=== PATIENT | female | born 1935 | race Caucasian/White ===

== ENCOUNTER 2016-07-16 15:57 | Inpatient (IN) | payer OTHER, MEDICARE ==
--- NOTE | 2016-07-16 17:01 | PDOC ---
History of Present Illness - General History Source: Patient Exam Limitations: No Limitations - History of Present Illness Initial Comments: 07/16/16 17:50 Patient is an 81 year old female with a past medical history of DM, hemorrhoids , peripheral neuropathy, Hep C, HTN, HLD, minor stroke (04/2016) and hypothyroidism who presents to the emergency department with vaginal irritation. Patient denies any vaginal discharge or bleeding. Patient also reports rectal discomfort but denies any pain during bowel movements or bleeding. She denies dysuria, frequency, urgency, hesitancy or hematuria. She denies nausea, vomiting, diarrhea, constipation, abdominal pain, hematochezia or melena. <Juhi Haynes - Last Filed: 07/16/16 18:27> <Fransisco Perez - Last Filed: 08/14/16 10:10> - General Chief Complaint: Pain Stated Complaint: HEMORRHOIDS, LOWER PELVIC PAIN Time Seen by Provider: 07/16/16 16:06 Past History <Juhi Haynes - Last Filed: 07/16/16 18:27> - Past Medical History Anemia: No Asthma: No Cancer: No Cardiac Disorders: No CVA: Yes (TIA) COPD: No CHF: No Dementia: No Diabetes: Yes (IDDM) GI Disorders: No Disorders: No HTN: Yes Hypercholesterolemia: No Liver Disease: No Seizures: No Thyroid Disease: Yes - Surgical History Abdominal Surgery: No Appendectomy: No Cardiac Surgery: No Cholecystectomy: Yes Lung Surgery: No Neurologic Surgery: No Orthopedic Surgery: No - Psycho/Social/Smoking Cessation Hx Anxiety: No Suicidal Ideation: No Smoking Status: Yes Smoking History: Current every day smoker Have you smoked in the past 12 months: Yes Number of Cigarettes Smoked Daily: 20 Information on smoking cessation initiated: No 'Breaking Loose' booklet given: 05/04/16 Hx Alcohol Use: Yes (OCCASIONALLY) Drug/Substance Use Hx: No Substance Use Type: None Hx Substance Use Treatment: No <Fransisco Perez - Last Filed: 08/14/16 10:10> - Past Medical History Allergies/Adverse Reactions: Allergies Allergy/AdvReac Type Severity Reaction Status Date / Time No Known Allergies Allergy Verified 07/16/16 16:05 Home Medications: Ambulatory Orders Nifedipine [Nifedical Xl] 60 mg PO DAILY 05/04/16 Insulin (Levemir) [Levemir Vial] 20 units SQ AM #1 vial 05/08/16 Aspirin [Aspirin EC] 325 mg PO DAILY #30 tablet. 05/10/16 Atorvastatin Ca [Lipitor] 40 mg PO HS #30 tablet 05/10/16 Carvedilol [Coreg -] 12.5 mg PO BID #30 tablet 05/10/16 Meclizine HCl [Antivert -] 12.5 mg PO BID PRN #10 tablet 05/10/16 Lisinopril 10 mg PO DAILY 07/17/16 Levothyroxine [Synthroid -] 50 mcg PO DAILY@0700 #30 tablet 07/21/16 Review of Systems - Review of Systems Able to Perform ROS?: Yes Comments:: 07/16/16 17:51 GENERAL/CONSTITUTIONAL: No fever or chills. No weakness. HEAD, EYES, EARS, NOSE AND THROAT: No change in vision. No ear pain or discharge. No sore throat. CARDIOVASCULAR: No chest pain or shortness of breath. RESPIRATORY: No cough, wheezing, or hemoptysis. GASTROINTESTINAL: No nausea, vomiting, diarrhea or constipation. GENITOURINARY: +vaginal irritation. No dysuria, frequency, or change in urination. MUSCULOSKELETAL: No joint or muscle swelling or pain. No neck or back pain. SKIN: No rash NEUROLOGIC: No headache, vertigo, loss of consciousness, or change in strength/ sensation. ENDOCRINE: No increased thirst. No abnormal weight change. HEMATOLOGIC/LYMPHATIC: No anemia, easy bleeding, or history of blood clots. ALLERGIC/IMMUNOLOGIC: No hives or skin allergy. <Juhi Haynes - Last Filed: 07/16/16 18:27> *Physical Exam - Vital Signs Last Vital Signs Temp Pulse Resp BP Pulse Ox 97.5 F L 85 16 128/71 98 07/16/16 16:00 07/16/16 16:00 07/16/16 16:00 07/16/16 16:00 07/16/16 16:00 - Physical Exam Comments: 07/16/16 17:51 GENERAL: Awake, alert, and fully oriented, in no acute distress HEAD: No signs of trauma EYES: PERRLA, EOMI, sclera anicteric, conjunctiva clear ENT: Auricles normal inspection, hearing grossly normal, nares patent, oropharynx clear without exudates. Moist mucosa NECK: Normal ROM, supple, no lymphadenopathy, JVD, or masses LUNGS: Breath sounds equal, clear to auscultation bilaterally. No wheezes, and no crackles HEART: Regular rate and rhythm, normal S1 and S2, no murmurs, rubs or gallops ABDOMEN: Soft, nontender, normoactive bowel sounds. No guarding, no rebound. No masses EXTREMITIES: Normal range of motion, no edema. No clubbing or cyanosis. No cords, erythema, or tenderness NEUROLOGICAL: Cranial nerves II through XII grossly intact. Normal speech, normal gait SKIN: Warm, Dry, normal turgor, no rashes or lesions noted. <Juhi Haynes - Last Filed: 07/16/16 18:27> - Vital Signs Last Vital Signs Temp Pulse Resp BP Pulse Ox 97.5 F L 85 16 128/71 98 07/16/16 16:00 07/16/16 16:00 07/16/16 16:00 07/16/16 16:00 07/16/16 16:00 <Fransisco Perez - Last Filed: 08/14/16 10:10> ED Treatment Course - LABORATORY CBC & Chemistry Diagram: 07/20/16 06:50 07/20/16 06:50 <Fransisco Perez - Last Filed: 08/14/16 10:10> Medical Decision Making - Medical Decision Making 07/16/16 17:50 81 year old female with a past medical history of DM, hemorrhoids, peripheral neuropathy, Hep C, HTN, HLD, minor stroke (04/2016) and hypothyroidism who presents to the emergency department with vaginal irritation and rectal discomfort. Patient was examined in [facility] by a PA and upon pelvic/rectal exam was found to have a mass duration in perineal area and hemorrhoid. Patient denies any vaginal bleeding, vaginal discharge, rectal bleeding or rectal pain. Will order a CT for further evaluation of the mass. 07/16/16 18:28 As per patient and records from Dr. Mancia, of nephrology, patient cannot have contrast exposure. <Juhi Haynes - Last Filed: 07/16/16 18:27> *DC/Admit/Observation/Transfer - Attestations Scribe Attestion: 07/16/16 17:51 Documentation prepared by TREMAINE Wagoner, acting as medical collections specialist for Fransisco Perez MD/DO. <Juhi Haynes - Last Filed: 07/16/16 18:27> - Attestations Physician Attestion: 07/16/16 17:01 I, Dr. Fransisco Perez, attest that this document has been prepared under my direction and personally reviewed by me in its entirety. I further attest, that it accurately reflects all work, treatment, procedures and medical decision -making performed by me. <Fransisco Perez - Last Filed: 08/14/16 10:10> Diagnosis at time of Disposition: Perianal abscess - Discharge Dispostion Disposition: VNS/HOME HEALTH CARE Condition at time of disposition: Stable - Prescriptions - Referrals
[2016-07-16 19:35] LABS: BASOPHIL 0.5 % (0-2.0); EOSINOPHIL 1.2 % (0-4.5); MCH 29.3 pg (25.7-33.7); MCHC 33.6 g/dl (32.0-36.0); NEUTROPHILS 71.7 % (42.8-82.8); PLATELET COUNT 270 K/MM3 (134-434); RDW 16.5 % (11.6-15.6); WHITE BLOOD COUNT 16.3 K/mm3 (4.0-10.0)
[2016-07-16 19:56] LABS: BILIRUBIN,TOTAL 0.3 mg/dL (0.2-1.0); CALCIUM 8.4 mg/dL (8.5-10.1); CREATININE 1.9 mg/dL (0.55-1.02); TOT PROT 7.1 g/dl (6.4-8.2)
[2016-07-16 23:25] LABS: URINE APPEARANCE SLCLOUDY; URINE BILIRUBIN NEGATIVE (NEGATIVE); URINE BLOOD NEGATIVE (NEGATIVE); URINE COLOR LTYELLOW; URINE GLUCOSE (UA) 1+ (NEGATIVE); URINE KETONE NEGATIVE (NEGATIVE); URINE LEUK ESTERASE NEGATIVE (NEGATIVE); URINE NITRITE NEGATIVE (NEGATIVE); URINE UROBILINOGEN NEGATIVE E.U./dl (0.2-1.0)
[2016-07-16 23:28] LABS: URINE PROTEIN 3+ (NEGATIVE)
[2016-07-16 23:47] LABS: URINE BACTERIA RARE /hpf (NONE SEEN); URINE MUCUS RARE; URINE RBC 1 /hpf (0-3); URINE WBC 4 /hpf (3-5); YEAST RARE
[2016-07-16] MEDS ORDERED: METRONIDAZOLE 500 MG PREMIXED 100 ML IVPB ONE (23:47)
[2016-07-16] MEDS ORDERED: PIPERACILLIN/TAZOB 4.5 GM 4.5 GM in DEXTROSE 5%-WATER - 100 ML IVPB ONE (23:47)
[2016-07-17] MEDS ORDERED: PIPERACILLIN/TAZOB 4.5 GM 100 ML IVPB ONE (00:12)
--- NOTE | 2016-07-17 00:15 | PDOC ---
*Physical Exam - Vital Signs Last Vital Signs Temp Pulse Resp BP Pulse Ox 97.9 F 75 20 150/60 99 07/16/16 23:30 07/16/16 23:30 07/16/16 23:30 07/16/16 23:30 07/16/16 23:30 ED Treatment Course - LABORATORY CBC & Chemistry Diagram: 07/16/16 19:15 07/16/16 19:15 - ADDITIONAL ORDERS Additional order review: Laboratory Results 07/16/16 07/16/16 19:15 18:57 Sodium 144 Potassium 3.7 Chloride 111 H Carbon Dioxide 24 Anion Gap 9 BUN 25 H D Creatinine 1.9 H Creat Clearance w eGFR 25.44 Random Glucose 82 D Calcium 8.4 L Total Bilirubin 0.3 D AST 16 ALT 24 Alkaline Phosphatase 70 D Total Protein 7.1 Albumin 3.0 L Urine Color Ltyellow Urine Appearance Slcloudy Urine pH 5.0 Ur Specific [place] 1.013 Urine Protein 3+ H Urine Glucose (UA) 1+ H Urine Ketones Negative Urine Blood Negative Urine Nitrite Negative Urine Bilirubin Negative Urine Urobilinogen Negative Ur Leukocyte Esterase Negative Urine RBC 1 Urine WBC 4 Ur Epithelial Cells Rare Urine Bacteria Rare Urine Mucus Rare Urine Yeast Rare 07/16/16 19:15 RBC 4.07 MCV 87.0 MCHC 33.6 RDW 16.5 H MPV 8.0 Neutrophils % 71.7 Lymphocytes % 20.0 D Monocytes % 6.6 Eosinophils % 1.2 Basophils % 0.5 *DC/Admit/Observation/Transfer Diagnosis at time of Disposition: Perianal abscess - Discharge Dispostion Condition at time of disposition: Stable Admit: Yes - Referrals Referrals: Home Morin MD [Primary Care Provider] - - Patient Instructions - Post Discharge Activity
[2016-07-17] MEDS ORDERED: METRONIDAZOLE 500 MG PREMIXED 100 ML IVPB ONE (00:44)
[2016-07-17] MEDS ORDERED: MECLIZINE HCL 12.5 MG TABLET PO PRN ×2 (06:37→21:15)
[2016-07-17] MEDS ORDERED: ACETAMINOPHEN 325 MG TABLET (FP) PO PRN ×3 (06:38→21:15)
[2016-07-17] MEDS ORDERED: DEXTROSE 5%-NORMAL SALINE 1,000 ML IV SCH (06:45)
[2016-07-17] MEDS ORDERED: LEVOTHYROXINE NA 25 MCG TABLET (FP) PO SCH (07:00)
[2016-07-17] MEDS ORDERED: NIFEdipine E.R 60 MG TABLET (UD) PO SCH (10:00)
[2016-07-17] MEDS ORDERED: CARVEDILOL 12.5 MG TABLET (FP) PO SCH (10:00)
--- NOTE | 2016-07-17 12:42 | HP ---
Admitting History and Physical - Primary Care Physician PCP: Home Morin - Admission Chief Complaint: perianal discomfort History of Present Illness: Patient is an 81 year old female with a past medical history of DM, hemorrhoids , peripheral neuropathy, Hep C, HTN, HLD, h/o cerebellar infarct on asa 325mg and hypothyroidism who presents to the emergency department with vaginal irritation. Patient denies any vaginal discharge or bleeding. Patient also reports rectal discomfort but denies any pain during bowel movements or bleeding. She denies dysuria, frequency, urgency, hesitancy or hematuria. She denies nausea, vomiting, diarrhea, constipation, abdominal pain, hematochezia or melena. ct scan done in ER shows 1.8mm perianal abscess labs show leukocytosis 16.5 got zosyn and flagyl in ER is NPO going to ER today History Source: Patient, Medical Record - Past Medical History CAN CLEANER: Yes: Peripheral Neuropathy Cardiovascular: Yes: HTN, Hyperlipdemia Gastrointestinal: Yes: Constipation Hepatobiliary: Yes: Hepatitis C Endocrine: Yes: Diabetes Mellitus, Hypothyroidism - Smoking History Smoking history: Current every day smoker Have you smoked in the past 12 months: Yes Aproximately how many cigarettes per day: 20 - Alcohol/Substance Use Hx Alcohol Use: Yes (OCCASIONALLY) Home Medications - Allergies Allergies/Adverse Reactions: Allergies Allergy/AdvReac Type Severity Reaction Status Date / Time No Known Allergies Allergy Verified 07/16/16 16:05 - Home Medications Home Medications: Ambulatory Orders Nifedipine [Nifedical Xl] 60 mg PO DAILY 05/04/16 Insulin (Levemir) [Levemir Vial] 20 units SQ AM #1 vial 05/08/16 Levothyroxine [Synthroid -] 37.5 mcg PO ACBK #30 tablet 05/08/16 Aspirin [Aspirin EC] 325 mg PO DAILY #30 tablet. 05/10/16 Atorvastatin Ca [Lipitor] 40 mg PO HS #30 tablet 05/10/16 Carvedilol [Coreg -] 12.5 mg PO BID #30 tablet 05/10/16 Meclizine HCl [Antivert -] 12.5 mg PO BID PRN #10 tablet 05/10/16 Review of Systems - Review of Systems Genitourinary: reports: Lesions (complaining of perianal discomfort) Physical Examination Vital Signs: Vital Signs Temperature 98.4 F 07/17/16 03:45 Pulse Rate 78 07/17/16 03:45 Respiratory Rate 20 07/17/16 09:00 Blood Pressure 142/64 07/17/16 03:45 O2 Sat by Pulse Oximetry (%) 99 07/17/16 09:00 Constitutional: Yes: Calm Neck: Yes: Trachea Midline Cardiovascular: Yes: Regular Rate and Rhythm, S1, S2 Respiratory: Yes: CTA Bilaterally Gastrointestinal: Yes: Normal Bowel Sounds, Soft Edema: No Neurological: Yes: Alert, Oriented Imaging - Results Cat Scan: Report Reviewed (perianal soft tissue swelling perianal abscess) Problem List - Problems (1) Perianal abscess Assessment/Plan: NPO iv fluids going to OR today surgery on board iv abx scd Code(s): K61.0 - ANAL ABSCESS (2) HTN (hypertension) Assessment/Plan: coreg procardia Code(s): I10 - ESSENTIAL (PRIMARY) HYPERTENSION (3) Hypothyroid Assessment/Plan: synthroid check tsh Code(s): E03.9 - HYPOTHYROIDISM, UNSPECIFIED (4) CVA (cerebral vascular accident) Assessment/Plan: h/o cerebellar infarct on asa 325mg on hold for OR today meclizine PRN cotniue statin Code(s): I63.9 - CEREBRAL INFARCTION, UNSPECIFIED (5) Renal insufficiency Assessment/Plan: renal consult fluids Code(s): N28.9 - DISORDER OF KIDNEY AND URETER, UNSPECIFIED (6) Type 2 diabetes mellitus with other diabetic kidney complication Assessment/Plan: bgm ac/hs sliding scale levemir once she resumes diet hga1c Code(s): E11.29 - TYPE 2 DIABETES MELLITUS W OTH DIABETIC KIDNEY COMPLICATION
[2016-07-17] MEDS ORDERED: PIPERACILLIN/TAZOB 3.375 GM 50 ML IVPB ONE (13:30)
[2016-07-17] MEDS ORDERED: cefTRIAXone 2 GM/100 ML BAG (PRE-DOCKED) IVPB SCH (14:00)
[2016-07-17] MEDS ORDERED: cefTRIAXone 1 GM/50 ML BAG (PRE-DOCKED) IVPB SCH (14:00)
--- NOTE | 2016-07-17 14:01 | PN ---
Progress Note (short form) - Note Progress Note: ID consult dictated imp/reccd 81 year old female admitted with perianal discomfort- no fevers she c/o of hermorrhoidal discomfort +BM ct scan with perianal abscess elevated WBC perianal abscess- rocephin/flagyl for OR drainage today Problem List - Problems (1) Perianal abscess Code(s): K61.0 - ANAL ABSCESS
[2016-07-17 14:20] VITALS: BMI 21.8
--- NOTE | 2016-07-17 15:05 | CONS ---
INFECTIOUS DISEASE DATE OF CONSULTATION: 07/17/2016 REQUESTING PHYSICIAN: This 81-year-old female presents with some rectal discomfort which she attributes to her hemorrhoids. She denies constipation. She is able to have a bowel movement. She has no fevers or chills. She was noted to have some fluctuance on perineal exam. She had a CAT scan done in the ER that shows a 1.8-cm perianal abscess. She is scheduled for operative drainage later today. I am asked to see her for antibiotic recommendation. She had a dose of Zosyn in the emergency room. She is otherwise awake and alert, and she is resting comfortably. Her white count in the emergency room was 16.5. PAST MEDICAL HISTORY: Notable for peripheral neuropathy, hypertension, hyperlipidemia, constipation, hepatitis C, diabetes, hypothyroidism. She was recently hospitalized in April of this year for ataxia. ALLERGIES: She has no known drug allergies. MEDICATIONS: As an outpatient include nifedipine, meclizine, Synthroid, insulin , Coreg, atorvastatin, and aspirin. FAMILY HISTORY: Noncontributory. SOCIAL HISTORY: She is an active smoker and drinks alcohol occasionally. REVIEW OF SYSTEMS: She denies any nausea, vomiting, diarrhea. She is able to have bowel movements. She has no fevers or chills. She has no cough or respiratory distress. She has no shortness of breath. There is no chest pain or abdominal pain. PHYSICAL EXAMINATION: Vital Signs: Temperature is 98.4, pulse is 78, blood pressure 142/64, respiratory rate is 20. She is saturating 99%. HEENT: She is normocephalic. Her eyes are anicteric. Neck: Supple. Lungs: Clear to auscultation. Heart: Regular rate and rhythm. Abdomen: Soft, nontender. Perirectal Area: She has some hemorrhoids which are soft. She has a fluctuant, about a 1.5-cm area with some drainage. Extremities: Without edema. LABORATORY DATA: White count is 16.3, hemoglobin 11.9, platelets are 270. BUN is 25 and creatinine 1.9. Urinalysis has 4 white cells. SUMMARY: This is an 81-year-old woman admitted with perineal discomfort, found to have perianal abscess and treated with Rocephin and Flagyl. She is scheduled for operative drainage later today. Further recommendations to follow based on her clinical course. LAURA LAM M.D. [id number] MTDD
[2016-07-17] MEDS: METRONIDAZOLE 500 MG PREMIXED 100 ML IVPB SCH ×2 (15:52→17:43)
[2016-07-17] MEDS ORDERED: INSULIN SLIDING SCALE (NOVOLOG) 1 VIAL SQ SCH (16:30)
[2016-07-17] MEDS ORDERED: CARVEDILOL 12.5 MG TABLET (FP) PO STA (17:27)
[2016-07-17] MEDS ORDERED: NIFEdipine E.R 60 MG TABLET (UD) PO STA (17:27)
--- NOTE | 2016-07-17 18:54 | CONSULT ---
Consult Consult Specialty:: Surgery Referred by:: Danna Reason for Consultation:: Rectal pain and discomfort - History of Present Illness Chief Complaint: Rectal pain and discomfort x 3 days. 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: Peripheral Neuropathy Cardio/Vascular: Yes: HTN, Hyperlipdemia Gastrointestinal: Yes: Constipation Hepatobiliary: Yes: Hepatitis C Endocrine: Yes: Diabetes Mellitus, Hypothyroidism - Past Surgical History Past Surgical History: Yes: Tonsillectomy, Upper Endoscopy, Vein Stripping/ Ligation (Thyroidectomy,) - Alcohol/Substance Use Hx Alcohol Use: Yes (OCCASIONALLY) - Smoking History Smoking history: Current every day smoker Have you smoked in the past 12 months: Yes Aproximately how many cigarettes per day: 20 Home Medications - Allergies Allergies/Adverse Reactions: Allergies Allergy/AdvReac Type Severity Reaction Status Date / Time No Known Allergies Allergy Verified 07/16/16 16:05 - Home Medications Home Medications: Ambulatory Orders Nifedipine [Nifedical Xl] 60 mg PO DAILY 05/04/16 Insulin (Levemir) [Levemir Vial] 20 units SQ AM #1 vial 05/08/16 Levothyroxine [Synthroid -] 37.5 mcg PO ACBK #30 tablet 05/08/16 Aspirin [Aspirin EC] 325 mg PO DAILY #30 tablet.dr 05/10/16 Atorvastatin Ca [Lipitor] 40 mg PO HS #30 tablet 05/10/16 Carvedilol [Coreg -] 12.5 mg PO BID #30 tablet 05/10/16 Meclizine HCl [Antivert -] 12.5 mg PO BID PRN #10 tablet 05/10/16 Lisinopril 10 mg PO DAILY 07/17/16 Physical Exam Vital Signs: Vital Signs Temperature 98.4 F 07/17/16 17:15 Pulse Rate 81 07/17/16 17:15 Respiratory Rate 18 07/17/16 17:15 Blood Pressure 183/80 07/17/16 17:15 O2 Sat by Pulse Oximetry (%) 97 07/17/16 11:00 Gastrointestinal: Yes: Other (Pin on rectal examination with induration.) Imaging - Results Cat Scan: Report Reviewed, Image Reviewed Problem List - Problems (1) Digna-rectal abscess Code(s): K61.1 - RECTAL ABSCESS (2) HTN (hypertension) Code(s): I10 - ESSENTIAL (PRIMARY) HYPERTENSION Qualifiers: Hypertension type: essential hypertension Qualified Code(s): I10 - Essential (primary) hypertension (3) Hepatitis C Code(s): B19.20 - UNSPECIFIED VIRAL HEPATITIS C WITHOUT HEPATIC COMA Qualifiers: Viral hepatitis chronicity: chronic (4) Hypothyroid Code(s): E03.9 - HYPOTHYROIDISM, UNSPECIFIED Qualifiers: Hypothyroidism type: acquired Qualified Code(s): E03.9 - Hypothyroidism, unspecified Assessment/Plan Perirectal abscess. Plan Examination under anesthesia, incision and drainage of perirectal abscess.
[2016-07-17] MEDS ORDERED: MIDAZOLAM HCL 2 MG/2 ML SINGLE DOSE VIAL ONE (19:28)
[2016-07-17] MEDS ORDERED: PROPOFOL 20 ML ONE (19:33)
--- NOTE | 2016-07-17 20:01 | OP ---
Operative Note - Note: Operative Date: 07/17/16 Pre-Operative Diagnosis: Perirectal and perianal abscess. Operation: Examination under anesthesia,. Incision and drainage of perianal and perirectal abscess. Findings: Induration , and purulent draining sinus, at 11 O'clock position anterior to the anus, between the vagina and the rectum. Abscess, ? anal fistula. Post-Operative Diagnosis: Same as Pre-op Surgeon: Jignesh Hawthorne Anesthesia: General Specimens Removed: Pus for culture Estimated Blood Loss (mls): 10 Operative Report Dictated: Yes
[2016-07-17] MEDS ORDERED: ONDANSETRON 4 MG/2 ML VIAL IVPUSH PRN (20:09)
[2016-07-17] MEDS ORDERED: OXYCODONE/APAP 5/325MG COMBO TABLET PO PRN (20:11)
[2016-07-17] MEDS ORDERED: INSULIN DETEMIR 100 UNITS/ML MDV SQ SCH (22:00)
[2016-07-17] MEDS ORDERED: ATORVASTATIN CA 40 MG TABLET (FP) PO SCH (22:00)
[2016-07-17] MEDS: oxyCODONE HCL 5 MG TABLET PO PRN (22:05)
[2016-07-17] MEDS: INSULIN SLIDING SCALE (NOVOLOG) 1 VIAL SQ SCH (22:10)
[2016-07-17] MEDS: LACTATED RINGERS SOLUTION 1,000 ML IV SCH (22:10)
--- NOTE | 2016-07-17 23:23 | OP ---
DATE OF OPERATION: 07/17/2016 TIME OF OPERATION: 8:05 p.m. PREOPERATIVE DIAGNOSIS: Perirectal and perianal abscess, and perineal and perianal pain. POSTOPERATIVE DIAGNOSIS: Perirectal and perianal abscess/fistula and perineal and perianal pain. OPERATIVE PROCEDURE: Examination under general anesthesia including pelvic examination, incision and drainage of perianal and perirectal abscess, with irrigation. SURGEON: Mike Smith M.D. ANESTHESIA: General anesthesia. ANESTHESIOLOGIST: Stephen Tariq M.D. OPERATIVE DESCRIPTION: This 81-year-old woman was admitted with pain in her perirectal and perineal area. Had white count of 16,300. She has history of hepatitis C, diabetes mellitus, hypertension. CAT scan suggested a perianal and perirectal abscess. Patient was brought in for examination under anesthesia and drainage of the abscess. Consent is obtained. Risks, benefits, and alternatives were discussed with the patient. Patient was brought to the operative room. General anesthesia was administered. She was placed in lithotomy position. A pelvic examination was done under anesthesia. There was induration of the skin between the vagina and the anal canal at 11 o'clock position with purulent drainage from the skin. Swab was sent for culture and antibiotic sensitivity examination. The rest of the pelvic organs including perineum and rectum, was soft without any induration or bogginess. The skin was incised with a number 15 blade, overlying the sinus and pus was evacuated and drained, it was also sent for culture. There was a brown cheesy material that was also excised and sent for culture. The area was then irrigated with saline and packed with iodoform gauze. The rest of the examination is normal. Patient had been on antibiotics, which will be continued postoperatively. MIKE SMITH M.D. [id number] cc: Eros Clay M.D. cc: Amol Kimball
[2016-07-18] MEDS: METRONIDAZOLE 500 MG PREMIXED 100 ML IVPB SCH ×3 (01:33→17:18)
[2016-07-18] MEDS: INSULIN SLIDING SCALE (NOVOLOG) 1 VIAL SQ SCH ×4 (06:03→21:22)
[2016-07-18] MEDS: LEVOTHYROXINE NA 25 MCG TABLET (FP) PO SCH (06:06)
[2016-07-18] MEDS: INSULIN DETEMIR 100 UNITS/ML MDV SQ SCH (06:07)
[2016-07-18] MEDS ORDERED: INSULIN DETEMIR 100 UNITS/ML MDV SQ SCH (07:00)
--- NOTE | 2016-07-18 07:33 | PN ---
Progress Note, Physician History of Present Illness: s/p i&d of abscess - Current Medication List Current Medications: Active Medications Acetaminophen (Tylenol -) 325 mg PO Q6H PRN PRN Reason: PAIN Acetaminophen (Tylenol -) 650 mg PO Q6H PRN PRN Reason: FEVER OR PAIN Last Admin: 07/17/16 22:05 Dose: 650 mg Ceftriaxone Sodium (Rocephin 1gm Ivpb (Pre-Docked)) 1 gm IVPB DAILY [facility] PRN Reason: Protocol Lactated Ringer's (Lactated Ringers Solution) 1,000 mls @ 75 mls/hr IV ASDIR [facility] Last Admin: 07/17/16 22:10 Dose: Not Given Metronidazole (Flagyl 500mg Premixed Ivpb -) 100 mls @ 100 mls/hr IVPB Q8H-IV [facility] Last Admin: 07/18/16 01:33 Dose: 100 mls/hr Insulin Aspart (Novolog Vial Sliding Scale -) 1 vial SQ ACHS [facility] PRN Reason: Protocol Last Admin: 07/18/16 06:03 Dose: Not Given Insulin Detemir (Levemir Vial) 20 units SQ AM [facility] Last Admin: 07/18/16 06:07 Dose: 20 unit Levothyroxine Sodium (Synthroid -) 37.5 mcg PO DAILY@0700 [facility] Last Admin: 07/18/16 06:06 Dose: 37.5 mcg Meclizine HCl (Antivert -) 12.5 mg PO BID PRN PRN Reason: VERTIGO Nifedipine (Procardia Xl -) 60 mg PO DAILY [facility] Oxycodone HCl (Roxicodone -) 5 mg PO Q6H PRN PRN Reason: PAIN SCALE 1-5 Last Admin: 07/17/16 22:05 Dose: 5 mg - Objective Vital Signs: Vital Signs Temperature 98.3 F 07/18/16 06:28 Pulse Rate 79 07/18/16 06:28 Respiratory Rate 18 07/18/16 06:28 Blood Pressure 155/71 07/18/16 06:28 O2 Sat by Pulse Oximetry (%) 98 07/17/16 21:15 Cardiovascular: Yes: Regular Rate and Rhythm Respiratory: Yes: Regular, CTA Bilaterally Gastrointestinal: Yes: Normal Bowel Sounds, Soft. No: Tenderness Assessment/Plan Problems (1) Perianal abscess Assessment/Plan: s/p I&D surgery on board iv abx scd Code(s): K61.0 - ANAL ABSCESS (2) HTN (hypertension) Assessment/Plan: coreg procardia Code(s): I10 - ESSENTIAL (PRIMARY) HYPERTENSION (3) Hypothyroid Assessment/Plan: synthroid check tsh Code(s): E03.9 - HYPOTHYROIDISM, UNSPECIFIED (4) CVA (cerebral vascular accident) Assessment/Plan: h/o cerebellar infarct on asa 325mg on hold for OR today meclizine PRN continue statin Code(s): I63.9 - CEREBRAL INFARCTION, UNSPECIFIED (5) Renal insufficiency Assessment/Plan: renal consult fluids Code(s): N28.9 - DISORDER OF KIDNEY AND URETER, UNSPECIFIED (6) Type 2 diabetes mellitus with other diabetic kidney complication Assessment/Plan: bgm ac/hs sliding scale levemir once she resumes diet hga1c Code(s): E11.29 - TYPE 2 DIABETES MELLITUS W OTH DIABETIC KIDNEY COMPLICATION
[2016-07-18 07:54] LABS: BASOPHIL 0.5 % (0-2.0); EOSINOPHIL 1.9 % (0-4.5); MCH 28.9 pg (25.7-33.7); MCHC 32.7 g/dl (32.0-36.0); MEAN CELL VOLUME 88.5 fl (80-96); MEAN PLT VOLUME 8.6 fl (7.5-11.1); NEUTROPHILS 63.9 % (42.8-82.8); PLATELET COUNT 269 K/MM3 (134-434); RDW 16.5 % (11.6-15.6); WHITE BLOOD COUNT 13.7 K/mm3 (4.0-10.0)
[2016-07-18 08:09] LABS: CHOLESTEROL 199 mg/dL (50-200); LDL CHOLESTEROL (ONLY SJRH) 121 mg/dL (5-100)
[2016-07-18 08:10] LABS: ALBUMIN 2.7 g/dl (3.4-5.0); CALCIUM 8.2 mg/dL (8.5-10.1); MAGNESIUM 2.2 mg/dL (1.8-2.4)
[2016-07-18 08:22] LABS: BILIRUBIN,TOTAL 0.2 mg/dL (0.2-1.0); CREATININE 1.9 mg/dL (0.55-1.02); PHOSPHOROUS 3.9 mg/dL (2.5-4.9); THYROID STIMULATING HORMONE 4.09 uIU/ml (0.358-3.74); TOT PROT 6.3 g/dl (6.4-8.2)
--- NOTE | 2016-07-18 08:27 | PN ---
Progress Note, Physician Chief Complaint: Pt. pain controlled, no anesthesia complaints. - Current Medication List Current Medications: Active Medications Acetaminophen (Tylenol -) 325 mg PO Q6H PRN PRN Reason: PAIN Acetaminophen (Tylenol -) 650 mg PO Q6H PRN PRN Reason: FEVER OR PAIN Last Admin: 07/17/16 22:05 Dose: 650 mg Ceftriaxone Sodium (Rocephin 1gm Ivpb (Pre-Docked)) 1 gm IVPB DAILY [facility] PRN Reason: Protocol Lactated Ringer's (Lactated Ringers Solution) 1,000 mls @ 75 mls/hr IV ASDIR [facility] Last Admin: 07/17/16 22:10 Dose: Not Given Metronidazole (Flagyl 500mg Premixed Ivpb -) 100 mls @ 100 mls/hr IVPB Q8H-IV [facility] Last Admin: 07/18/16 01:33 Dose: 100 mls/hr Insulin Aspart (Novolog Vial Sliding Scale -) 1 vial SQ ACHS [facility] PRN Reason: Protocol Last Admin: 07/18/16 06:03 Dose: Not Given Insulin Detemir (Levemir Vial) 20 units SQ AM [facility] Last Admin: 07/18/16 06:07 Dose: 20 unit Levothyroxine Sodium (Synthroid -) 37.5 mcg PO DAILY@0700 [facility] Last Admin: 07/18/16 06:06 Dose: 37.5 mcg Meclizine HCl (Antivert -) 12.5 mg PO BID PRN PRN Reason: VERTIGO Nifedipine (Procardia Xl -) 60 mg PO DAILY [facility] Oxycodone HCl (Roxicodone -) 5 mg PO Q6H PRN PRN Reason: PAIN SCALE 1-5 Last Admin: 07/17/16 22:05 Dose: 5 mg - Objective Vital Signs: Vital Signs Temperature 98.3 F 07/18/16 06:28 Pulse Rate 79 07/18/16 06:28 Respiratory Rate 18 07/18/16 06:28 Blood Pressure 155/71 07/18/16 06:28 O2 Sat by Pulse Oximetry (%) 98 07/17/16 21:15 Constitutional: Yes: Well Nourished, No Distress, Calm Musculoskeletal: Yes: WNL Neurological: Yes: WNL, Alert, Oriented Labs: CBC, BMP 07/18/16 06:00 Assessment/Plan POD#1 s/p I&D perirectal abscess under [place]. Christie escobedo. D/C from anesthesia care.
[2016-07-18] MEDS: cefTRIAXone 1 GM/50 ML BAG (PRE-DOCKED) IVPB SCH (10:00)
[2016-07-18] MEDS: NIFEdipine E.R 60 MG TABLET (UD) PO SCH (10:00)
[2016-07-18] MEDS ORDERED: LOPERAMIDE HCL 2 MG CAPSULE PO PRN (12:00)
--- NOTE | 2016-07-18 12:40 | CONSULT ---
Consult - text type - Consultation Consultation Note: Renal Consult for CKD Stage 4 This is a 81 year old woman with PMhx of CKD Stage 4 (baseline Cr 1.8, eGFR ~25) , IDDM (x 60 years), Hypertension, Arthritis, Hypothyrodism, Hep C s/p treatment who presented with discomfort in the vaginal and found to have perirectal abcess with Cr of 1.9. Pt s/p Incision and drainage of perianal and perirectal abscess. Pt continues to have mild discomfort in the groin. No sob, chest pain, fever, chills, N/V/D. Tolerating oral diet well. Good urine output. PMhx: as above Allergies: NDKA Family hx: NC Social hx: No T/A/D ROS: as per HPI, all other pertinent ros negative Home Meds: Home Medications Medication Instructions Recorded Nifedipine [Nifedical Xl] 60 mg PO DAILY 05/04/16 Insulin (Levemir) [Levemir Vial] 20 units SQ AM #1 vial 05/08/16 Levothyroxine [Synthroid -] 37.5 mcg PO ACBK #30 tablet 05/08/16 Aspirin [Aspirin EC] 325 mg PO DAILY #30 tablet. 05/10/16 Atorvastatin Ca [Lipitor] 40 mg PO HS #30 tablet 05/10/16 Carvedilol [Coreg -] 12.5 mg PO BID #30 tablet 05/10/16 Meclizine HCl [Antivert -] 12.5 mg PO BID PRN #10 tablet 05/10/16 Lisinopril 10 mg PO DAILY 07/17/16 Vital Signs Temperature 98.1 F 07/18/16 09:59 Pulse Rate 82 07/18/16 09:59 Respiratory Rate 18 07/18/16 09:59 Blood Pressure 162/74 07/18/16 09:59 O2 Sat by Pulse Oximetry (%) 98 07/17/16 21:15 Intake & Output 07/15/16 07/16/16 07/17/16 07/18/16 23:59 23:59 23:59 23:59 Intake Total 825 50 Output Total 0 Balance 825 50 Weight 127 lb 122 lb 8 oz Gen: NAD, awake and alert HEENT: NC/AT, MMM, No JVD CVS: RRR, No M/R Lungs: CTA, no rales or wheeze Abd: soft NT/ND Ext: No edema, clubbing or cyanosis : No bladder distension CBC, BMP 07/18/16 06:00 07/18/16 06:00 Current Medications Acetaminophen (Tylenol -) 325 mg PO Q6H PRN PRN Reason: PAIN Acetaminophen (Tylenol -) 650 mg PO Q6H PRN PRN Reason: FEVER OR PAIN Last Admin: 07/17/16 22:05 Dose: 650 mg Carvedilol (Coreg -) 12.5 mg PO BID [facility] Ceftriaxone Sodium (Rocephin 1gm Ivpb (Pre-Docked)) 1 gm IVPB DAILY [facility] PRN Reason: Protocol Last Admin: 07/18/16 10:00 Dose: 1 gm Lactated Ringer's (Lactated Ringers Solution) 1,000 mls @ 75 mls/hr IV ASDIR [facility] Last Admin: 07/17/16 22:10 Dose: Not Given Metronidazole (Flagyl 500mg Premixed Ivpb -) 100 mls @ 100 mls/hr IVPB Q8H-IV [facility] Last Admin: 07/18/16 10:00 Dose: 100 mls/hr Insulin Aspart (Novolog Vial Sliding Scale -) 1 vial SQ ACHS [facility] PRN Reason: Protocol Last Admin: 07/18/16 11:44 Dose: 2 unit Insulin Detemir (Levemir Vial) 20 units SQ AM [facility] Last Admin: 07/18/16 06:07 Dose: 20 unit Levothyroxine Sodium (Synthroid -) 37.5 mcg PO DAILY@0700 [facility] Last Admin: 07/18/16 06:06 Dose: 37.5 mcg Loperamide HCl (Imodium -) 2 mg PO TID PRN PRN Reason: DIARRHEA Meclizine HCl (Antivert -) 12.5 mg PO BID PRN PRN Reason: VERTIGO Nifedipine (Procardia Xl -) 60 mg PO DAILY [facility] Last Admin: 07/18/16 10:00 Dose: 60 mg Oxycodone HCl (Roxicodone -) 5 mg PO Q6H PRN PRN Reason: PAIN SCALE 1-5 Last Admin: 07/17/16 22:05 Dose: 5 mg A/P 81 year old woman with PMhx of CKD Stage 4 (baseline Cr 1.8, eGFR ~25), IDDM (x 60 years), Hypertension, Arthritis, Hypothyrodism, Hep C s/p treatment who presented with discomfort in the vaginal and found to have perirectal abcess with Cr of 1.9 #CKD Stage 4 with nephrotic range proteinuria Renal function stable Serologic work up for proteinuria in the past showed negative BILLY, HIV, Hepatitis B, RPR Check SPEP Continue Lisinopril Check UPCR #Perrectal Abcess s/p I&D Surgical follow up pain control Abx as per primary #Hypertension Continue Coreg, Nifedpine and Lisopril Titrate as needed Goal BP ~130/80 because of CKD with proteinuria #Hypernatremia encourged oral water intake not on diuretics Thank you Will follow Levy Mancia DO
--- NOTE | 2016-07-18 13:15 | PN ---
Progress Note, Physician - Current Medication List Current Medications: Active Medications Acetaminophen (Tylenol -) 325 mg PO Q6H PRN PRN Reason: PAIN Acetaminophen (Tylenol -) 650 mg PO Q6H PRN PRN Reason: FEVER OR PAIN Last Admin: 07/17/16 22:05 Dose: 650 mg Carvedilol (Coreg -) 12.5 mg PO BID [facility] Ceftriaxone Sodium (Rocephin 1gm Ivpb (Pre-Docked)) 1 gm IVPB DAILY [facility] PRN Reason: Protocol Last Admin: 07/18/16 10:00 Dose: 1 gm Lactated Ringer's (Lactated Ringers Solution) 1,000 mls @ 75 mls/hr IV ASDIR [facility] Last Admin: 07/17/16 22:10 Dose: Not Given Metronidazole (Flagyl 500mg Premixed Ivpb -) 100 mls @ 100 mls/hr IVPB Q8H-IV [facility] Last Admin: 07/18/16 10:00 Dose: 100 mls/hr Insulin Aspart (Novolog Vial Sliding Scale -) 1 vial SQ ACHS [facility] PRN Reason: Protocol Last Admin: 07/18/16 11:44 Dose: 2 unit Insulin Detemir (Levemir Vial) 20 units SQ AM [facility] Last Admin: 07/18/16 06:07 Dose: 20 unit Levothyroxine Sodium (Synthroid -) 37.5 mcg PO DAILY@0700 [facility] Last Admin: 07/18/16 06:06 Dose: 37.5 mcg Loperamide HCl (Imodium -) 2 mg PO TID PRN PRN Reason: DIARRHEA Meclizine HCl (Antivert -) 12.5 mg PO BID PRN PRN Reason: VERTIGO Nifedipine (Procardia Xl -) 60 mg PO DAILY [facility] Last Admin: 07/18/16 10:00 Dose: 60 mg Oxycodone HCl (Roxicodone -) 5 mg PO Q6H PRN PRN Reason: PAIN SCALE 1-5 Last Admin: 07/17/16 22:05 Dose: 5 mg - Objective Vital Signs: Vital Signs Temperature 98.1 F 07/18/16 09:59 Pulse Rate 82 07/18/16 09:59 Respiratory Rate 18 07/18/16 09:59 Blood Pressure 162/74 07/18/16 09:59 O2 Sat by Pulse Oximetry (%) 98 07/17/16 21:15 Labs: CBC, BMP 07/18/16 06:00 07/18/16 06:00 Problem List - Problems (1) Digna-rectal abscess Code(s): K61.1 - RECTAL ABSCESS (2) HTN (hypertension) Code(s): I10 - ESSENTIAL (PRIMARY) HYPERTENSION Qualifiers: Qualified Code(s): I10 - Essential (primary) hypertension (3) Hepatitis C Code(s): B19.20 - UNSPECIFIED VIRAL HEPATITIS C WITHOUT HEPATIC COMA (4) Hypothyroid Code(s): E03.9 - HYPOTHYROIDISM, UNSPECIFIED Qualifiers: Qualified Code(s): E03.9 - Hypothyroidism, unspecified Assessment/Plan Gram stain of the pus, shows gram positice cocci in pairs and chains, and gram positice bacilli. Continue antibiotics, wound care. WBC [id number].
--- NOTE | 2016-07-18 16:42 | PN ---
Progress Note (short form) - Note Progress Note: doing well some discomfort still s/p incision and drainage of perianal abscess Vital Signs Period Temp Pulse Resp BP Sys/Monsivais Pulse Ox Last 24 Hr 97.6 F-98.7 F 72-82 11-18 102-183/50-86 95-98 cor-rrr lungs clear abd soft,nt ext no edema CBC, BMP 07/18/16 06:00 07/18/16 06:00 Microbiology 07/17/16 22:00 Tissue-Other Gram Stain - Final 07/16/16 20:54 Urine - Urine Clean Catch Urine Culture - Final a/p doing well postop suspect can switch to po antiibotics in am- ?augmentin f/u cultures Problem List - Problems (1) Perianal abscess Code(s): K61.0 - ANAL ABSCESS
[2016-07-18] MEDS: LACTATED RINGERS SOLUTION 1,000 ML IV SCH (20:31)
[2016-07-18] MEDS: CARVEDILOL 12.5 MG TABLET (FP) PO SCH (21:21)
[2016-07-18] MEDS: oxyCODONE HCL 5 MG TABLET PO PRN (21:23)
--- NOTE | 2016-07-18 23:27 | CONSULT ---
Consult Consult Specialty:: endocrine Referred by:: dr.[email or web address] [email or web address] Reason for Consultation:: iddm - History of Present Illness Chief Complaint: high sugar History of Present Illness: 81 year old female with a past medical history of DM, hemorrhoids, peripheral neuropathy, Hep C, HTN, HLD, h/o cerebellar infarct on asa 325mg and hypothyroidism who presents to the emergency department with vaginal irritation. has noted elevated bs over past several days,difficulty sitting and walking from the pelvic cyst,denies hypoglycemia,nausea or vomiting - History Source History Provided By: Patient - Past Medical History [employer]: Yes: Peripheral Neuropathy Cardio/Vascular: Yes: HTN, Hyperlipdemia Gastrointestinal: Yes: Constipation Hepatobiliary: Yes: Hepatitis C Endocrine: Yes: Diabetes Mellitus, Hypothyroidism - Past Surgical History Past Surgical History: Yes: Tonsillectomy, Upper Endoscopy, Vein Stripping/ Ligation (Thyroidectomy,) - Alcohol/Substance Use Hx Alcohol Use: Yes (OCCASIONALLY) - Smoking History Smoking history: Current every day smoker Have you smoked in the past 12 months: Yes Aproximately how many cigarettes per day: 20 Home Medications - Allergies Allergies/Adverse Reactions: Allergies Allergy/AdvReac Type Severity Reaction Status Date / Time No Known Allergies Allergy Verified 07/16/16 16:05 - Home Medications Home Medications: Ambulatory Orders Nifedipine [Nifedical Xl] 60 mg PO DAILY 05/04/16 Insulin (Levemir) [Levemir Vial] 20 units SQ AM #1 vial 05/08/16 Levothyroxine [Synthroid -] 37.5 mcg PO ACBK #30 tablet 05/08/16 Aspirin [Aspirin EC] 325 mg PO DAILY #30 tablet. 05/10/16 Atorvastatin Ca [Lipitor] 40 mg PO HS #30 tablet 05/10/16 Carvedilol [Coreg -] 12.5 mg PO BID #30 tablet 05/10/16 Meclizine HCl [Antivert -] 12.5 mg PO BID PRN #10 tablet 05/10/16 Lisinopril 10 mg PO DAILY 07/17/16 Review of Systems - Review of Systems Constitutional: reports: Loss of Appetite, Weakness Eyes: reports: No Symptoms HENT: reports: No Symptoms Neck: reports: No Symptoms Cardiovascular: reports: No Symptoms Respiratory: reports: SOB on Exertion Gastrointestinal: reports: No Symptoms Genitourinary: reports: Urgency Breasts: reports: No Symptoms Reported Musculoskeletal: reports: Muscle Pain, Muscle Cramps, Muscle Weakness Integumentary: reports: No Symptoms Neurological: reports: Dizziness, Weakness Endocrine: reports: No Symptoms Hematology/Lymphatic: reports: No Symptoms Psychiatric: reports: No Symptoms Physical Exam Vital Signs: Vital Signs Temperature 98.6 F 07/18/16 20:58 Pulse Rate 89 07/18/16 20:58 Respiratory Rate 18 07/18/16 21:00 Blood Pressure 147/87 07/18/16 20:58 O2 Sat by Pulse Oximetry (%) 97 07/18/16 21:00 Constitutional: Yes: Anxious Eyes: Yes: EOM Intact HENT: Yes: Normocephalic Neck: Yes: Trachea Midline, Thyromegaly Cardiovascular: Yes: Regular Rate and Rhythm Respiratory: Yes: CTA Bilaterally Gastrointestinal: Yes: Normal Bowel Sounds ...Rectal Exam: Yes: Deferred Renal/: Yes: WNL Breast(s): Yes: WNL Musculoskeletal: Yes: WNL Extremities: Yes: WNL Edema: No Peripheral Pulses WNL: Yes Wound/Incision: Yes: Dressing Dry and Intact Neurological: Yes: WNL ...Motor Strength: WNL Labs: CBC, BMP 07/18/16 06:00 07/18/16 06:00 Assessment/Plan Current Active Problems TRAVIS (acute kidney injury) (Acute) Accelerated essential hypertension (Acute) 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) CVA (cerebral vascular accident) (Acute) Dizziness (Acute) HTN (hypertension) (Acute) Hepatitis C (Acute) Hypothyroid (Acute) Leukocytosis (Acute) Digna-rectal abscess (Acute) Perianal abscess (Acute) Renal insufficiency (Acute) Type 2 diabetes mellitus with other diabetic kidney complication (Acute) Vertiginous syndrome and labyrinthine disorder (Acute) Abnormal Lab Results 07/18/16 07/18/16 07/18/16 06:00 06:00 06:00 WBC 13.7 H RDW 16.5 H Sodium 146 H Chloride 113 H BUN 20 H Creatinine 1.9 H Random Glucose 116 H D Hemoglobin A1c % Calcium 8.2 L AST 12 L D Total Protein 6.3 L Albumin 2.7 L Triglycerides 203 H D Total LDL Cholesterol 121 H TSH 4.09 H D U Random Total Protein 07/18/16 07/18/16 06:00 18:45 WBC RDW Sodium Chloride BUN Creatinine Random Glucose Hemoglobin A1c % 6.8 H D Calcium AST Total Protein Albumin Triglycerides Total LDL Cholesterol TSH U Random Total Protein 963 H Current Medications Generic Name Dose Route Start Last Admin Trade Name Freq PRN Reason Stop Dose Admin Acetaminophen 325 mg 07/17/16 20:19 07/18/16 21:24 Tylenol - PO 325 mg Q6H PRN Administration PAIN Acetaminophen 650 mg 07/17/16 21:15 07/17/16 22:05 Tylenol - PO 650 mg Q6H PRN Administration FEVER OR PAIN Carvedilol 12.5 mg 07/18/16 22:00 07/18/16 21:21 Coreg - PO 12.5 mg BID CARL Administration Ceftriaxone Sodium 1 gm 07/18/16 10:00 07/18/16 10:00 Rocephin 1gm Ivpb (Pre-Docked) IVPB 1 gm DAILY [facility] Administration Protocol Lactated Ringer's 1,000 mls @ 75 mls/hr 07/17/16 20:15 07/18/16 20:31 Lactated Ringers Solution IV Not Given ASDIR [facility] Metronidazole 100 mls @ 100 mls/hr 07/18/16 02:00 07/18/16 17:18 Flagyl 500mg Premixed Ivpb - IVPB 100 mls/hr Q8H-IV [facility] Administration Insulin Aspart 1 vial 07/17/16 22:00 07/18/16 21:22 Novolog Vial Sliding Scale - SQ Not Given ACHS [facility] Protocol Insulin Detemir 20 units 07/18/16 07:00 07/18/16 06:07 Levemir Vial SQ 20 unit AM [facility] Administration Levothyroxine Sodium 37.5 mcg 07/18/16 07:00 07/18/16 06:06 Synthroid - PO 37.5 mcg DAILY@0700 [facility] Administration Loperamide HCl 2 mg 07/18/16 12:00 Imodium - PO TID PRN DIARRHEA Meclizine HCl 12.5 mg 07/17/16 21:15 Antivert - PO BID PRN VERTIGO Nifedipine 60 mg 07/18/16 10:00 07/18/16 10:00 Procardia Xl - PO 60 mg DAILY [facility] Administration Oxycodone HCl 5 mg 07/17/16 20:19 07/18/16 21:23 Roxicodone - PO 5 mg Q6H PRN Administration PAIN SCALE 1-5 plan bgm qid novolog scale coverage continue with levemir 20 unit am daily continue synthroid 37.5mcg daily
[2016-07-19] MEDS: METRONIDAZOLE 500 MG PREMIXED 100 ML IVPB SCH ×3 (01:26→17:12)
[2016-07-19] MEDS: INSULIN SLIDING SCALE (NOVOLOG) 1 VIAL SQ SCH ×4 (06:09→22:10)
[2016-07-19] MEDS: LEVOTHYROXINE NA 25 MCG TABLET (FP) PO SCH (06:10)
--- NOTE | 2016-07-19 07:33 | PN ---
Progress Note, Physician History of Present Illness: s/p i&d of abscess some pressure - Current Medication List Current Medications: Active Medications Acetaminophen (Tylenol -) 325 mg PO Q6H PRN PRN Reason: PAIN Last Admin: 07/18/16 21:24 Dose: 325 mg Acetaminophen (Tylenol -) 650 mg PO Q6H PRN PRN Reason: FEVER OR PAIN Last Admin: 07/17/16 22:05 Dose: 650 mg Carvedilol (Coreg -) 12.5 mg PO BID [facility] Last Admin: 07/18/16 21:21 Dose: 12.5 mg Ceftriaxone Sodium (Rocephin 1gm Ivpb (Pre-Docked)) 1 gm IVPB DAILY [facility] PRN Reason: Protocol Last Admin: 07/18/16 10:00 Dose: 1 gm Metronidazole (Flagyl 500mg Premixed Ivpb -) 100 mls @ 100 mls/hr IVPB Q8H-IV [facility] Last Admin: 07/19/16 01:26 Dose: 100 mls/hr Insulin Aspart (Novolog Vial Sliding Scale -) 1 vial SQ ACHS [facility] PRN Reason: Protocol Last Admin: 07/19/16 06:09 Dose: Not Given Insulin Detemir (Levemir Vial) 20 units SQ AM [facility] Last Admin: 07/18/16 06:07 Dose: 20 unit Levothyroxine Sodium (Synthroid -) 37.5 mcg PO DAILY@0700 [facility] Last Admin: 07/19/16 06:10 Dose: 37.5 mcg Loperamide HCl (Imodium -) 2 mg PO TID PRN PRN Reason: DIARRHEA Meclizine HCl (Antivert -) 12.5 mg PO BID PRN PRN Reason: VERTIGO Nifedipine (Procardia Xl -) 60 mg PO DAILY [facility] Last Admin: 07/18/16 10:00 Dose: 60 mg Oxycodone HCl (Roxicodone -) 5 mg PO Q6H PRN PRN Reason: PAIN SCALE 1-5 Last Admin: 07/18/16 21:23 Dose: 5 mg - Objective Vital Signs: Vital Signs Temperature 98.9 F 07/19/16 05:57 Pulse Rate 70 07/19/16 05:57 Respiratory Rate 18 07/19/16 05:57 Blood Pressure 167/71 07/19/16 05:57 O2 Sat by Pulse Oximetry (%) 97 07/18/16 21:00 Cardiovascular: Yes: Regular Rate and Rhythm Respiratory: Yes: Regular, CTA Bilaterally Gastrointestinal: Yes: Normal Bowel Sounds, Soft. No: Tenderness Assessment/Plan Problems (1) Perianal abscess Assessment/Plan: s/p I&D surgery on board iv abx scd Code(s): K61.0 - ANAL ABSCESS (2) HTN (hypertension) Assessment/Plan: coreg procardia Code(s): I10 - ESSENTIAL (PRIMARY) HYPERTENSION (3) Hypothyroid Assessment/Plan: synthroid check tsh Code(s): E03.9 - HYPOTHYROIDISM, UNSPECIFIED (4) CVA (cerebral vascular accident) Assessment/Plan: h/o cerebellar infarct on asa 325mg on hold for OR today meclizine PRN continue statin Code(s): I63.9 - CEREBRAL INFARCTION, UNSPECIFIED (5) Renal insufficiency Assessment/Plan: renal consult fluids Code(s): N28.9 - DISORDER OF KIDNEY AND URETER, UNSPECIFIED (6) Type 2 diabetes mellitus with other diabetic kidney complication Assessment/Plan: bgm ac/hs sliding scale levemir once she resumes diet hga1c Code(s): E11.29 - TYPE 2 DIABETES MELLITUS W OTH DIABETIC KIDNEY COMPLICATION
[2016-07-19 07:34] LABS: BASOPHIL 0.8 % (0-2.0); EOSINOPHIL 1.9 % (0-4.5); MCH 28.9 pg (25.7-33.7); MEAN CELL VOLUME 87.6 fl (80-96); PLATELET COUNT 260 K/MM3 (134-434); RDW 16.5 % (11.6-15.6); WHITE BLOOD COUNT 13.6 K/mm3 (4.0-10.0)
[2016-07-19 07:50] LABS: ALBUMIN 2.8 g/dl (3.4-5.0); BILIRUBIN,TOTAL 0.3 mg/dL (0.2-1.0); PHOSPHOROUS 3.4 mg/dL (2.5-4.9)
[2016-07-19 07:52] LABS: CALCIUM 8.4 mg/dL (8.5-10.1); MAGNESIUM 2.1 mg/dL (1.8-2.4); TOT PROT 6.5 g/dl (6.4-8.2)
[2016-07-19] MEDS: INSULIN DETEMIR 100 UNITS/ML MDV SQ SCH (08:05)
[2016-07-19] MEDS ORDERED: LEVOTHYROXINE NA 25 MCG TABLET (FP) PO SCH (08:30)
--- NOTE | 2016-07-19 08:37 | PN ---
Progress Note, Physician - Current Medication List Current Medications: Active Medications Acetaminophen (Tylenol -) 325 mg PO Q6H PRN PRN Reason: PAIN Last Admin: 07/18/16 21:24 Dose: 325 mg Acetaminophen (Tylenol -) 650 mg PO Q6H PRN PRN Reason: FEVER OR PAIN Last Admin: 07/17/16 22:05 Dose: 650 mg Carvedilol (Coreg -) 12.5 mg PO BID [facility] Last Admin: 07/18/16 21:21 Dose: 12.5 mg Ceftriaxone Sodium (Rocephin 1gm Ivpb (Pre-Docked)) 1 gm IVPB DAILY [facility] PRN Reason: Protocol Last Admin: 07/18/16 10:00 Dose: 1 gm Metronidazole (Flagyl 500mg Premixed Ivpb -) 100 mls @ 100 mls/hr IVPB Q8H-IV [facility] Last Admin: 07/19/16 01:26 Dose: 100 mls/hr Insulin Aspart (Novolog Vial Sliding Scale -) 1 vial SQ ACHS [facility] PRN Reason: Protocol Last Admin: 07/19/16 06:09 Dose: Not Given Insulin Detemir (Levemir Vial) 20 units SQ AM [facility] Last Admin: 07/19/16 08:05 Dose: 20 unit Levothyroxine Sodium (Synthroid -) 50 mcg PO DAILY@0700 [facility] Loperamide HCl (Imodium -) 2 mg PO TID PRN PRN Reason: DIARRHEA Meclizine HCl (Antivert -) 12.5 mg PO BID PRN PRN Reason: VERTIGO Nifedipine (Procardia Xl -) 60 mg PO DAILY [facility] Last Admin: 07/18/16 10:00 Dose: 60 mg Oxycodone HCl (Roxicodone -) 5 mg PO Q6H PRN PRN Reason: PAIN SCALE 1-5 Last Admin: 07/18/16 21:23 Dose: 5 mg - Objective Vital Signs: Vital Signs Temperature 98.9 F 07/19/16 05:57 Pulse Rate 70 07/19/16 05:57 Respiratory Rate 18 07/19/16 05:57 Blood Pressure 167/71 07/19/16 05:57 O2 Sat by Pulse Oximetry (%) 97 07/18/16 21:00 Labs: CBC, BMP 07/19/16 06:00 07/19/16 06:00 Problem List - Problems (1) Digna-rectal abscess Code(s): K61.1 - RECTAL ABSCESS (2) HTN (hypertension) Code(s): I10 - ESSENTIAL (PRIMARY) HYPERTENSION Qualifiers: Qualified Code(s): I10 - Essential (primary) hypertension (3) Hepatitis C Code(s): B19.20 - UNSPECIFIED VIRAL HEPATITIS C WITHOUT HEPATIC COMA (4) Hypothyroid Code(s): E03.9 - HYPOTHYROIDISM, UNSPECIFIED Qualifiers: Qualified Code(s): E03.9 - Hypothyroidism, unspecified Assessment/Plan Patient has some discomfort , but no pain. Afebrile. Cultures are pending. WBC 32936. Continue antibiotics. Daily wash and dry dressing , locally. If antibiotics are appropriate can be discharged , an can be followed in my office.
[2016-07-19] MEDS: CARVEDILOL 12.5 MG TABLET (FP) PO SCH ×2 (09:13→22:10)
[2016-07-19] MEDS: cefTRIAXone 1 GM/50 ML BAG (PRE-DOCKED) IVPB SCH (09:13)
[2016-07-19] MEDS: NIFEdipine E.R 60 MG TABLET (UD) PO SCH (09:13)
[2016-07-19] MEDS ORDERED: INSULIN (NOVOLOG) ASPART 100 UNITS/ML 10ML VIAL ONE (11:37)
--- NOTE | 2016-07-19 14:05 | PN ---
Progress Note (short form) - Note Progress Note: Renal Follow up for CKD Pt seen and examined at the bedside reports feeling weak denies any pain has a small amount of blood in her stool today no cp or sob Vital Signs Temperature 97.3 F L 07/19/16 09:54 Pulse Rate 78 07/19/16 09:54 Respiratory Rate 20 07/19/16 09:54 Blood Pressure 171/87 07/19/16 09:54 O2 Sat by Pulse Oximetry (%) 96 07/19/16 09:00 Intake & Output 07/16/16 07/17/16 07/18/16 07/19/16 23:59 23:59 23:59 23:59 Intake Total 825 400 100 Output Total 0 Balance 825 400 100 Weight 127 lb 122 lb 8 oz Gen: NAD, awake and alert CVS: RRR, No M/R Lungs: CTA, no rales or wheeze Abd: soft NT/ND Ext: No edema, clubbing or cyanosis CBC, BMP 07/19/16 06:00 07/19/16 06:00 Current Medications Acetaminophen (Tylenol -) 325 mg PO Q6H PRN PRN Reason: PAIN Last Admin: 07/18/16 21:24 Dose: 325 mg Acetaminophen (Tylenol -) 650 mg PO Q6H PRN PRN Reason: FEVER OR PAIN Last Admin: 07/17/16 22:05 Dose: 650 mg Carvedilol (Coreg -) 12.5 mg PO BID [facility] Last Admin: 07/19/16 09:13 Dose: 12.5 mg Ceftriaxone Sodium (Rocephin 1gm Ivpb (Pre-Docked)) 1 gm IVPB DAILY [facility] PRN Reason: Protocol Last Admin: 07/19/16 09:13 Dose: 1 gm Metronidazole (Flagyl 500mg Premixed Ivpb -) 100 mls @ 100 mls/hr IVPB Q8H-IV [facility] Last Admin: 07/19/16 09:13 Dose: 100 mls/hr Insulin Aspart (Novolog Vial Sliding Scale -) 1 vial SQ ACHS [facility] PRN Reason: Protocol Last Admin: 07/19/16 11:40 Dose: Not Given Insulin Detemir (Levemir Vial) 20 units SQ AM [facility] Last Admin: 07/19/16 08:05 Dose: 20 unit Levothyroxine Sodium (Synthroid -) 50 mcg PO DAILY@0700 [facility] Loperamide HCl (Imodium -) 2 mg PO TID PRN PRN Reason: DIARRHEA Meclizine HCl (Antivert -) 12.5 mg PO BID PRN PRN Reason: VERTIGO Nifedipine (Procardia Xl -) 60 mg PO DAILY [facility] Last Admin: 07/19/16 09:13 Dose: 60 mg Oxycodone HCl (Roxicodone -) 5 mg PO Q6H PRN PRN Reason: PAIN SCALE 1-5 Last Admin: 07/18/16 21:23 Dose: 5 mg A/P 81 year old woman with PMhx of CKD Stage 4 (baseline Cr 1.8, eGFR ~25), IDDM (x 60 years), Hypertension, Arthritis, Hypothyrodism, Hep C s/p treatment who presented with discomfort in the vaginal and found to have perirectal abcess with Cr of 1.9 #CKD Stage 4 with nephrotic range proteinuria Renal function remains stable Urine Protein to Cr ratio is 9 SPEP pending start Lisopril 10mg Daily today Trend BUN/Cr and K #Perrectal Abcess s/p I&D Surgical follow up pain control Abx as per primary #Hypertension Continue Coreg, Nifedpine and Lisopril Titrate as needed Goal BP ~130/80 because of CKD with proteinuria Levy Mancia DO
[2016-07-19] MEDS: LISINOPRIL 10 MG TABLET (FP) PO SCH (15:56)
--- NOTE | 2016-07-19 23:00 | PN ---
Progress Note (short form) - Note Progress Note: 81 y/o F noted to be smoking in hallway. Patient has history of smoking 8 cigarettes daily at home. Patient counselled on smoking cessation and offered nicotine patch 7mg. Visit type - Emergency Visit Emergency Visit: Yes ED Registration Date: 07/17/16 Care time: The patient presented to the Emergency Department on the above date and was hospitalized for further evaluation of their emergent condition. - New Patient This patient is new to me today: Yes Date on this admission: 07/22/16 - Critical Care Critical Care patient: No - Discharge Referral Referred to [facility] No
[2016-07-19] MEDS: NICOTINE 7 MG/24 HOURS TOPICAL PATCH TD SCH (23:04)
[2016-07-20] MEDS: METRONIDAZOLE 500 MG PREMIXED 100 ML IVPB SCH ×3 (01:16→17:20)
[2016-07-20] MEDS: INSULIN SLIDING SCALE (NOVOLOG) 1 VIAL SQ SCH ×4 (06:17→21:48)
[2016-07-20] MEDS: LEVOTHYROXINE NA 50 MCG TABLET (FP) PO SCH (06:18)
[2016-07-20 07:21] LABS: BASOPHIL 0.7 % (0-2.0); MCH 28.3 pg (25.7-33.7); MCHC 32.4 g/dl (32.0-36.0); MEAN CELL VOLUME 87.4 fl (80-96); NEUTROPHILS 66.2 % (42.8-82.8); PLATELET COUNT 257 K/MM3 (134-434); RDW 16.4 % (11.6-15.6); WHITE BLOOD COUNT 11.9 K/mm3 (4.0-10.0)
[2016-07-20] MEDS ORDERED: INSULIN (NOVOLOG) ASPART 100 UNITS/ML 10ML VIAL ONE (07:46)
[2016-07-20] MEDS: INSULIN DETEMIR 100 UNITS/ML MDV SQ SCH (07:57)
[2016-07-20 07:59] LABS: ALBUMIN 2.8 g/dl (3.4-5.0); BILIRUBIN,TOTAL 0.2 mg/dL (0.2-1.0); CALCIUM 8.3 mg/dL (8.5-10.1); CREATININE 2.2 mg/dL (0.55-1.02); MAGNESIUM 2.3 mg/dL (1.8-2.4); PHOSPHOROUS 4.3 mg/dL (2.5-4.9); TOT PROT 6.4 g/dl (6.4-8.2)
--- NOTE | 2016-07-20 08:44 | PN ---
Progress Note, Physician History of Present Illness: s/p i&d of abscess some pressure - Current Medication List Current Medications: Active Medications Acetaminophen (Tylenol -) 325 mg PO Q6H PRN PRN Reason: PAIN Last Admin: 07/18/16 21:24 Dose: 325 mg Acetaminophen (Tylenol -) 650 mg PO Q6H PRN PRN Reason: FEVER OR PAIN Last Admin: 07/17/16 22:05 Dose: 650 mg Carvedilol (Coreg -) 12.5 mg PO BID [facility] Last Admin: 07/19/16 22:10 Dose: 12.5 mg Ceftriaxone Sodium (Rocephin 1gm Ivpb (Pre-Docked)) 1 gm IVPB DAILY [facility] PRN Reason: Protocol Last Admin: 07/19/16 09:13 Dose: 1 gm Metronidazole (Flagyl 500mg Premixed Ivpb -) 100 mls @ 100 mls/hr IVPB Q8H-IV [facility] Last Admin: 07/20/16 01:16 Dose: 100 mls/hr Insulin Aspart (Novolog Vial Sliding Scale -) 1 vial SQ ACHS [facility] PRN Reason: Protocol Last Admin: 07/20/16 06:17 Dose: Not Given Insulin Detemir (Levemir Vial) 20 units SQ AM [facility] Last Admin: 07/20/16 07:57 Dose: 20 unit Levothyroxine Sodium (Synthroid -) 50 mcg PO DAILY@0700 [facility] Last Admin: 07/20/16 06:18 Dose: 50 mcg Lisinopril (Prinivil) 10 mg PO DAILY [facility] Last Admin: 07/19/16 15:56 Dose: 10 mg Loperamide HCl (Imodium -) 2 mg PO TID PRN PRN Reason: DIARRHEA Meclizine HCl (Antivert -) 12.5 mg PO BID PRN PRN Reason: VERTIGO Nicotine (Nicoderm Patch -) 7 mg TD DAILY [facility] Last Admin: 07/19/16 23:04 Dose: 7 mg Nifedipine (Procardia Xl -) 60 mg PO DAILY [facility] Last Admin: 07/19/16 09:13 Dose: 60 mg Oxycodone HCl (Roxicodone -) 5 mg PO Q6H PRN PRN Reason: PAIN SCALE 1-5 Last Admin: 07/18/16 21:23 Dose: 5 mg - Objective Vital Signs: Vital Signs Temperature 98.0 F 07/20/16 06:04 Pulse Rate 78 07/20/16 06:04 Respiratory Rate 18 07/20/16 06:04 Blood Pressure 161/80 07/20/16 06:04 O2 Sat by Pulse Oximetry (%) 97 07/19/16 21:00 Cardiovascular: Yes: Regular Rate and Rhythm Respiratory: Yes: Regular, CTA Bilaterally Gastrointestinal: Yes: Normal Bowel Sounds, Soft Labs: CBC, BMP 07/20/16 06:50 07/20/16 06:50 Assessment/Plan Problems (1) Perianal abscess Assessment/Plan: s/p I&D surgery on board iv abx per id scd Code(s): K61.0 - ANAL ABSCESS (2) HTN (hypertension) Assessment/Plan: coreg procardia Code(s): I10 - ESSENTIAL (PRIMARY) HYPERTENSION (3) Hypothyroid Assessment/Plan: synthroid check tsh Code(s): E03.9 - HYPOTHYROIDISM, UNSPECIFIED (4) CVA (cerebral vascular accident) Assessment/Plan: h/o cerebellar infarct on asa 325mg on hold for OR today meclizine PRN continue statin Code(s): I63.9 - CEREBRAL INFARCTION, UNSPECIFIED (5) Renal insufficiency Assessment/Plan: renal consult fluids Code(s): N28.9 - DISORDER OF KIDNEY AND URETER, UNSPECIFIED (6) Type 2 diabetes mellitus with other diabetic kidney complication Assessment/Plan: bgm ac/hs sliding scale levemir once she resumes diet hga1c Code(s): E11.29 - TYPE 2 DIABETES MELLITUS W OTH DIABETIC KIDNEY COMPLICATION
[2016-07-20] MEDS ORDERED: DOCUSATE SODIUM 100 MG CAPSULE (FP) PO PRN (08:47)
[2016-07-20] MEDS ORDERED: BISACODYL 5 MG TABLET.DR (FP) PO ONE (09:00)
--- NOTE | 2016-07-20 09:21 | PN ---
Progress Note, Physician - Current Medication List Current Medications: Active Medications Acetaminophen (Tylenol -) 325 mg PO Q6H PRN PRN Reason: PAIN Last Admin: 07/18/16 21:24 Dose: 325 mg Acetaminophen (Tylenol -) 650 mg PO Q6H PRN PRN Reason: FEVER OR PAIN Last Admin: 07/17/16 22:05 Dose: 650 mg Carvedilol (Coreg -) 12.5 mg PO BID [facility] Last Admin: 07/19/16 22:10 Dose: 12.5 mg Ceftriaxone Sodium (Rocephin 1gm Ivpb (Pre-Docked)) 1 gm IVPB DAILY [facility] PRN Reason: Protocol Last Admin: 07/19/16 09:13 Dose: 1 gm Docusate Sodium (Colace -) 100 mg PO BID PRN PRN Reason: CONSTIPATION Metronidazole (Flagyl 500mg Premixed Ivpb -) 100 mls @ 100 mls/hr IVPB Q8H-IV [facility] Last Admin: 07/20/16 01:16 Dose: 100 mls/hr Insulin Aspart (Novolog Vial Sliding Scale -) 1 vial SQ ACHS [facility] PRN Reason: Protocol Last Admin: 07/20/16 06:17 Dose: Not Given Insulin Detemir (Levemir Vial) 20 units SQ AM [facility] Last Admin: 07/20/16 07:57 Dose: 20 unit Levothyroxine Sodium (Synthroid -) 50 mcg PO DAILY@0700 [facility] Last Admin: 07/20/16 06:18 Dose: 50 mcg Lisinopril (Prinivil) 10 mg PO DAILY [facility] Last Admin: 07/19/16 15:56 Dose: 10 mg Meclizine HCl (Antivert -) 12.5 mg PO BID PRN PRN Reason: VERTIGO Nicotine (Nicoderm Patch -) 7 mg TD DAILY [facility] Last Admin: 07/19/16 23:04 Dose: 7 mg Nifedipine (Procardia Xl -) 60 mg PO DAILY [facility] Last Admin: 07/19/16 09:13 Dose: 60 mg Oxycodone HCl (Roxicodone -) 5 mg PO Q6H PRN PRN Reason: PAIN SCALE 1-5 Last Admin: 07/18/16 21:23 Dose: 5 mg - Objective Vital Signs: Vital Signs Temperature 98.0 F 07/20/16 06:04 Pulse Rate 78 07/20/16 06:04 Respiratory Rate 18 07/20/16 06:04 Blood Pressure 161/80 07/20/16 06:04 O2 Sat by Pulse Oximetry (%) 97 07/19/16 21:00 Labs: CBC, BMP 07/20/16 06:50 07/20/16 06:50 Problem List - Problems (1) Digna-rectal abscess Code(s): K61.1 - RECTAL ABSCESS (2) HTN (hypertension) Code(s): I10 - ESSENTIAL (PRIMARY) HYPERTENSION Qualifiers: Qualified Code(s): I10 - Essential (primary) hypertension (3) Hepatitis C Code(s): B19.20 - UNSPECIFIED VIRAL HEPATITIS C WITHOUT HEPATIC COMA (4) Hypothyroid Code(s): E03.9 - HYPOTHYROIDISM, UNSPECIFIED Qualifiers: Qualified Code(s): E03.9 - Hypothyroidism, unspecified Assessment/Plan Surgery: Patient is confortable, wound is clean. Cultures : positive for garm positive cocci in pairs and chains , and gram positive bacilli. Probable skin infection of the perineum , not rectal/ anal origin[place] [address]. Continue cleaning the wound , daily showers, antibiotics. Will sign off.
[2016-07-20] MEDS: NICOTINE 7 MG/24 HOURS TOPICAL PATCH TD SCH (09:30)
[2016-07-20] MEDS: LISINOPRIL 10 MG TABLET (FP) PO SCH (09:31)
[2016-07-20] MEDS: cefTRIAXone 1 GM/50 ML BAG (PRE-DOCKED) IVPB SCH (09:31)
[2016-07-20] MEDS: NIFEdipine E.R 60 MG TABLET (UD) PO SCH (09:31)
[2016-07-20] MEDS: CARVEDILOL 12.5 MG TABLET (FP) PO SCH ×2 (09:31→21:40)
--- NOTE | 2016-07-20 13:08 | PN ---
Progress Note (short form) - Note Progress Note: Renal Follow up for CKD Pt seen and examined at the bedside feels much better today no sob, chest pain tolerating diet Vital Signs Temperature 98.3 F 07/20/16 09:00 Pulse Rate 69 07/20/16 09:00 Respiratory Rate 18 07/20/16 09:00 Blood Pressure 169/81 07/20/16 09:00 O2 Sat by Pulse Oximetry (%) 97 07/19/16 21:00 Intake & Output 07/17/16 07/18/16 07/19/16 07/20/16 23:59 23:59 23:59 23:59 Intake Total 825 400 350 200 Output Total 0 Balance 825 400 350 200 Weight 122 lb 8 oz Gen: NAD, awake and alert CVS: RRR, No M/R Lungs: CTA, no rales or wheeze Abd: soft NT/ND Ext: No edema, clubbing or cyanosis CBC, BMP 07/20/16 06:50 07/20/16 06:50 Current Medications Acetaminophen (Tylenol -) 325 mg PO Q6H PRN PRN Reason: PAIN Last Admin: 07/18/16 21:24 Dose: 325 mg Acetaminophen (Tylenol -) 650 mg PO Q6H PRN PRN Reason: FEVER OR PAIN Last Admin: 07/17/16 22:05 Dose: 650 mg Carbamide Perox/Anhydrous Glycerin (Debrox -) 10 drop AD BID [facility] Carvedilol (Coreg -) 12.5 mg PO BID [facility] Last Admin: 07/20/16 09:31 Dose: 12.5 mg Ceftriaxone Sodium (Rocephin 1gm Ivpb (Pre-Docked)) 1 gm IVPB DAILY [facility] PRN Reason: Protocol Last Admin: 07/20/16 09:31 Dose: 1 gm Docusate Sodium (Colace -) 100 mg PO BID PRN PRN Reason: CONSTIPATION Metronidazole (Flagyl 500mg Premixed Ivpb -) 100 mls @ 100 mls/hr IVPB Q8H-IV [facility] Last Admin: 07/20/16 09:31 Dose: 100 mls/hr Insulin Aspart (Novolog Vial Sliding Scale -) 1 vial SQ ACHS [facility] PRN Reason: Protocol Last Admin: 07/20/16 11:18 Dose: Not Given Insulin Detemir (Levemir Vial) 20 units SQ AM [facility] Last Admin: 07/20/16 07:57 Dose: 20 unit Levothyroxine Sodium (Synthroid -) 50 mcg PO DAILY@0700 [facility] Last Admin: 07/20/16 06:18 Dose: 50 mcg Lisinopril (Prinivil) 10 mg PO DAILY [facility] Last Admin: 07/20/16 09:31 Dose: 10 mg Meclizine HCl (Antivert -) 12.5 mg PO BID PRN PRN Reason: VERTIGO Nicotine (Nicoderm Patch -) 7 mg TD DAILY [facility] Last Admin: 07/20/16 09:30 Dose: 7 mg Nifedipine (Procardia Xl -) 60 mg PO DAILY [facility] Last Admin: 07/20/16 09:31 Dose: 60 mg Oxycodone HCl (Roxicodone -) 5 mg PO Q6H PRN PRN Reason: PAIN SCALE 1-5 Last Admin: 07/18/16 21:23 Dose: 5 mg A/P 81 year old woman with PMhx of CKD Stage 4 (baseline Cr 1.8, eGFR ~25), IDDM (x 60 years), Hypertension, Arthritis, Hypothyrodism, Hep C s/p treatment who presented with discomfort in the vaginal and found to have perirectal abcess with Cr of 1.9 #CKD Stage 4 with nephrotic range proteinuria Renal function remains stable Urine Protein to Cr ratio is 9 SPEP pending Continue Lisinopril K is stable, BUN/Cr stable #Perrectal Abcess s/p I&D Surgical follow up pain control Abx as per primary #Hypertension Continue Coreg, Nifedpine and Lisopril Titrate as needed Goal BP ~130/80 because of CKD with proteinuria To follow up as outpatient Levy Mancia DO
[2016-07-20] MEDS: CARBAMIDE PEROXIDE 6.5% OTIC 15 ML BOTTLE AD SCH ×2 (17:23→21:40)
[2016-07-20] MEDS ORDERED: PT OWN MED DRAWER 7, Y5N ONE (18:48)
[2016-07-21 00:11] LABS: A/G RATIO 0.9 (0.7-1.7); GLOBULIN, TOTAL 3.5 g/dL (2.2-3.9); M-SPIKE Not Observed g/dL (Not Observed); TOTAL PROTEIN 6.5 g/dL (6.0-8.5)
[2016-07-21] MEDS: METRONIDAZOLE 500 MG PREMIXED 100 ML IVPB SCH ×2 (01:42→09:41)
[2016-07-21] MEDS: LEVOTHYROXINE NA 50 MCG TABLET (FP) PO SCH (06:22)
[2016-07-21] MEDS: INSULIN SLIDING SCALE (NOVOLOG) 1 VIAL SQ SCH ×2 (06:52→12:07)
[2016-07-21] MEDS: INSULIN DETEMIR 100 UNITS/ML MDV SQ SCH (06:52)
[2016-07-21 09:02] VITALS: PULSE 66
[2016-07-21] MEDS: CARVEDILOL 12.5 MG TABLET (FP) PO SCH (09:40)
[2016-07-21] MEDS: LISINOPRIL 10 MG TABLET (FP) PO SCH (09:40)
[2016-07-21] MEDS: NIFEdipine E.R 60 MG TABLET (UD) PO SCH (09:40)
[2016-07-21] MEDS: NICOTINE 7 MG/24 HOURS TOPICAL PATCH TD SCH (09:40)
[2016-07-21] MEDS: cefTRIAXone 1 GM/50 ML BAG (PRE-DOCKED) IVPB SCH (09:41)
[2016-07-21] MEDS: CARBAMIDE PEROXIDE 6.5% OTIC 15 ML BOTTLE AD SCH (10:31)
--- NOTE | 2016-07-21 11:02 | PN ---
Progress Note (short form) - Note Progress Note: ID In good spirits no complaints No fever Selected Entries 07/21/16 09:01 Temperature 98.2 F Pulse Rate 66 Respiratory 18 Rate Blood Pressure 185/75 Abd Soft nontender Rectal exam external hermmoroids no abscess drainage or celllulitis Microbiology 07/16/16 20:54 Urine - Urine Clean Catch Urine Culture - Final Laboratory Tests 07/20/16 07/20/16 06:50 06:50 WBC 11.9 H Hgb 11.1 RDW 16.4 H BUN 23 H Creatinine 2.2 H Assessment Perirectal abscess drained better Plan Discussed wtih Dr Clay No antibiotics Juliana Prabhakar MD
--- NOTE | 2016-07-21 11:14 | PN ---
Progress Note (short form) - Note Progress Note: Renal Follow up for CKD Pt seen and examined at the bedside no acute complaints no sob, chest pain eating well Vital Signs Temperature 98.2 F 07/21/16 09:01 Pulse Rate 66 07/21/16 09:01 Respiratory Rate 18 07/21/16 09:01 Blood Pressure 185/75 07/21/16 09:01 O2 Sat by Pulse Oximetry (%) 99 07/20/16 21:30 Intake & Output 07/18/16 07/19/16 07/20/16 07/21/16 23:59 23:59 23:59 23:59 Intake Total 400 350 900 100 Balance 400 350 900 100 Gen: NAD, awake and alert CVS: RRR, No M/R Lungs: CTA, no rales or wheeze Abd: soft NT/ND Ext: No edema, clubbing or cyanosis CBC, BMP 07/20/16 06:50 07/20/16 06:50 Current Medications Acetaminophen (Tylenol -) 325 mg PO Q6H PRN PRN Reason: PAIN Last Admin: 07/18/16 21:24 Dose: 325 mg Acetaminophen (Tylenol -) 650 mg PO Q6H PRN PRN Reason: FEVER OR PAIN Last Admin: 07/17/16 22:05 Dose: 650 mg Carbamide Perox/Anhydrous Glycerin (Debrox -) 10 drop AD BID [facility] Last Admin: 07/21/16 10:31 Dose: Not Given Carvedilol (Coreg -) 12.5 mg PO BID [facility] Last Admin: 07/21/16 09:40 Dose: 12.5 mg Docusate Sodium (Colace -) 100 mg PO BID PRN PRN Reason: CONSTIPATION Metronidazole (Flagyl 500mg Premixed Ivpb -) 100 mls @ 100 mls/hr IVPB Q8H-IV [facility] Last Admin: 07/21/16 09:41 Dose: 100 mls/hr Insulin Aspart (Novolog Vial Sliding Scale -) 1 vial SQ ACHS [facility] PRN Reason: Protocol Last Admin: 07/21/16 06:52 Dose: Not Given Insulin Detemir (Levemir Vial) 20 units SQ AM [facility] Last Admin: 07/21/16 06:52 Dose: 20 unit Levothyroxine Sodium (Synthroid -) 50 mcg PO DAILY@0700 [facility] Last Admin: 07/21/16 06:22 Dose: 50 mcg Lisinopril (Prinivil) 10 mg PO DAILY [facility] Last Admin: 07/21/16 09:40 Dose: 10 mg Meclizine HCl (Antivert -) 12.5 mg PO BID PRN PRN Reason: VERTIGO Nicotine (Nicoderm Patch -) 7 mg TD DAILY [facility] Last Admin: 07/21/16 09:40 Dose: 7 mg Nifedipine (Procardia Xl -) 60 mg PO DAILY [facility] Last Admin: 07/21/16 09:40 Dose: 60 mg Oxycodone HCl (Roxicodone -) 5 mg PO Q6H PRN PRN Reason: PAIN SCALE 1-5 Last Admin: 07/18/16 21:23 Dose: 5 mg A/P 81 year old woman with PMhx of CKD Stage 4 (baseline Cr 1.8, eGFR ~25), IDDM (x 60 years), Hypertension, Arthritis, Hypothyrodism, Hep C s/p treatment who presented with discomfort in the vaginal and found to have perirectal abcess with Cr of 1.9 #CKD Stage 4 with nephrotic range proteinuria Renal function remains stable outpatient follow up on discharge #Perrectal Abcess s/p I&D Surgical follow up pain control off Abx #Hypertension Continue Coreg, Nifedpine and Lisopril Titrate as needed Goal BP ~130/80 because of CKD with proteinuria To follow up as outpatient Levy Mancia DO
[2016-07-21] MEDS ORDERED: INSULIN (NOVOLOG) ASPART 100 UNITS/ML 10ML VIAL ONE (11:25)
--- NOTE | 2016-07-21 11:29 | DS ---
Physical Examination Vital Signs: Vital Signs Temperature 98.2 F 07/21/16 09:01 Pulse Rate 66 07/21/16 09:01 Respiratory Rate 18 07/21/16 09:01 Blood Pressure 185/75 07/21/16 09:01 O2 Sat by Pulse Oximetry (%) 99 07/20/16 21:30 Cardiovascular: Yes: Regular Rate and Rhythm Respiratory: Yes: Regular, CTA Bilaterally Gastrointestinal: Yes: Normal Bowel Sounds, Soft, Hemorrhoids Wound/Incision: No: Draining, Reddened Labs: CBC, BMP 07/20/16 06:50 07/20/16 06:50 Discharge Summary Reason For Visit: PERIANAL ABSCESS Current Active Problems TRAVIS (acute kidney injury) (Acute) Accelerated essential hypertension (Acute) 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) CVA (cerebral vascular accident) (Acute) Dizziness (Acute) HTN (hypertension) (Acute) Hepatitis C (Acute) Hypothyroid (Acute) Leukocytosis (Acute) Digna-rectal abscess (Acute) Perianal abscess (Acute) Renal insufficiency (Acute) Type 2 diabetes mellitus with other diabetic kidney complication (Acute) Vertiginous syndrome and labyrinthine disorder (Acute) Hospital Course: Patient is an 81 year old female with a past medical history of DM, hemorrhoids , peripheral neuropathy, Hep C, HTN, HLD, h/o cerebellar infarct on asa 325mg and hypothyroidism who presents to the emergency department with vaginal irritation. Patient denies any vaginal discharge or bleeding. Patient also reports rectal discomfort but denies any pain during bowel movements or bleeding. She denies dysuria, frequency, urgency, hesitancy or hematuria. She denies nausea, vomiting, diarrhea, constipation, abdominal pain, hematochezia or melena. ct scan done in ER shows 1.8mm perianal abscess labs show leukocytosis 16.5 got zosyn and flagyl in ER is NPO going to ER today History Source: Patient, Medical Record - Past Medical History [employer]: Yes: Peripheral Neuropathy Cardiovascular: Yes: HTN, Hyperlipdemia Gastrointestinal: Yes: Constipation Hepatobiliary: Yes: Hepatitis C Endocrine: Yes: Diabetes Mellitus, Hypothyroidism Assessment/Plan Problems (1) Perianal abscess Assessment/Plan: s/p I&D surgery on board DC abx per id scd Code(s): K61.0 - ANAL ABSCESS (2) HTN (hypertension) Assessment/Plan: coreg procardia Code(s): I10 - ESSENTIAL (PRIMARY) HYPERTENSION (3) Hypothyroid Assessment/Plan: synthroid check tsh Code(s): E03.9 - HYPOTHYROIDISM, UNSPECIFIED (4) CVA (cerebral vascular accident) Assessment/Plan: h/o cerebellar infarct on asa 325mg on hold for OR today meclizine PRN continue statin Code(s): I63.9 - CEREBRAL INFARCTION, UNSPECIFIED (5) Renal insufficiency Assessment/Plan: renal consult fluids Code(s): N28.9 - DISORDER OF KIDNEY AND URETER, UNSPECIFIED (6) Type 2 diabetes mellitus with other diabetic kidney complication Assessment/Plan: bgm ac/hs sliding scale levemir once she resumes diet hga1c Code(s): E11.29 - TYPE 2 DIABETES MELLITUS W OTH DIABETIC KIDNEY COMPLICATION Condition: Stable - Instructions Diet, Activity, Other Instructions: Follow up with Dr. Hawthorne. Call [phone]. for appointment. Location : [address] [place] [address]. Referrals: Home Morin MD [Primary Care Provider] - 1 Week Disposition: VNS/HOME HEALTH CARE - Home Medications Comprehensive Discharge Medication List: Ambulatory Orders Nifedipine [Nifedical Xl] 60 mg PO DAILY 05/04/16 Insulin (Levemir) [Levemir Vial] 20 units SQ AM #1 vial 05/08/16 Aspirin [Aspirin EC] 325 mg PO DAILY #30 tablet. 05/10/16 Atorvastatin Ca [Lipitor] 40 mg PO HS #30 tablet 05/10/16 Carvedilol [Coreg -] 12.5 mg PO BID #30 tablet 05/10/16 Meclizine HCl [Antivert -] 12.5 mg PO BID PRN #10 tablet 05/10/16 Lisinopril 10 mg PO DAILY 07/17/16 Levothyroxine [Synthroid -] 50 mcg PO DAILY@0700 #30 tablet 07/21/16
[2016-07-21 14:35] VITALS: BP 126/59; TEMP 97.9
== END 2016-07-21 15:39 | disposition home health service (06) | DRG 345 ==
LOC: JERFT 15:57 → JERBED 07-17 00:14 → UNDOADMIN 07-17 01:25 → J7W 07-17 11:47
PROVIDERS: ADMIT Family Medicine; ATTEND Family Medicine
PROC: 0D9P0ZZ Drainage of Rectum, Open Approach (ICD-10-PCS; 2016-07-17)
PROC: 0D9Q0ZZ Drainage of Anus, Open Approach (ICD-10-PCS; principal; 2016-07-17 18:00)
DX: K61.0 Anal abscess (principal); N18.4 Chronic kidney disease, stage 4 (severe); E87.0 Hyperosmolality and hypernatremia; K61.1 Rectal abscess; G62.89 Other specified polyneuropathies; E78.5 Hyperlipidemia, unspecified; E03.9 Hypothyroidism, unspecified; K64.8 Other hemorrhoids; K73.8 Other chronic hepatitis, not elsewhere classified; F17.210 Nicotine dependence, cigarettes, uncomplicated; E11.29 Type 2 diabetes mellitus with other diabetic kidney complication; E11.22 Type 2 diabetes mellitus with diabetic chronic kidney disease; I12.9 Hypertensive chronic kidney disease with stage 1 through stage 4 chronic kidney disease, or unspecified chronic kidney disease; Z86.73 Personal history of transient ischemic attack (TIA), and cerebral infarction without residual deficits
CPT/HCPCS: 36415; 74176-TC; 80048; 80053; 80061; 81003; 81015; 82570; 83036; 83721; 83735; 84100; 84155; 84156; 84165; 84443; 85025; 87070; 87075; 87086; 87186; 87205; 94760; 99284-25

== ENCOUNTER 2017-07-05 17:22 | Inpatient (IN) | payer OTHER, MEDICARE ==
--- NOTE | 2017-07-05 17:31 | PDOC ---
Rapid Medical Evaluation Time Seen by Provider: 07/05/17 17:24 Medical Evaluation: Allergies Allergy/AdvReac Type Severity Reaction Status Date / Time No Known Allergies Allergy Verified 07/05/17 17:24 I have performed a brief in-person evaluation of this patient. The patient presents with a chief complaint of: doctor sent in for abnormal lab regarding kidney function; BP low today. The patient passed out at home and vomited today. Pertinent physical exam findings: shivering, lethargic I have ordered the following: ekg, labs, UA/culture The patient will proceed to the ED for further evaluation.
--- NOTE | 2017-07-05 17:48 | PDOC ---
Attending Attestation - Resident Resident Name: Amy Hough - HPI HPI: 07/05/17 19:29 Pt presents to the ED after "sinking to the floor" in the bathroom today because she "didn't feel well". Denies LOC. Patient is unable to characterize why she doesn't feel well---deines nausea and vomiting, fever or pain. States that she was recently called by her PMD and told that she needs to come in to the hospital because her renal function is worsening. - Physicial Exam PE: 07/05/17 19:34 Agree with resident exam. PAtient is no acute distress and is oriented x 3. Lungs are clear on my exam. - Medical Decision Making 07/05/17 19:35 pt presents to the ED complaining of generalized malaise. Labs show acute on chronic renal failure with elevated BUN. Will give IV hydration and admit to medicine for acute on chronic renal failure. EKG shows no signs of acute ischemia. Will also check serial cardiac enzymes.
[2017-07-05 18:09] LABS: BASO % 0.5 % (0-2.0); EOS % 0.8 % (0-4.5); HEMATOCRIT 34.7 % (32.4-45.2); HEMOGLOBIN 11.2 GM/dL (10.7-15.3); LYMPH % 13.1 % (8-40); MCH 28.9 pg (25.7-33.7); MCHC 32.4 g/dl (32.0-36.0); MEAN CELL VOLUME 89.2 fl (80-96); MEAN PLT VOLUME 8.9 fl (7.5-11.1); MONO % 3.5 % (3.8-10.2); NEUT % 82.1 % (42.8-82.8); PLATELET COUNT 228 K/MM3 (134-434); RBC 3.89 M/mm3 (3.60-5.2); RDW 17.7 % (11.6-15.6); WHITE BLOOD COUNT 11.3 K/mm3 (4.0-10.0)
--- NOTE | 2017-07-05 18:19 | PDOC ---
History of Present Illness - General Chief Complaint: Syncope/Near Syncope Stated Complaint: PCP SENT Time Seen by Provider: 07/05/17 17:24 - History of Present Illness Initial Comments: Mr Pinto is a 82yo F with a PMHx of cerebellar CVA, Diabetic nephropathy who presents after a possible syncopal episode. Daughter (at bedside) heard a thud from the bathroom, saw patient on the floor. Patient states she was sweeping, felt unwell, and brought herself to the floor. Daughter brought patient to sitting position and patient subsequently had chills and vomited. BP taken at the time was 116s/80s which is low for the patient. She was able to maintain her posture and walk but felt weak and continued to look "out of it" as per daughters. Patient denies hitting head or other body parts. Denies headache or focal pain. Denies hx of seizures. Of note, daughter got a phone call from [employer] soon after informing her that her latest bloodwork shows her kidney function worsened and she is possibly dehydrated. PMHx - CVA, DM2, CKD, Peripheral Neuropathy, HTN, HLD, Hypothyroidism, Hep C, Hemorrhoids, PMD - Has seen Dr Clay in the hospital Neuro - Dr Morrison Stamps [employer] Salesperson - Dr Pola Grigsby - Dr Morin Renal - Dr Mancia NIH Stroke Scale - Initial Evaluation Level of consciousness: Alert Ask patient the month and their age: Answers both correctly Ask patient to open & close eyes; make fist and let go: Obeys both correctly Best gaze (horizontal eye movement): Normal Visual field testing: No visual field loss Facial paresis (Show teeth/raise eyebrows/close eyes tight): Normal symmetrical movement Motor Function: Left Arm: Normal Motor Function: Right Arm: Normal (extends arm 90 (or 45) degrees for 10 seconds without drift Motor Function: Left Leg: Normal (extends leg 30 degrees for 5 seconds without drift) Motor Function: Right Leg: Normal (extends leg 30 degrees for 5 seconds without drift) Limb Ataxia: No ataxia Sensory(Use pinprick test arms,legs,trunk,face/side to side): Normal Best language (Describe picture, name items, read sentences): No Aphasia Dysarthria (read several words): Normal articulation Extinction and Inattention: No abnormality - Total Score NIH Stroke Scale Score: 0 Past History - Past Medical History Allergies/Adverse Reactions: Allergies Allergy/AdvReac Type Severity Reaction Status Date / Time No Known Allergies Allergy Verified 07/05/17 17:24 Home Medications: Ambulatory Orders Nifedipine [Nifedical Xl] 60 mg PO DAILY 05/04/16 Atorvastatin Ca [Lipitor] 40 mg PO HS #30 tablet 05/10/16 Carvedilol [Coreg -] 12.5 mg PO BID #30 tablet 05/10/16 Insulin Glargine,Hum.rec.anlog [Lantus] 20 unit SQ DAILY 07/05/17 Levothyroxine [Synthroid -] 20 mcg PO DAILY@0700 07/05/17 Aspirin [Aspirin EC] 162 mg PO DAILY 07/06/17 Rosuvastatin [Crestor -] 5 mg PO HS 07/06/17 Anemia: No Asthma: No Cancer: No Cardiac Disorders: No CVA: Yes (TIA) COPD: No CHF: No DVT: No Dementia: No Diabetes: Yes (IDDM) GI Disorders: No Disorders: No HTN: Yes Hypercholesterolemia: No Liver Disease: No Seizures: No Thyroid Disease: Yes Other medical history: ARITHRITS - Surgical History Abdominal Surgery: No Appendectomy: No Cardiac Surgery: No Cholecystectomy: Yes Lung Surgery: No Neurologic Surgery: No Orthopedic Surgery: No - Suicide/Smoking/Psychosocial Hx Smoking Status: Yes Smoking History: Current every day smoker Have you smoked in the past 12 months: Yes Number of Cigarettes Smoked Daily: 20 Information on smoking cessation initiated: Yes 'Breaking Loose' booklet given: 07/05/17 Hx Alcohol Use: Yes (OCCASIONALLY) Drug/Substance Use Hx: No Substance Use Type: None Hx Substance Use Treatment: No Review of Systems - Review of Systems Able to Perform ROS?: Yes Constitutional: No: Chills, Diaphoresis, Fever HEENTM: No: Eye Pain, Blurred Vision, Tearing Respiratory: No: Cough, Orthopnea, Shortness of Breath Cardiac (ROS): No: Chest Pain, Edema, Irregular Heart Rate ABD/GI: No: Abdominal Distended, Constipated, Diarrhea : No: Burning, Dysuria, Discharge Musculoskeletal: No: Back Pain, Gout, Joint Pain Integumentary: No: Bruising, Change in Color Neurological: No: Headache, Numbness, Paresthesia Psychiatric: No: Anxiety, Depression, Frequent Crying Endocrine: No: Excessive Sweating, Flushing Hematologic/Lymphatic: No: Anemia, Blood Clots, Easy Bleeding *Physical Exam - Vital Signs Last Vital Signs Temp Pulse Resp BP Pulse Ox 97.3 F L 56 L 18 146/64 99 07/05/17 17:25 07/05/17 17:25 07/05/17 17:25 07/05/17 17:25 07/05/17 17:25 - Physical Exam Comments: GEN: AAOx3, NAD, Lying comfortably in no pain HEENT: PERRLA, EOMi CV: S1, S2, RRR LUNG: CTABL ABD: Soft, NT, ND, normoactive BS MSK: No edema, no erythema NEURO: CN 2-12 intact MSK 5/5 in all extremities, no sensatin deficits +Dysmetria (prior cerebellar infarct) ED Treatment Course - LABORATORY CBC & Chemistry Diagram: 07/06/17 06:30 07/06/17 06:30 - ADDITIONAL ORDERS Additional order review: 07/05/17 17:55 RBC 3.89 MCV 89.2 MCHC 32.4 RDW 17.7 H MPV 8.9 D Neutrophils % 82.1 D Lymphocytes % 13.1 D Monocytes % 3.5 L Eosinophils % 0.8 Basophils % 0.5 - RADIOLOGY Radiology Studies Ordered: Category Date Time Status HEAD CT WITHOUT CONTRAST [CT] Stat CT Scan 07/05/17 18:11 Ordered Medical Decision Making - Medical Decision Making 82yo F with PMHx of Cerebellar CVA, Diabetic nephropathy who presented with a possible syncopal episode a couple of hours ago. From the history, this appears like a vasovagal syncopal episode. However, ddx includes: MEtabolic derrangements, arrhythmia, seizure. Will tele obs *DC/Admit/Observation/Transfer Diagnosis at time of Disposition: Syncope Qualifiers: Syncope type: unspecified Qualified Code(s): R55 - Syncope and collapse - Discharge Dispostion Admit: Yes - Referrals - Patient Instructions - Post Discharge Activity
[2017-07-05 18:37] LABS: INR 1.05 (0.82-1.09); PROTHROMBIN TIME (PATIENT) 11.9 SEC (9.98-11.88)
[2017-07-05 18:42] LABS: ALBUMIN 3.7 g/dl (3.4-5.0); ANION GAP 7 (8-16); BLOOD UREA NITROGEN 62 mg/dL (7-18); CALCIUM 7.6 mg/dL (8.5-10.1); CHLORIDE 115 mmol/L (98-107); CO2 21 mmol/L (21-32); CREATININE 3.9 mg/dL (0.55-1.02); GLUCOSE,RANDOM 134 mg/dL (74-106); POTASSIUM 5.3 mmol/L (3.5-5.1); SGPT/ALT 29 U/L (12-78); SODIUM 143 mmol/L (136-145)
[2017-07-05 18:46] LABS: ALK PHOS 65 U/L (45-117); BILIRUBIN,TOTAL 0.3 mg/dL (0.2-1.0); SGOT/AST 16 U/L (15-37); TOT PROT 7.4 g/dl (6.4-8.2)
[2017-07-05 23:21] LABS: URINE APPEARANCE CLEAR; URINE BILIRUBIN NEGATIVE (NEGATIVE); URINE BLOOD NEGATIVE (NEGATIVE); URINE COLOR STRAW; URINE GLUCOSE (UA) 1+ (NEGATIVE); URINE KETONE NEGATIVE (NEGATIVE); URINE LEUK ESTERASE NEGATIVE (NEGATIVE); URINE NITRITE NEGATIVE (NEGATIVE); URINE UROBILINOGEN NEGATIVE mg/dL (0.2-1.0)
[2017-07-05 23:27] LABS: URINE PROTEIN 2+ (NEGATIVE)
[2017-07-05 23:28] LABS: EPI CELLS RARE /HPF (FEW); URINE HYALINE CAST 1 /lpf; URINE MUCUS RARE
[2017-07-06] MEDS ORDERED: SODIUM CHLORIDE 250 ML IV STA (01:28)
[2017-07-06] MEDS: SODIUM CHLORIDE 1,000 ML IV SCH (02:32)
--- NOTE | 2017-07-06 03:30 | HP ---
CHIEF COMPLAINT: fall/TRAVIS PCP: Patience HISTORY OF PRESENT ILLNESS: This is an 82 year old female with a significant past medical history of DM with nephropathy and HTN who is s/p fall this afternoon. Pt denies LOC but daughter reports she heard a thud. Pt reports she became weak and lowered herself to the floor. Her daughter helped her to a sitting position and she subsequently had chills and vomited. BP taken at the time was 116s/80s which is low for the patient. She was able to maintain her posture and walk but felt weak and continued to look "out of it" as per daughter. She denies any injury or pain. Of note, her PCP also called today to report worsening kidney function and recommended she go to the ED. ER course was notable for: (1) BUN 62/Cr 3.9 (2) CT head without acute infarct Recent Travel: pt denies PAST MEDICAL HISTORY: CVA-cerebellar, DM with nephropathy and neuropathy, HTN, HLD, Hypothyroid, Hep C -treated 2y ago, hemorrhoids PAST SURGICAL HISTORY: "throat" surgery as a child cholecystectomy hysterectomy Social History: Smokin ppd Alcohol: pt denies Drugs: pt denies Family History: mother age 85, old age, had DM father age 89 1 sister with DM Allergies No Known Allergies Allergy (Verified 07/05/17 17:24) HOME MEDICATIONS: 3 Medication Instructions Recorded Nifedipine [Nifedical Xl] 60 mg PO DAILY 05/04/16 Carvedilol [Coreg -] 12.5 mg PO BID #30 tablet 05/10/16 Insulin Glargine,Hum.rec.anlog 20 unit SQ DAILY 07/05/17 [Lantus] Levothyroxine [Synthroid -] 20 mcg PO DAILY@0700 07/05/17 Aspirin [Aspirin EC] 162 mg PO DAILY 07/06/17 Rosuvastatin [Crestor -] 5 mg PO HS 07/06/17 REVIEW OF SYSTEMS CONSTITUTIONAL: generalized weakness, malaise, diaphoresis Absent: fever, chills, loss of appetite, weight change HEENT: Absent: rhinorrhea, nasal congestion, throat pain, throat swelling, difficulty swallowing, mouth swelling, ear pain, eye pain, visual changes CARDIOVASCULAR: Absent: chest pain, syncope, palpitations, irregular heart rate, lightheadedness , peripheral edema RESPIRATORY: Absent: cough, shortness of breath, dyspnea with exertion, orthopnea, wheezing, stridor, hemoptysis GASTROINTESTINAL: Absent: abdominal pain, abdominal distension, nausea, vomiting, diarrhea, constipation, melena, hematochezia GENITOURINARY: Absent: dysuria, frequency, urgency, hesitancy, hematuria, flank pain, genital pain MUSCULOSKELETAL: Absent: myalgia, arthralgia, joint swelling, back pain, neck pain SKIN: Absent: rash, itching, pallor HEMATOLOGIC/IMMUNOLOGIC: Absent: easy bleeding, easy bruising, lymphadenopathy, frequent infections ENDOCRINE: Absent: unexplained weight gain, unexplained weight loss, heat intolerance, cold intolerance NEUROLOGIC: Absent: headache, focal weakness or paresthesias, dizziness, unsteady gait, seizure, mental status changes, bladder or bowel incontinence PSYCHIATRIC: Absent: anxiety, depression, suicidal or homicidal ideation, hallucinations. PHYSICAL EXAMINATION Vital Signs - 24 hr 3 07/05/17 07/05/17 07/06/17 17:25 23:19 00:32 01:19 Temperature 97.3 F L 98.9 F 99.5 F Pulse Rate 56 L 78 76 Pulse Rate [ 82 Apical] Respiratory 18 18 20 20 Rate Blood Pressure 146/64 180/77 166/69 Blood Pressure 162/74 [Left Arm] O2 Sat by Pulse 99 96 Oximetry (%) GENERAL: Awake, alert, and fully oriented, in no acute distress. HEAD: Normal with no signs of trauma. EYES: Pupils equal, round and reactive to light, extraocular movements intact, sclera anicteric, conjunctiva clear. No lid lag. EARS, NOSE, THROAT: Ears normal, nares patent, oropharynx clear without exudates. Moist mucous membranes. NECK: Normal range of motion, supple without lymphadenopathy, JVD, or masses. LUNGS: Breath sounds equal, clear to auscultation bilaterally. No wheezes, and no crackles. No accessory muscle use. HEART: Regular rate and rhythm, normal S1 and S2 without murmur, rub or gallop. ABDOMEN: Soft, nontender, not distended, normoactive bowel sounds, no guarding, no rebound, no masses. No hepatomegaly or splenomegaly. MUSCULOSKELETAL: Normal range of motion at all joints. No bony deformities or tenderness. No CVA tenderness. UPPER EXTREMITIES: 2+ pulses, warm, well-perfused. No cyanosis. No clubbing. No peripheral edema. LOWER EXTREMITIES: 2+ pulses, warm, well-perfused. No calf tenderness. No peripheral edema. NEUROLOGICAL: Cranial nerves II-XII intact. Normal speech. Normal gait. PSYCHIATRIC: Cooperative. Good eye contact. Appropriate mood and affect. SKIN: Warm, dry, normal turgor, no rashes or lesions noted, normal capillary refill. Laboratory Results - last 24 hr 3 07/05/17 07/05/17 07/05/17 17:55 17:55 17:55 WBC 11.3 H RBC 3.89 Hgb 11.2 Hct 34.7 MCV 89.2 MCH 28.9 MCHC 32.4 RDW 17.7 H Plt Count 228 MPV 8.9 D Neutrophils % 82.1 D Lymphocytes % 13.1 D Monocytes % 3.5 L Eosinophils % 0.8 Basophils % 0.5 PT with INR 11.90 H INR 1.05 Sodium 143 Potassium 5.3 H Chloride 115 H Carbon Dioxide 21 Anion Gap 7 L BUN 62 H Creatinine 3.9 H Creat Clearance w eGFR 11.06 Random Glucose 134 H Calcium 7.6 L Total Bilirubin 0.3 D AST 16 ALT 29 Alkaline Phosphatase 65 Creatine Kinase 52 Troponin I 0.02 Total Protein 7.4 Albumin 3.7 Urine Color Urine Appearance Urine pH Ur Specific Noble Urine Protein Urine Glucose (UA) Urine Ketones Urine Blood Urine Nitrite Urine Bilirubin Urine Urobilinogen Ur Leukocyte Esterase Urine WBC (Auto) Urine RBC (Auto) Ur Epithelial Cells Hyaline Casts Urine Mucus 3 Urine Color Straw 07/05/17 23:00 Urine Appearance Clear 07/05/17 23:00 Urine pH 5.0 (5.0-8.0) 07/05/17 23:00 Ur Specific Noble 1.009 (1.001-1.035) 07/05/17 23:00 Urine Protein 2+ (NEGATIVE) H 07/05/17 23:00 Urine Glucose (UA) 1+ (NEGATIVE) H 07/05/17 23:00 Urine Ketones Negative (NEGATIVE) 07/05/17 23:00 Urine Blood Negative (NEGATIVE) 07/05/17 23:00 Urine Nitrite Negative (NEGATIVE) 07/05/17 23:00 Urine Bilirubin Negative (NEGATIVE) 07/05/17 23:00 Ur Leukocyte Esterase Negative (NEGATIVE) 07/05/17 23:00 Urine WBC (Auto) 1 Urine RBC (Auto) <1 Ur Epithelial Cells Rare /HPF (FEW) 07/05/17 23:00 Hyaline Casts 1 Urine Mucus Rare 07/05/17 23:00 ECG Normal sinus rhythm vent rate 61, QTC [address]/T wave changes Radiology Results CT head, noncontrast Impression: 1. No acute intracranial hemorrhage, mass effects or hydrocephalus. No compelling evidence of acute transcortical infarction at this time. 2. Subcentimeter hypodensities within the right frontal lobe and right brachium pontis are new since 05/04/[address], but otherwise of indeterminant chronicity. Please correlate clinically. If warranted, MRI may be obtained for further characterization. 3. Moderately severe microvascular ischemic changes with chronic lacunar infarcts as described above, similar to 05/04/[address] Reported By: Rachana Ortez DO 07/05/171951 ASSESSMENT/PLAN: 82yF with PMH CVA-cerebellar, DM with nephropathy and neuropathy, HTN, HLD, Hypothyroid, Hep C-treated 2y ago, hemorrhoids who presented to the ED s/p fall with TRAVIS. TRAVIS on CKD - trial of IV hydration, 250NS bolus given x 1, cont at 100cc/hr - renal consult - renal sono - avoid nephrotoxic agents DM - home lantus changed to formulary levemir - BGM AC/HS with novolog ss HTN - cont home coreg and nifedipine HLD - cont home crestor hypothyroid - cont home synthroid, pt thinks she takes 20mg, will start 25mg, verify with PCP or Rx in am DVT PPX - heparin 5000u q12h FEn - NS @ 100cc/hr - bmp in am, monitor k - diabetic diet Dispo: pt currently requires inpatient monitoring of her emergent condition. Visit type - Emergency Visit Emergency Visit: Yes ED Registration Date: 07/05/17 Care time: The patient presented to the Emergency Department on the above date and was hospitalized for further evaluation of their emergent condition. - New Patient This patient is new to me today: Yes Date on this admission: 07/06/17 - Critical Care Critical Care patient: No
[2017-07-06] MEDS: INSULIN DETEMIR 100 UNITS/ML MDV SQ SCH (06:51)
[2017-07-06] MEDS: INSULIN SLIDING SCALE (NOVOLOG) 1 VIAL SQ SCH ×3 (06:51→16:58)
--- NOTE | 2017-07-06 08:50 | EKG ---
Test Reason : Blood Pressure : / mmHG Vent. Rate : 061 BPM Atrial Rate : 061 BPM P-R Int : 178 ms QRS Dur : 082 ms QT Int : 428 ms P-R-T Axes : 065 023 077 degrees QTc Int : 430 ms POOR DATA QUALITY, INTERPRETATION MAY BE ADVERSELY AFFECTED NORMAL SINUS RHYTHM SEPTAL INFARCT (CITED ON OR BEFORE 10-JUL-2012) ABNORMAL ECG WHEN COMPARED WITH ECG OF 04-MAY-2016 15:06, NO SIGNIFICANT CHANGE WAS FOUND Confirmed by VLADIMIR JC, KARRIE ([id number]) on 07/06/2017 8:50:03 AM Referred By: Confirmed By:KARRIE GILBERT MD
[2017-07-06] MEDS ORDERED: PT OWN MED DRAWER 7, Y5N ONE (09:25)
[2017-07-06] MEDS: NIFEdipine E.R 60 MG TABLET (UD) PO SCH (09:28)
[2017-07-06] MEDS: CARVEDILOL 12.5 MG TABLET (FP) PO SCH ×2 (09:29→21:19)
[2017-07-06] MEDS: ASPIRIN COATED 81 MG TABLET.EC PO SCH (09:31)
[2017-07-06] MEDS: HEPARIN NA (PORCINE) 5,000 UNITS/ML 1ML VIAL SQ SCH ×2 (09:32→21:19)
[2017-07-06 11:05] LABS: BASO % 0.4 % (0-2.0); EOS % 1.1 % (0-4.5); HEMATOCRIT 32.9 % (32.4-45.2); HEMOGLOBIN 10.4 GM/dL (10.7-15.3); LYMPH % 21.7 % (8-40); MCH 28.3 pg (25.7-33.7); MCHC 31.7 g/dl (32.0-36.0); MEAN CELL VOLUME 89.4 fl (80-96); MEAN PLT VOLUME 9.1 fl (7.5-11.1); MONO % 5.2 % (3.8-10.2); NEUT % 71.6 % (42.8-82.8); PLATELET COUNT 214 K/MM3 (134-434); RBC 3.68 M/mm3 (3.60-5.2); RDW 17.6 % (11.6-15.6); WHITE BLOOD COUNT 15.2 K/mm3 (4.0-10.0)
--- NOTE | 2017-07-06 12:48 | PN ---
Progress Note, Physician History of Present Illness: in bed offers no complaints - Current Medication List Current Medications: Active Medications Aspirin (Ecotrin -) 162 mg PO DAILY [facility] Last Admin: 07/06/17 09:31 Dose: 162 mg Carvedilol (Coreg -) 12.5 mg PO BID [facility] Last Admin: 07/06/17 09:29 Dose: 12.5 mg Heparin Sodium (Porcine) (Heparin -) 5,000 unit SQ BID [facility] Last Admin: 07/06/17 09:32 Dose: 5,000 unit Sodium Chloride (Normal Saline -) 1,000 mls @ 100 mls/hr IV ASDIR [facility] Last Admin: 07/06/17 02:32 Dose: 100 mls/hr Insulin Aspart (Novolog Vial Sliding Scale -) 1 vial SQ HS [facility] PRN Reason: Protocol Insulin Aspart (Novolog Vial Sliding Scale -) 1 vial SQ TIDAC [facility] PRN Reason: Protocol Last Admin: 07/06/17 12:29 Dose: 2 unit Insulin Detemir (Levemir Vial) 20 units SQ DAILY@0700 [facility] Last Admin: 07/06/17 06:51 Dose: Not Given Nifedipine (Procardia Xl -) 60 mg PO DAILY [facility] Last Admin: 07/06/17 09:28 Dose: 60 mg Rosuvastatin Calcium (Crestor -) 5 mg PO [facility] - Objective Vital Signs: Vital Signs Temperature 98.6 F 07/06/17 10:00 Pulse Rate 74 07/06/17 10:00 Respiratory Rate 19 07/06/17 10:00 Blood Pressure 169/75 07/06/17 10:00 O2 Sat by Pulse Oximetry (%) 96 07/06/17 01:23 Cardiovascular: Yes: S1, S2 Respiratory: Yes: Regular, CTA Bilaterally Gastrointestinal: Yes: Normal Bowel Sounds, Soft Labs: CBC, BMP 07/06/17 06:30 INR, PTT INR 1.05 (0.82-1.09) 07/05/17 17:55 Problem List - Problems (1) Fall Assessment/Plan: physical therapy Code(s): W19.XXXA - UNSPECIFIED FALL, INITIAL ENCOUNTER (2) TRAVIS (acute kidney injury) Assessment/Plan: follow labs renal consult Code(s): N17.9 - ACUTE KIDNEY FAILURE, UNSPECIFIED (3) Dizziness Assessment/Plan: ivf monitor oob cardio ce x 2 negative Code(s): R42 - DIZZINESS AND GIDDINESS (4) HTN (hypertension) Code(s): I10 - ESSENTIAL (PRIMARY) HYPERTENSION Qualifiers: Hypertension type: essential hypertension Qualified Code(s): I10 - Essential (primary) hypertension (5) Type 2 diabetes mellitus with other diabetic kidney complication Assessment/Plan: bgm monitor check a1c Code(s): E11.29 - TYPE 2 DIABETES MELLITUS W OTH DIABETIC KIDNEY COMPLICATION
[2017-07-06 13:38] LABS: ALBUMIN 3.7 g/dl (3.4-5.0); ANION GAP 9 (8-16); BILIRUBIN,TOTAL 0.3 mg/dL (0.2-1.0); BLOOD UREA NITROGEN 58 mg/dL (7-18); CALCIUM 7.9 mg/dL (8.5-10.1); CHLORIDE 116 mmol/L (98-107); CO2 18 mmol/L (21-32); CREATININE 3.5 mg/dL (0.55-1.02); GLUCOSE,RANDOM 88 mg/dL (74-106); POTASSIUM 4.5 mmol/L (3.5-5.1); SGOT/AST 19 U/L (15-37); SGPT/ALT 28 U/L (12-78); SODIUM 143 mmol/L (136-145); TOT PROT 7.4 g/dl (6.4-8.2)
[2017-07-06 13:39] LABS: ALK PHOS 68 U/L (45-117)
[2017-07-06 15:11] VITALS: BMI 20.9
--- NOTE | 2017-07-06 15:11 | CON.NEP ---
Consult Consult Specialty:: nephrology Reason for Consultation:: increased azotemia - History of Present Illness Chief Complaint: weakness History of Present Illness: She was found on the floor by her daughter who heard a noise. LOC. per medical record she became weak and lowered herself to the floor. Then she had chills and vomited. Head CT negative. unclear if she is a good historian to me she suspiciously denies falls or malaise or any acute symptoms. she says she had a fall months ago no diarrhea or vomiting or fever PMH of DM, HTN, HLD, past cerebellar CVA, hypothyroidism, smoking, and Hep C. EKG NSR t 61 BPM with no acute changes. 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 Cardio/Vascular: Yes: HTN, Hyperlipdemia Gastrointestinal: Yes: Constipation Hepatobiliary: Yes: Hepatitis C ...: No Endocrine: Yes: Diabetes Mellitus, Hypothyroidism - Past Surgical History Past Surgical History: Yes: Tonsillectomy, Upper Endoscopy, Vein Stripping/ Ligation (Thyroidectomy,) - Alcohol/Substance Use Hx Alcohol Use: Yes (OCCASIONALLY) - Smoking History Smoking history: Current every day smoker Have you smoked in the past 12 months: Yes Aproximately how many cigarettes per day: 20 Home Medications - Allergies Allergies/Adverse Reactions: Allergies Allergy/AdvReac Type Severity Reaction Status Date / Time No Known Allergies Allergy Verified 07/05/17 17:24 - Home Medications Home Medications: Ambulatory Orders Nifedipine [Nifedical Xl] 60 mg PO DAILY 05/04/16 Atorvastatin Ca [Lipitor] 40 mg PO HS #30 tablet 05/10/16 Carvedilol [Coreg -] 12.5 mg PO BID #30 tablet 05/10/16 Insulin Glargine,Hum.rec.anlog [Lantus] 20 unit SQ DAILY 07/05/17 Levothyroxine [Synthroid -] 20 mcg PO DAILY@0700 07/05/17 Aspirin [Aspirin EC] 162 mg PO DAILY 07/06/17 Rosuvastatin [Crestor -] 5 mg PO HS 07/06/17 Nephrology Consult - Height Height: 5 ft 4 in - Weight Weight: 122 lb - BMI Body Mass Index (BMI): 20.9 - Lab Results CBC,BMP: CBC, BMP 07/06/17 06:30 07/06/17 06:30 Anion Gap: Anion Gap Anion Gap 9 (8-16) 07/06/17 06:30 - Physical Examination Vital Signs: Vital Signs Temperature 98.6 F 07/06/17 14:00 Pulse Rate 64 07/06/17 14:00 Respiratory Rate 20 07/06/17 14:00 Blood Pressure 129/51 07/06/17 14:00 O2 Sat by Pulse Oximetry (%) 96 07/06/17 09:29 Constitutional: Yes: Well Nourished Eyes: Yes: WNL HENT: Yes: WNL Neck: Yes: WNL Cardiovascular: Yes: WNL Respiratory: Yes: WNL Gastrointestinal: Yes: WNL Musculoskeletal: Yes: WNL Extremities: Yes: WNL Edema: No Integumentary: Yes: WNL Neurological: Yes: WNL Psychiatric: Yes: WNL Problem List - Problems (1) TRAVIS (acute kidney injury) Code(s): N17.9 - ACUTE KIDNEY FAILURE, UNSPECIFIED (2) Renal insufficiency Code(s): N28.9 - DISORDER OF KIDNEY AND URETER, UNSPECIFIED (3) HTN (hypertension) Code(s): I10 - ESSENTIAL (PRIMARY) HYPERTENSION Qualifiers: Hypertension type: essential hypertension Qualified Code(s): I10 - Essential (primary) hypertension (4) Type 2 diabetes mellitus with other diabetic kidney complication Code(s): E11.29 - TYPE 2 DIABETES MELLITUS W [facility] DIABETIC KIDNEY COMPLICATION Assessment/Plan travis ckd very likely prerenal continue IVF as tolerated for now verify history with family r/o memory disorder
--- NOTE | 2017-07-06 15:57 | CON.CARD ---
Consult Consult Specialty:: Cardiology Reason for Consultation:: Syncope Vs Near Syncope - History of Present Illness Chief Complaint: I went down to the floor History of Present Illness: This is an 82 year old female with a PMH of DM,l HTN, HLD, past cerebellar CVA, hypothyroidism, smoking, and Hep C. She was found on the floor by her daughter who heard a "Thud." The patient denies LOC. She states that reports she became weak and lowered herself to the floor. She subsequently had chills and vomited. Labs notable for BUN 62/Cr 3.9. Head CT negative. EKG NSR t 61 BPM with no acute changes. 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 Cardio/Vascular: Yes: HTN, Hyperlipdemia Gastrointestinal: Yes: Constipation Hepatobiliary: Yes: Hepatitis C ...: No Endocrine: Yes: Diabetes Mellitus, Hypothyroidism - Past Surgical History Past Surgical History: Yes: Tonsillectomy, Upper Endoscopy, Vein Stripping/ Ligation (Thyroidectomy,) - Alcohol/Substance Use Hx Alcohol Use: Yes (OCCASIONALLY) - Smoking History Smoking history: Current every day smoker Have you smoked in the past 12 months: Yes Aproximately how many cigarettes per day: 20 Home Medications - Allergies Allergies/Adverse Reactions: Allergies Allergy/AdvReac Type Severity Reaction Status Date / Time No Known Allergies Allergy Verified 07/05/17 17:24 - Home Medications Home Medications: Ambulatory Orders Nifedipine [Nifedical Xl] 60 mg PO DAILY 05/04/16 Atorvastatin Ca [Lipitor] 40 mg PO HS #30 tablet 05/10/16 Carvedilol [Coreg -] 12.5 mg PO BID #30 tablet 05/10/16 Insulin Glargine,Hum.rec.anlog [Lantus] 20 unit SQ DAILY 07/05/17 Levothyroxine [Synthroid -] 20 mcg PO DAILY@0700 07/05/17 Aspirin [Aspirin EC] 162 mg PO DAILY 07/06/17 Rosuvastatin [Crestor -] 5 mg PO HS 07/06/17 Review of Systems Findings/Remarks: As per HPI Vital Signs: Vital Signs Temperature 98.6 F 07/06/17 14:00 Pulse Rate 64 07/06/17 14:00 Respiratory Rate 20 07/06/17 14:00 Blood Pressure 129/51 07/06/17 14:00 O2 Sat by Pulse Oximetry (%) 96 02/10/18 09:29 Constitutional: Yes: No Distress HENT: Yes: WNL Neck: Yes: WNL Respiratory: Yes: CTA Bilaterally Gastrointestinal: Yes: Soft Cardiovascular: Yes: Regular Rate and Rhythm (NL S1S2 No MRHG) Extremities: Yes: WNL Edema: No Neurological: Yes: WNL - Other Data Labs, Other Data: CBC, BMP 07/06/17 06:30 07/06/17 06:30 INR, PTT INR 1.05 (0.82-1.09) 07/05/17 17:55 Troponin, BNP 07/05/17 07/06/17 17:55 06:30 Troponin I 0.02 0.02 Troponin, BNP 07/05/17 07/06/17 17:55 06:30 Troponin I 0.02 0.02 Assessment/Plan Near syncope Most likely secondary to dehydration Agree with gentle hydration Obtain an echocardiogram Follow Lytes HTN Continue Coreg 12.5 mg po bid Continue Nifedipine XL 60 mg daily HLD Continue Crestor 5 mg PO qhs
[2017-07-06] MEDS ORDERED: INSULIN (NOVOLOG) ASPART 100 UNITS/ML 10ML VIAL ONE (21:12)
[2017-07-06] MEDS: ROSUVASTATIN CA 5 MG TABLET (FP) PO SCH (21:19)
[2017-07-06] MEDS ORDERED: INSULIN SLIDING SCALE (NOVOLOG) 1 VIAL SQ SCH (22:00)
[2017-07-07] MEDS: INSULIN DETEMIR 100 UNITS/ML MDV SQ SCH (06:07)
[2017-07-07] MEDS: INSULIN SLIDING SCALE (NOVOLOG) 1 VIAL SQ SCH (06:07)
[2017-07-07] MEDS: SODIUM CHLORIDE 1,000 ML IV SCH (06:55)
[2017-07-07] MEDS ORDERED: LEVOTHYROXINE NA 50 MCG TABLET (FP) PO SCH (07:00)
[2017-07-07 08:23] LABS: CHOLESTEROL 129 mg/dL (50-200); HDL CHOLESTEROL 47 mg/dL (40-60); LDL CHOLESTEROL (ONLY SJRH) 62 mg/dL (5-100); TRIGLYCERIDES 158 mg/dL (35-160)
[2017-07-07] MEDS ORDERED: INSULIN DETEMIR 100 UNITS/ML MDV SQ SCH (08:23)
--- NOTE | 2017-07-07 08:31 | PN ---
Progress Note, Physician Chief Complaint: weakness, Pre-Syncope History of Present Illness: NAD Her A1c is at 4.9, she takes 20 units of lantus at home. Highly suspicious of hypoglycemic event. complains of weakness at this time poor historian - Current Medication List Current Medications: Active Medications Aspirin (Ecotrin -) 162 mg PO DAILY [facility] Last Admin: 07/06/17 09:31 Dose: 162 mg Carvedilol (Coreg -) 12.5 mg PO BID [facility] Last Admin: 07/06/17 21:19 Dose: 12.5 mg Heparin Sodium (Porcine) (Heparin -) 5,000 unit SQ BID [facility] Last Admin: 07/06/17 21:19 Dose: 5,000 unit Sodium Chloride (Normal Saline -) 1,000 mls @ 100 mls/hr IV ASDIR [facility] Last Admin: 07/07/17 06:55 Dose: 100 mls/hr Insulin Aspart (Novolog Vial Sliding Scale -) 1 vial SQ HS [facility] PRN Reason: Protocol Last Admin: 07/06/17 21:19 Dose: Not Given Insulin Aspart (Novolog Vial Sliding Scale -) 1 vial SQ TIDAC [facility] PRN Reason: Protocol Last Admin: 07/07/17 06:07 Dose: Not Given Insulin Detemir (Levemir Vial) 14 units SQ DAILY@0700 [facility] Levothyroxine Sodium (Synthroid -) 20 mcg PO DAILY@0700 [facility] Nifedipine (Procardia Xl -) 60 mg PO DAILY [facility] Last Admin: 07/06/17 09:28 Dose: 60 mg Rosuvastatin Calcium (Crestor -) 5 mg PO HS [facility] Last Admin: 07/06/17 21:19 Dose: 5 mg - Objective Vital Signs: Vital Signs Temperature 97.9 F 07/07/17 05:32 Pulse Rate 65 07/07/17 05:32 Respiratory Rate 20 07/07/17 05:32 Blood Pressure 146/57 07/07/17 05:32 O2 Sat by Pulse Oximetry (%) 93 L 07/06/17 20:40 Constitutional: Yes: Well Nourished, No Distress, Calm Cardiovascular: Yes: Regular Rate and Rhythm Respiratory: Yes: Regular Gastrointestinal: Yes: Normal Bowel Sounds Musculoskeletal: Yes: WNL Extremities: Yes: WNL Edema: No Peripheral Pulses WNL: Yes Neurological: Yes: Alert, Oriented Psychiatric: Yes: Alert, Oriented Labs: CBC, BMP 07/06/17 06:30 INR, PTT INR 1.05 (0.82-1.09) 07/05/17 17:55 Problem List - Problems (1) Diabetes Assessment/Plan: -d/c levemir for now -Endocrinology consult, she may not even need insulin coverage with her being at higher risk of hypoglycemic event due to her advanced age and A1c of 4.9, could be controlled with lifestyle modification, if it is a concern Code(s): E11.9 - TYPE 2 DIABETES MELLITUS WITHOUT COMPLICATIONS Qualifiers: Diabetes mellitus type: type 2 (2) Syncope Assessment/Plan: -cardiac vs neuro vs hypoglycemia -cardiology consult appreciated -Neurology and endocrinology consult placed -echo Code(s): R55 - SYNCOPE AND COLLAPSE Qualifiers: Syncope type: unspecified Qualified Code(s): R55 - Syncope and collapse (3) TRAVIS (acute kidney injury) Assessment/Plan: 06/28 to dehydration -seen by nephrology -IVF -encourage PO fluids Code(s): N17.9 - ACUTE KIDNEY FAILURE, UNSPECIFIED (4) Dehydration Assessment/Plan: -IVF -Encourage PO hydration Code(s): E86.0 - DEHYDRATION (5) Weakness Assessment/Plan: -UA/UC -Echo -neurology consult Code(s): R53.1 - WEAKNESS Assessment/Plan -see problem list
[2017-07-07 09:20] LABS: ANION GAP 8 (8-16); BLOOD UREA NITROGEN 48 mg/dL (7-18); CALCIUM 7.2 mg/dL (8.5-10.1); CHLORIDE 117 mmol/L (98-107); CO2 19 mmol/L (21-32); CREATININE 3.1 mg/dL (0.55-1.02); GLUCOSE,RANDOM 89 mg/dL (74-106); PHOSPHOROUS 3.9 mg/dL (2.5-4.9); POTASSIUM 4.4 mmol/L (3.5-5.1); SODIUM 144 mmol/L (136-145)
[2017-07-07] MEDS: CARVEDILOL 12.5 MG TABLET (FP) PO SCH ×2 (09:51→21:24)
[2017-07-07] MEDS: HEPARIN NA (PORCINE) 5,000 UNITS/ML 1ML VIAL SQ SCH ×2 (09:52→21:25)
[2017-07-07] MEDS: ASPIRIN COATED 81 MG TABLET.EC PO SCH (09:52)
[2017-07-07] MEDS: NIFEdipine E.R 60 MG TABLET (UD) PO SCH (09:52)
[2017-07-07] MEDS ORDERED: PT OWN MED DRAWER 7, Y5N ONE (12:10)
[2017-07-07] MEDS: HYDROCORTISONE 2.5% TOPICAL CREAM 30 GM TUBE TP SCH ×2 (12:12→21:24)
--- NOTE | 2017-07-07 14:50 | PN ---
Progress Note, Physician History of Present Illness: This is an 82 year old female with a PMH of DM,l HTN, HLD, past cerebellar CVA, hypothyroidism, smoking, and Hep C. She was found on the floor by her daughter who heard a "Thud." The patient denies LOC. She states that reports she became weak and lowered herself to the floor. She subsequently had chills and vomited. Labs notable for BUN 62/Cr 3.9. Head CT negative. EKG NSR t 61 BPM with no acute changes. - Current Medication List Current Medications: Active Medications Aspirin (Ecotrin -) 162 mg PO DAILY [facility] Last Admin: 07/07/17 09:52 Dose: 162 mg Carvedilol (Coreg -) 12.5 mg PO BID [facility] Last Admin: 07/07/17 09:51 Dose: 12.5 mg Heparin Sodium (Porcine) (Heparin -) 5,000 unit SQ BID [facility] Last Admin: 07/07/17 09:52 Dose: 5,000 unit Hydrocortisone (Anusol 2.5% Hc Cream -) 1 applic TP BID [facility] Last Admin: 07/07/17 12:12 Dose: 1 applic Sodium Chloride (Normal Saline -) 1,000 mls @ 100 mls/hr IV ASDIR [facility] Last Admin: 07/07/17 06:55 Dose: 100 mls/hr Levothyroxine Sodium (Synthroid -) 20 mcg PO DAILY@0700 [facility] Nifedipine (Procardia Xl -) 60 mg PO DAILY [facility] Last Admin: 07/07/17 09:52 Dose: 60 mg Rosuvastatin Calcium (Crestor -) 5 mg PO HS [facility] Last Admin: 07/06/17 21:19 Dose: 5 mg - Objective Vital Signs: Vital Signs Temperature 98.4 F 07/07/17 13:00 Pulse Rate 64 07/07/17 13:00 Respiratory Rate 19 07/07/17 13:00 Blood Pressure 121/54 07/07/17 13:00 O2 Sat by Pulse Oximetry (%) 97 07/07/17 09:00 Constitutional: Yes: No Distress HENT: Yes: WNL Neck: Yes: WNL Cardiovascular: Yes: Regular Rate and Rhythm (NL S1S2 No MRHG) Respiratory: Yes: CTA Bilaterally Gastrointestinal: Yes: Soft Extremities: Yes: WNL Edema: No Neurological: Yes: Oriented (Non focal) Labs: CBC, BMP 07/06/17 06:30 07/07/17 06:30 INR, PTT INR 1.05 (0.82-1.09) 07/05/17 17:55 Assessment/Plan Near syncope Most likely secondary to dehydration Agree with gentle hydration Obtain an echocardiogram Follow Lytes Check orthostatic BP's (States she feels dizzy when she stands) HTN Continue Coreg 12.5 mg po bid Continue Nifedipine XL 60 mg daily HLD Continue Crestor 5 mg PO qhs
--- NOTE | 2017-07-07 16:40 | PN ---
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 dizzy unreliable toxin Current Medications Aspirin (Ecotrin -) 162 mg PO DAILY [facility] Last Admin: 07/07/17 09:52 Dose: 162 mg Carvedilol (Coreg -) 12.5 mg PO BID [facility] Last Admin: 07/07/17 09:51 Dose: 12.5 mg Heparin Sodium (Porcine) (Heparin -) 5,000 unit SQ BID [facility] Last Admin: 07/07/17 09:52 Dose: 5,000 unit Hydrocortisone (Anusol 2.5% Hc Cream -) 1 applic TP BID [facility] Last Admin: 07/07/17 12:12 Dose: 1 applic Sodium Chloride (Normal Saline -) 1,000 mls @ 100 mls/hr IV ASDIR [facility] Last Admin: 07/07/17 06:55 Dose: 100 mls/hr Levothyroxine Sodium (Synthroid -) 20 mcg PO DAILY@0700 [facility] Nifedipine (Procardia Xl -) 60 mg PO DAILY [facility] Last Admin: 07/07/17 09:52 Dose: 60 mg Rosuvastatin Calcium (Crestor -) 5 mg PO HS [facility] Last Admin: 07/06/17 21:19 Dose: 5 mg Last Vital Signs Temp Pulse Resp BP Pulse Ox 98.4 F 64 19 121/54 97 07/07/17 13:00 07/07/17 13:00 07/07/17 13:00 07/07/17 13:00 07/07/17 09:00 lungs clear heart reg Abd soft nontender Ext no edema CBC, BMP 07/06/17 06:30 07/07/17 06:30 07/05/17 07/06/17 07/07/17 17:55 06:30 06:30 Creatinine 3.9 H 3.5 H 3.1 H IMP- Prerenal azotemia r/o inadequate intake- unreliable historian renal function is improving steadily Plan- continue IVF for now follow labs tomorrow Problem List - Problems (1) TRAVIS (acute kidney injury) Code(s): N17.9 - ACUTE KIDNEY FAILURE, UNSPECIFIED (2) Renal insufficiency Code(s): N28.9 - DISORDER OF KIDNEY AND URETER, UNSPECIFIED (3) HTN (hypertension) Code(s): I10 - ESSENTIAL (PRIMARY) HYPERTENSION Qualifiers: Hypertension type: essential hypertension Qualified Code(s): I10 - Essential (primary) hypertension (4) Type 2 diabetes mellitus with other diabetic kidney complication Code(s): E11.29 - TYPE 2 DIABETES MELLITUS W OTH DIABETIC KIDNEY COMPLICATION
--- NOTE | 2017-07-07 17:20 | CON.NEURO ---
Consult - Past Medical History DELIVERY ARCHITECT: Yes: Peripheral Neuropathy Cardio/Vascular: Yes: HTN, Hyperlipdemia Gastrointestinal: Yes: Constipation Hepatobiliary: Yes: Hepatitis C ...: No Endocrine: Yes: Diabetes Mellitus, Hypothyroidism - Past Surgical History Past Surgical History: Yes: Tonsillectomy, Upper Endoscopy, Vein Stripping/ Ligation (Thyroidectomy,) - Alcohol/Substance Use Hx Alcohol Use: Yes (OCCASIONALLY) - Smoking History Smoking history: Current every day smoker Have you smoked in the past 12 months: Yes Aproximately how many cigarettes per day: 20 Home Medications - Allergies Allergies/Adverse Reactions: Allergies Allergy/AdvReac Type Severity Reaction Status Date / Time No Known Allergies Allergy Verified 07/05/17 17:24 - Home Medications Home Medications: Ambulatory Orders Nifedipine [Nifedical Xl] 60 mg PO DAILY 05/04/16 Atorvastatin Ca [Lipitor] 40 mg PO HS #30 tablet 05/10/16 Carvedilol [Coreg -] 12.5 mg PO BID #30 tablet 05/10/16 Insulin Glargine,Hum.rec.anlog [Lantus] 20 unit SQ DAILY 07/05/17 Levothyroxine [Synthroid -] 20 mcg PO DAILY@0700 07/05/17 Aspirin [Aspirin EC] 162 mg PO DAILY 07/06/17 Rosuvastatin [Crestor -] 5 mg PO HS 07/06/17 Physical Exam-Neuro Vital Signs: Vital Signs Temperature 98.4 F 07/07/17 13:00 Pulse Rate 64 07/07/17 13:00 Respiratory Rate 19 07/07/17 13:00 Blood Pressure 121/54 07/07/17 13:00 O2 Sat by Pulse Oximetry (%) 97 07/07/17 09:00 Labs: CBC, BMP 07/06/17 06:30 07/07/17 06:30 INR, PTT INR 1.05 (0.82-1.09) 07/05/17 17:55 Assessment/Plan cc feeling of dizzy and almost pass out HPI 82 year old female history of DM, Dm nephropahty , htn and neuropathy. She had stroke in 2016 and is on aspirin . She has felt dizziness and almost pass out. Her daughter heard some sound and she rushed to see her and she was on floor but awake and consiouness and she was feeling very week. She is still feeling very weak. At home her bp was low. She has ct scan was unremarkable. NO new focal neurological symptoms. Her kidney function were worse as well. Smoker and smokes 1PPD, NKDA PAST MEDICAL HISTORY: CVA-cerebellar, DM with nephropathy and neuropathy, HTN, HLD, Hypothyroid, Hep C -treated 2y ago, hemorrhoids PAST SURGICAL HISTORY: "throat" surgery as a child cholecystectomy Family History: mother age 85, old age, had DM father age 89 1 sister with DM HOME MEDICATIONS: 3 Medication Instructions Recorded Nifedipine [Nifedical Xl] 60 mg PO DAILY 05/04/16 Carvedilol [Coreg -] 12.5 mg PO BID #30 tablet 05/10/16 Insulin Glargine,Hum.rec.anlog 20 unit SQ DAILY 07/05/17 [Lantus] Levothyroxine [Synthroid -] 20 mcg PO DAILY@0700 07/05/17 Aspirin [Aspirin EC] 162 mg PO DAILY 07/06/17 Rosuvastatin [Crestor -] 5 mg PO HS 07/06/17 Neurological Examination temp 98.4, pulse 64, bp 121/54 and RR 16 Alert follow command, speech is normal and oriented x 3 cn all intact, eomi, pupils is reactive face no asymmetry moving all extremity sensation is normal reflex are generalized diminished no nystagmus was seen and ftn was normal ct no acute findings prevous carotid ultrasound showed moderate stenosis right more than left in may 11 Assessment- Presyncope leading to fall, no focal neurological symptoms and ct head is normal. She was found to have dehydration. Unlikley to be stroke or seizure Plan- no further testing necessary from neurological point of view. continue to rehydrate Pt can see her tomorrow to mobilize her Patient can follow with [facility] as outpatient THanking you so much Samy Schmidt MD
--- NOTE | 2017-07-07 19:20 | CONSULT ---
Consult Consult Specialty:: endocrine Referred by:: hermelinda green np Reason for Consultation:: diabetes mellitus /travis - History of Present Illness Chief Complaint: weak and nearly collapsed at home History of Present Illness: 82yo F with a PMHx of cerebellar CVA, Diabetic nephropathy who presents after a possible syncopal episode. Daughter (at bedside) heard a thud from the bathroom , saw patient on the floor. Patient states she was sweeping, felt unwell, and brought herself to the floor. 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 Cardio/Vascular: Yes: HTN, Hyperlipdemia Gastrointestinal: Yes: Constipation Hepatobiliary: Yes: Hepatitis C ...: No Endocrine: Yes: Diabetes Mellitus, Hypothyroidism - Past Surgical History Past Surgical History: Yes: Tonsillectomy, Upper Endoscopy, Vein Stripping/ Ligation (Thyroidectomy,) - Alcohol/Substance Use Hx Alcohol Use: Yes (OCCASIONALLY) - Smoking History Smoking history: Current every day smoker Have you smoked in the past 12 months: Yes Aproximately how many cigarettes per day: 20 Home Medications - Allergies Allergies/Adverse Reactions: Allergies Allergy/AdvReac Type Severity Reaction Status Date / Time No Known Allergies Allergy Verified 07/05/17 17:24 - Home Medications Home Medications: Ambulatory Orders Nifedipine [Nifedical Xl] 60 mg PO DAILY 05/04/16 Atorvastatin Ca [Lipitor] 40 mg PO HS #30 tablet 05/10/16 Carvedilol [Coreg -] 12.5 mg PO BID #30 tablet 05/10/16 Insulin Glargine,Hum.rec.anlog [Lantus] 20 unit SQ DAILY 07/05/17 Levothyroxine [Synthroid -] 20 mcg PO DAILY@0700 07/05/17 Aspirin [Aspirin EC] 162 mg PO DAILY 07/06/17 Rosuvastatin [Crestor -] 5 mg PO HS 07/06/17 Review of Systems - Review of Systems Constitutional: reports: Lethargy, Weakness Eyes: reports: Blurred Vision HENT: reports: No Symptoms Neck: reports: Decreased ROM Cardiovascular: reports: Shortness of Breath Respiratory: reports: Exercise Intolerance, SOB on Exertion Gastrointestinal: reports: Constipation Genitourinary: reports: No Symptoms Breasts: reports: No Symptoms Reported Musculoskeletal: reports: Muscle Cramps, Muscle Weakness Integumentary: reports: No Symptoms Neurological: reports: Unsteady Gait, Weakness Endocrine: reports: Unexplained Weight Loss Hematology/Lymphatic: reports: No Symptoms Physical Exam Vital Signs: Vital Signs Temperature 98.9 F 07/07/17 17:00 Pulse Rate 68 07/07/17 17:00 Respiratory Rate 19 07/07/17 17:00 Blood Pressure 126/61 07/07/17 17:00 O2 Sat by Pulse Oximetry (%) 97 07/07/17 17:00 Constitutional: Yes: Anxious Eyes: Yes: EOM Intact HENT: Yes: Normocephalic Neck: Yes: Trachea Midline Cardiovascular: Yes: Regular Rate and Rhythm Respiratory: Yes: WNL Gastrointestinal: Yes: Hypoactive Bowel Sounds ...Rectal Exam: Yes: Deferred Renal/: Yes: WNL Breast(s): Yes: WNL Musculoskeletal: Yes: WNL Extremities: Yes: WNL Integumentary: Yes: WNL Neurological: Yes: Alert, Oriented Labs: CBC, BMP 07/06/17 06:30 07/07/17 06:30 Problem List - Problems (1) Dehydration Code(s): E86.0 - DEHYDRATION (2) Diabetes Code(s): E11.9 - TYPE 2 DIABETES MELLITUS WITHOUT COMPLICATIONS Qualifiers: Diabetes mellitus type: type 2 (3) Syncope Code(s): R55 - SYNCOPE AND COLLAPSE Qualifiers: Syncope type: unspecified Qualified Code(s): R55 - Syncope and collapse (4) Weakness Code(s): R53.1 - WEAKNESS (5) TRAVIS (acute kidney injury) Code(s): N17.9 - ACUTE KIDNEY FAILURE, UNSPECIFIED (6) Accelerated essential hypertension Code(s): I10 - ESSENTIAL (PRIMARY) HYPERTENSION (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(s): G11.9 - HEREDITARY ATAXIA, UNSPECIFIED Assessment/Plan Current Active Problems Dehydration (Acute) Diabetes (Acute) Fall (Acute) Syncope (Acute) Weakness (Acute) diabetes mellitus ckd htn ashd hypothyroidism Abnormal Lab Results 07/07/17 06:30 Chloride 117 H Carbon Dioxide 19 L BUN 48 H Creatinine 3.1 H Calcium 7.2 L Laboratory Results - last 24 hr 07/06/17 07/07/17 07/07/17 21:16 05:50 06:30 Sodium 144 Potassium 4.4 Chloride 117 H Carbon Dioxide 19 L Anion Gap 8 BUN 48 H Creatinine 3.1 H POC Glucometer 150 99 Random Glucose 89 Hemoglobin A1c % Calcium 7.2 L Phosphorus 3.9 Magnesium 2.0 Triglycerides Cholesterol Total LDL Cholesterol HDL Cholesterol TSH 1.83 07/07/17 07/07/17 07/07/17 06:30 06:30 09:45 Sodium Potassium Chloride Carbon Dioxide Anion Gap BUN Creatinine POC Glucometer 128 Random Glucose Hemoglobin A1c % 4.9 Calcium Phosphorus Magnesium Triglycerides 158 Cholesterol 129 Total LDL Cholesterol 62 HDL Cholesterol 47 TSH plan: continue bgm achs as diet and appetite improves her sugars may rise likely lack of appetite are cause low hba1c dc novolog 70/30 may only need low dose levemir
[2017-07-07] MEDS: ROSUVASTATIN CA 5 MG TABLET (FP) PO SCH (21:25)
[2017-07-08] MEDS: SODIUM CHLORIDE 1,000 ML IV SCH (05:10)
[2017-07-08 06:49] LABS: BASO % 0.7 % (0-2.0); EOS % 1.9 % (0-4.5); HEMATOCRIT 29.8 % (32.4-45.2); HEMOGLOBIN 9.5 GM/dL (10.7-15.3); LYMPH % 29.5 % (8-40); MCH 28.7 pg (25.7-33.7); MEAN CELL VOLUME 89.9 fl (80-96); MONO % 6.5 % (3.8-10.2); NEUT % 61.4 % (42.8-82.8); PLATELET COUNT 179 K/MM3 (134-434); RBC 3.31 M/mm3 (3.60-5.2); WHITE BLOOD COUNT 10.5 K/mm3 (4.0-10.0)
[2017-07-08] MEDS ORDERED: LEVOTHYROXINE NA 25 MCG TABLET (FP) PO SCH (07:00)
[2017-07-08 07:14] LABS: ANION GAP 8 (8-16); BLOOD UREA NITROGEN 43 mg/dL (7-18); CALCIUM 7.1 mg/dL (8.5-10.1); CHLORIDE 118 mmol/L (98-107); CO2 19 mmol/L (21-32); CREATININE 2.8 mg/dL (0.55-1.02); GLUCOSE,RANDOM 85 mg/dL (74-106); POTASSIUM 4.3 mmol/L (3.5-5.1); SODIUM 145 mmol/L (136-145)
[2017-07-08] MEDS: HYDROCORTISONE 2.5% TOPICAL CREAM 30 GM TUBE TP SCH (09:12)
[2017-07-08] MEDS: ASPIRIN COATED 81 MG TABLET.EC PO SCH (09:13)
[2017-07-08] MEDS: HEPARIN NA (PORCINE) 5,000 UNITS/ML 1ML VIAL SQ SCH (09:13)
[2017-07-08] MEDS: CARVEDILOL 12.5 MG TABLET (FP) PO SCH (09:13)
[2017-07-08] MEDS: NIFEdipine E.R 60 MG TABLET (UD) PO SCH (09:13)
--- NOTE | 2017-07-08 11:28 | PN ---
Physical Exam: SUBJECTIVE: Patient seen and examined by me at bedside. No overnight events OBJECTIVE: Vital Signs Period Temp Pulse Resp BP Sys/Monsivais Pulse Ox Last 24 Hr 98.2 F-98.9 F 61-68 16-19 121-151/54-68 92-97 GENERAL: The patient is awake, alert, and fully oriented, in no acute distress. LUNGS: Breath sounds equal, clear to auscultation bilaterally, no wheezes, no crackles, no accessory muscle use. HEART: Regular rate and rhythm, S1, S2 without murmur, rub or gallop. ABDOMEN: Soft, nontender, nondistended, normoactive bowel sounds, no guarding, no rebound EXTREMITIES: 2+ pulses, warm, well-perfused, no edema. Laboratory Results - last 24 hr 07/08/17 07/08/17 07/08/17 06:37 06:37 06:37 WBC 10.5 H D RBC 3.31 L Hgb 9.5 L Hct 29.8 L MCV 89.9 MCH 28.7 MCHC 32.0 RDW 17.0 H Plt Count 179 MPV 9.0 Neutrophils % 61.4 Lymphocytes % 29.5 D Monocytes % 6.5 Eosinophils % 1.9 Basophils % 0.7 Sodium 145 Potassium 4.3 Chloride 118 H Carbon Dioxide 19 L Anion Gap 8 BUN 43 H Creatinine 2.8 H Random Glucose 85 Hemoglobin A1c % 5.1 Calcium 7.1 L Active Medications Generic Name Dose Route Start Last Admin Trade Name Freq PRN Reason Stop Dose Admin Aspirin 162 mg 07/06/17 10:00 07/08/17 09:13 Ecotrin - PO 162 mg DAILY [facility] Administration Carvedilol 12.5 mg 07/06/17 10:00 07/08/17 09:13 Coreg - PO 12.5 mg BID [facility] Administration Heparin Sodium (Porcine) 5,000 unit 07/06/17 10:00 07/08/17 09:13 Heparin - SQ 5,000 unit BID [facility] Administration Hydrocortisone 1 applic 07/07/17 10:00 07/08/17 09:12 Anusol 2.5% Hc Cream - TP 1 applic BID [facility] Administration Sodium Chloride 1,000 mls @ 100 mls/hr 07/06/17 02:30 07/08/17 05:10 Normal Saline - IV 100 mls/hr ASDIR [facility] Administration Levothyroxine Sodium 25 mcg 07/08/17 07:00 07/08/17 06:00 Synthroid - PO 25 mcg DAILY@0700 [facility] Administration Nifedipine 60 mg 07/06/17 10:00 07/08/17 09:13 Procardia Xl - PO 60 mg DAILY [facility] Administration Rosuvastatin Calcium 5 mg 07/06/17 22:00 07/07/17 21:25 Crestor - PO 5 mg HS [facility] Administration IMPRESSION 1. TRAVIS on CKD 2. HTN 3. HLD 4. Hypothyroidism 5. IDDMII PLAN -Likely Pre-renal and will continue with IV NS @100mls/hr as patient's kidney function is improving -Continue home medications Procardia and Coreg -Patient likely discharged today and will need outpatient follow. Visit type - Emergency Visit Emergency Visit: Yes ED Registration Date: 07/07/17 Care time: The patient presented to the Emergency Department on the above date and was hospitalized for further evaluation of their emergent condition. - New Patient This patient is new to me today: Yes Date on this admission: 07/08/17 - Critical Care Critical Care patient: No
[2017-07-08 13:33] VITALS: BP 113/50; PULSE 47; TEMP 98.3
--- NOTE | 2017-07-08 14:29 | DS ---
Physical Examination Vital Signs: Vital Signs Temperature 98.3 F 07/08/17 13:32 Pulse Rate 47 L 07/08/17 13:32 Respiratory Rate 14 07/08/17 13:32 Blood Pressure 113/50 07/08/17 13:32 O2 Sat by Pulse Oximetry (%) 94 L 07/08/17 09:40 Findings/Remarks: AWAKE ALERT NO APPARENT DISTRESS Constitutional: Yes: No Distress Eyes: Yes: WNL HENT: Yes: WNL Neck: Yes: WNL Cardiovascular: Yes: WNL Respiratory: Yes: WNL Gastrointestinal: Yes: WNL Renal/: Yes: WNL Musculoskeletal: Yes: Muscle Weakness Extremities: Yes: WNL Edema: No Peripheral Pulses WNL: Yes Integumentary: Yes: WNL Wound/Incision: Yes: Clean/Dry Neurological: Yes: Unsteady Gait ...Motor Strength: LLE, RLE Psychiatric: Yes: Other Labs: CBC, BMP 07/08/17 06:37 07/08/17 06:37 Discharge Summary Reason For Visit: SYNCOPE Current Active Problems Dehydration (Acute) Diabetes (Acute) Fall (Acute) Syncope (Acute) Weakness (Acute) Procedures: Principal: CT HEAD Hospital Course: ADMITTED AND WORKED UP, STARTED ON INSULIN BUT A1C% IS 5.1, STOP INSULIN, MONITOR BGM AND DC HOME WITH [facility] - Instructions Diet, Activity, Other Instructions: ADA LOW SALT CHECK BLOOD SUGAR AND MONITOR HOLD INSULIN FOR NOW SEE DR RICH IN 3-4 DAYS Disposition: VNS/HOME HEALTH CARE - Home Medications Comprehensive Discharge Medication List: Ambulatory Orders Atorvastatin Ca [Lipitor] 40 mg PO HS #30 tablet 05/10/16 Insulin Glargine,Hum.rec.anlog [Lantus] 20 unit SQ DAILY 07/05/17 Aspirin [Aspirin EC] 162 mg PO DAILY #30 tablet. 07/08/17 Carvedilol [Coreg -] 12.5 mg PO BID #60 tablet 07/08/17 Hydrocortisone 2.5% Topical Cr [Anusol-Hc -] 1 applic TP BID #60 tube 07/08/17 Levothyroxine [Synthroid -] 25 mcg PO DAILY@0700 #30 tablet 07/08/17 Nifedipine ER [Procardia XL -] 60 mg PO DAILY #30 tab.er.24 07/08/17
--- NOTE | 2017-07-08 15:26 | PN ---
Progress Note, Physician Chief Complaint: Weak Tele: sinus with no events History of Present Illness: This is an 82 year old female with a PMH of DM,l HTN, HLD, past cerebellar CVA, hypothyroidism, smoking, and Hep C. She was found on the floor by her daughter who heard a "Thud." The patient denies LOC. She states that reports she became weak and lowered herself to the floor. She subsequently had chills and vomited. Labs notable for BUN 62/Cr 3.9. Head CT negative. EKG NSR t 61 BPM with no acute changes. - Current Medication List Current Medications: Active Medications Aspirin (Ecotrin -) 162 mg PO DAILY [facility] Last Admin: 07/08/17 09:13 Dose: 162 mg Carvedilol (Coreg -) 12.5 mg PO BID [facility] Last Admin: 07/08/17 09:13 Dose: 12.5 mg Heparin Sodium (Porcine) (Heparin -) 5,000 unit SQ BID [facility] Last Admin: 07/08/17 09:13 Dose: 5,000 unit Hydrocortisone (Anusol 2.5% Hc Cream -) 1 applic TP BID [facility] Last Admin: 07/08/17 09:12 Dose: 1 applic Sodium Chloride (Normal Saline -) 1,000 mls @ 100 mls/hr IV ASDIR [facility] Last Admin: 07/08/17 05:10 Dose: 100 mls/hr Levothyroxine Sodium (Synthroid -) 25 mcg PO DAILY@0700 [facility] Last Admin: 07/08/17 06:00 Dose: 25 mcg Nifedipine (Procardia Xl -) 60 mg PO DAILY [facility] Last Admin: 07/08/17 09:13 Dose: 60 mg Rosuvastatin Calcium (Crestor -) 5 mg PO HS [facility] Last Admin: 07/07/17 21:25 Dose: 5 mg - Objective Vital Signs: Vital Signs Temperature 98.3 F 07/08/17 13:32 Pulse Rate 47 L 07/08/17 13:32 Respiratory Rate 14 07/08/17 13:32 Blood Pressure 113/50 07/08/17 13:32 O2 Sat by Pulse Oximetry (%) 94 L 07/08/17 09:40 Constitutional: Yes: No Distress Cardiovascular: Yes: Regular Rate and Rhythm Respiratory: Yes: CTA Bilaterally Edema: No Labs: CBC, BMP 07/08/17 06:37 07/08/17 06:37 INR, PTT INR 1.05 (0.82-1.09) 07/05/17 17:55 Problem List - Problems (1) Syncope Code(s): R55 - SYNCOPE AND COLLAPSE Qualifiers: Syncope type: unspecified Qualified Code(s): R55 - Syncope and collapse Assessment/Plan This is an 82 year old female with a PMH of DM,l HTN, HLD, past cerebellar CVA, hypothyroidism, smoking, and Hep C. She was found on the floor by her daughter who heard a "Thud." The patient denies LOC. She states that reports she became weak and lowered herself to the floor. She subsequently had chills and vomited. Labs notable for BUN 62/Cr 3.9. Head CT negative. EKG NSR t 61 BPM with no acute changes. 1) Fall/possible syncope Tele: with no events or significant pauses -On bblocker and ccb for htn and would adjust based on standing bp. Echocardiogram with normal LVEF and no significant valve disease Getting IVF's for TRAVIS. No further cardiac work up at this time. Please call back if needed
--- NOTE | 2017-07-08 17:16 | PN ---
Teaching Attending Note Name of Resident: Carolina Platt (Nephrology) ATTENDING PHYSICIAN STATEMENT I saw and evaluated the patient. I reviewed the resident's note and discussed the case with the resident. I agree with the resident's findings and plan as documented. Renal Follow up Pt seen and examined at bedside. She is awake and alert. She denies shortness of breath. Current Medications Generic Name Dose Route Start Last Admin Trade Name Ty PRN Reason Stop Dose Admin Aspirin 162 mg 07/06/17 10:00 07/08/17 09:13 Ecotrin - PO 162 mg DAILY [facility] Administration Carvedilol 12.5 mg 07/06/17 10:00 07/08/17 09:13 Coreg - PO 12.5 mg BID [facility] Administration Heparin Sodium (Porcine) 5,000 unit 07/06/17 10:00 07/08/17 09:13 Heparin - SQ 5,000 unit BID [facility] Administration Hydrocortisone 1 applic 07/07/17 10:00 07/08/17 09:12 Anusol 2.5% Hc Cream - TP 1 applic BID [facility] Administration Sodium Chloride 1,000 mls @ 100 mls/hr 07/06/17 02:30 07/08/17 05:10 Normal Saline - IV 100 mls/hr ASDIR [facility] Administration Levothyroxine Sodium 25 mcg 07/08/17 07:00 07/08/17 06:00 Synthroid - PO 25 mcg DAILY@0700 [facility] Administration Nifedipine 60 mg 07/06/17 10:00 07/08/17 09:13 Procardia Xl - PO 60 mg DAILY [facility] Administration Rosuvastatin Calcium 5 mg 07/06/17 22:00 07/07/17 21:25 Crestor - PO 5 mg HS [facility] Administration Laboratory Tests 07/19/16 07/20/16 07/05/17 06:00 06:50 17:55 WBC Creatinine 2.0 H 2.2 H 3.9 H Urine Protein Urine Glucose (UA) 07/05/17 07/07/17 07/08/17 23:00 06:30 06:37 WBC 10.5 H D Creatinine 3.1 H Urine Protein 2+ H Urine Glucose (UA) 1+ H 07/08/17 06:37 WBC Creatinine 2.8 H Urine Protein Urine Glucose (UA) Last Vital Signs Temp Pulse Resp BP Pulse Ox 98.3 F 47 L 14 113/50 94 L 07/08/17 13:32 07/08/17 13:32 07/08/17 13:32 07/08/17 13:32 07/08/17 09:40 cardio s1s2 pulm clear GI soft ext neg edema neuro awake Impression 1. TRAVIS 2. CKD 3. HTN 4. hypothyroidism 5. DM 6. HLD Plan - cont with fluids - renal function is improving - repeat labs in am - will follow pt - renal ultrasound reviewed
== END 2017-07-08 18:20 | disposition home health service (06) | DRG 700 ==
LOC: JER 17:22 → JERBED 20:18 → J4S 07-06 00:18 → OBSVTOIN 07-07 14:03
PROVIDERS: ADMIT Family Medicine; ATTEND Family Medicine
DX: E11.22 Type 2 diabetes mellitus with diabetic chronic kidney disease (principal); E11.21 Type 2 diabetes mellitus with diabetic nephropathy; N17.9 Acute kidney failure, unspecified; E86.0 Dehydration; R42 Dizziness and giddiness; I12.9 Hypertensive chronic kidney disease with stage 1 through stage 4 chronic kidney disease, or unspecified chronic kidney disease; N18.9 Chronic kidney disease, unspecified; E07.9 Disorder of thyroid, unspecified; E11.40 Type 2 diabetes mellitus with diabetic neuropathy, unspecified; Z79.4 Long term (current) use of insulin; Z86.73 Personal history of transient ischemic attack (TIA), and cerebral infarction without residual deficits; E78.5 Hyperlipidemia, unspecified; B19.20 Unspecified viral hepatitis C without hepatic coma; F17.210 Nicotine dependence, cigarettes, uncomplicated; I25.10 Atherosclerotic heart disease of native coronary artery without angina pectoris
CPT/HCPCS: 36415; 70450-TC; 76775-TC; 80048; 80053; 80061; 81003; 81015; 82550; 82962; 83036; 83721; 83735; 84100; 84443; 84484; 85025; 85610; 87086; 93005; 93010; 93306-TC; 97116-GP; 97161-GP; 99283-25; G0378; J1644

== ENCOUNTER 2018-01-01 17:03 | Observation (INO) | payer OTHER, MEDICARE ==
[2018-01-01 17:11] VITALS: BMI 18.1
--- NOTE | 2018-01-01 17:20 | PDOC ---
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
[2018-01-01] MEDS: SODIUM CHLORIDE 1,000 ML IV STA ×2 (18:53→20:51)
--- NOTE | 2018-01-01 19:51 | PDOC ---
History of Present Illness - General Chief Complaint: Weakness Stated Complaint: WEAKNESS Time Seen by Provider: 01/01/18 17:18 - History of Present Illness Initial Comments: Antonietta Pinto is an 82yo woman with a PMH ofDM2, ESRD not yet on HD, chronic anemia, hypothyroidism, HTN, hepC, previous CVA with residual ataxia who presents with her daughter complaining of worsening generalized weakness and fatigue. Ms Pinto denies any symptoms currently other than the fatigue. Per her daughter, she first started feeing very tired on Saturday. Her daughter reports that the fatigue and weakness have worsened to the point that she falls asleep sitting up; she has been easy to waken. Additionally, she was alone at home on Saturday and apparently fell in the bathroom. It is unclear how long she was on the ground. She was found in a sitting position and denies any head trauma or LOC. Her daughter states that she has been having a few episodes of watery stool, some of which was on the floor, and they believe that she slipped. Her daughter also states that Ms Pinto has been complaining of feeling unusually cold but that her skin feels warm to touch. However, her daughter has been turning up the air conditioning for the warm skin; Ms Pinto has then been requesting multiple blankets. Ms Pinto and her daughter deny any recent complaint of headache, objective fever , chest pain, SOB or cough, nausea/vomiting, dysuria or frequency, or recent change in bowel movements. They report occasional watery stool is her baseline. She has been compliant with her medications. Past History - Past Medical History Allergies/Adverse Reactions: Allergies Allergy/AdvReac Type Severity Reaction Status Date / Time No Known Allergies Allergy Verified 01/01/18 17:07 Home Medications: Ambulatory Orders Atorvastatin Ca [Lipitor] 40 mg PO HS #30 tablet 05/10/16 Insulin Glargine,Hum.rec.anlog [Lantus] 20 unit SQ DAILY 07/05/17 Aspirin [Aspirin EC] 162 mg PO DAILY #30 tablet. 07/08/17 Carvedilol [Coreg -] 12.5 mg PO BID #60 tablet 07/08/17 Hydrocortisone 2.5% Topical Cr [Anusol-Hc -] 1 applic TP BID #60 tube 07/08/17 Levothyroxine [Synthroid -] 25 mcg PO DAILY@0700 #30 tablet 07/08/17 Nifedipine ER [Procardia XL -] 60 mg PO DAILY #30 tab.er.24 07/08/17 Anemia: No Asthma: No Cancer: No Cardiac Disorders: No CVA: Yes (TIA) COPD: No CHF: No DVT: No Dementia: No Diabetes: Yes (IDDM) GI Disorders: No Disorders: Yes (ESRD) HTN: Yes Hypercholesterolemia: No Liver Disease: No Seizures: No Thyroid Disease: Yes - Surgical History Abdominal Surgery: No Appendectomy: No Cardiac Surgery: No Cholecystectomy: Yes Lung Surgery: No Neurologic Surgery: No Orthopedic Surgery: No - Immunization History Immunization Up to Date: Yes - Suicide/Smoking/Psychosocial Hx Smoking Status: Yes Smoking History: Former smoker Have you smoked in the past 12 months: Yes Number of Cigarettes Smoked Daily: 20 If you are a former smoker, when did you quit?: 2018 Information on smoking cessation initiated: No 'Breaking Loose' booklet given: 07/05/17 Hx Alcohol Use: No Drug/Substance Use Hx: No Substance Use Type: None Hx Substance Use Treatment: No Review of Systems - Review of Systems Comments:: General: No fevers, no chills, no weight or appetite change, no malaise. + fatigue HEENT: No changes in vision, no changes in hearing, no congestion, no sore throat CV: No chest pain, no palpitations, no LE edema Pulm: No SOB, no cough, no wheezing GI: No nausea or vomiting, no change in bowel habits, no melena. +baseline watery stool : No frequency, no urgency, no dysuria. +ESRD, still makes urine Musc: No back pain, no joint swelling, no recent injury Skin: No rash, no lesions, no erythema Endo: No excessive thirst. +feels cold Heme: No unusual bruising or bleeding, no swollen glands Neuro: No syncope, no numbness/tingling, no focal weakness. h/o CVA w/ ataxia Vasc: No claudication Psych: No recent change in mood, no SI or HI *Physical Exam - Vital Signs Last Vital Signs Temp Pulse Resp BP Pulse Ox 98.0 F 71 18 148/64 97 01/01/18 17:07 01/01/18 17:07 01/01/18 17:07 01/01/18 17:07 01/01/18 17:07 - Physical Exam Comments: General: Comfortable, no acute distress, wrapped in blanket HEENT: PERRL, EOMI, MMM, voice normal, normal neck ROM, no LAD noted Cards: RRR, no murmur appreciated Pulm: Comfortable on room air, clear to auscultation bilaterally Abd: Soft, nontender, nondistended : No CVA tenderness Ext: Atraumatic. No LE edema. ROM intact. Strength 5/5 and equal bilaterally Vasc: Extremities WWP. Palpable radial pulse bilaterally Neuro: A&Ox3, CN grossly intact, normal speech, motor/sensory grossly intact and symmetric Psych: Mood appropriate to situation. Pleasant and cooperative ED Treatment Course - LABORATORY CBC & Chemistry Diagram: 01/01/18 20:32 01/01/18 20:32 - RADIOLOGY Radiology Studies Ordered: Category Date Time Status HEAD CT WITHOUT CONTRAST [CT] Stat CT Scan 01/01/18 19:44 Ordered Medical Decision Making - Medical Decision Making 01/01/18 19:55 Antonietta Pinto is an 82yo woman with DM2, ESRD, chronic anemia, HTN, hypothyroidism, HepC, s/p CVA with ataxia who was brought to the ED by her daughter due to worsening generalized weakness and fatigue. - Weakness could be due to infection, recent fall, hypothyroidism, ACS - No focal neurological symptoms suggesting CVA - No pulmonary or URI complaints, pneumonia is unlikely to be source of infection. More likely UTI - CBC, CMP, coags, lactate, cultures, trop, CXR, EKG pending - non-contrast head CT ordered due to recent fall 01/01/18 23:40 - Labs unremarkable. No sign of infection, UA negative, CXR w/o acute pathology. - CT and EKG still to be completed - Discussed with patient and daughter; likely to discharge home if CT and EKG negative for acute changes. They agree with this plan. 01/02/18 01:13 - CT head indicates right frontal lobe petichial bleed. No fracture, no mass effect. - Will need admission for f/u CT. If neurology or neurosurgery cannot be reached at [facility], will need transfer to a facility with neuro available tonight. - Page to Dr Morrison - Can admit to obs, and he will see Ms Pinto tomorrow for evaluation and CT - Ms Pinto and her daughter agree to this plan. - Page out to hospitalist team for admission. Seen and discussed with Dr Briceno. *DC/Admit/Observation/Transfer Diagnosis at time of Disposition: Weakness, Right frontal lobe punctate hemorrhage - Discharge Dispostion Condition at time of disposition: Fair Decision to Admit order: Yes - Referrals Referrals: Home Morin MD [Primary Care Provider] - - Patient Instructions Additional Instructions: Discharge Instructions: - You were seen in the ED for weakness - You had blood tests, urine tests, a chest xray, an EKG to check your heart, and a head CT scan to check for bleeding. All of these tests were normal. There is no sign of infection or any new disease. - You will need to make an appointment with your primary doctor within the next 1-2 weeks for follow up - Seek medical care if you have fevers to 101F or higher, have shivering/ shaking chills, or have a fall with injury to your head. - Post Discharge Activity
[2018-01-01 20:44] LABS: BASO % 0.7 % (0-2.0); EOS % 1.5 % (0-4.5); HEMATOCRIT 32.6 % (32.4-45.2); HEMOGLOBIN 10.8 GM/dL (10.7-15.3); LYMPH % 23.2 % (8-40); MCH 28.5 pg (25.7-33.7); MCHC 33.2 g/dl (32.0-36.0); MEAN CELL VOLUME 85.9 fl (80-96); MEAN PLT VOLUME 8.2 fl (7.5-11.1); MONO % 4.3 % (3.8-10.2); NEUT % 70.3 % (42.8-82.8); PLATELET COUNT 235 K/MM3 (134-434); RDW 18.5 % (11.6-15.6); WHITE BLOOD COUNT 9.6 K/mm3 (4.0-10.0)
[2018-01-01 20:58] LABS: INR 1.03 (0.83-1.09); PROTHROMBIN TIME (PATIENT) 11.6 SEC (9.7-13.0)
[2018-01-01 21:01] LABS: ACTIVATED PTT 25.9 SECONDS (25.2-36.5)
[2018-01-01 21:05] LABS: VENOUS PC02 45.3 mmHg (38-52); VENOUS PH 7.3 (7.32-7.42)
[2018-01-01 21:06] LABS: ALK PHOS 49 U/L (45-117); ANION GAP 12 (8-16); BILIRUBIN,TOTAL 0.3 mg/dL (0.2-1.0); BLOOD UREA NITROGEN 69 mg/dL (7-18); CALCIUM 8.9 mg/dL (8.5-10.1); CHLORIDE 111 mmol/L (98-107); CO2 22 mmol/L (21-32); CREATININE 4.9 mg/dL (0.55-1.02); GLUCOSE,RANDOM 95 mg/dL (74-106); POTASSIUM 5.3 mmol/L (3.5-5.1); SGOT/AST 21 U/L (15-37); SGPT/ALT 33 U/L (12-78); SODIUM 145 mmol/L (136-145); TOT PROT 8.2 g/dl (6.4-8.2); VENOUS PO2 28.4 mmHg (28-48)
--- NOTE | 2018-01-01 21:27 | PDOC ---
Attending Attestation - HPI HPI: 01/01/18 21:56 82-year-old female, with a past medical history of anemia, HTN, IDDM, ESRD (not on dialysis), kidney disease, hypothyroidism, CVA, who presents to the ED with altered mental status, fatigue, and diarrhea since last Saturday12/27/17. - Physicial Exam PE: 01/01/18 22:40 GENERAL: Awake, alert, and fully oriented, in no acute distress HEAD: No signs of trauma EYES: PERRLA, EOMI, sclera anicteric, conjunctiva clear ENT: Auricles normal inspection, hearing grossly normal, nares patent, oropharynx clear without exudates. Moist mucosa NECK: Normal ROM, supple, no lymphadenopathy, JVD, or masses LUNGS: Breath sounds equal, clear to auscultation bilaterally. No wheezes, and no crackles HEART: Regular rate and rhythm, normal S1 and S2, no murmurs, rubs or gallops ABDOMEN: Soft, nontender, normoactive bowel sounds. No guarding, no rebound. No masses EXTREMITIES: Normal range of motion, no edema. No clubbing or cyanosis. No cords, erythema, or tenderness NEUROLOGICAL: Cranial nerves II through XII grossly intact. SKIN: Warm, Dry, normal turgor, no rashes or lesions noted. - Medical Decision Making 01/02/18 01:15 Dr. Woodward was paged and notified via phone service. <Julia Penaloza - Last Filed: 01/02/18 01:14> - Resident Resident Name: Divine Ledesma - ED Attending Attestation I have performed the following: I have examined & evaluated the patient, The case was reviewed & discussed with the resident, I agree w/resident's findings & plan, Exceptions are as noted - Critical Care Time Total Critical Care Time: 35 Critical Care Statement: The care of this patient involved high complexity decision making to prevent further life threatening deterioration of the patient 's condition and/or to evaluate & treat vital organ system(s) failure or risk of failure. - Medical Decision Making 01/01/18 21:27 a/p: 82yo female with increasing lethargy and weakness -c/o feeling cold at home - no fevers at home, no chills/rigors -has had freq diarrhea -pt was found on the floor of the bathroom - sitting on her bottom - no head injury - no external signs of trauma -pt recently started in plavix in addition to asa secondary to hx of cva by dr. woodward -pt with recent worsening renal function on labs at the end of November -concern for infection vs worsening uremia vs closed head injury -will send labs, ekg, cxr, head ct, ua, cultures -pt with vss 01/01/18 21:28 I, Dr. Belle Briceno DO, attest that this document has been prepared under my direction and personally reviewed by me in its entirety. I further attest, that it accurately reflects all work, treatment, procedures and medical decision -making performed by me. 01/02/18 01:21 pt with small petechial bleed on head ct case discussed with dr. woodward who recommends obs overnight, will see patient in consult no need for neurosx eval at this time pts pmd is dr. garduno - microblog sent to [email or web address] <Belle Briceno - Last Filed: 01/02/18 02:06> Heart Score/ECG Review - ECG Intrepretation Comment:: 01/02/18 02:06 sinus at 77, nl axis, nl interval, q waves septally that are age indeterminate, no acute st/t wave findings <Belle Briceno - Last Filed: 01/02/18 02:06> Admission ROS [facility] <Julia Penaloza - Last Filed: 01/02/18 01:14> <Belle Briceno - Last Filed: 01/02/18 02:06> - HPI Allergies/Adverse Reactions: Allergies Allergy/AdvReac Type Severity Reaction Status Date / Time No Known Allergies Allergy Verified 01/01/18 17:07 Attestations - Attestations 01/01/18 22:41 Documentation prepared by Julia Penaloza, acting as medical administrative technician for Belle Briceno DO. <Julia Penaloza - Last Filed: 01/02/18 01:14>
[2018-01-01 23:35] LABS: URINE APPEARANCE CLEAR; URINE BILIRUBIN NEGATIVE (<2.0 mg/dL); URINE COLOR STRAW; URINE GLUCOSE (UA) NEGATIVE (NEGATIVE); URINE KETONE NEGATIVE (NEGATIVE); URINE LEUK ESTERASE NEGATIVE (NEGATIVE); URINE NITRITE NEGATIVE (NEGATIVE); URINE UROBILINOGEN NEGATIVE mg/dL (0.2-1.0)
[2018-01-01 23:37] LABS: URINE PROTEIN 2+ (NEGATIVE)
[2018-01-01 23:42] LABS: EPI CELLS RARE /HPF (FEW); URINE MUCUS RARE
--- NOTE | 2018-01-02 03:44 | HP ---
Admitting History and Physical - Admission Chief Complaint: AMS, Fatigue, s/p fall at home History of Present Illness: This is a 82 y/o woman with a past medical history of Anemia, HTN, IDDM, ESRD ( not on dialysis), Kidney Disease, Hypothyroidism, CVA. Who presents to the ED with altered mental status, fatigue, and diarrhea since last Saturday12/27/17. Per ED record: Per her daughter, she first started feeing very tired on Saturday. Her daughter reports that the fatigue and weakness have worsened to the point that she falls asleep sitting up; she has been easy to waken. Additionally , she was alone at home on Saturday and apparently fell in the bathroom. It is unclear how long she was on the ground. She was found in a sitting position and denies any head trauma or LOC. Her daughter states that she has been having a few episodes of watery stool, some of which was on the floor, and they believe that she slipped. Her daughter also states that Ms Pinto has been complaining of feeling unusually cold but that her skin feels warm to touch. However, her daughter has been turning up the air conditioning for the warm skin; Ms Pinto has then been requesting multiple blankets. Ms Pinto and her daughter deny any recent complaint of headache, objective fever , chest pain, SOB or cough, nausea/vomiting, dysuria or frequency, or recent change in bowel movements. They report occasional watery stool is her baseline. She has been compliant with her medications. 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, Peripheral Neuropathy Cardiovascular: Yes: HTN, Hyperlipdemia Gastrointestinal: Yes: Constipation Hepatobiliary: Yes: Hepatitis C Endocrine: Yes: Diabetes Mellitus, Hypothyroidism - Past Surgical History Past Surgical History: Yes: Tonsillectomy, Upper Endoscopy, Vein Stripping/ Ligation (Thyroidectomy,) - Smoking History Smoking history: Former smoker Have you smoked in the past 12 months: Yes Aproximately how many cigarettes per day: 20 If you are a former smoker, when did you quit?: 2018 - Alcohol/Substance Use Hx Alcohol Use: No History of Substance Use: reports: None - Social History History of Recent Travel: No Home Medications - Allergies Allergies/Adverse Reactions: Allergies Allergy/AdvReac Type Severity Reaction Status Date / Time No Known Allergies Allergy Verified 01/01/18 17:07 - Home Medications Home Medications: Ambulatory Orders Atorvastatin Ca [Lipitor] 40 mg PO HS #30 tablet 05/10/16 Insulin Glargine,Hum.rec.anlog [Lantus] 20 unit SQ DAILY 07/05/17 Aspirin [Aspirin EC] 162 mg PO DAILY #30 tablet. 07/08/17 Carvedilol [Coreg -] 12.5 mg PO BID #60 tablet 07/08/17 Hydrocortisone 2.5% Topical Cr [Anusol-Hc -] 1 applic TP BID #60 tube 07/08/17 Levothyroxine [Synthroid -] 25 mcg PO DAILY@0700 #30 tablet 07/08/17 Nifedipine ER [Procardia XL -] 60 mg PO DAILY #30 tab.er.24 07/08/17 Family Disease History - Family Disease History Family History: Unable to Obtain Review of Systems - Review of Systems Constitutional: reports: Weakness Eyes: reports: No Symptoms HENT: reports: No Symptoms Neck: reports: No Symptoms Cardiovascular: reports: No Symptoms Respiratory: reports: No Symptoms Gastrointestinal: reports: No Symptoms Genitourinary: reports: No Symptoms Breasts: reports: No Symptoms Reported Musculoskeletal: reports: No Symptoms Integumentary: reports: No Symptoms Neurological: reports: Confusion, Weakness Endocrine: reports: No Symptoms Hematology/Lymphatic: reports: No Symptoms Psychiatric: reports: No Symptoms Physical Examination Vital Signs: Vital Signs Temperature 98.0 F 01/01/18 17:07 Pulse Rate 71 01/01/18 17:07 Respiratory Rate 18 01/01/18 17:07 Blood Pressure 148/64 01/01/18 17:07 O2 Sat by Pulse Oximetry (%) 97 01/01/18 17:07 Constitutional: Yes: Well Nourished, No Distress, Calm Eyes: Yes: WNL, Conjunctiva Clear, EOM Intact, PERRL HENT: Yes: WNL, Atraumatic, Normocephalic Neck: Yes: WNL, Supple, Trachea Midline Cardiovascular: Yes: WNL, Regular Rate and Rhythm, Murmur, S1, S2 Respiratory: Yes: WNL, Regular, CTA Bilaterally Gastrointestinal: Yes: WNL, Normal Bowel Sounds, Soft Renal/: Yes: WNL Breast(s): Yes: WNL Musculoskeletal: Yes: WNL Extremities: Yes: WNL Edema: No Peripheral Pulses WNL: Yes Neurological: Yes: WNL, Alert, Confusion, Cran Nerves II-XII Intact ...Motor Strength: WNL Psychiatric: Yes: WNL, Alert, Oriented Labs: CBC, BMP 01/01/18 20:32 01/01/18 20:32 Intake & Output 12/30/17 12/31/17 01/01/18 01/02/18 23:59 23:59 23:59 23:59 Weight 52.617 kg Laboratory Results - last 24 hr 01/01/18 01/01/18 01/01/18 20:32 20:32 20:32 WBC 9.6 RBC 3.80 Hgb 10.8 Hct 32.6 MCV 85.9 MCH 28.5 MCHC 33.2 RDW 18.5 H Plt Count 235 D MPV 8.2 Absolute Neuts (auto) 6.8 Neutrophils % 70.3 Lymphocytes % 23.2 D Monocytes % 4.3 Eosinophils % 1.5 Basophils % 0.7 Nucleated RBC % 0 PT with INR 11.60 INR 1.03 PTT (Actin FS) 25.9 VBG pH 7.30 L POC VBG pCO2 45.3 POC VBG pO2 28.4 Mixed VBG HCO3 21.5 Sodium Potassium Chloride Carbon Dioxide Anion Gap BUN Creatinine Creat Clearance w eGFR Random Glucose Lactic Acid Calcium Total Bilirubin AST ALT Alkaline Phosphatase Troponin I Total Protein Albumin TSH Free T4 Urine Color Urine Appearance Urine pH Ur Specific [place] Urine Protein Urine Glucose (UA) Urine Ketones Urine Blood Urine Nitrite Urine Bilirubin Urine Urobilinogen Ur Leukocyte Esterase Urine WBC (Auto) Urine RBC (Auto) Ur Epithelial Cells Urine Mucus Acetone, Qual 01/01/18 01/01/18 01/01/18 20:32 20:32 20:32 WBC RBC Hgb Hct MCV MCH MCHC RDW Plt Count MPV Absolute Neuts (auto) Neutrophils % Lymphocytes % Monocytes % Eosinophils % Basophils % Nucleated RBC % PT with INR INR PTT (Actin FS) VBG pH POC VBG pCO2 POC VBG pO2 Mixed VBG HCO3 Sodium 145 Potassium 5.3 H Chloride 111 H Carbon Dioxide 22 Anion Gap 12 BUN 69 H Creatinine 4.9 H Creat Clearance w eGFR 8.50 Random Glucose 95 Lactic Acid 1.1 Calcium 8.9 Total Bilirubin 0.3 AST 21 ALT 33 Alkaline Phosphatase 49 Troponin I < 0.02 Total Protein 8.2 Albumin 4.0 TSH Free T4 Urine Color Urine Appearance Urine pH Ur Specific [place] Urine Protein Urine Glucose (UA) Urine Ketones Urine Blood Urine Nitrite Urine Bilirubin Urine Urobilinogen Ur Leukocyte Esterase Urine WBC (Auto) Urine RBC (Auto) Ur Epithelial Cells Urine Mucus Acetone, Qual 01/01/18 01/01/18 01/01/18 20:32 20:32 23:30 WBC RBC Hgb Hct MCV MCH MCHC RDW Plt Count MPV Absolute Neuts (auto) Neutrophils % Lymphocytes % Monocytes % Eosinophils % Basophils % Nucleated RBC % PT with INR INR PTT (Actin FS) VBG pH POC VBG pCO2 POC VBG pO2 Mixed VBG HCO3 Sodium Potassium Chloride Carbon Dioxide Anion Gap BUN Creatinine Creat Clearance w eGFR Random Glucose Lactic Acid Calcium Total Bilirubin AST ALT Alkaline Phosphatase Troponin I Total Protein Albumin TSH 1.73 Free T4 1.15 Urine Color Straw Urine Appearance Clear Urine pH 5.0 Ur Specific [place] 1.011 Urine Protein 2+ H Urine Glucose (UA) Negative Urine Ketones Negative Urine Blood Negative Urine Nitrite Negative Urine Bilirubin Negative Urine Urobilinogen Negative Ur Leukocyte Esterase Negative Urine WBC (Auto) 2 Urine RBC (Auto) 1 Ur Epithelial Cells Rare Urine Mucus Rare Acetone, Qual Negative L Current Medications Generic Name Dose Route Start Last Admin Trade Name Freq PRN Reason Stop Dose Admin Sodium Chloride 1,000 mls @ 75 mls/hr 01/02/18 03:30 01/02/18 04:00 Normal Saline - IV 75 mls/hr ASDIR [facility] Administration Insulin Aspart 1 vial 01/02/18 07:00 Novolog Vial Sliding Scale - SQ ACHS [facility] Protocol Levothyroxine Sodium 25 mcg 01/02/18 07:00 Synthroid - PO DAILY@0700 [facility] Imaging - Results Cat Scan: Report Reviewed (THIS IS A PRELIMINARY REPORT FROM [employer] DATE OF SERVICE: 2018-01-01 23:44:07 IMAGES: 148 EXAM: HEAD CT WITHOUT CONTRAST HISTORY: Recent fall COMPARISON: None. FINDINGS: The ventricular system is midline and nondilated. There is mild cortical atrophy and moderate chronic small vessel ischemic changes. There is a small petechial bleed in the right frontal lobe. There are no additional foci of clusive hemorrhage identified. There is no mass, extra-axial fluid collection or mass effect. No skull fracture or skull lesion is identified. The visualized paranasal sinuses and mastoid air cells are clear. 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 Code(s): G11.9 - HEREDITARY ATAXIA, UNSPECIFIED (5) CVA (cerebral vascular accident) Code(s): I63.9 - CEREBRAL INFARCTION, UNSPECIFIED (6) Diabetes Code(s): E11.9 - TYPE 2 DIABETES MELLITUS WITHOUT COMPLICATIONS (7) HTN (hypertension) Code(s): I10 - ESSENTIAL (PRIMARY) HYPERTENSION Qualifiers: (8) Hepatitis C Code(s): B19.20 - UNSPECIFIED VIRAL HEPATITIS C WITHOUT HEPATIC COMA (9) Hypothyroid Code(s): E03.9 - HYPOTHYROIDISM, UNSPECIFIED Qualifiers: (10) Renal insufficiency Code(s): N28.9 - DISORDER OF KIDNEY AND URETER, UNSPECIFIED Assessment/Plan 82 y/o woman from home PMH of DM2, ESRD not yet on HD, chronic anemia, hypothyroidism, HTN, hepC, previous CVA with residual ataxia. Placed on Tele Observation for Right Frontal Lobe Hemorrhage s/p fall at home, Fatigue and Generalized Weakness for further evaluation of their emergent condition. Plan: 1. 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 Card: HTN - stable - Monitor BP - Continue home meds - Monitor renal function 3. Nephro: ESRD - Cr 4.9, above baseline - Appreciate Nephrology Consult - Will continue to monitor and treat with interventions accordingly - Avoid Nephrotoxic agents 4. Endo: DM Hypothyroidism - BGMs - ISS - continue home med 5. Heme: Anemia - Likely secondary to ESRD - at baseline - will transfuse if Hgb < 7 6. Hep C - treated 2 yrs ago, per records 7. FEN - PO tolerates fluid - Replete lytes prn - NPO until cleared by neuro 8. DVT ppx - SCDs - Hold AC secondary to Brain Hemorrhage Code Status: Full Code Dispo: Tele Observation Visit type - Emergency Visit Emergency Visit: Yes ED Registration Date: 01/02/18 Care time: The patient presented to the Emergency Department on the above date and was hospitalized for further evaluation of their emergent condition. - New Patient This patient is new to me today: Yes Date on this admission: 01/02/18 - Critical Care Critical Care patient: No Hospitalist Screening - Colonoscopy Questionnaire Colonoscopy Questionnaire: Colonoscopy Questionnaire - Patient: 50 - 75 years old and never had a screening colonoscopy: Unknown History of colon or rectal polyps, or CA: Unknown History of IBD, Crohn's disease or UC: Unknown History of abdominal radiation therapy as a child: Unknown - Relative: 1 with colon or rectal CA, or polyps at age 60 or younger: Unknown Colon or rectal CA diagnosed at age 45 or younger: Unknown Multiple relatives with colon or rectal CA: Unknown - Outcome: Screening Result: Negative Screen
[2018-01-02] MEDS: SODIUM CHLORIDE 1,000 ML IV SCH (04:00)
[2018-01-02 08:11] LABS: BASO % 0.4 % (0-2.0); EOS % 1.9 % (0-4.5); HEMATOCRIT 28.3 % (32.4-45.2); HEMOGLOBIN 9.5 GM/dL (10.7-15.3); LYMPH % 26.6 % (8-40); MCH 28.7 pg (25.7-33.7); MCHC 33.5 g/dl (32.0-36.0); MEAN CELL VOLUME 85.9 fl (80-96); MEAN PLT VOLUME 8.1 fl (7.5-11.1); MONO % 7.2 % (3.8-10.2); NEUT % 63.9 % (42.8-82.8); PLATELET COUNT 206 K/MM3 (134-434); RBC 3.29 M/mm3 (3.60-5.2); RDW 18.4 % (11.6-15.6)
[2018-01-02] MEDS: LEVOTHYROXINE NA 25 MCG TABLET (FP) PO SCH (09:00)
--- NOTE | 2018-01-02 09:05 | PN ---
Progress Note, Physician History of Present Illness: 82 y/o woman with a past medical history of Anemia, HTN, IDDM, ESRD (not on dialysis), Kidney Disease, Hypothyroidism, CVA. Who presents to the ED with altered mental status, fatigue, and diarrhea since last Saturday12/27/17. Per ED record: Per her daughter, she first started feeing very tired on Saturday. Her daughter reports that the fatigue and weakness have worsened to the point that she falls asleep sitting up; she has been easy to waken. Additionally , she was alone at home on Saturday and apparently fell in the bathroom. It is unclear how long she was on the ground. She was found in a sitting position and denies any head trauma or LOC. Her daughter states that she has been having a few episodes of watery stool, some of which was on the floor, and they believe that she slipped. Her daughter also states that Ms Pinto has been complaining of feeling unusually cold but that her skin feels warm to touch. However, her daughter has been turning up the air conditioning for the warm skin; Ms Pinto has then been requesting multiple blankets. Ms Pinto and her daughter deny any recent complaint of headache, objective fever , chest pain, SOB or cough, nausea/vomiting, dysuria or frequency, or recent change in bowel movements. They report occasional watery stool is her baseline. She has been compliant with her medications. - Current Medication List Current Medications: Active Medications Atorvastatin Calcium (Lipitor -) 40 mg PO HS [facility] Carvedilol (Coreg -) 12.5 mg PO BID [facility] Sodium Chloride (Normal Saline -) 1,000 mls @ 75 mls/hr IV ASDIR [facility] Last Admin: 01/02/18 04:00 Dose: 75 mls/hr Insulin Aspart (Novolog Vial Sliding Scale -) 1 vial SQ ACHS [facility]; Protocol Levothyroxine Sodium (Synthroid -) 25 mcg PO DAILY@0700 [facility] Nifedipine (Procardia Xl -) 60 mg PO DAILY [facility] - Objective Vital Signs: Vital Signs Temperature 98.7 F 01/02/18 07:10 Pulse Rate 80 01/02/18 07:10 Respiratory Rate 18 01/02/18 07:10 Blood Pressure 204/85 01/02/18 07:10 O2 Sat by Pulse Oximetry (%) 97 01/02/18 07:10 Labs: CBC, BMP 01/02/18 07:31 INR, PTT INR 1.03 (0.83-1.09) 01/01/18 20:32 Problem List - Problems (1) Right frontal lobe punctate hemorrhage Assessment/Plan: - CT Brain showed small petechial bleed right frontal lobe without skull fx or mass effect - Repeat CT @ 8am per Neuro recommendations - Beef Boner - Neurology consult - Seizure Precautions - Fall Precautions - Neuro checks - Continue BP meds - Monitor CBC, BMP - Keep NPO until eval by Neuro - NPO until cleared by neuro - SCDs - Hold AC secondary to Brain Hemorrhage Code(s): I61.1 - NONTRAUMATIC INTCRBL HEMORRHAGE IN HEMISPHERE, CORTICAL (2) TRAVIS (acute kidney injury) Assessment/Plan: - Cr 4.9, above baseline - Nephrology Consult - Will continue to monitor and treat with interventions accordingly - Avoid Nephrotoxic agents Code(s): N17.9 - ACUTE KIDNEY FAILURE, UNSPECIFIED (3) Diabetes Assessment/Plan: - BGMs - ISS - continue home med Code(s): E11.9 - TYPE 2 DIABETES MELLITUS WITHOUT COMPLICATIONS (4) HTN (hypertension) Assessment/Plan: - stable - Monitor BP - Continue home meds - Monitor renal function Code(s): I10 - ESSENTIAL (PRIMARY) HYPERTENSION Qualifiers: (5) Anemia Assessment/Plan: - Likely secondary to ESRD - at baseline - will transfuse if Hgb < 7 Code(s): D64.9 - ANEMIA, UNSPECIFIED (6) Hepatitis C Assessment/Plan: - treated 2 yrs ago, per records Code(s): B19.20 - UNSPECIFIED VIRAL HEPATITIS C WITHOUT HEPATIC COMA
[2018-01-02 09:07] LABS: ANION GAP 13 (8-16); BLOOD UREA NITROGEN 66 mg/dL (7-18); CALCIUM 8.6 mg/dL (8.5-10.1); CHLORIDE 114 mmol/L (98-107); CO2 21 mmol/L (21-32); CREATININE 4.6 mg/dL (0.55-1.02); GLUCOSE,RANDOM 95 mg/dL (74-106); POTASSIUM 4.2 mmol/L (3.5-5.1); SODIUM 148 mmol/L (136-145)
[2018-01-02] MEDS: CARVEDILOL 12.5 MG TABLET (FP) PO SCH ×2 (10:08→23:55)
[2018-01-02] MEDS: NIFEdipine E.R 60 MG TABLET (UD) PO SCH (10:08)
[2018-01-02] MEDS: INSULIN SLIDING SCALE (NOVOLOG) 1 VIAL SQ SCH ×4 (10:16→23:55)
--- NOTE | 2018-01-02 12:29 | CONSULT ---
Consult - text type - Consultation Consultation Note: NEUROLOGY CONSULTATION is greatly appreciated: Events reviewed and discussed with ED MD last night. This 82 yo RH woman lives with her daughter, Nga. PMH sig for HTN, DM, Chol, Renal failure, anemia, Hepatitis. 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 Also followed by me over the last 2 years for Progressive OMS, syncopal episode , diabetic neuropathy and recent progression of cognitive decline and fatigue. Last seen in the ofice12/19/17. Daughter called my office a few days ago to discuss her mother's competency and power of workers compensation attorney. Maintained on: Atorvastatin; Insulin; Aspirin 162; Carvedilol; Levothyroxine; and Nifedipine. Now admitted for confusion and fatigue. CT of head (reviewed): Moderate, diffuse atrophy. Scattered microvascular changes. Old, deep, right cerebellar CVA. Na+=148 mg%; Cl--=114 mg%; Cr=4.6 mg%; BUN=66 mg%, TSH=1.73 PHILIPPE: No head trauma. Nech supple. Kernig's neg. No bruits. Cor Reg. Afebrile. NEURO: Awake, alert. Remembers I am "brain Doctor." Cooperative. Fluent in Yoruba. Ox [facility]. Summer. No month. No president. 2017. + Glabella, snout, Symmetrical grasps. Recalls 0 of 3 @ 3 mis. CN II-XII: normal. Gag fine. Motor: No drift or tremor. Normal strength. Absent AJ's. Downgoing toes. Coord: NO FTN dystaxia Sensory: Decreased vib in feet. Gait: Deferred. IMP: Moderate, B/L cerebral dysfunction (OMS, Chronic features) No focality to suggest new CVA. Exam is essentially unchanged from my office visit of 12/19/17. R/O Toxic metabolic encephalopathy especially Dehydration, Uremia and/or infection. SUGGEST: Discuss with daughter what, if any, changes precipitated this ED visit. Hydrate and follow Cr/BUN. Check B12, CK Mobilize OO bed to chair and ambulate with assistance. Thank you very much, Lucio Bergeron MD
[2018-01-02 15:03] LABS: ANION GAP 15 (8-16); BLOOD UREA NITROGEN 65 mg/dL (7-18); CALCIUM 8.5 mg/dL (8.5-10.1); CHLORIDE 116 mmol/L (98-107); CO2 19 mmol/L (21-32); CREATININE 4.6 mg/dL (0.55-1.02); GLUCOSE,RANDOM 97 mg/dL (74-106); POTASSIUM 4.2 mmol/L (3.5-5.1); SODIUM 150 mmol/L (136-145)
--- NOTE | 2018-01-02 15:29 | CONSULT ---
Consult - text type - Consultation Consultation Note: Renal consult for CKD Stage 5 This is a 82 year woman with PMhx of CKD stage 5, DM Type 2, Hypertension, Hypothyrodism, CVA, ESRD, IDDM who presented with weakness and fatigues. PMhx: as above Allergies: NKDA Family hx: NC Social Hx: NO T/A/D ROS: as per HPI Vital Signs Temperature 98.7 F 01/02/18 07:10 Pulse Rate 59 L 01/02/18 12:05 Respiratory Rate 14 01/02/18 12:05 Blood Pressure 124/50 01/02/18 12:05 O2 Sat by Pulse Oximetry (%) 100 01/02/18 12:05 Intake & Output 12/30/17 12/31/17 01/01/18 01/02/18 23:59 23:59 23:59 23:59 Weight 52.617 kg CBC, BMP 01/02/18 07:31 01/02/18 07:31 Current Medications Atorvastatin Calcium (Lipitor -) 40 mg PO [facility] Carvedilol (Coreg -) 12.5 mg PO BID [facility] Last Admin: 01/02/18 10:08 Dose: 12.5 mg Sodium Chloride (Normal Saline -) 1,000 mls @ 75 mls/hr IV ASDIR [facility] Last Admin: 01/02/18 04:00 Dose: 75 mls/hr Insulin Aspart (Novolog Vial Sliding Scale -) 1 vial SQ ACHS [facility]; Protocol Last Admin: 01/02/18 13:24 Dose: Not Given Levothyroxine Sodium (Synthroid -) 25 mcg PO DAILY@0700 [facility] Last Admin: 01/02/18 09:00 Dose: 25 mcg Nifedipine (Procardia Xl -) 60 mg PO DAILY [facility] Last Admin: 01/02/18 10:08 Dose: 60 mg 82 year woman with PMhx of CKD stage 5, DM Type 2, Hypertension, Hypothyrodism, CVA, ESRD, IDDM who presented with weakness and fatigues. #Fatigue/weakenss #CKd Stage 5 #Chronic Anemia #Metabolic acidosis #IDDM #Hypertension Renal function at baseline pt had refused dialysis and dialysis planning as an outpatient no acute indication for ONCOLOGY RN at this time but may consider it if clinical status does not improve trail of IVF f/u cultures neurology follow up Thank you Will follow Levy Mancia DO
--- NOTE | 2018-01-02 16:48 | EKG ---
Test Reason : Blood Pressure : / mmHG Vent. Rate : 077 BPM Atrial Rate : 077 BPM P-R Int : 194 ms QRS Dur : 080 ms QT Int : 392 ms P-R-T Axes : 055 010 072 degrees QTc Int : 443 ms NORMAL SINUS RHYTHM SEPTAL INFARCT (CITED ON OR BEFORE 10-JUL-2012) ABNORMAL ECG WHEN COMPARED WITH ECG OF 05-JUL-2017 18:20, NO SIGNIFICANT CHANGE WAS FOUND Confirmed by GARFIELD LANGFORD MD ([id number]) on 01/02/2018 3:46:50 PM Referred By: Confirmed By:GARFIELD LANGFORD MD
[2018-01-02] MEDS ORDERED: CARVEDILOL 12.5 MG TABLET (FP) ONE (23:44)
[2018-01-02] MEDS ORDERED: ATORVASTATIN CA 40 MG TABLET (FP) ONE (23:45)
[2018-01-02] MEDS: ATORVASTATIN CA 40 MG TABLET (FP) PO SCH (23:55)
[2018-01-03] MEDS: LEVOTHYROXINE NA 25 MCG TABLET (FP) PO SCH (06:18)
[2018-01-03] MEDS: INSULIN SLIDING SCALE (NOVOLOG) 1 VIAL SQ SCH ×4 (06:19→21:28)
[2018-01-03] MEDS: SODIUM CHLORIDE 1,000 ML IV SCH (06:28)
[2018-01-03 06:33] LABS: BASO % 0.5 % (0-2.0); EOS % 1.7 % (0-4.5); HEMATOCRIT 27.5 % (32.4-45.2); HEMOGLOBIN 9.2 GM/dL (10.7-15.3); LYMPH % 26.5 % (8-40); MCH 29.1 pg (25.7-33.7); MCHC 33.6 g/dl (32.0-36.0); MEAN CELL VOLUME 86.6 fl (80-96); MEAN PLT VOLUME 7.8 fl (7.5-11.1); MONO % 5.1 % (3.8-10.2); NEUT % 66.2 % (42.8-82.8); PLATELET COUNT 183 K/MM3 (134-434); RBC 3.18 M/mm3 (3.60-5.2); RDW 18.6 % (11.6-15.6)
[2018-01-03 06:50] LABS: CHLORIDE 115 mmol/L (98-107); POTASSIUM 4.8 mmol/L (3.5-5.1); SODIUM 148 mmol/L (136-145)
[2018-01-03 07:07] LABS: ALBUMIN 3.4 g/dl (3.4-5.0); ALK PHOS 42 U/L (45-117); ANION GAP 12 (8-16); BILIRUBIN,TOTAL 0.3 mg/dL (0.2-1.0); BLOOD UREA NITROGEN 65 mg/dL (7-18); CALCIUM 8.1 mg/dL (8.5-10.1); CO2 21 mmol/L (21-32); CREATININE 4.5 mg/dL (0.55-1.02); GLUCOSE,RANDOM 95 mg/dL (74-106); MAGNESIUM 2.4 mg/dL (1.8-2.4); SGOT/AST 12 U/L (15-37); SGPT/ALT 26 U/L (12-78); TOT PROT 6.9 g/dl (6.4-8.2)
--- NOTE | 2018-01-03 08:58 | PN ---
Progress Note, Physician Chief Complaint: AMS CKD5 Hypernatremia Fatigue/weakness History of Present Illness: nad in bed - Current Medication List Current Medications: Active Medications Atorvastatin Calcium (Lipitor -) 40 mg PO HS [facility] Last Admin: 01/02/18 23:55 Dose: 40 mg Carvedilol (Coreg -) 12.5 mg PO BID [facility] Last Admin: 01/02/18 23:55 Dose: 12.5 mg Cyanocobalamin (Vitamin B12 Injection -) 1,000 mcg IM DAILY [facility] Sodium Chloride (Normal Saline -) 1,000 mls @ 75 mls/hr IV ASDIR [facility] Last Admin: 01/03/18 06:28 Dose: 75 mls/hr Insulin Aspart (Novolog Vial Sliding Scale -) 1 vial SQ ACHS [facility]; Protocol Last Admin: 01/03/18 06:19 Dose: Not Given Levothyroxine Sodium (Synthroid -) 25 mcg PO DAILY@0700 [facility] Last Admin: 01/03/18 06:18 Dose: 25 mcg Nifedipine (Procardia Xl -) 60 mg PO DAILY [facility] Last Admin: 01/02/18 10:08 Dose: 60 mg - Objective Vital Signs: Vital Signs Temperature 97.8 F 01/03/18 01:16 Pulse Rate 68 01/03/18 05:00 Respiratory Rate 20 01/03/18 05:00 Blood Pressure 143/60 01/03/18 05:00 O2 Sat by Pulse Oximetry (%) 98 01/03/18 01:16 Constitutional: Yes: No Distress, Calm, Cachectic Cardiovascular: Yes: Regular Rate and Rhythm Respiratory: Yes: Regular Gastrointestinal: Yes: Normal Bowel Sounds, Soft Musculoskeletal: Yes: Muscle Weakness Edema: No Peripheral Pulses WNL: Yes Neurological: Yes: Alert, Pre-Existing Deficit Psychiatric: Yes: Alert Labs: CBC, BMP 01/03/18 05:30 01/03/18 05:30 INR, PTT INR 1.03 (0.83-1.09) 01/01/18 20:32 Problem List - Problems (1) Weakness Assessment/Plan: likely dehydration -IVF -Seen by Nephrology and Neurology Code(s): R53.1 - WEAKNESS (2) TRAVIS (acute kidney injury) Assessment/Plan: -Cr progressively improved -IVF -Nephrology -No emergent need for dialysis at this time Code(s): N17.9 - ACUTE KIDNEY FAILURE, UNSPECIFIED (3) Anemia Assessment/Plan: -CKD -Def in B12, would replenish -Thyroid and iron profile normal -Stool OB -Continue to monitor trend Code(s): D64.9 - ANEMIA, UNSPECIFIED Assessment/Plan see problem list possible d/c in AM
[2018-01-03] MEDS: NIFEdipine E.R 60 MG TABLET (UD) PO SCH (10:54)
[2018-01-03] MEDS: CARVEDILOL 12.5 MG TABLET (FP) PO SCH ×2 (10:54→21:26)
[2018-01-03] MEDS: CYANOCOBALAMIN (VITAMIN B-12) 1000 MCG/1 ML VIAL IM SCH (10:54)
[2018-01-03] MEDS: ASPIRIN 81 MG CHEWABLE TABLETS PO SCH (10:54)
--- NOTE | 2018-01-03 13:08 | PN ---
Progress Note, Physician Chief Complaint: This is a 82 year woman with PMhx of CKD stage 5, DM Type 2, Hypertension, Hypothyrodism, CVA, ESRD, IDDM who presented with weakness and fatigues. The renal functions were slightly worse than her baseline on admission. History of Present Illness: This is a 82 year woman with PMhx of CKD stage 5, DM Type 2, Hypertension, Hypothyrodism, CVA, ESRD, IDDM who presented with weakness and fatigues. - Current Medication List Current Medications: Active Medications Aspirin (Asa -) 162 mg PO DAILY [facility] Last Admin: 01/03/18 10:54 Dose: 162 mg Atorvastatin Calcium (Lipitor -) 40 mg PO HS [facility] Last Admin: 01/02/18 23:55 Dose: 40 mg Carvedilol (Coreg -) 12.5 mg PO BID [facility] Last Admin: 01/03/18 10:54 Dose: 12.5 mg Cyanocobalamin (Vitamin B12 Injection -) 1,000 mcg IM DAILY [facility] Last Admin: 01/03/18 10:54 Dose: 1,000 mcg Sodium Chloride (Normal Saline -) 1,000 mls @ 75 mls/hr IV ASDIR [facility] Last Admin: 01/03/18 06:28 Dose: 75 mls/hr Insulin Aspart (Novolog Vial Sliding Scale -) 1 vial SQ ACHS [facility]; Protocol Last Admin: 01/03/18 06:19 Dose: Not Given Levothyroxine Sodium (Synthroid -) 25 mcg PO DAILY@0700 [facility] Last Admin: 01/03/18 06:18 Dose: 25 mcg Nifedipine (Procardia Xl -) 60 mg PO DAILY [facility] Last Admin: 01/03/18 10:54 Dose: 60 mg - Objective Vital Signs: Vital Signs Temperature 97.8 F 01/03/18 01:16 Pulse Rate 68 01/03/18 09:00 Respiratory Rate 18 01/03/18 09:00 Blood Pressure 166/69 01/03/18 09:00 O2 Sat by Pulse Oximetry (%) 98 01/03/18 01:16 Constitutional: Yes: No Distress, Anxious, Other (confused) HENT: Yes: Atraumatic Cardiovascular: Yes: Regular Rate and Rhythm, S1, S2 Respiratory: Yes: CTA Bilaterally, Diminished Gastrointestinal: Yes: Normal Bowel Sounds, Soft Genitourinary: No: Bladder Distention, CVA Tenderness - Left, CVA Tenderness - Right Extremities: No: Calf Tenderness Edema: No Labs: CBC, BMP 01/03/18 05:30 01/03/18 05:30 INR, PTT INR 1.03 (0.83-1.09) 01/01/18 20:32 Problem List - Problems (1) Anemia Code(s): D64.9 - ANEMIA, UNSPECIFIED (2) Weakness Code(s): R53.1 - WEAKNESS (3) TRAVIS (acute kidney injury) Code(s): N17.9 - ACUTE KIDNEY FAILURE, UNSPECIFIED (4) Diabetes Code(s): E11.9 - TYPE 2 DIABETES MELLITUS WITHOUT COMPLICATIONS (5) Type 2 diabetes mellitus with other diabetic kidney complication Code(s): E11.29 - TYPE 2 DIABETES MELLITUS [facility] DIABETIC KIDNEY COMPLICATION Assessment/Plan This is a 82 year woman with PMhx of CKD stage 5, DM Type 2, Hypertension, Hypothyrodism, CVA, ESRD, IDDM who presented with weakness and fatigues. The Acute Kidney injury related to Hemodynamic changes, and seems to be responding to IV hydration. No signs of overt fluid overload. Plan: Will maintain IV fluids for another 24 hours. Renal functions improving towards her baseline. If the renal functions continue to improve, can discharge home for outpatient f/ u. No emergent indication for dialysis at this time. Thank you. Sharon Stahl MD
[2018-01-03] MEDS: ATORVASTATIN CA 40 MG TABLET (FP) PO SCH (21:26)
[2018-01-04] MEDS: SODIUM CHLORIDE 1,000 ML IV SCH (03:20)
[2018-01-04 06:06] LABS: SERUM IRON SATURATION 21 % (15-55); TOTAL IRON BINDING CAPACITY 200 ug/dL (250-450); UIBC 159 ug/dL (118-369)
[2018-01-04] MEDS: LEVOTHYROXINE NA 25 MCG TABLET (FP) PO SCH (06:21)
[2018-01-04] MEDS: INSULIN SLIDING SCALE (NOVOLOG) 1 VIAL SQ SCH (06:21)
--- NOTE | 2018-01-04 07:06 | PN ---
Progress Note, Physician Chief Complaint: AMS CKD5 Hypernatremia Fatigue/weakness History of Present Illness: nad in bed - Current Medication List Current Medications: Active Medications Aspirin (Asa -) 162 mg PO DAILY [facility] Last Admin: 01/03/18 10:54 Dose: 162 mg Atorvastatin Calcium (Lipitor -) 40 mg PO HS [facility] Last Admin: 01/03/18 21:26 Dose: 40 mg Carvedilol (Coreg -) 12.5 mg PO BID [facility] Last Admin: 01/03/18 21:26 Dose: 12.5 mg Cyanocobalamin (Vitamin B12 Injection -) 1,000 mcg IM DAILY [facility] Last Admin: 01/03/18 10:54 Dose: 1,000 mcg Sodium Chloride (Normal Saline -) 1,000 mls @ 75 mls/hr IV ASDIR [facility] Last Admin: 01/04/18 03:20 Dose: 75 mls/hr Levothyroxine Sodium (Synthroid -) 25 mcg PO DAILY@0700 [facility] Last Admin: 01/04/18 06:21 Dose: 25 mcg Nifedipine (Procardia Xl -) 60 mg PO DAILY [facility] Last Admin: 01/03/18 10:54 Dose: 60 mg - Objective Vital Signs: Vital Signs Temperature 98.6 F 01/04/18 02:00 Pulse Rate 69 01/04/18 02:00 Respiratory Rate 18 01/04/18 02:00 Blood Pressure 137/60 01/04/18 02:00 O2 Sat by Pulse Oximetry (%) 96 01/03/18 21:00 Constitutional: Yes: No Distress, Calm, Cachectic Cardiovascular: Yes: Regular Rate and Rhythm Respiratory: Yes: Regular Musculoskeletal: Yes: Muscle Weakness Neurological: Yes: Alert, Pre-Existing Deficit Psychiatric: Yes: Alert Labs: CBC, BMP 01/03/18 05:30 01/03/18 05:30 INR, PTT INR 1.03 (0.83-1.09) 01/01/18 20:32 Problem List - Problems (1) Weakness Assessment/Plan: likely dehydration -IVF -Seen by Nephrology and Neurology Code(s): R53.1 - WEAKNESS (2) TRAVIS (acute kidney injury) Assessment/Plan: -Cr progressively improved -IVF -Nephrology -No emergent need for dialysis at this time Code(s): N17.9 - ACUTE KIDNEY FAILURE, UNSPECIFIED (3) Anemia Assessment/Plan: -CKD -Def in B12, would replenish -Thyroid and iron profile normal -Stool OB -Continue to monitor trend Code(s): D64.9 - ANEMIA, UNSPECIFIED (4) Malnourished Assessment/Plan: Nepro BID Code(s): E46 - UNSPECIFIED PROTEIN-CALORIE MALNUTRITION Assessment/Plan see problem list
[2018-01-04 07:24] LABS: BASO % 0.5 % (0-2.0); EOS % 1.8 % (0-4.5); HEMATOCRIT 26.3 % (32.4-45.2); HEMOGLOBIN 8.8 GM/dL (10.7-15.3); LYMPH % 25.3 % (8-40); MCHC 33.6 g/dl (32.0-36.0); MEAN CELL VOLUME 86.3 fl (80-96); MEAN PLT VOLUME 8.4 fl (7.5-11.1); MONO % 5.4 % (3.8-10.2); PLATELET COUNT 169 K/MM3 (134-434); RBC 3.04 M/mm3 (3.60-5.2); RDW 18.1 % (11.6-15.6); WHITE BLOOD COUNT 10.8 K/mm3 (4.0-10.0)
[2018-01-04 07:45] LABS: ANION GAP 8 (8-16); BLOOD UREA NITROGEN 60 mg/dL (7-18); CALCIUM 7.1 mg/dL (8.5-10.1); CHLORIDE 117 mmol/L (98-107); CO2 20 mmol/L (21-32); CREATININE 4.2 mg/dL (0.55-1.02); GLUCOSE,RANDOM 82 mg/dL (74-106); POTASSIUM 4.9 mmol/L (3.5-5.1); SODIUM 145 mmol/L (136-145)
[2018-01-04] MEDS: ASPIRIN 81 MG CHEWABLE TABLETS PO SCH (09:04)
[2018-01-04] MEDS: CARVEDILOL 12.5 MG TABLET (FP) PO SCH (09:05)
[2018-01-04] MEDS: NIFEdipine E.R 60 MG TABLET (UD) PO SCH (09:05)
[2018-01-04] MEDS: CYANOCOBALAMIN (VITAMIN B-12) 1000 MCG/1 ML VIAL IM SCH (09:05)
[2018-01-04] MEDS ORDERED: SODIUM BICARBONATE 650 MG TABLET PO SCH (12:45)
--- NOTE | 2018-01-04 12:59 | DS ---
Physical Examination Vital Signs: Vital Signs Temperature 98.6 F 01/04/18 07:25 Pulse Rate 68 01/04/18 07:25 Respiratory Rate 18 01/04/18 07:32 Blood Pressure 134/59 01/04/18 07:25 O2 Sat by Pulse Oximetry (%) 96 01/04/18 07:32 Findings/Remarks: This is a 82 y/o woman with a past medical history of Anemia, HTN, IDDM, ESRD ( not on dialysis), Kidney Disease, Hypothyroidism, CVA. Who presents to the ED with altered mental status, fatigue, and diarrhea since last Saturday12/27/17. Per ED record: Per her daughter, she first started feeing very tired on Saturday. Her daughter reports that the fatigue and weakness have worsened to the point that she falls asleep sitting up; she has been easy to waken. Additionally , she was alone at home on Saturday and apparently fell in the bathroom. It is unclear how long she was on the ground. She was found in a sitting position and denies any head trauma or LOC. Her daughter states that she has been having a few episodes of watery stool, some of which was on the floor, and they believe that she slipped. Her daughter also states that Ms Pinto has been complaining of feeling unusually cold but that her skin feels warm to touch. However, her daughter has been turning up the air conditioning for the warm skin; Ms Pinto has then been requesting multiple blankets. Ms Pinto and her daughter deny any recent complaint of headache, objective fever , chest pain, SOB or cough, nausea/vomiting, dysuria or frequency, or recent change in bowel movements. They report occasional watery stool is her baseline. She has been compliant with her medications. Constitutional: Yes: No Distress, Calm, Cachectic Cardiovascular: Yes: Regular Rate and Rhythm Respiratory: Yes: Regular Gastrointestinal: Yes: Normal Bowel Sounds, Soft Musculoskeletal: Yes: Muscle Weakness Edema: No Peripheral Pulses WNL: Yes Neurological: Yes: Alert, Pre-Existing Deficit Psychiatric: Yes: Alert Labs: CBC, BMP 01/04/18 05:48 01/04/18 05:48 Discharge Summary Reason For Visit: PUNCTATE HEMORRHAGE OF RT FRONTAL LOBE Current Active Problems Anemia (Acute) Malnourished (Acute) Right frontal lobe punctate hemorrhage (Acute) Weakness (Acute) Hospital Course: Laboratory Results - last 24 hr 01/03/18 01/03/18 01/03/18 05:30 16:47 21:27 WBC RBC Hgb Hct MCV MCH MCHC RDW Plt Count MPV Absolute Neuts (auto) Neutrophils % Lymphocytes % Monocytes % Eosinophils % Basophils % Nucleated RBC % Sodium Potassium Chloride Carbon Dioxide Anion Gap BUN Creatinine Creat Clearance w eGFR POC Glucometer 146 231 Random Glucose Calcium Iron 41 TIBC 200 L Iron Saturation 21 01/04/18 01/04/18 01/04/18 05:27 05:48 05:48 WBC 10.8 H RBC 3.04 L Hgb 8.8 L Hct 26.3 L MCV 86.3 MCH 29.0 MCHC 33.6 RDW 18.1 H Plt Count 169 MPV 8.4 Absolute Neuts (auto) 7.2 Neutrophils % 67.0 Lymphocytes % 25.3 Monocytes % 5.4 Eosinophils % 1.8 Basophils % 0.5 Nucleated RBC % 0 Sodium 145 Potassium 4.9 Chloride 117 H Carbon Dioxide 20 L Anion Gap 8 BUN 60 H Creatinine 4.2 H Creat Clearance w eGFR 10.16 POC Glucometer 129 Random Glucose 82 Calcium 7.1 L Iron TIBC Iron Saturation Condition: Stable - Instructions Diet, Activity, Other Instructions: d/c creon, sodium bicarbonate, calcium acetate Follow up with Dr Mancia within 2 weeks Increase hydration start b12 sublingual 2500 mcg daily Referrals: Home Morin MD [Primary Care Provider] - Levy Mancia MD [Staff Physician] - Disposition: VNS/HOME HEALTH CARE - Home Medications Comprehensive Discharge Medication List: Ambulatory Orders Aspirin [Aspirin EC] 162 mg PO DAILY #30 tablet. 07/08/17 Carvedilol [Coreg -] 12.5 mg PO BID #60 tablet 07/08/17 Hydrocortisone 2.5% Topical Cr [Anusol-Hc -] 1 applic TP BID #60 tube 07/08/17 Nifedipine ER [Procardia XL -] 60 mg PO DAILY #30 tab.er.24 07/08/17 Aspirin [ASA -] 162 mg PO DAILY #30 tab.chew 01/03/18 Cyanocobalamin (Vitamin B-12) [B-12] 2,500 mcg SL DAILY #30 tab.subl 01/03/18 Levothyroxine [Synthroid -] 25 mcg PO DAILY@0700 #30 tablet 01/03/18 Calcium Acetate [Phoslo -] 2,001 mg PO TIDCM capsule 01/04/18 Ferrous Sulfate [Feosol] 325 mg PO BID #60 tablet 01/04/18 Levothyroxine [Synthroid -] 50 mcg PO DAILY@0700 #30 tablet 01/04/18 Rosuvastatin [Crestor -] 5 mg PO HS #30 tablet 01/04/18
--- NOTE | 2018-01-04 13:29 | PN ---
Progress Note, Physician Chief Complaint: This is a 82 year woman with PMhx of CKD stage 5, DM Type 2, Hypertension, Hypothyrodism, CVA, ESRD, IDDM who presented with weakness and fatigues. The renal functions were slightly worse than her baseline on admission. The renal functions are slowly improving. Maintains good urine output. History of Present Illness: This is a 82 year woman with PMhx of CKD stage 5, DM Type 2, Hypertension, Hypothyrodism, CVA, ESRD, IDDM who presented with weakness and fatigues, and worsening of her renal functions. - Current Medication List Current Medications: Active Medications Aspirin (Asa -) 162 mg PO DAILY [facility] Last Admin: 01/04/18 09:04 Dose: 162 mg Atorvastatin Calcium (Lipitor -) 40 mg PO HS [facility] Last Admin: 01/03/18 21:26 Dose: 40 mg Calcium Acetate (Phoslo -) 667 mg PO TIDCM [facility] Carvedilol (Coreg -) 12.5 mg PO BID [facility] Last Admin: 01/04/18 09:05 Dose: 12.5 mg Cyanocobalamin (Vitamin B12 Injection -) 1,000 mcg IM DAILY [facility] Last Admin: 01/04/18 09:05 Dose: 1,000 mcg Ferrous Sulfate (Feosol) 300 mg PO BID [facility] Sodium Chloride (Normal Saline -) 1,000 mls @ 75 mls/hr IV ASDIR [facility] Last Admin: 01/04/18 03:20 Dose: 75 mls/hr Levothyroxine Sodium (Synthroid -) 25 mcg PO DAILY@0700 [facility] Last Admin: 01/04/18 06:21 Dose: 25 mcg Nifedipine (Procardia Xl -) 60 mg PO DAILY [facility] Last Admin: 01/04/18 09:05 Dose: 60 mg Pancrelipase (Creon Dr 36,000 Units Capsule) 1 cap PO TIDCM [facility] Sodium Bicarbonate (Sodium Bicarbonate -) 650 mg PO BID [facility] - Objective Vital Signs: Vital Signs Temperature 98.6 F 01/04/18 07:25 Pulse Rate 68 01/04/18 07:25 Respiratory Rate 18 01/04/18 07:32 Blood Pressure 134/59 01/04/18 07:25 O2 Sat by Pulse Oximetry (%) 96 01/04/18 07:32 Constitutional: Yes: No Distress, Anxious Eyes: Yes: Conjunctiva Clear HENT: Yes: Normocephalic Neck: Yes: Trachea Midline Respiratory: Yes: Diminished Gastrointestinal: Yes: Normal Bowel Sounds, Soft Genitourinary: No: Bladder Distention, CVA Tenderness - Left, CVA Tenderness - Right Edema: No Neurological: Yes: Alert Labs: CBC, BMP 01/04/18 05:48 01/04/18 05:48 INR, PTT INR 1.03 (0.83-1.09) 01/01/18 20:32 Problem List - Problems (1) Anemia Code(s): D64.9 - ANEMIA, UNSPECIFIED (2) Weakness Code(s): R53.1 - WEAKNESS (3) TRAVIS (acute kidney injury) Code(s): N17.9 - ACUTE KIDNEY FAILURE, UNSPECIFIED (4) Diabetes Code(s): E11.9 - TYPE 2 DIABETES MELLITUS WITHOUT COMPLICATIONS (5) Type 2 diabetes mellitus with other diabetic kidney complication Code(s): E11.29 - TYPE 2 DIABETES MELLITUS W OTH DIABETIC KIDNEY COMPLICATION Assessment/Plan This is a 82 year woman with PMhx of CKD stage 5, DM Type 2, Hypertension, Hypothyrodism, CVA, ESRD, IDDM who presented with weakness and fatigue. The Acute Kidney injury related to Hemodynamic changes, and seems to be responding to IV hydration. No signs of overt fluid overload. IMP/ Plan: The patient's renal functions are slowly improving. If the lab data could be carefully monitored at home, she could be sent home. We shall be delighted to f/u her at the office as outpatient. Thank you. Sharon Stahl MD
[2018-01-04 14:53] VITALS: BP 111/45; PULSE 51; TEMP 98
[2018-01-04] MEDS ORDERED: LIPASE/PROTEASE/AMYLASE 36,000 UNIT CAPSULE PO SCH (17:30)
[2018-01-04] MEDS ORDERED: CALCIUM ACETATE 667 MG CAPSULE (FP) PO SCH (17:30)
[2018-01-04] MEDS ORDERED: FERROUS SO4 300 MG/5 ML ORAL SOLN UNIT DOSE CUPS PO SCH (22:00)
== END 2018-01-04 18:43 | disposition home health service (06) ==
LOC: JER 17:03 → JERBED 01-02 01:45 → UNDOADMOB 01-02 07:08 → JERBED 01-02 07:08 → J4W 01-03 02:02
PROVIDERS: ADMIT Family Medicine; ATTEND Family Medicine
PROC: 3E0337Z Introduction of Electrolytic and Water Balance Substance into Peripheral Vein, Percutaneous Approach (ICD-10-PCS; principal; 2018-01-02)
PROC: 3E023NZ Introduction of Analgesics, Hypnotics, Sedatives into Muscle, Percutaneous Approach (ICD-10-PCS; 2018-01-02)
DX: I61.1 Nontraumatic intracerebral hemorrhage in hemisphere, cortical (principal); E11.22 Type 2 diabetes mellitus with diabetic chronic kidney disease; I12.0 Hypertensive chronic kidney disease with stage 5 chronic kidney disease or end stage renal disease; N18.6 End stage renal disease; N17.9 Acute kidney failure, unspecified; Z79.4 Long term (current) use of insulin; D50.9 Iron deficiency anemia, unspecified; E03.9 Hypothyroidism, unspecified; B18.2 Chronic viral hepatitis C; I69.349 Monoplegia of lower limb following cerebral infarction affecting unspecified side; R53.1 Weakness; G93.89 Other specified disorders of brain; E87.2 Acidosis; E87.0 Hyperosmolality and hypernatremia; E46 Unspecified protein-calorie malnutrition; Z68.1 Body mass index [BMI] 19.9 or less, adult; W18.30XA Fall on same level, unspecified, initial encounter; Z91.81 History of falling; Y93.9 Activity, unspecified; Y92.002 Bathroom of unspecified non-institutional (private) residence as the place of occurrence of the external cause
CPT/HCPCS: 36415; 70450-TC; 71046-TC-FY; 80048; 80053; 81003; 81015; 82009; 82550; 82607; 82728; 82803; 82962; 83036; 83540; 83550; 83605; 83735; 84100; 84439; 84443; 84484; 85025; 85610; 85730; 87040; 87086; 93005; 93010; 96360; 96372; 99285-25; G0378; J7030

== ENCOUNTER 2018-03-20 12:38 | Inpatient (IN) | payer OTHER, MEDICARE ==
[2018-03-20] MEDS ORDERED: ACETAMINOPHEN 1000 MG/100 ML VIAL (NON FORMULARY) IVPB ONE (13:39)
[2018-03-20] MEDS ORDERED: ACETAMINOPHEN INJECTION 100 ML IVPB ONE (13:46)
--- NOTE | 2018-03-20 13:52 | PDOC ---
History of Present Illness - General Chief Complaint: Pain Stated Complaint: PAIN Time Seen by Provider: 03/20/18 12:58 - History of Present Illness Initial Comments: 82yo F with PMH of ESRD (not yet on HD), DM, HTN, CVA, Anemia presenting with multiple unwitnessed falls and weakness. Her daughter was at the bedside providing collateral history. Daughter reports that patient suffered a fall yesterday and overnight. Patient is supposed to walk with the help of a walker and has been instructed to ask for assistance when leaving the bed but often does not do so. The fall was unwitnessed, but the patient reports that she recalls the entirety of both fall episodes. No history of arrhythmia or seizure. She endorses lower back pain which corresponds with the area where she fell. She does have a prior history of falls, most recently seen in this ED on and found to have R. frontal petechial bleed. Denies loss of consciousness , nausea, or vomiting. Denies dental injury, headache, neck pain, chest pain, palpitations, or shortness of breath. On ASA 81, but no blood thinner. Patient has had bright red blood per rectum which she attributes to hemorrhoids. Her physician ordered a repeat hemoglobin for tomorrow as her previous level was 7.7. Last bowel movement was this morning and was a loose, brown stool. No fevers, chills, chest pain, or shortness of breath. Past History - Past Medical History Allergies/Adverse Reactions: Allergies Allergy/AdvReac Type Severity Reaction Status Date / Time No Known Allergies Allergy Verified 03/20/18 12:49 Home Medications: Ambulatory Orders Carvedilol [Coreg -] 12.5 mg PO BID #60 tablet 07/08/17 Nifedipine ER [Procardia XL -] 60 mg PO DAILY #30 tab.er.24 07/08/17 Aspirin [ASA -] 162 mg PO DAILY #30 tab.chew 01/03/18 Cyanocobalamin (Vitamin B-12) [B-12] 2,500 mcg SL DAILY #30 tab.subl 01/03/18 Calcium Acetate [Phoslo -] 2,001 mg PO TIDCM capsule 01/04/18 Ferrous Sulfate [Feosol] 325 mg PO BID #60 tablet 01/04/18 Levothyroxine [Synthroid -] 50 mcg PO DAILY@0700 #30 tablet 01/04/18 Rosuvastatin [Crestor -] 5 mg PO HS #30 tablet 01/04/18 Calcitriol [Rocaltrol -] 0.25 mcg PO DAILY 03/20/18 Sodium Bicarbonate - 650 mg PO ASDIR 03/20/18 Anemia: No Asthma: No Cancer: No Cardiac Disorders: No CVA: Yes (TIA) COPD: No CHF: No DVT: No Dementia: No Diabetes: Yes (IDDM) GI Disorders: No Disorders: Yes (ESRD) HTN: Yes Hypercholesterolemia: No Liver Disease: No Seizures: No Thyroid Disease: Yes - Surgical History Abdominal Surgery: No Appendectomy: No Cardiac Surgery: No Cholecystectomy: Yes Lung Surgery: No Neurologic Surgery: No Orthopedic Surgery: No - Immunization History Immunization Up to Date: Yes - Suicide/Smoking/Psychosocial Hx Smoking Status: Yes Smoking History: Former smoker Have you smoked in the past 12 months: No Number of Cigarettes Smoked Daily: 20 If you are a former smoker, when did you quit?: 2018 Information on smoking cessation initiated: No 'Breaking Loose' booklet given: 07/05/17 Hx Alcohol Use: No Drug/Substance Use Hx: No Substance Use Type: None Hx Substance Use Treatment: No Review of Systems - Review of Systems Comments:: Constitutional: no fever, no chills HEENT: no throat pain, no dysphagia Cardiovascular: no chest pain, no palpitations Respiratory: no cough, no shortness of breath Gastrointestinal: +rectal bleed, no abdominal pain, no nausea, no vomiting Genitourinary: no dysuria, no frequency Musculoskeletal: no myalgia, no arthralgia Skin: no rash, no itching Neurologic: no headache, no dizziness *Physical Exam - Vital Signs Last Vital Signs Temp Pulse Resp BP Pulse Ox 97.8 F 69 16 161/57 L 100 03/20/18 12:46 03/20/18 12:46 03/20/18 12:46 03/20/18 12:46 03/20/18 12:46 - Physical Exam Comments: General: Awake, alert, and fully oriented, in no acute distress Head: no signs of trauma Eyes: EOMI, sclera anicteric ENT: Moist mucus membranes Neck: Normal ROM, supple Lungs: Lungs clear, Normal breath sounds Cardio: Regular rhythm, S1 and S2 present Abdomen: Soft, nontender. No guarding, no rebound, no masses Extremities: Normal range of motion, Distal pulses present SKIN: Warm, Dry, normal turgor Neurologic: Cranial nerves II through XII grossly intact. Normal speech, sensation, strength, and coordination. Rectal: The skin is without erythema or induration. External hemorrhoids present. No fissures, skin tags, warts, or discharge. Sphincter tone normal. ED Treatment Course - LABORATORY CBC & Chemistry Diagram: 03/20/18 13:48 03/20/18 13:48 - RADIOLOGY Radiology Studies Ordered: Category Date Time Status HEAD CT WITHOUT CONTRAST [CT] Stat CT Scan 03/20/18 13:37 Ordered CHEST X-RAY PORTABLE* [RAD] Stat Radiology 03/20/18 13:38 Ordered PELVIS [RAD] Stat Radiology 03/20/18 13:40 Ordered SPINE-LUMBAR SACRAL [RAD] Stat Radiology 03/20/18 13:40 Ordered Medical Decision Making - Medical Decision Making 82yo F with PMH of ESRD (not yet on HD), DM, HTN, CVA, Anemia presenting with multiple unwitnessed falls and weakness. -DDX includes but not limited mechanical fall, anemia of chronic disease, syncope, GI bleed -Hemoglobin low at 7.5. PRBC ordered. Patient consented for blood transfusion -FOBT positive -EKG: rate 70, QTc 442, sinus -Cr=5.6, BUN=70, both elevated from patients baseline indicative of acute on chronic kidney disease -Discussed case with Dr. Stahl who is covering for Dr. Mancia. Recomended CPK, urine myoglobin, and 1/2 NS 50cc/hr. Ordered. -Discussed case with Dr. Clay who accepted patient for admission. 03/20/18 20:35 *DC/Admit/Observation/Transfer Diagnosis at time of Disposition: Acute on chronic kidney failure - Discharge Dispostion Condition at time of disposition: Guarded Decision to Admit order: Yes - Referrals - Patient Instructions - Post Discharge Activity
[2018-03-20 14:14] LABS: BASO % 0.4 % (0-2.0); EOS % 1.6 % (0-4.5); HEMATOCRIT 22.9 % (32.4-45.2); HEMOGLOBIN 7.5 GM/dL (10.7-15.3); LYMPH % 16.1 % (8-40); MCH 28.4 pg (25.7-33.7); MCHC 32.9 g/dl (32.0-36.0); MEAN CELL VOLUME 86.5 fl (80-96); MEAN PLT VOLUME 7.9 fl (7.5-11.1); NEUT % 74.9 % (42.8-82.8); PLATELET COUNT 205 K/MM3 (134-434); RBC 2.64 M/mm3 (3.60-5.2); RDW 17.2 % (11.6-15.6); WHITE BLOOD COUNT 10.7 K/mm3 (4.0-10.0)
[2018-03-20 14:32] LABS: INR 1.05 (0.83-1.09); PROTHROMBIN TIME (PATIENT) 12.4 SEC (9.7-13.0)
[2018-03-20 14:48] LABS: ALBUMIN 3.5 g/dl (3.4-5.0); ALK PHOS 49 U/L (45-117); ANION GAP 12 MMOL/L (8-16); BILIRUBIN,TOTAL 0.2 mg/dL (0.2-1); BLOOD UREA NITROGEN 70 mg/dL (7-18); CALCIUM 8.4 mg/dL (8.5-10.1); CHLORIDE 104 mmol/L (98-107); CO2 24 mmol/L (21-32); CREATININE 5.6 mg/dL (0.55-1.3); GLUCOSE,RANDOM 134 mg/dL (74-106); POTASSIUM 4.7 mmol/L (3.5-5.1); SGOT/AST 12 U/L (15-37); SGPT/ALT 18 U/L (13-61); SODIUM 141 mmol/L (136-145); TOT PROT 7.5 g/dl (6.4-8.2)
--- NOTE | 2018-03-20 15:41 | PDOC ---
Attending Attestation - Resident Resident Name: Valarie Velarde - ED Attending Attestation I have performed the following: I have examined & evaluated the patient, The case was reviewed & discussed with the resident, I agree w/resident's findings & plan, Exceptions are as noted - HPI HPI: 03/20/18 15:40 82-year-old female history of diabetes, end-stage renal disease not on dialysis , chronic anemia, hypothyroidism, hypertension, hepatitis C, previous stroke presents with fall and weakness. Yesterday, the patient felt generally weak and had a mechanical fall. Landing on her back. She denies head trauma. This morning , the patient another mechanical fall unwitnessed but the patient again reports no head trauma. However, the patient, the lumbar sacral pain in addition left hip pain. No numbness or tingling. Patient states that she feels generally weak. Denies fevers or chills. Denies chest pain or short of breath. - Physicial Exam PE: 03/20/18 15:41 GENERAL: Awake, alert, and fully oriented, in no acute distress. Tired appearing. HEAD: No signs of trauma EYES: EOMI, sclera anicteric, conjunctiva clear ENT: Auricles normal inspection, hearing grossly normal, nares patent NECK: Normal ROM, supple, LUNGS: Breath sounds equal, clear to auscultation bilaterally. No wheezes, and no crackles HEART: Regular rate and rhythm, normal S1 and S2, no murmurs, rubs or gallops ABDOMEN: Soft, nontender, No guarding, no rebound. No masses PELVIS: mild TTP Left hip. FROM bilateral hips. BACK: TTP lumbosacral. NO step offs appreciated EXTREMITIES: Normal range of motion, no edema. No clubbing or cyanosis. No cords, erythema, or tenderness NEUROLOGICAL: Cranial nerves II through XII grossly intact. Normal speech SKIN: Warm, Dry, normal turgor, no rashes or lesions noted. - Medical Decision Making 03/20/18 15:42 Vital Signs Temp Pulse Resp BP Pulse Ox 97.8 F 69 16 161/57 L 100 03/20/18 12:46 03/20/18 12:46 03/20/18 12:46 03/20/18 12:46 03/20/18 14:14 We'll need to investigate the patient's generalized weakness. Given patient's history of chronic kidney disease, we'll need to value for worsening kidney disease or metabolic disarrary. We'll need to rule out infectious or cardiac or neurologic etiology. We'll obtain head CT given the fall. Obtain imaging of the left hip and lumbosacral imaging. Labs, UA. 03/20/18 16:37 CBC, BMP 03/20/18 13:48 03/20/18 13:48 CMP Sodium 141 mmol/L (136-145) 03/20/18 13:48 Potassium 4.7 mmol/L (3.5-5.1) 03/20/18 13:48 Chloride 104 mmol/L (98-107) 03/20/18 13:48 Carbon Dioxide 24 mmol/L (21-32) 03/20/18 13:48 Anion Gap 12 MMOL/L (8-16) 03/20/18 13:48 BUN 70 mg/dL (7-18) H 03/20/18 13:48 Creatinine 5.6 mg/dL (0.55-1.3) H 03/20/18 13:48 Creat Clearance w eGFR 7.29 (>60) 03/20/18 13:48 Random Glucose 134 mg/dL (74-106) H 03/20/18 13:48 Calcium 8.4 mg/dL (8.5-10.1) L 03/20/18 13:48 Total Bilirubin 0.2 mg/dL (0.2-1) 03/20/18 13:48 AST 12 U/L (15-37) L 03/20/18 13:48 ALT 18 U/L (13-61) 03/20/18 13:48 Alkaline Phosphatase 49 U/L (45-117) 03/20/18 13:48 Troponin I < 0.02 ng/ml (0.00-0.05) 03/20/18 13:48 Total Protein 7.5 g/dl (6.4-8.2) 03/20/18 13:48 Albumin 3.5 g/dl (3.4-5.0) 03/20/18 13:[address] and pelvis/lumbar spine CT unremarkable. However, pt noted with TRAVIS on CKD. Pt more uremic. Also with anemia of 7.5, getting worse. I suspect from anemia of chronic disease. Should consider transfusing patient. Will need UA to r/o UTI. Admit. Heart Score/ECG Review #1 ECG reviewed & interpreted by me at: 14:10 03/20/18 16:36 NSR 70, no std/naheed, normal axis, normal intervals, T wave flat aVL, QTC 442 msec
[2018-03-20 16:24] LABS: URINE APPEARANCE CLEAR; URINE BILIRUBIN NEGATIVE (<2.0 mg/dL); URINE COLOR STRAW; URINE GLUCOSE (UA) NEGATIVE (NEGATIVE); URINE KETONE NEGATIVE (NEGATIVE); URINE LEUK ESTERASE NEGATIVE (NEGATIVE); URINE NITRITE NEGATIVE (NEGATIVE); URINE PROTEIN 2+ (NEGATIVE); URINE UROBILINOGEN NEGATIVE mg/dL (0.2-1.0)
[2018-03-20 16:35] LABS: EPI CELLS FEW /HPF (FEW)
--- NOTE | 2018-03-20 16:58 | EKG ---
Test Reason : Blood Pressure : / mmHG Vent. Rate : 070 BPM Atrial Rate : 070 BPM P-R Int : 184 ms QRS Dur : 088 ms QT Int : 410 ms P-R-T Axes : 061 006 064 degrees QTc Int : 442 ms SINUS RHYTHM WITH PREMATURE SUPRAVENTRICULAR COMPLEXES SEPTAL INFARCT (CITED ON OR BEFORE 10-JUL-2012) ABNORMAL ECG WHEN COMPARED WITH ECG OF 02-JAN-2018 01:59, PREMATURE SUPRAVENTRICULAR COMPLEXES ARE NOW PRESENT Confirmed by GARFIELD LANGFORD MD ([id number]) on 03/20/2018 4:58:14 PM Referred By: Confirmed By:GARFIELD LANGFORD MD
[2018-03-20] MEDS ORDERED: SODIUM CHLORIDE 0.45% 1,000 ML IV SCH (17:15)
[2018-03-20] MEDS: CALCIUM ACETATE 667 MG CAPSULE (FP) PO SCH (20:14)
[2018-03-20 21:08] LABS: INR 1.03 (0.83-1.09); PROTHROMBIN TIME (PATIENT) 12.1 SEC (9.7-13.0)
[2018-03-20 22:18] LABS: N-TERMINAL BNP 2068.9 pg/ml (5-450)
[2018-03-20] MEDS: CARVEDILOL 12.5 MG TABLET (FP) PO SCH (22:19)
[2018-03-20] MEDS: ROSUVASTATIN CA 5 MG TABLET (FP) PO SCH (22:19)
[2018-03-20 23:50] VITALS: BMI 20.2
[2018-03-21] MEDS ORDERED: FUROSEMIDE 40 MG/4 ML INJECTABLE VIAL IVPUSH ONE (03:50)
[2018-03-21] MEDS ORDERED: traMADol HCL 50 MG TABLET PO ONE (03:50)
--- NOTE | 2018-03-21 03:54 | HOSP ---
Subjective - Review of Symptoms Events since last encounter: RN concerned pt with cardiac history, elevated BNP and to receive 3uPRBC. Would like to know if pt needs lasix between units. Subjective: pt initially with no complaints. Feeling well. Reported low back pain after sitting up and then laying back down. Reports she has longstanding h/o same. Denies chest pain, respiratory distress, fever or chills. Physical Examination Vital Signs: Vital Signs Temperature 98.4 F 03/21/18 01:00 Pulse Rate 72 03/21/18 01:00 Respiratory Rate 18 03/21/18 01:00 Blood Pressure 190/77 H 03/21/18 01:00 O2 Sat by Pulse Oximetry (%) 98 03/20/18 23:33 Constitutional: Yes: No Distress, Calm Cardiovascular: Yes: S1, S2. No: Murmur, Rub Respiratory: Yes: Other (crackles bilt bases) Gastrointestinal: Yes: Normal Bowel Sounds, Soft. No: Tenderness Labs: CBC, BMP 03/20/18 13:48 03/20/18 13:48 Hospitalist Encounter Assessment: CHF - will give lasix 40mg x 1 now before 2nd unit PRBC HTN - BP elevated, did not take procardia in am on 03/20. will give lasix and pain med, repeat bp in one hour and if still elevated, give home procardia. Low back pain - tramadol 25mg x 1
[2018-03-21] MEDS ORDERED: NIFEdipine E.R 60 MG TABLET (UD) PO ONE (05:57)
[2018-03-21] MEDS: LEVOTHYROXINE NA 50 MCG TABLET (FP) PO SCH (06:13)
--- NOTE | 2018-03-21 09:34 | PN ---
Progress Note (short form) - Note Progress Note: Please calll Dr Li who has seen the patient in the past. The patient and family would like to continue to see Dr Li
[2018-03-21] MEDS: CALCITRIOL 0.25 MCG CAPSULE (FP) PO SCH (09:59)
[2018-03-21] MEDS: CARVEDILOL 12.5 MG TABLET (FP) PO SCH ×2 (09:59→21:16)
[2018-03-21] MEDS: CALCIUM ACETATE 667 MG CAPSULE (FP) PO SCH ×3 (09:59→17:39)
[2018-03-21 10:51] LABS: BASO % 0.3 % (0-2.0); EOS % 1.9 % (0-4.5); HEMATOCRIT 33.3 % (32.4-45.2); HEMOGLOBIN 11.4 GM/dL (10.7-15.3); LYMPH % 11.3 % (8-40); MCH 29.9 pg (25.7-33.7); MCHC 34.1 g/dl (32.0-36.0); MEAN CELL VOLUME 87.6 fl (80-96); MEAN PLT VOLUME 7.8 fl (7.5-11.1); MONO % 5.7 % (3.8-10.2); NEUT % 80.8 % (42.8-82.8); PLATELET COUNT 186 K/MM3 (134-434); RBC 3.81 M/mm3 (3.60-5.2); RDW 16.1 % (11.6-15.6); WHITE BLOOD COUNT 11.2 K/mm3 (4.0-10.0)
[2018-03-21 11:16] LABS: ALBUMIN 3.3 g/dl (3.4-5.0); ALK PHOS 51 U/L (45-117); ANION GAP 8 MMOL/L (8-16); BILIRUBIN,TOTAL 0.6 mg/dL (0.2-1); BLOOD UREA NITROGEN 67 mg/dL (7-18); CALCIUM 8.4 mg/dL (8.5-10.1); CHLORIDE 102 mmol/L (98-107); CO2 26 mmol/L (21-32); CREATININE 5.4 mg/dL (0.55-1.3); GLUCOSE,RANDOM 213 mg/dL (74-106); MAGNESIUM 2.6 mg/dL (1.8-2.4); PHOSPHOROUS 6.6 mg/dL (2.5-4.9); SGOT/AST 15 U/L (15-37); SGPT/ALT 18 U/L (13-61); SODIUM 137 mmol/L (136-145); TOT PROT 7.2 g/dl (6.4-8.2)
--- NOTE | 2018-03-21 11:28 | CONSULT ---
Consult Consult Specialty:: Nephrology ( Favio / Gavino) Reason for Consultation:: 82yo F with PMH of ESRD , DM, HTN, CVA, Anemia presenting with multiple unwitnessed falls and weakness. No history of arrhythmia or seizure. She has low back pain which corresponds with the area where she fell. She had a recent post trumatic R. frontal petechial bleed. Denies loss of consciousness, nausea, or vomiting. Denies dental injury, headache, neck pain, chest pain, palpitations, or shortness of breath. On ASA 81. Patient has had bright red blood per rectum which she attributes to hemorrhoids. The patient had discussion of Renal replacement therapy in the past with our service, and had desired that no such treatments be given to her. - History of Present Illness Chief Complaint: Anemia. GI bleeding. 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, Peripheral Neuropathy Cardio/Vascular: Yes: HTN, Hyperlipdemia Gastrointestinal: Yes: Constipation, GI Bleed Hepatobiliary: Yes: Hepatitis C Renal/: Yes: Renal Failure Heme/Onc: Yes: Anemia Endocrine: Yes: Diabetes Mellitus, Hypothyroidism - Past Surgical History Past Surgical History: Yes: Tonsillectomy, Upper Endoscopy, Vein Stripping/ Ligation (Thyroidectomy,) - Alcohol/Substance Use Hx Alcohol Use: No History of Substance Use: reports: None - Smoking History Smoking history: Former smoker Have you smoked in the past 12 months: No Aproximately how many cigarettes per day: 20 If you are a former smoker, when did you quit?: 2018 - Social History History of Recent Travel: No Home Medications - Allergies Allergies/Adverse Reactions: Allergies Allergy/AdvReac Type Severity Reaction Status Date / Time No Known Allergies Allergy Verified 03/20/18 12:49 - Home Medications Home Medications: Ambulatory Orders Carvedilol [Coreg -] 12.5 mg PO BID #60 tablet 07/08/17 Nifedipine ER [Procardia XL -] 60 mg PO DAILY #30 tab.er.24 07/08/17 Aspirin [ASA -] 162 mg PO DAILY #30 tab.chew 01/03/18 Cyanocobalamin (Vitamin B-12) [B-12] 2,500 mcg SL DAILY #30 tab.subl 01/03/18 Calcium Acetate [Phoslo -] 2,001 mg PO TIDCM capsule 01/04/18 Ferrous Sulfate [Feosol] 325 mg PO BID #60 tablet 01/04/18 Levothyroxine [Synthroid -] 50 mcg PO DAILY@0700 #30 tablet 01/04/18 Rosuvastatin [Crestor -] 5 mg PO HS #30 tablet 01/04/18 Calcitriol [Rocaltrol -] 0.25 mcg PO DAILY 03/20/18 Sodium Bicarbonate - 650 mg PO ASDIR 03/20/18 Review of Systems - Review of Systems Constitutional: reports: Lethargy, Loss of Appetite Neck: reports: Pain on Movement, Stiffness Cardiovascular: denies: Chest Pain Gastrointestinal: reports: Bloating, Melena, Rectal Bleeding Musculoskeletal: reports: Back Pain, Joint Pain Neurological: reports: Unsteady Gait, Other (repeated falls) Physical Exam Vital Signs: Vital Signs Temperature 97.9 F 03/21/18 08:06 Pulse Rate 69 03/21/18 08:06 Respiratory Rate 20 03/21/18 08:06 Blood Pressure 150/65 03/21/18 08:06 O2 Sat by Pulse Oximetry (%) 98 03/21/18 06:00 Constitutional: Yes: No Distress, Anxious, Pallor Eyes: Yes: Conjunctiva Clear HENT: Yes: Normocephalic Neck: Yes: Trachea Midline Cardiovascular: Yes: S1, S2 Respiratory: Yes: CTA Bilaterally, Diminished Gastrointestinal: Yes: Soft, Rectal Bleeding Renal/: No: CVA Tenderness - Left, CVA Tenderness - Right Musculoskeletal: Yes: Back Pain, Joint Stiffness, Muscle Pain Integumentary: Yes: WNL Neurological: Yes: Confusion, Lethargy, Unsteady Gait Labs: CBC, BMP 03/21/18 10:35 03/21/18 10:35 Problem List - Problems (1) Anemia Code(s): D64.9 - ANEMIA, UNSPECIFIED (2) CVA (cerebral vascular accident) Code(s): I63.9 - CEREBRAL INFARCTION, UNSPECIFIED (3) Diabetes Code(s): E11.9 - TYPE 2 DIABETES MELLITUS WITHOUT COMPLICATIONS (4) HTN (hypertension) Code(s): I10 - ESSENTIAL (PRIMARY) HYPERTENSION Qualifiers: (5) Hepatitis C Code(s): B19.20 - UNSPECIFIED VIRAL HEPATITIS C WITHOUT HEPATIC COMA (6) Type 2 diabetes mellitus with other diabetic kidney complication Code(s): E11.29 - TYPE 2 DIABETES MELLITUS W OTH DIABETIC KIDNEY COMPLICATION (7) Weakness Code(s): R53.1 - WEAKNESS Assessment/Plan 82yo F with PMH of ESRD , DM, HTN, CVA, Anemia presenting with multiple unwitnessed falls and weakness. The patient has GI bleeding, and worsening of her Chronic anemia from CKD. The family and the patient had discussions in the past about dialysis, and the decision was in favor of not pursuing it. But today, I had discussion with her daughter Emeli, and the family is going to talk to the patient about considering dialysis. They will let us know. Severe anemia...Acute blood loss, superimposed on Chronic CKD related anemia. PLAN: PRBC Transfusion. Decision on dialysis to be announced by the family. Will monitor the renal functions closely with you. Will hold off on IV fluids for now. Thank you. Will follow with you. Sharon Stahl MD
--- NOTE | 2018-03-21 12:08 | PN ---
Progress Note, Physician Chief Complaint: GI bleed ESRD History of Present Illness: NAD fatigued and confused - Current Medication List Current Medications: Active Medications Acetaminophen (Tylenol -) 650 mg PO Q4H PRN PRN Reason: PAIN LEVEL 1-5 Calcitriol (Rocaltrol -) 0.25 mcg PO DAILY [facility] Last Admin: 03/21/18 09:59 Dose: 0.25 mcg Calcium Acetate (Phoslo -) 2,001 mg PO TIDCM [facility] Last Admin: 03/21/18 09:59 Dose: 2,001 mg Carvedilol (Coreg -) 12.5 mg PO BID [facility] Last Admin: 03/21/18 09:59 Dose: 12.5 mg Sodium Chloride (1/2 Normal Saline) 1,000 mls @ 50 mls/hr IV ASDIR [facility] Stop: 03/21/18 17:06 Last Admin: 03/20/18 19:36 Dose: 50 mls/hr Levothyroxine Sodium (Synthroid -) 50 mcg PO DAILY@0700 [facility] Last Admin: 03/21/18 06:13 Dose: 50 mcg Nifedipine (Procardia Xl -) 60 mg PO DAILY [facility] Rosuvastatin Calcium (Crestor -) 5 mg PO HS [facility] Last Admin: 03/20/18 22:19 Dose: 5 mg - Objective Vital Signs: Vital Signs Temperature 97.9 F 03/21/18 08:06 Pulse Rate 69 03/21/18 08:06 Respiratory Rate 20 03/21/18 08:06 Blood Pressure 150/65 03/21/18 08:06 O2 Sat by Pulse Oximetry (%) 98 03/21/18 06:00 Constitutional: Yes: Well Nourished, No Distress, Calm Cardiovascular: Yes: Regular Rate and Rhythm Respiratory: Yes: Regular Gastrointestinal: Yes: Normal Bowel Sounds, Soft Genitourinary: Yes: Incontinence Musculoskeletal: Yes: Muscle Weakness Edema: No Peripheral Pulses WNL: Yes Neurological: Yes: Alert, Confusion Psychiatric: Yes: Alert Labs: CBC, BMP 03/21/18 10:35 03/21/18 10:35 INR, PTT INR 1.03 (0.83-1.09) 03/20/18 20:32 Problem List - Problems (1) Acute on chronic kidney failure Assessment/Plan: -Nephrology on board -Family to decide whether to proceed with dialysis or not -daily labs Code(s): N17.9 - ACUTE KIDNEY FAILURE, UNSPECIFIED; N18.9 - CHRONIC KIDNEY DISEASE, UNSPECIFIED (2) Gastrointestinal bleeding Assessment/Plan: -Guaiac positive -H/H stable -Iron profile okay -B12 low in the past-recheck -Seen by GI Code(s): K92.2 - GASTROINTESTINAL HEMORRHAGE, UNSPECIFIED (3) Anemia Assessment/Plan: -likely 2/2 to CKD -Guaiac positive -H/H stable -Iron profile okay -B12 low in the past-recheck -Seen by GI -monitor H/H Code(s): D64.9 - ANEMIA, UNSPECIFIED (4) Weakness Assessment/Plan: Physical therapy Code(s): R53.1 - WEAKNESS Assessment/Plan see problem list Physical therapy
--- NOTE | 2018-03-21 15:32 | CON.CARD ---
Consult Consult Specialty:: Cardiology Reason for Consultation:: HTN - History of Present Illness Chief Complaint: Falls and weakness History of Present Illness: This is an 82 year old female with a PMH of CRI (not on dialysis), DM, HTN, CVA , and anemia. She presents now with multiple unwitnessed falls and has weakness as per the patient's daughter. No cardiac complaints. BP's noted to be elevated to 150/65 mmHg and then 128/61 mmHg. Presently resting comfortably. 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 Cardio/Vascular: Yes: HTN, Hyperlipdemia Gastrointestinal: Yes: Constipation, GI Bleed Hepatobiliary: Yes: Hepatitis C Renal/: Yes: Renal Failure Endocrine: Yes: Diabetes Mellitus, Hypothyroidism - Past Surgical History Past Surgical History: Yes: Tonsillectomy, Upper Endoscopy, Vein Stripping/ Ligation (Thyroidectomy,) - Alcohol/Substance Use Hx Alcohol Use: No History of Substance Use: reports: None - Smoking History Smoking history: Former smoker Have you smoked in the past 12 months: No Aproximately how many cigarettes per day: 20 If you are a former smoker, when did you quit?: 2018 - Social History History of Recent Travel: No Home Medications - Allergies Allergies/Adverse Reactions: Allergies Allergy/AdvReac Type Severity Reaction Status Date / Time No Known Allergies Allergy Verified 03/20/18 12:49 - Home Medications Home Medications: Ambulatory Orders Carvedilol [Coreg -] 12.5 mg PO BID #60 tablet 07/08/17 Nifedipine ER [Procardia XL -] 60 mg PO DAILY #30 tab.er.24 07/08/17 Aspirin [ASA -] 162 mg PO DAILY #30 tab.chew 01/03/18 Cyanocobalamin (Vitamin B-12) [B-12] 2,500 mcg SL DAILY #30 tab.subl 01/03/18 Calcium Acetate [Phoslo -] 2,001 mg PO TIDCM capsule 01/04/18 Ferrous Sulfate [Feosol] 325 mg PO BID #60 tablet 01/04/18 Levothyroxine [Synthroid -] 50 mcg PO DAILY@0700 #30 tablet 01/04/18 Rosuvastatin [Crestor -] 5 mg PO HS #30 tablet 01/04/18 Calcitriol [Rocaltrol -] 0.25 mcg PO DAILY 03/20/18 Sodium Bicarbonate - 650 mg PO ASDIR 03/20/18 Review of Systems Findings/Remarks: As per HPI Vital Signs: Vital Signs Temperature 98.2 F 03/21/18 13:33 Pulse Rate 60 03/21/18 13:33 Respiratory Rate 18 03/21/18 13:33 Blood Pressure 147/59 L 03/21/18 13:33 O2 Sat by Pulse Oximetry (%) 98 03/21/18 10:00 Constitutional: Yes: Well Nourished, No Distress Eyes: Yes: WNL HENT: Yes: WNL Neck: Yes: Supple Respiratory: Yes: CTA Bilaterally Gastrointestinal: Yes: Normal Bowel Sounds Cardiovascular: Yes: Regular Rate and Rhythm Heart Sounds: Yes: S1, S2 Extremities: Yes: WNL Edema: No Neurological: Yes: Alert, Oriented - Other Data Labs, Other Data: CBC, BMP 03/21/18 10:35 03/21/18 10:35 INR, PTT INR 1.03 (0.83-1.09) 03/20/18 20:32 Troponin, BNP 03/20/18 20:32 Troponin I < 0.02 B-Natriuretic Peptide 2068.9 H Troponin, BNP 03/20/18 20:32 Troponin I < 0.02 B-Natriuretic Peptide 2068.9 H Assessment/Plan 82 year old female with a PMH of CRI (not on dialysis), DM, HTN, CVA, and anemia. She presents now with multiple unwitnessed falls and has weakness as per the patient's daughter. No cardiac complaints. BP's noted to be elevated to 150/65 mmHg and then 128/61 mmHg. Presently resting comfortably. EKG NSR at 70 BPM with APC's, normal intervals, normal axis, and NSSTTW changes. HTN Continue Nifedipine XL 60 mg PO daily and Coreg 12.5 mg PO BID HLD Continue Crestor 5 mg Falls and weakness Likely secondary to anemia secondary to GI bleeding Reassess vitals and orthostatics after PRBC Tx.
--- NOTE | 2018-03-21 16:11 | CON.GI ---
Consult Consult Specialty:: Gastroenterology Referred by:: Sang Meade NP Reason for Consultation:: Anemia - History of Present Illness Chief Complaint: Repeated falls History of Present Illness: 82F is admitted after falling repeated at home and is found to be anemic. He stools are chronically dark as she takes iron and she has constipation. She did note some red tinges in her stool about a week ago which she attributed to hemorrhoids. She takes aspirin daily. She has progressive renal failure due to diabetic nephropathy. She denies abdominal pain, early satiety, acid reflux and dysphagia but has weight loss that led to removal of insulin and other diabetic medications. She had a colonoscopy with Dr Li on 11/26/05 when a cecal polyp was removed. Large hemorrhoids were found. She had her HCV eradicated with a course of Harvoni. He HCV was transfusion acquired from having required multiple transfusions following a complicated cholecystectomy. She does not recall ever having had an EGD. 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 left axillary sebaceous cystectomy. 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 Place of : Other ([facility]) History of Recent Travel: No Home Medications - Allergies Allergies/Adverse Reactions: Allergies Allergy/AdvReac Type Severity Reaction Status Date / Time No Known Allergies Allergy Verified 03/20/18 12:49 - Home Medications Home Medications: Ambulatory Orders Carvedilol [Coreg -] 12.5 mg PO BID #60 tablet 07/08/17 Nifedipine ER [Procardia XL -] 60 mg PO DAILY #30 tab.er.24 07/08/17 Aspirin [ASA -] 162 mg PO DAILY #30 tab.chew 01/03/18 Cyanocobalamin (Vitamin B-12) [B-12] 2,500 mcg SL DAILY #30 tab.subl 01/03/18 Calcium Acetate [Phoslo -] 2,001 mg PO TIDCM capsule 01/04/18 Ferrous Sulfate [Feosol] 325 mg PO BID #60 tablet 01/04/18 Levothyroxine [Synthroid -] 50 mcg PO DAILY@0700 #30 tablet 01/04/18 Rosuvastatin [Crestor -] 5 mg PO HS #30 tablet 01/04/18 Calcitriol [Rocaltrol -] 0.25 mcg PO DAILY 03/20/18 Sodium Bicarbonate - 650 mg PO ASDIR 03/20/18 Family Disease History - Family Disease History Family Disease History: Other: Father (lived to 90), Mother (lived to 96 ) Review of Systems - Review of Systems Constitutional: reports: Weakness Eyes: reports: No Symptoms HENT: reports: No Symptoms Neck: reports: No Symptoms Cardiovascular: reports: No Symptoms Respiratory: reports: Exercise Intolerance Gastrointestinal: reports: Constipation, Rectal Bleeding Neurological: reports: Unsteady Gait (repeated falls, fell onto coccyx) Physical Exam-GI Vital Signs: Vital Signs Temperature 98.2 F 03/21/18 13:33 Pulse Rate 60 03/21/18 13:33 Respiratory Rate 18 03/21/18 13:33 Blood Pressure 147/59 L 03/21/18 13:33 O2 Sat by Pulse Oximetry (%) 98 03/21/18 10:00 CBC,CMP WBC 11.2 K/mm3 (4.0-10.0) H 03/21/18 10:35 RBC 3.81 M/mm3 (3.60-5.2) 03/21/18 10:35 Hgb 11.4 GM/dL (10.7-15.3) 03/21/18 10:35 Hct 33.3 % (32.4-45.2) D 03/21/18 10:35 MCV 87.6 fl (80-96) 03/21/18 10:35 MCH 29.9 pg (25.7-33.7) 03/21/18 10:35 MCHC 34.1 g/dl (32.0-36.0) 03/21/18 10:35 RDW 16.1 % (11.6-15.6) H 03/21/18 10:35 Plt Count 186 K/MM3 (134-434) 03/21/18 10:35 MPV 7.8 fl (7.5-11.1) 03/21/18 10:35 Absolute Neuts (auto) 9.0 K/mm3 (1.5-8.0) H 03/21/18 10:35 Neutrophils % 80.8 % (42.8-82.8) 03/21/18 10:35 Lymphocytes % 11.3 % (8-40) D 03/21/18 10:35 Monocytes % 5.7 % (3.8-10.2) 03/21/18 10:35 Eosinophils % 1.9 % (0-4.5) 03/21/18 10:35 Basophils % 0.3 % (0-2.0) 03/21/18 10:35 Nucleated RBC % 0 % (0-0) 03/21/18 10:35 Sodium 137 mmol/L (136-145) 03/21/18 10:35 Potassium 5.0 mmol/L (3.5-5.1) 03/21/18 10:35 Chloride 102 mmol/L (98-107) 03/21/18 10:35 Carbon Dioxide 26 mmol/L (21-32) 03/21/18 10:35 Anion Gap 8 MMOL/L (8-16) 03/21/18 10:35 BUN 67 mg/dL (7-18) H 03/21/18 10:35 Creatinine 5.4 mg/dL (0.55-1.3) H 03/21/18 10:35 Creat Clearance w eGFR 7.60 (>60) 03/21/18 10:35 Random Glucose 213 mg/dL (74-106) H 03/21/18 10:35 Calcium 8.4 mg/dL (8.5-10.1) L 03/21/18 10:35 Phosphorus 6.6 mg/dL (2.5-4.9) H 03/21/18 10:35 Magnesium 2.6 mg/dL (1.8-2.4) H 03/21/18 10:35 Ferritin 235.3 ng/ml (8-388) 03/20/18 20:32 Total Bilirubin 0.6 mg/dL (0.2-1) 03/21/18 10:35 AST 15 U/L (15-37) 03/21/18 10:35 ALT 18 U/L (13-61) 03/21/18 10:35 Alkaline Phosphatase 51 U/L (45-117) 03/21/18 10:35 Creatine Kinase 35 IU/L (26-192) 03/20/18 20:32 Troponin I < 0.02 ng/ml (0.00-0.05) 03/20/18 20:32 B-Natriuretic Peptide 2068.9 pg/ml (5-450) H 03/20/18 20:32 Total Protein 7.2 g/dl (6.4-8.2) 03/21/18 10:35 Albumin 3.3 g/dl (3.4-5.0) L 03/21/18 10:35 Current Medications Generic Name Dose Route Start Last Admin Trade Name Freq PRN Reason Stop Dose Admin Acetaminophen 650 mg 03/20/18 17:17 Tylenol - PO Q4H PRN PAIN LEVEL 1-5 Calcitriol 0.25 mcg 03/21/18 10:00 03/21/18 09:59 Rocaltrol - PO 0.25 mcg DAILY CARL Administration Calcium Acetate 2,001 mg 03/20/18 17:30 03/21/18 12:38 Phoslo - PO 2,001 mg TIDCM CARL Administration Carvedilol 12.5 mg 03/20/18 22:00 03/21/18 09:59 Coreg - PO 12.5 mg BID CARL Administration Sodium Chloride 1,000 mls @ 50 mls/hr 03/20/18 17:15 03/20/18 19:36 1/2 Normal Saline IV 03/21/18 17:06 50 mls/hr ASDIR CARL Administration Levothyroxine Sodium 50 mcg 03/21/18 07:00 03/21/18 06:13 Synthroid - PO 50 mcg DAILY@0700 CARL Administration Nifedipine 60 mg 03/21/18 10:00 Procardia Xl - PO DAILY CARL Rosuvastatin Calcium 5 mg 03/20/18 22:00 03/20/18 22:19 Crestor - PO 5 mg HS CARL Administration Constitutional: Yes: Calm Eyes: Yes: Conjunctiva Clear HENT: Yes: Normocephalic Neck: Yes: Other (healed incision) Cardiovascular: Yes: Regular Rate and Rhythm Respiratory: Yes: CTA Bilaterally Gastrointestinal Inspection: Yes: Scars (long vertical right paramedian and vertical suprapubic incisions) ...Auscultate: Yes: Normoactive Bowel Sounds ...Palpate: Yes: Soft, Other (nontender) ...Percussion: Yes: Tympanitic ...Rectal Exam: Yes: Guaiac Positive (iron stained strongly guaiac positive stool), Hemorrhoids/External (very large and friable) Edema: No Neurological: Yes: Alert, Oriented Labs: CBC, BMP 03/21/18 10:35 03/21/18 10:35 INR, PTT INR 1.03 (0.83-1.09) 03/20/18 20:32 Laboratory Tests 07/01/12 07/01/12 05/04/16 20:50 20:50 15:39 Hgb 15.0 13.2 Creatinine 0.7 05/09/16 07/19/16 07/20/16 09:29 06:00 06:50 Hgb 11.2 Creatinine 1.9 H 2.2 H 07/08/17 01/01/18 01/01/18 06:37 20:32 20:32 Hgb 10.8 Creatinine 2.8 H 4.9 H 01/02/18 01/04/18 03/20/18 07:31 05:48 13:48 Hgb 9.5 L 8.8 L 7.5 L Creatinine 03/20/18 03/21/18 03/21/18 13:48 10:35 10:35 Hgb 11.4 Creatinine 5.6 H 5.4 H Problem List - Problems (1) Gastrointestinal bleeding Assessment/Plan: Given the strong fecal occult blood and anemia progression I believe that there is a component of GI bleeding contributing to Antonietta's anemia. Given her aspirin usage,chronic liver disease and h/o a cecal polyp I have advised starting with an EGD to exclude an ulcer and erosive gastritis, portal gastropathy and varices. If unrevealing then I have also advised a colonoscopy. I have discussed both procedures in detail with Antonietta and her daughter. I informed them of the potential for such adverse complications as hemorrhage and perforation among others. I have scheduled the EGD for 03/24. I will give a PPI and Miralax in the interim as she has already been transfused. Code(s): K92.2 - GASTROINTESTINAL HEMORRHAGE, UNSPECIFIED (2) Hepatitis C Assessment/Plan: Although the HCV was eradicated I will get a sonogram, Fibrosure and AFP to screen for hepatoma although cirrhosis appears unlikely given her albumin and platelet count. Code(s): B19.20 - UNSPECIFIED VIRAL HEPATITIS C WITHOUT HEPATIC COMA (3) History of colon polyps Code(s): Z86.010 - PERSONAL HISTORY OF COLONIC POLYPS (4) Acute on chronic kidney failure Code(s): N17.9 - ACUTE KIDNEY FAILURE, UNSPECIFIED; N18.9 - CHRONIC KIDNEY DISEASE, UNSPECIFIED (5) Type 2 diabetes mellitus with other diabetic kidney complication Code(s): E11.29 - TYPE 2 DIABETES [facility]LL[facility] DIABETIC KIDNEY COMPLICATION Assessment/Plan EGD on 03/24 If unrevealing then prep for colonoscopy PPI therapy Miralax Sonogram and AFP Stop iron should colonoscopy prove necessary
[2018-03-21] MEDS: ROSUVASTATIN CA 5 MG TABLET (FP) PO SCH (21:16)
[2018-03-21] MEDS: PANTOPRAZOLE 40 MG TABLET (FP) PO SCH (21:16)
[2018-03-22 06:11] LABS: SERUM IRON SATURATION 16 % (15-55); TOTAL IRON BINDING CAPACITY 215 ug/dL (250-450); UIBC 181 ug/dL (118-369)
[2018-03-22] MEDS: LEVOTHYROXINE NA 50 MCG TABLET (FP) PO SCH (06:22)
[2018-03-22 07:21] LABS: RETICULOCYTES 2.45 % (0.5-1.5)
[2018-03-22 08:09] LABS: ALBUMIN 3.4 g/dl (3.4-5.0); ALK PHOS 48 U/L (45-117); ANION GAP 11 MMOL/L (8-16); BILIRUBIN,TOTAL 0.4 mg/dL (0.2-1); BLOOD UREA NITROGEN 71 mg/dL (7-18); CALCIUM 9.1 mg/dL (8.5-10.1); CHLORIDE 104 mmol/L (98-107); CO2 25 mmol/L (21-32); CREATININE 5.5 mg/dL (0.55-1.3); GLUCOSE,RANDOM 107 mg/dL (74-106); PHOSPHOROUS 5.9 mg/dL (2.5-4.9); POTASSIUM 4.5 mmol/L (3.5-5.1); SGOT/AST 10 U/L (15-37); SGPT/ALT 17 U/L (13-61); SODIUM 141 mmol/L (136-145); TOT PROT 7.2 g/dl (6.4-8.2)
--- NOTE | 2018-03-22 09:39 | PN ---
Progress Note (short form) - Note Progress Note: Pt resting comfortably. Denies abdominal pain. Appears quite fatigued and is somewhat confused: she recognizes me but does not recall the name of her primary care physician, nor is she clear on how she got to the hospital. CBC,CMP (latest values):Ag WBC 11.2 K/mm3 (4.0-10.0) H 03/21/18 10:35 RBC 3.81 M/mm3 (3.60-5.2) 03/21/18 10:35 Hgb 11.4 GM/dL (10.7-15.3) 03/21/18 10:35 Hct 33.3 % (32.4-45.2) D 03/21/18 10:35 MCV 87.6 fl (80-96) 03/21/18 10:35 MCH 29.9 pg (25.7-33.7) 03/21/18 10:35 MCHC 34.1 g/dl (32.0-36.0) 03/21/18 10:35 RDW 16.1 % (11.6-15.6) H 03/21/18 10:35 Plt Count 186 K/MM3 (134-434) 03/21/18 10:35 MPV 7.8 fl (7.5-11.1) 03/21/18 10:35 Absolute Neuts (auto) 9.0 K/mm3 (1.5-8.0) H 03/21/18 10:35 Neutrophils % 80.8 % (42.8-82.8) 03/21/18 10:35 Lymphocytes % 11.3 % (8-40) D 03/21/18 10:35 Monocytes % 5.7 % (3.8-10.2) 03/21/18 10:35 Eosinophils % 1.9 % (0-4.5) 03/21/18 10:35 Basophils % 0.3 % (0-2.0) 03/21/18 10:35 Nucleated RBC % 0 % (0-0) 03/21/18 10:35 Retic Count 2.45 % (0.5-1.5) H 03/22/18 06:30 Sodium 141 mmol/L (136-145) 03/22/18 06:30 Potassium 4.5 mmol/L (3.5-5.1) 03/22/18 06:30 Chloride 104 mmol/L (98-107) 03/22/18 06:30 Carbon Dioxide 25 mmol/L (21-32) 03/22/18 06:30 Anion Gap 11 MMOL/L (8-16) 03/22/18 06:30 BUN 71 mg/dL (7-18) H 03/22/18 06:30 Creatinine 5.5 mg/dL (0.55-1.3) H 03/22/18 06:30 Creat Clearance w eGFR 7.44 (>60) 03/22/18 06:30 Random Glucose 107 mg/dL (74-106) H 03/22/18 06:30 Calcium 9.1 mg/dL (8.5-10.1) 03/22/18 06:30 Phosphorus 5.9 mg/dL (2.5-4.9) H 03/22/18 06:30 Magnesium 2.6 mg/dL (1.8-2.4) H 03/21/18 10:35 Iron 34 ug/dL (27-139) 03/20/18 20:32 TIBC 215 ug/dL (250-450) L 03/20/18 20:32 Iron Saturation 16 % (15-55) 03/20/18 20:32 Ferritin 235.3 ng/ml (8-388) 03/20/18 20:32 Total Bilirubin 0.4 mg/dL (0.2-1) 03/22/18 06:30 AST 10 U/L (15-37) L 03/22/18 06:30 ALT 17 U/L (13-61) 03/22/18 06:30 Alkaline Phosphatase 48 U/L (45-117) 03/22/18 06:30 Creatine Kinase 35 IU/L (26-192) 03/20/18 20:32 Troponin I < 0.02 ng/ml (0.00-0.05) 03/20/18 20:32 B-Natriuretic Peptide 2068.9 pg/ml (5-450) H 03/20/18 20:32 Total Protein 7.2 g/dl (6.4-8.2) 03/22/18 06:30 Albumin 3.4 g/dl (3.4-5.0) 03/22/18 06:30 Agree patient needs GI investigation but with normal MCV, iron studies and ferritin (obtained before transfusion), I suspect the major cause of her anemia is renal failure. She is quite frail and a creatinine of 5.5 is extremely high given her general lack of muscle mass. Dr Stahl's renal consult appreciated, agree that without dialysis her life expectancy is quite limited.
[2018-03-22] MEDS: CARVEDILOL 12.5 MG TABLET (FP) PO SCH ×2 (09:58→21:44)
[2018-03-22] MEDS: CALCIUM ACETATE 667 MG CAPSULE (FP) PO SCH ×3 (09:58→17:16)
[2018-03-22] MEDS: PANTOPRAZOLE 40 MG TABLET (FP) PO SCH ×2 (09:58→21:44)
[2018-03-22] MEDS: NIFEdipine E.R 60 MG TABLET (UD) PO SCH (09:58)
[2018-03-22] MEDS: CALCITRIOL 0.25 MCG CAPSULE (FP) PO SCH (09:58)
[2018-03-22] MEDS: POLYETHYLENE GLYCOL 3350 119 GM BTL PO SCH (09:58)
[2018-03-22 11:25] LABS: BASO % 0.7 % (0-2.0); EOS % 1.7 % (0-4.5); HEMOGLOBIN 10.8 GM/dL (10.7-15.3); LYMPH % 21.7 % (8-40); MCH 29.7 pg (25.7-33.7); MCHC 33.8 g/dl (32.0-36.0); MEAN PLT VOLUME 8.3 fl (7.5-11.1); MONO % 6.6 % (3.8-10.2); NEUT % 69.3 % (42.8-82.8); PLATELET COUNT 166 K/MM3 (134-434); RBC 3.64 M/mm3 (3.60-5.2); RDW 16.2 % (11.6-15.6); WHITE BLOOD COUNT 10.9 K/mm3 (4.0-10.0)
--- NOTE | 2018-03-22 12:26 | PN ---
Progress Note (short form) - Note Progress Note: 82yo F with PMH of ESRD , DM, HTN, CVA, Anemia unwitnessed falls and weakness. GI bleeding worsening Chronic anemia Current Medications Acetaminophen (Tylenol -) 650 mg PO Q4H PRN PRN Reason: PAIN LEVEL 1-5 Calcitriol (Rocaltrol -) 0.25 mcg PO DAILY [facility] Last Admin: 03/22/18 09:58 Dose: 0.25 mcg Calcium Acetate (Phoslo -) 2,001 mg PO TIDCM [facility] Last Admin: 03/22/18 12:17 Dose: Not Given Carvedilol (Coreg -) 12.5 mg PO BID [facility] Last Admin: 03/22/18 09:58 Dose: 12.5 mg Levothyroxine Sodium (Synthroid -) 50 mcg PO DAILY@0700 [facility] Last Admin: 03/22/18 06:22 Dose: 50 mcg Nifedipine (Procardia Xl -) 60 mg PO DAILY [facility] Last Admin: 03/22/18 09:58 Dose: 60 mg Pantoprazole Sodium (Protonix -) 40 mg PO BID [facility] Last Admin: 03/22/18 09:58 Dose: 40 mg Polyethylene Glycol (Miralax (For Daily Use) -) 17 gm PO DAILY [facility] Last Admin: 03/22/18 09:58 Dose: 17 gm Rosuvastatin Calcium (Crestor -) 5 mg PO HS [facility] Last Admin: 03/21/18 21:16 Dose: 5 mg Last Vital Signs Temp Pulse Resp BP Pulse Ox 98.1 F 67 20 161/84 95 03/22/18 10:00 03/22/18 10:00 03/22/18 10:00 03/22/18 10:00 03/22/18 10:00 Lungs clear Heart reg Abd soft nontender ext no edema CBC, BMP 03/22/18 06:30 03/22/18 06:30 IMP- ESRD fAMILY TO DECIDE ON DIALYSIS
--- NOTE | 2018-03-22 13:07 | PN ---
Progress Note, Physician Chief Complaint: GI bleed ESRD History of Present Illness: NAD pleasantly confused Daughter is her health care proxy No decision has been made by the family about whether to proceed with dialysis - Current Medication List Current Medications: Active Medications Acetaminophen (Tylenol -) 650 mg PO Q4H PRN PRN Reason: PAIN LEVEL 1-5 Calcitriol (Rocaltrol -) 0.25 mcg PO DAILY [facility] Last Admin: 03/22/18 09:58 Dose: 0.25 mcg Calcium Acetate (Phoslo -) 2,001 mg PO TIDCM [facility] Last Admin: 03/22/18 12:17 Dose: Not Given Carvedilol (Coreg -) 12.5 mg PO BID [facility] Last Admin: 03/22/18 09:58 Dose: 12.5 mg Levothyroxine Sodium (Synthroid -) 50 mcg PO DAILY@0700 [facility] Last Admin: 03/22/18 06:22 Dose: 50 mcg Nifedipine (Procardia Xl -) 60 mg PO DAILY [facility] Last Admin: 03/22/18 09:58 Dose: 60 mg Pantoprazole Sodium (Protonix -) 40 mg PO BID [facility] Last Admin: 03/22/18 09:58 Dose: 40 mg Polyethylene Glycol (Miralax (For Daily Use) -) 17 gm PO DAILY [facility] Last Admin: 03/22/18 09:58 Dose: 17 gm Rosuvastatin Calcium (Crestor -) 5 mg PO HS [facility] Last Admin: 03/21/18 21:16 Dose: 5 mg - Objective Vital Signs: Vital Signs Temperature 98.1 F 03/22/18 10:00 Pulse Rate 67 03/22/18 10:00 Respiratory Rate 20 03/22/18 10:00 Blood Pressure 161/84 03/22/18 10:00 O2 Sat by Pulse Oximetry (%) 95 03/22/18 10:00 Constitutional: Yes: Well Nourished, No Distress, Calm Cardiovascular: Yes: Regular Rate and Rhythm Respiratory: Yes: Regular Gastrointestinal: Yes: Normal Bowel Sounds, Soft Genitourinary: Yes: Incontinence Musculoskeletal: Yes: WNL Extremities: Yes: WNL Edema: No Peripheral Pulses WNL: Yes Neurological: Yes: Alert, Confusion, Pre-Existing Deficit Psychiatric: Yes: Alert Labs: CBC, BMP 03/22/18 06:30 03/22/18 06:30 INR, PTT INR 1.03 (0.83-1.09) 03/20/18 20:32 Problem List - Problems (1) Acute on chronic kidney failure Assessment/Plan: -Nephrology on board -Family to decide whether to proceed with dialysis or not -daily labs Code(s): N17.9 - ACUTE KIDNEY FAILURE, UNSPECIFIED; N18.9 - CHRONIC KIDNEY DISEASE, UNSPECIFIED (2) Anemia Assessment/Plan: -likely 2/2 to CKD -Guaiac positive -H/H stable -Iron profile okay -B12 low in the past-recheck -Seen by GI Code(s): D64.9 - ANEMIA, UNSPECIFIED Assessment/Plan see problem list
[2018-03-22] MEDS: ACETAMINOPHEN 325 MG TABLET (FP) PO PRN (20:28)
[2018-03-22] MEDS: ROSUVASTATIN CA 5 MG TABLET (FP) PO SCH (21:44)
[2018-03-23] MEDS: LEVOTHYROXINE NA 50 MCG TABLET (FP) PO SCH (06:03)
[2018-03-23] MEDS: ACETAMINOPHEN 325 MG TABLET (FP) PO PRN ×2 (06:07→13:41)
--- NOTE | 2018-03-23 08:52 | PN ---
Progress Note, Physician Chief Complaint: GI bleed ESRD History of Present Illness: NAD pleasantly confused decision for dialysis by family still pending - Current Medication List Current Medications: Active Medications Acetaminophen (Tylenol -) 650 mg PO Q4H PRN PRN Reason: PAIN LEVEL 1-5 Last Admin: 03/23/18 06:07 Dose: 650 mg Calcitriol (Rocaltrol -) 0.25 mcg PO DAILY [facility] Last Admin: 03/22/18 09:58 Dose: 0.25 mcg Calcium Acetate (Phoslo -) 2,001 mg PO TIDCM [facility] Last Admin: 03/22/18 17:16 Dose: 2,001 mg Carvedilol (Coreg -) 12.5 mg PO BID [facility] Last Admin: 03/22/18 21:44 Dose: 12.5 mg Cyanocobalamin (Vitamin B12 Injection -) 1,000 mcg IM Q7D@1000 [facility] Levothyroxine Sodium (Synthroid -) 50 mcg PO DAILY@0700 [facility] Last Admin: 03/23/18 06:03 Dose: 50 mcg Nifedipine (Procardia Xl -) 60 mg PO DAILY [facility] Last Admin: 03/22/18 09:58 Dose: 60 mg Pantoprazole Sodium (Protonix -) 40 mg PO BID [facility] Last Admin: 03/22/18 21:44 Dose: 40 mg Polyethylene Glycol (Miralax (For Daily Use) -) 17 gm PO DAILY [facility] Last Admin: 03/22/18 09:58 Dose: 17 gm Rosuvastatin Calcium (Crestor -) 5 mg PO HS [facility] Last Admin: 03/22/18 21:44 Dose: 5 mg - Objective Vital Signs: Vital Signs Temperature 98.3 F 03/23/18 05:33 Pulse Rate 69 03/23/18 05:33 Respiratory Rate 20 03/23/18 05:33 Blood Pressure 153/63 03/23/18 05:33 O2 Sat by Pulse Oximetry (%) 95 03/22/18 22:00 Constitutional: Yes: Well Nourished, No Distress, Calm Cardiovascular: Yes: Regular Rate and Rhythm Respiratory: Yes: Regular Gastrointestinal: Yes: Normal Bowel Sounds, Soft Musculoskeletal: Yes: Muscle Weakness Edema: No Peripheral Pulses WNL: Yes Neurological: Yes: Alert, Confusion Psychiatric: Yes: Alert Labs: CBC, BMP 03/22/18 06:30 03/22/18 06:30 INR, PTT INR 1.03 (0.83-1.09) 03/20/18 20:32 Problem List - Problems (1) Acute on chronic kidney failure Assessment/Plan: -Nephrology on board -Family to decide whether to proceed with dialysis or not -daily labs Code(s): N17.9 - ACUTE KIDNEY FAILURE, UNSPECIFIED; N18.9 - CHRONIC KIDNEY DISEASE, UNSPECIFIED (2) Gastrointestinal bleeding Assessment/Plan: -Guaiac positive -H/H stable -Iron profile okay -B12 low in the past-recheck -Seen by GI Code(s): K92.2 - GASTROINTESTINAL HEMORRHAGE, UNSPECIFIED (3) Anemia Assessment/Plan: -likely 2/2 to CKD -Guaiac positive -H/H stable -Iron profile okay -B12 low in the past-recheck -Seen by GI -monitor H/H Code(s): D64.9 - ANEMIA, UNSPECIFIED (4) Weakness Assessment/Plan: Physical therapy Code(s): R53.1 - WEAKNESS Assessment/Plan see problem list Physical therapy
[2018-03-23] MEDS: PANTOPRAZOLE 40 MG TABLET (FP) PO SCH ×2 (09:00→23:25)
[2018-03-23] MEDS: NIFEdipine E.R 60 MG TABLET (UD) PO SCH (09:00)
[2018-03-23] MEDS: CALCIUM ACETATE 667 MG CAPSULE (FP) PO SCH ×3 (09:00→17:50)
[2018-03-23] MEDS: CALCITRIOL 0.25 MCG CAPSULE (FP) PO SCH (09:00)
[2018-03-23] MEDS: CARVEDILOL 12.5 MG TABLET (FP) PO SCH ×2 (09:00→23:25)
[2018-03-23] MEDS ORDERED: CYANOCOBALAMIN (VITAMIN B-12) 1000 MCG/1 ML VIAL IM SCH (10:00)
[2018-03-23 10:33] LABS: BASO % 0.6 % (0-2.0); EOS % 1.9 % (0-4.5); HEMATOCRIT 32.7 % (32.4-45.2); LYMPH % 18.9 % (8-40); MCH 29.8 pg (25.7-33.7); MCHC 33.8 g/dl (32.0-36.0); MEAN CELL VOLUME 88.2 fl (80-96); MEAN PLT VOLUME 8.3 fl (7.5-11.1); MONO % 6.5 % (3.8-10.2); NEUT % 72.1 % (42.8-82.8); PLATELET COUNT 182 K/MM3 (134-434); RDW 16.5 % (11.6-15.6); WHITE BLOOD COUNT 10.3 K/mm3 (4.0-10.0)
[2018-03-23 12:29] LABS: ALBUMIN 3.4 g/dl (3.4-5.0); ALK PHOS 48 U/L (45-117); ANION GAP 12 MMOL/L (8-16); BILIRUBIN,TOTAL 0.4 mg/dL (0.2-1); BLOOD UREA NITROGEN 79 mg/dL (7-18); CALCIUM 9.3 mg/dL (8.5-10.1); CHLORIDE 102 mmol/L (98-107); CO2 23 mmol/L (21-32); CREATININE 6.2 mg/dL (0.55-1.3); GLUCOSE,RANDOM 113 mg/dL (74-106); POTASSIUM 4.6 mmol/L (3.5-5.1); SGOT/AST 12 U/L (15-37); SGPT/ALT 17 U/L (13-61); SODIUM 138 mmol/L (136-145); TOT PROT 7.2 g/dl (6.4-8.2)
[2018-03-23] MEDS: POLYETHYLENE GLYCOL 3350 119 GM BTL PO SCH (13:42)
--- NOTE | 2018-03-23 20:43 | PN ---
Progress Note (short form) - Note Progress Note: 82yo F with PMH of ESRD , DM, HTN, CVA, Anemia unwitnessed falls and weakness. GI bleeding worsening Chronic anemia Current Medications Acetaminophen (Tylenol -) 650 mg PO Q4H PRN PRN Reason: PAIN LEVEL 1-5 Last Admin: 03/23/18 13:41 Dose: 650 mg Calcitriol (Rocaltrol -) 0.25 mcg PO DAILY [facility] Last Admin: 03/23/18 09:00 Dose: 0.25 mcg Calcium Acetate (Phoslo -) 2,001 mg PO TIDCM [facility] Last Admin: 03/23/18 17:50 Dose: 2,001 mg Carvedilol (Coreg -) 12.5 mg PO BID [facility] Last Admin: 03/23/18 09:00 Dose: 12.5 mg Cyanocobalamin (Vitamin B12 Injection -) 1,000 mcg IM Q7D@1000 [facility] Last Admin: 03/23/18 13:42 Dose: 1,000 mcg Levothyroxine Sodium (Synthroid -) 50 mcg PO DAILY@0700 [facility] Last Admin: 03/23/18 06:03 Dose: 50 mcg Nifedipine (Procardia Xl -) 60 mg PO DAILY [facility] Last Admin: 03/23/18 09:00 Dose: 60 mg Pantoprazole Sodium (Protonix -) 40 mg PO BID [facility] Last Admin: 03/23/18 09:00 Dose: 40 mg Polyethylene Glycol (Miralax (For Daily Use) -) 17 gm PO DAILY [facility] Last Admin: 03/23/18 13:42 Dose: Not Given Rosuvastatin Calcium (Crestor -) 5 mg PO HS [facility] Last Admin: 03/22/18 21:44 Dose: 5 mg Last Vital Signs Temp Pulse Resp BP Pulse Ox 98.0 F 54 L 20 112/46 L 95 03/23/18 14:46 03/23/18 14:46 03/23/18 14:46 03/23/18 14:46 03/23/18 10:00 Lungs clear Heart reg Abd soft nontender ext no edema CBC, BMP 03/23/18 10:12 03/23/18 10:12 IMP- ESRD not on dialysis yet Plan -fAMILY TO DECIDE ON DIALYSIS
[2018-03-23] MEDS ORDERED: PT OWN MED DRAWER 7, Y5N ONE (22:22)
[2018-03-23] MEDS: ROSUVASTATIN CA 5 MG TABLET (FP) PO SCH (23:25)
--- NOTE | 2018-03-24 00:23 | CONSULT ---
Consult Consult Specialty:: endocrine Referred by:: hermelinda green np Reason for Consultation:: diabetes mellitus/ckd - History of Present Illness Chief Complaint: fall and head injury History of Present Illness: 82yo F with PMH of ESRD , DM, HTN, CVA, Anemia presenting unwitnessed fall and weakness. No history of arrhythmia or seizure. She has low back pain which corresponds with the area where she fell. She had a recent post trumatic R. frontal petechial bleed. Denies loss of consciousness, nausea, or vomiting. Denies dental injury, headache, neck pain, chest pain, palpitation,she has progression of kidney failure and upon discussion with family present accepting hd plans. 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 left axillary sebaceous cystectomy. 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 History of Recent Travel: No Home Medications - Allergies Allergies/Adverse Reactions: Allergies Allergy/AdvReac Type Severity Reaction Status Date / Time No Known Allergies Allergy Verified 03/20/18 12:49 - Home Medications Home Medications: Ambulatory Orders Carvedilol [Coreg -] 12.5 mg PO BID #60 tablet 07/08/17 Nifedipine ER [Procardia XL -] 60 mg PO DAILY #30 tab.er.24 07/08/17 Aspirin [ASA -] 162 mg PO DAILY #30 tab.chew 01/03/18 Cyanocobalamin (Vitamin B-12) [B-12] 2,500 mcg SL DAILY #30 tab.subl 01/03/18 Calcium Acetate [Phoslo -] 2,001 mg PO TIDCM capsule 01/04/18 Ferrous Sulfate [Feosol] 325 mg PO BID #60 tablet 01/04/18 Levothyroxine [Synthroid -] 50 mcg PO DAILY@0700 #30 tablet 01/04/18 Rosuvastatin [Crestor -] 5 mg PO HS #30 tablet 01/04/18 Calcitriol [Rocaltrol -] 0.25 mcg PO DAILY 03/20/18 Sodium Bicarbonate - 650 mg PO ASDIR 03/20/18 Family Disease History - Family Disease History Family Disease History: Other: Father (lived to 90), Mother (lived to 96 ) Review of Systems - Review of Systems Constitutional: reports: Loss of Appetite Eyes: reports: No Symptoms HENT: reports: No Symptoms Neck: reports: Pain on Movement Cardiovascular: reports: Shortness of Breath Respiratory: reports: Exercise Intolerance, Orthopnea, SOB, SOB on Exertion Gastrointestinal: reports: Constipation Genitourinary: reports: No Symptoms Breasts: reports: No Symptoms Reported Musculoskeletal: reports: Extremity Pain, Muscle Cramps, Muscle Weakness Neurological: reports: Unsteady Gait, Weakness Endocrine: reports: Unexplained Weight Loss Physical Exam Vital Signs: Vital Signs Temperature 98.1 F 03/23/18 19:11 Pulse Rate 72 03/23/18 19:11 Respiratory Rate 18 03/23/18 19:11 Blood Pressure 158/65 03/23/18 19:11 O2 Sat by Pulse Oximetry (%) 95 03/23/18 10:00 Constitutional: Yes: Anxious Eyes: Yes: EOM Intact HENT: Yes: Normocephalic Neck: Yes: Tenderness Cardiovascular: Yes: Regular Rate and Rhythm, Murmur Respiratory: Yes: CTA Bilaterally Gastrointestinal: Yes: Normal Bowel Sounds ...Rectal Exam: Yes: Deferred Renal/: Yes: Oliguria Breast(s): Yes: WNL Musculoskeletal: Yes: Back Pain Extremities: Yes: WNL Edema: No Neurological: Yes: Alert, Oriented Labs: CBC, BMP 03/23/18 10:12 03/23/18 10:12 Problem List - Problems (1) Type 2 diabetes mellitus with other specified complication Code(s): E11.69 - TYPE 2 DIABETES MELLITUS WITH OTHER SPECIFIED COMPLICATION (2) Acute on chronic kidney failure Code(s): N17.9 - ACUTE KIDNEY FAILURE, UNSPECIFIED; N18.9 - CHRONIC KIDNEY DISEASE, UNSPECIFIED (3) Gastrointestinal bleeding Code(s): K92.2 - GASTROINTESTINAL HEMORRHAGE, UNSPECIFIED (4) History of colon polyps Code(s): Z86.010 - PERSONAL HISTORY OF COLONIC POLYPS (5) Accelerated essential hypertension Code(s): I10 - ESSENTIAL (PRIMARY) HYPERTENSION (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 Code(s): G11.9 - HEREDITARY ATAXIA, UNSPECIFIED (7) CVA (cerebral vascular accident) Code(s): I63.9 - CEREBRAL INFARCTION, UNSPECIFIED Assessment/Plan Current Active Problems Acute on chronic kidney failure (Acute) Gastrointestinal bleeding (Acute) History of colon polyps (Acute) diabetes mellitus hyperglycemia diabetic nephropathy/akd anemia ckd hypothyroid Current Medications Generic Name Dose Route Start Last Admin Trade Name Freq PRN Reason Stop Dose Admin Acetaminophen 650 mg 03/20/18 17:17 03/23/18 13:41 Tylenol - PO 650 mg Q4H PRN Administration PAIN LEVEL 1-5 Calcitriol 0.25 mcg 03/21/18 10:00 03/23/18 09:00 Rocaltrol - PO 0.25 mcg DAILY CARL Administration Calcium Acetate 2,001 mg 03/20/18 17:30 03/23/18 17:50 Phoslo - PO 2,001 mg TIDCM CARL Administration Carvedilol 12.5 mg 03/20/18 22:00 03/23/18 23:25 Coreg - PO 12.5 mg BID CARL Administration Cyanocobalamin 1,000 mcg 03/23/18 10:00 03/23/18 13:42 Vitamin B12 Injection - IM 1,000 mcg Q7D@1000 CARL Administration Levothyroxine Sodium 50 mcg 03/21/18 07:00 03/23/18 06:03 Synthroid - PO 50 mcg DAILY@0700 CARL Administration Nifedipine 60 mg 03/21/18 10:00 03/23/18 09:00 Procardia Xl - PO 60 mg DAILY CARL Administration Pantoprazole Sodium 40 mg 03/21/18 22:00 03/23/18 23:25 Protonix - PO 40 mg BID CARL Administration Polyethylene Glycol 17 gm 03/22/18 10:00 03/23/18 13:42 Miralax (For Daily Use) - PO Not Given DAILY CARL Rosuvastatin Calcium 5 mg 03/20/18 22:00 03/23/18 23:25 Crestor - PO 5 mg HS CARL Administration Abnormal Lab Results 03/20/18 03/23/18 03/23/18 13:48 10:12 10:12 WBC 10.3 H RDW 16.5 H BUN 79 H Creatinine 6.2 H Random Glucose 113 H AST 12 L Vitamin B12 3885 H TSH 0.29 L Crossmatch See Detail Laboratory Results - last 24 hr 03/20/18 03/22/18 03/23/18 13:48 06:30 10:12 WBC 10.3 H RBC 3.70 Hgb 11.0 Hct 32.7 MCV 88.2 MCH 29.8 MCHC 33.8 RDW 16.5 H Plt Count 182 MPV 8.3 Absolute Neuts (auto) 7.4 Neutrophils % 72.1 Lymphocytes % 18.9 Monocytes % 6.5 Eosinophils % 1.9 Basophils % 0.6 Nucleated RBC % 0 Sodium Potassium Chloride Carbon Dioxide Anion Gap BUN Creatinine Creat Clearance w eGFR POC Glucometer Random Glucose Calcium Total Bilirubin AST ALT Alkaline Phosphatase Total Protein Albumin Tumor Marker AFP 2.8 Vitamin B12 TSH Free T4 Blood Type A POSITIVE Antibody Screen Negative Crossmatch See Detail 03/23/18 03/23/18 10:12 22:18 WBC RBC Hgb Hct MCV MCH MCHC RDW Plt Count MPV Absolute Neuts (auto) Neutrophils % Lymphocytes % Monocytes % Eosinophils % Basophils % Nucleated RBC % Sodium 138 Potassium 4.6 Chloride 102 Carbon Dioxide 23 Anion Gap 12 BUN 79 H Creatinine 6.2 H Creat Clearance w eGFR 6.48 POC Glucometer 121 Random Glucose 113 H Calcium 9.3 Total Bilirubin 0.4 AST 12 L ALT 17 Alkaline Phosphatase 48 Total Protein 7.2 Albumin 3.4 Tumor Marker AFP Vitamin B12 3885 H TSH 0.29 L Free T4 1.26 Blood Type Antibody Screen Crossmatch plan bgm qid novolog insulin dose as appetite improves will need long acting dose adjustment renal vascular access
[2018-03-24] MEDS: LEVOTHYROXINE NA 50 MCG TABLET (FP) PO SCH (06:11)
[2018-03-24 06:16] LABS: BASO % 0.5 % (0-2.0); EOS % 1.9 % (0-4.5); HEMATOCRIT 34.3 % (32.4-45.2); HEMOGLOBIN 11.3 GM/dL (10.7-15.3); LYMPH % 20.1 % (8-40); MCH 28.9 pg (25.7-33.7); MEAN CELL VOLUME 87.5 fl (80-96); MEAN PLT VOLUME 8.2 fl (7.5-11.1); MONO % 6.1 % (3.8-10.2); NEUT % 71.4 % (42.8-82.8); PLATELET COUNT 191 K/MM3 (134-434); RBC 3.92 M/mm3 (3.60-5.2); RDW 16.1 % (11.6-15.6); WHITE BLOOD COUNT 11.8 K/mm3 (4.0-10.0)
[2018-03-24 06:46] LABS: ALBUMIN 3.5 g/dl (3.4-5.0); ALK PHOS 48 U/L (45-117); ANION GAP 13 MMOL/L (8-16); BILIRUBIN,TOTAL 0.4 mg/dL (0.2-1); BLOOD UREA NITROGEN 81 mg/dL (7-18); CALCIUM 10.2 mg/dL (8.5-10.1); CHLORIDE 102 mmol/L (98-107); CO2 24 mmol/L (21-32); CREATININE 6.2 mg/dL (0.55-1.3); GLUCOSE,RANDOM 90 mg/dL (74-106); POTASSIUM 4.8 mmol/L (3.5-5.1); SGOT/AST 10 U/L (15-37); SGPT/ALT 17 U/L (13-61); SODIUM 139 mmol/L (136-145); TOT PROT 7.4 g/dl (6.4-8.2)
--- NOTE | 2018-03-24 09:05 | PN ---
Progress Note, Physician Chief Complaint: AWAKE ALERT X 2 DAUGHTER BEDSIDE SCHEDULED FOR EGD TODAY - Current Medication List Current Medications: Active Medications Acetaminophen (Tylenol -) 650 mg PO Q4H PRN PRN Reason: PAIN LEVEL 1-5 Last Admin: 03/23/18 13:41 Dose: 650 mg Calcitriol (Rocaltrol -) 0.25 mcg PO DAILY [facility] Last Admin: 03/23/18 09:00 Dose: 0.25 mcg Calcium Acetate (Phoslo -) 2,001 mg PO TIDCM [facility] Last Admin: 03/23/18 17:50 Dose: 2,001 mg Carvedilol (Coreg -) 12.5 mg PO BID [facility] Last Admin: 03/23/18 23:25 Dose: 12.5 mg Cyanocobalamin (Vitamin B12 Injection -) 1,000 mcg IM Q7D@1000 [facility] Last Admin: 03/23/18 13:42 Dose: 1,000 mcg Levothyroxine Sodium (Synthroid -) 50 mcg PO DAILY@0700 [facility] Last Admin: 03/24/18 06:11 Dose: 50 mcg Nifedipine (Procardia Xl -) 60 mg PO DAILY [facility] Last Admin: 03/23/18 09:00 Dose: 60 mg Pantoprazole Sodium (Protonix -) 40 mg PO BID [facility] Last Admin: 03/23/18 23:25 Dose: 40 mg Polyethylene Glycol (Miralax (For Daily Use) -) 17 gm PO DAILY [facility] Last Admin: 03/23/18 13:42 Dose: Not Given Rosuvastatin Calcium (Crestor -) 5 mg PO HS [facility] Last Admin: 03/23/18 23:25 Dose: 5 mg - Objective Vital Signs: Vital Signs Temperature 98.2 F 03/24/18 06:55 Pulse Rate 79 03/24/18 06:55 Respiratory Rate 18 03/24/18 06:55 Blood Pressure 143/85 03/24/18 06:55 O2 Sat by Pulse Oximetry (%) 95 03/23/18 22:00 Constitutional: Yes: No Distress Eyes: Yes: WNL HENT: Yes: WNL Neck: Yes: WNL Cardiovascular: Yes: WNL Respiratory: Yes: WNL Gastrointestinal: Yes: WNL Genitourinary: Yes: WNL Musculoskeletal: Yes: WNL Extremities: Yes: WNL Edema: No Peripheral Pulses WNL: Yes Integumentary: Yes: WNL Wound/Incision: Yes: Clean/Dry Neurological: Yes: WNL ...Motor Strength: WNL Psychiatric: Yes: WNL Labs: CBC, BMP 03/24/18 05:30 03/24/18 05:30 INR, PTT INR 1.03 (0.83-1.09) 03/20/18 20:32 Problem List - Problems (1) Acute on chronic kidney failure Code(s): N17.9 - ACUTE KIDNEY FAILURE, UNSPECIFIED; N18.9 - CHRONIC KIDNEY DISEASE, UNSPECIFIED (2) Gastrointestinal bleeding Code(s): K92.2 - GASTROINTESTINAL HEMORRHAGE, UNSPECIFIED (3) Type 2 diabetes mellitus with other specified complication Code(s): E11.69 - TYPE 2 DIABETES MELLITUS WITH OTHER SPECIFIED COMPLICATION (4) Accelerated essential hypertension Code(s): I10 - ESSENTIAL (PRIMARY) HYPERTENSION (5) Anemia Code(s): D64.9 - ANEMIA, UNSPECIFIED (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
[2018-03-24] MEDS ORDERED: METOPROLOL TARTRATE 5 MG/5 ML VIAL IVPB ONE (09:30)
[2018-03-24] MEDS: CARVEDILOL 12.5 MG TABLET (FP) PO SCH (11:17)
--- NOTE | 2018-03-24 12:13 | PN ---
Progress Note (short form) - Note Progress Note: Renal follow up for CKD Vital Signs Temperature 98.2 F 03/24/18 06:55 Pulse Rate 70 03/24/18 09:49 Respiratory Rate 18 03/24/18 06:55 Blood Pressure 173/97 H 03/24/18 09:49 O2 Sat by Pulse Oximetry (%) 95 03/23/18 22:00 Intake & Output 03/21/18 03/22/18 03/23/18 03/24/18 23:59 23:59 23:59 23:59 Intake Total 1050 400 390 20 Balance 1050 400 390 20 Weight 53.524 kg CBC, BMP 03/24/18 05:30 03/24/18 05:30 Current Medications Acetaminophen (Tylenol -) 650 mg PO Q4H PRN PRN Reason: PAIN LEVEL 1-5 Last Admin: 03/23/18 13:41 Dose: 650 mg Calcitriol (Rocaltrol -) 0.25 mcg PO DAILY [facility] Last Admin: 03/23/18 09:00 Dose: 0.25 mcg Calcium Acetate (Phoslo -) 2,001 mg PO TIDCM [facility] Last Admin: 03/23/18 17:50 Dose: 2,001 mg Carvedilol (Coreg -) 12.5 mg PO BID [facility] Last Admin: 03/24/18 11:17 Dose: 12.5 mg Cyanocobalamin (Vitamin B12 Injection -) 1,000 mcg IM Q7D@1000 [facility] Last Admin: 03/23/18 13:42 Dose: 1,000 mcg Levothyroxine Sodium (Synthroid -) 50 mcg PO DAILY@0700 [facility] Last Admin: 03/24/18 06:11 Dose: 50 mcg Nifedipine (Procardia Xl -) 60 mg PO DAILY [facility] Last Admin: 03/23/18 09:00 Dose: 60 mg Pantoprazole Sodium (Protonix -) 40 mg PO BID [facility] Last Admin: 03/23/18 23:25 Dose: 40 mg Polyethylene Glycol (Miralax (For Daily Use) -) 17 gm PO DAILY [facility] Last Admin: 03/23/18 13:42 Dose: Not Given Rosuvastatin Calcium (Crestor -) 5 mg PO HS [facility] Last Admin: 03/23/18 23:25 Dose: 5 mg 82 year old woman with 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 #CKD stage 5 not yet on dialysis #Acute on Chronic Anemia #Fall #Hypertension #Renal Osteodystrophy
--- NOTE | 2018-03-24 12:16 | PN ---
Progress Note (short form) - Note Progress Note: GI Procedure NOte: Please see scanned EGD report. Erosive gastritis and a healing shallow gastric ulcer were found which are felt to be the cause of recent bleeding and anemia in conjunction with her CKD. Problem List - Problems (1) Gastrointestinal bleeding Code(s): K92.2 - GASTROINTESTINAL HEMORRHAGE, UNSPECIFIED (2) Hepatitis C Code(s): B19.20 - UNSPECIFIED VIRAL HEPATITIS C WITHOUT HEPATIC COMA (3) History of colon polyps Code(s): Z86.010 - PERSONAL HISTORY OF COLONIC POLYPS (4) Acute on chronic kidney failure Code(s): N17.9 - ACUTE KIDNEY FAILURE, UNSPECIFIED; N18.9 - CHRONIC KIDNEY DISEASE, UNSPECIFIED (5) Type 2 diabetes mellitus with other diabetic kidney complication Code(s): E11.29 - TYPE 2 DIABETES MELLITUS W OTH DIABETIC KIDNEY COMPLICATION
[2018-03-24] MEDS: CALCIUM ACETATE 667 MG CAPSULE (FP) PO SCH ×3 (13:37→17:17)
[2018-03-24] MEDS: POLYETHYLENE GLYCOL 3350 119 GM BTL PO SCH (13:38)
[2018-03-24] MEDS: CALCITRIOL 0.25 MCG CAPSULE (FP) PO SCH (13:46)
[2018-03-24] MEDS: NIFEdipine E.R 60 MG TABLET (UD) PO SCH ×2 (13:47→22:19)
[2018-03-24] MEDS: PANTOPRAZOLE 40 MG TABLET (FP) PO SCH ×2 (13:47→22:19)
--- NOTE | 2018-03-24 14:48 | PN ---
Progress Note, Physician Chief Complaint: Reconsult for severe hypertension. Patient is s/p EGD. She feels tired, but denies chest pain, SOB or palpitation. History of Present Illness: 82 year old woman with a PMHx of HTN, DM, CVA, CRI (not on dialysis) and anemia. She presents now with multiple unwitnessed falls and has weakness as per the patient's daughter. She was seen on 03/21/[address] Kyle for initial cardiac consult. She underwent EDG today which revealed a small non-bleeding gastric ulcer and gastritis. Her BP was severely elevated during sherie-procedure NPO and received IV metoprolol. - Current Medication List Current Medications: Active Medications Acetaminophen (Tylenol -) 650 mg PO Q4H PRN PRN Reason: PAIN LEVEL 1-5 Last Admin: 03/23/18 13:41 Dose: 650 mg Calcitriol (Rocaltrol -) 0.25 mcg PO DAILY [facility] Last Admin: 03/24/18 13:46 Dose: 0.25 mcg Calcium Acetate (Phoslo -) 2,001 mg PO TIDCM [facility] Last Admin: 03/24/18 13:47 Dose: 2,001 mg Carvedilol (Coreg -) 12.5 mg PO BID [facility] Last Admin: 03/24/18 11:17 Dose: 12.5 mg Cyanocobalamin (Vitamin B12 Injection -) 1,000 mcg IM Q7D@1000 [facility] Last Admin: 03/23/18 13:42 Dose: 1,000 mcg Levothyroxine Sodium (Synthroid -) 50 mcg PO DAILY@0700 [facility] Last Admin: 03/24/18 06:11 Dose: 50 mcg Nifedipine (Procardia Xl -) 60 mg PO DAILY [facility] Last Admin: 03/24/18 13:47 Dose: 60 mg Pantoprazole Sodium (Protonix -) 40 mg PO BID [facility] Last Admin: 03/24/18 13:47 Dose: 40 mg Polyethylene Glycol (Miralax (For Daily Use) -) 17 gm PO DAILY [facility] Last Admin: 03/24/18 13:38 Dose: Not Given Rosuvastatin Calcium (Crestor -) 5 mg PO HS [facility] Last Admin: 03/23/18 23:25 Dose: 5 mg - Objective Vital Signs: Vital Signs Temperature 98.6 F 03/24/18 13:42 Pulse Rate 70 03/24/18 13:42 Respiratory Rate 16 03/24/18 13:42 Blood Pressure 205/86 H 03/24/18 13:42 O2 Sat by Pulse Oximetry (%) 98 03/24/18 13:42 General: Well developed. Well nourished. No acute distress. Head: Normocephalic. Atraumatic, Eyes: PERRLA, EOMI. Sclerae anicteric. Conjunctivae clear. Neck: Supple. No JVD. No bruits. Heart: Normal S1, S2: Regular rhythm and rate. No murmur. No gallop or rub. Lungs: Symmetrical air entry. Clear to auscultation. No crackles. No wheezing or rhonchi. Abdomen: Soft. Bowel sound positive. Non tender. No masses. Extremities: No edema. No clubbing or cyanosis. PD 2+, equal bilaterally. Labs: CBC, BMP 03/24/18 05:30 03/24/18 05:30 INR, PTT INR 1.03 (0.83-1.09) 03/20/18 20:32 Assessment/Plan 82 year old woman with a PMHx of HTN, DM, CVA, CRI (not on dialysis) and anemia. She presents now with multiple unwitnessed falls and has weakness as per the patient's daughter. She was seen on 03/21/[address] Kyle for initial cardiac consult. She underwent EDG today which revealed a small non-bleeding gastric ulcer and gastritis. Her BP was severely elevated during sherie-procedure NPO and received IV metoprolol. Severe Hypertension: Increase Carvedilol to 25 mg BID. Increase Nifedipine to 60 mg BID. We will follow the patient with you.
[2018-03-24] MEDS ORDERED: CARVEDILOL 12.5 MG TABLET (FP) PO ONE (15:15)
[2018-03-24] MEDS: SODIUM CHLORIDE 250 ML IV ONE ×2 (18:12→18:13)
[2018-03-24] MEDS: ACETAMINOPHEN 325 MG TABLET (FP) PO PRN (18:16)
--- NOTE | 2018-03-24 18:16 | PN ---
Progress Note (short form) - Note Progress Note: Renal follow up for CKD Pt seen and examined at the bedside s/p EGD this am, findings noted pt noted to be more groggy and not talking pt is following commands and moving all extremities Vital Signs Temperature 98.1 F 03/24/18 17:14 Pulse Rate 59 L 03/24/18 17:14 Respiratory Rate 20 03/24/18 17:14 Blood Pressure 120/51 L 03/24/18 17:14 O2 Sat by Pulse Oximetry (%) 98 03/24/18 13:42 Intake & Output 03/21/18 03/22/18 03/23/18 03/24/18 23:59 23:59 23:59 23:59 Intake Total 1050 400 390 70 Balance 1050 400 390 70 Weight 53.524 kg NAD awake and alert MMM Neck supple no JVD RRR Dec BS, mild rales at lung bases soft NT/ND no Le edema CBC, BMP 03/24/18 05:30 03/24/18 05:30 Current Medications Acetaminophen (Tylenol -) 650 mg PO Q4H PRN PRN Reason: PAIN LEVEL 1-5 Last Admin: 03/24/18 18:16 Dose: 650 mg Calcitriol (Rocaltrol -) 0.25 mcg PO DAILY [facility] Last Admin: 03/24/18 13:46 Dose: 0.25 mcg Calcium Acetate (Phoslo -) 2,001 mg PO TIDCM [facility] Last Admin: 03/24/18 17:17 Dose: 2,001 mg Carvedilol (Coreg -) 25 mg PO BID [facility] Cyanocobalamin (Vitamin B12 Injection -) 1,000 mcg IM Q7D@1000 [facility] Last Admin: 03/23/18 13:42 Dose: 1,000 mcg Sodium Chloride (Normal Saline -) 250 mls @ 250 mls/hr IV ONCE ONE Stop: 03/24/18 19:14 Last Admin: 03/24/18 18:13 Dose: Not Given Levothyroxine Sodium (Synthroid -) 50 mcg PO DAILY@0700 [facility] Last Admin: 03/24/18 06:11 Dose: 50 mcg Nifedipine (Procardia Xl -) 60 mg PO BID [facility] Pantoprazole Sodium (Protonix -) 40 mg PO BID [facility] Last Admin: 03/24/18 13:47 Dose: 40 mg Polyethylene Glycol (Miralax (For Daily Use) -) 17 gm PO DAILY [facility] Last Admin: 03/24/18 13:38 Dose: Not Given Rosuvastatin Calcium (Crestor -) 5 mg PO HS [facility] Last Admin: 03/23/18 23:25 Dose: 5 mg 82 year old woman with 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 #CKD stage 5 not yet on dialysis #Acute on Chronic Anemia #Fall #Hypertension #Renal Osteodystrophy Family agreeable to starting dialysis at this time discussed that a trail of dialysis to monitor for clinical improvement is warranted give progressive nature of her uremic symptoms will consult vascular sx for tunneled catheter placement and hopefully be able to have first dialysis tomorrow Hgb stable GI findings noted on PPI acute drop in BP noted and may be reason pt has AMS more lethargy this afternoon will hold PM BP meds and aim for goal BP ~160/90 dose all meds for Cr Cl less then 10 Continue Calcitriol Will check CT head to r/o CVA given AMS Thank you Levy Mancia DO
[2018-03-24] MEDS ORDERED: PT OWN MED DRAWER 7, Y5N ONE (21:11)
[2018-03-24] MEDS: ROSUVASTATIN CA 5 MG TABLET (FP) PO SCH (22:19)
[2018-03-25] MEDS: LEVOTHYROXINE NA 50 MCG TABLET (FP) PO SCH (06:48)
[2018-03-25] MEDS: CALCIUM ACETATE 667 MG CAPSULE (FP) PO SCH ×4 (07:14→17:56)
[2018-03-25 07:41] LABS: BASO % 0.6 % (0-2.0); EOS % 1.4 % (0-4.5); HEMATOCRIT 32.7 % (32.4-45.2); HEMOGLOBIN 10.9 GM/dL (10.7-15.3); LYMPH % 21.3 % (8-40); MCH 29.3 pg (25.7-33.7); MCHC 33.3 g/dl (32.0-36.0); MEAN CELL VOLUME 88.1 fl (80-96); MEAN PLT VOLUME 8.4 fl (7.5-11.1); MONO % 6.7 % (3.8-10.2); PLATELET COUNT 186 K/MM3 (134-434); RBC 3.71 M/mm3 (3.60-5.2); RDW 16.6 % (11.6-15.6); WHITE BLOOD COUNT 11.3 K/mm3 (4.0-10.0)
[2018-03-25 08:07] LABS: ALBUMIN 3.5 g/dl (3.4-5.0); ALK PHOS 46 U/L (45-117); ANION GAP 11 MMOL/L (8-16); BILIRUBIN,TOTAL 0.4 mg/dL (0.2-1); BLOOD UREA NITROGEN 87 mg/dL (7-18); CALCIUM 10.5 mg/dL (8.5-10.1); CHLORIDE 101 mmol/L (98-107); CO2 25 mmol/L (21-32); CREATININE 7.1 mg/dL (0.55-1.3); GLUCOSE,RANDOM 86 mg/dL (74-106); MAGNESIUM 2.7 mg/dL (1.8-2.4); PHOSPHOROUS 7.3 mg/dL (2.5-4.9); POTASSIUM 4.6 mmol/L (3.5-5.1); SGOT/AST 10 U/L (15-37); SGPT/ALT 14 U/L (13-61); SODIUM 137 mmol/L (136-145); TOT PROT 7.5 g/dl (6.4-8.2)
[2018-03-25] MEDS: CARVEDILOL 25 MG TABLET (FP) PO SCH ×3 (09:50→21:51)
[2018-03-25] MEDS: PANTOPRAZOLE 40 MG TABLET (FP) PO SCH ×3 (09:50→21:51)
[2018-03-25] MEDS: NIFEdipine E.R 60 MG TABLET (UD) PO SCH ×3 (09:50→21:55)
[2018-03-25] MEDS: POLYETHYLENE GLYCOL 3350 119 GM BTL PO SCH (09:50)
[2018-03-25] MEDS: CALCITRIOL 0.25 MCG CAPSULE (FP) PO SCH ×2 (09:50→13:31)
--- NOTE | 2018-03-25 10:36 | PROC ---
Central Line Insertion Indication: Other (Dialysis access) Risks and Benefits Explained: Yes Consent on Chart: Yes Central Line: Dialysis Cath, Dual Lumen Anesthesia: 1% Lidocaine Sterile Technique: Yes Ultrasound Guided Assistance: No Position: Right Femoral Sterile Dressing Applied: Yes
[2018-03-25] MEDS ORDERED: SODIUM CHLORIDE 250 ML IV PRN ×2 (11:28→13:22)
--- NOTE | 2018-03-25 12:37 | PN ---
Progress Note, Physician History of Present Illness: seen and examined in HD today in nad. no new complaints. - Current Medication List Current Medications: Active Medications Acetaminophen (Tylenol -) 650 mg PO Q4H PRN PRN Reason: PAIN LEVEL 1-5 Last Admin: 03/24/18 18:16 Dose: 650 mg Calcitriol (Rocaltrol -) 0.25 mcg PO DAILY [facility] Last Admin: 03/25/18 09:50 Dose: Not Given Calcium Acetate (Phoslo -) 2,001 mg PO TIDCM [facility] Last Admin: 03/25/18 07:14 Dose: Not Given Carvedilol (Coreg -) 25 mg PO BID [facility] Last Admin: 03/25/18 09:50 Dose: Not Given Cyanocobalamin (Vitamin B12 Injection -) 1,000 mcg IM Q7D@1000 [facility] Last Admin: 03/23/18 13:42 Dose: 1,000 mcg Sodium Chloride (Normal Saline -) 250 mls @ 3,000 mls/hr IV PRN PRN PRN Reason: Hypotension during Dialysis Stop: 03/26/18 11:28 Levothyroxine Sodium (Synthroid -) 50 mcg PO DAILY@0700 [facility] Last Admin: 03/25/18 06:48 Dose: 50 mcg Nifedipine (Procardia Xl -) 60 mg PO BID [facility] Last Admin: 03/25/18 09:50 Dose: Not Given Pantoprazole Sodium (Protonix -) 40 mg PO BID [facility] Last Admin: 03/25/18 09:50 Dose: Not Given Polyethylene Glycol (Miralax (For Daily Use) -) 17 gm PO DAILY [facility] Last Admin: 03/25/18 09:50 Dose: Not Given Rosuvastatin Calcium (Crestor -) 5 mg PO HS [facility] Last Admin: 03/24/18 22:19 Dose: 5 mg - Objective Vital Signs: Vital Signs Temperature 98.2 F 03/25/18 09:40 Pulse Rate 70 03/25/18 12:16 Respiratory Rate 18 03/25/18 12:16 Blood Pressure 146/68 03/25/18 12:16 O2 Sat by Pulse Oximetry (%) 98 03/24/18 22:00 Constitutional: Yes: No Distress, Calm Eyes: Yes: Conjunctiva Clear, EOM Intact HENT: Yes: Atraumatic, Normocephalic Neck: Yes: Supple, Trachea Midline Cardiovascular: Yes: S1, S2. No: Bradycardia, Tachycardia, Pulse Irregular, Bruit, JVD, Gallop, Murmur, Rub, S3, S4, Varicosities Respiratory: Yes: Regular. No: Rales, Rhonchi, SOB, Wheezes Gastrointestinal: Yes: Normal Bowel Sounds Edema: No Neurological: Yes: Alert Psychiatric: Yes: Alert Labs: CBC, BMP 03/25/18 06:30 03/25/18 06:30 INR, PTT INR 1.03 (0.83-1.09) 03/20/18 20:32 - ....Imaging Chest X-ray: Report Reviewed, Image Reviewed EKG: Report Reviewed, Image Reviewed Other: Report Reviewed, Image Reviewed Assessment/Plan 82 year old woman with a PMHx of HTN, DM, CVA, CRI (not on dialysis) and anemia. She presents now with multiple unwitnessed falls and has weakness as per the patient's daughter. She was seen on 03/21/[address] Kyle for initial cardiac consult. She underwent EDG today which revealed a small non-bleeding gastric ulcer and gastritis. Her BP was severely elevated during sherie-procedure NPO and received IV metoprolol. Severe Hypertension: improving, adequately controlled currently but mildly above residential goal Cont Carvedilol 25 mg BID. Cont Nifedipine 60 mg BID. Please call with any additional questions.
--- NOTE | 2018-03-25 13:22 | PN ---
Progress Note (short form) - Note Progress Note: Renal follow up for CKD Pt seen and examined during dialysis awake and alert no acute complaints bp stable, UF goal is 0 femoral catheter inserted by vascular sx Vital Signs Temperature 98.2 F 03/25/18 09:40 Pulse Rate 70 03/25/18 12:16 Respiratory Rate 18 03/25/18 12:16 Blood Pressure 146/68 03/25/18 12:16 O2 Sat by Pulse Oximetry (%) 98 03/24/18 22:00 Intake & Output 03/22/18 03/23/18 03/24/18 03/25/18 23:59 23:59 23:59 23:59 Intake Total 400 390 120 Balance 400 390 120 Weight 53.524 kg NAD awake and alert MMM Neck supple no JVD RRR Dec BS, mild rales at lung bases soft NT/ND no Le edema CBC, BMP 03/25/18 06:30 03/25/18 06:30 Current Medications Acetaminophen (Tylenol -) 650 mg PO Q4H PRN PRN Reason: PAIN LEVEL 1-5 Last Admin: 03/24/18 18:16 Dose: 650 mg Calcitriol (Rocaltrol -) 0.25 mcg PO DAILY [facility] Last Admin: 03/25/18 09:50 Dose: Not Given Calcium Acetate (Phoslo -) 2,001 mg PO TIDCM [facility] Last Admin: 03/25/18 07:14 Dose: Not Given Carvedilol (Coreg -) 25 mg PO BID [facility] Last Admin: 03/25/18 09:50 Dose: Not Given Cyanocobalamin (Vitamin B12 Injection -) 1,000 mcg IM Q7D@1000 [facility] Last Admin: 03/23/18 13:42 Dose: 1,000 mcg Sodium Chloride (Normal Saline -) 250 mls @ 3,000 mls/hr IV PRN PRN PRN Reason: Hypotension during Dialysis Stop: 03/26/18 11:28 Levothyroxine Sodium (Synthroid -) 50 mcg PO DAILY@0700 [facility] Last Admin: 03/25/18 06:48 Dose: 50 mcg Nifedipine (Procardia Xl -) 60 mg PO BID [facility] Last Admin: 03/25/18 09:50 Dose: Not Given Pantoprazole Sodium (Protonix -) 40 mg PO BID [facility] Last Admin: 03/25/18 09:50 Dose: Not Given Polyethylene Glycol (Miralax (For Daily Use) -) 17 gm PO DAILY [facility] Last Admin: 03/25/18 09:50 Dose: Not Given Rosuvastatin Calcium (Crestor -) 5 mg PO HS [facility] Last Admin: 03/24/18 22:19 Dose: 5 mg 82 year old woman with 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 #CKD stage 5 not yet on dialysis #Acute on Chronic Anemia #Fall #Hypertension #Renal Osteodystrophy tolerating first dialysis this am, second session to be done tomorrow will conduct trail of dialysis to monitor for clinical improvement is warranted give progressive nature of her uremic symptoms anticipate tunneled HD catheter to be placed tomorrow Hgb stable continue PPI dose all meds for Cr Cl less then 10 Continue Calcitriol, trend serum Ca and phos levels CT head showed no acute pathology form yesterday Thank you Levy Mancia DO
--- NOTE | 2018-03-25 13:57 | PN ---
Progress Note, Physician Chief Complaint: AWAKE POOR APPETITE SCHEDULED PERMA CATH TOMORROW - Current Medication List Current Medications: Active Medications Acetaminophen (Tylenol -) 650 mg PO Q4H PRN PRN Reason: PAIN LEVEL 1-5 Last Admin: 03/24/18 18:16 Dose: 650 mg Calcitriol (Rocaltrol -) 0.25 mcg PO DAILY [facility] Last Admin: 03/25/18 13:31 Dose: 0.25 mcg Calcium Acetate (Phoslo -) 2,001 mg PO TIDCM [facility] Last Admin: 03/25/18 13:31 Dose: 2,001 mg Carvedilol (Coreg -) 25 mg PO BID [facility] Last Admin: 03/25/18 13:31 Dose: 25 mg Cyanocobalamin (Vitamin B12 Injection -) 1,000 mcg IM Q7D@1000 [facility] Last Admin: 03/23/18 13:42 Dose: 1,000 mcg Sodium Chloride (Normal Saline -) 250 mls @ 3,000 mls/hr IV PRN PRN PRN Reason: Hypotension during Dialysis Stop: 03/26/18 11:28 Sodium Chloride (Normal Saline -) 250 mls @ 3,000 mls/hr IV PRN PRN PRN Reason: Hypotension during Dialysis Stop: 03/26/18 13:22 Levothyroxine Sodium (Synthroid -) 50 mcg PO DAILY@0700 [facility] Last Admin: 03/25/18 06:48 Dose: 50 mcg Nifedipine (Procardia Xl -) 60 mg PO BID [facility] Last Admin: 03/25/18 13:30 Dose: 60 mg Pantoprazole Sodium (Protonix -) 40 mg PO BID [facility] Last Admin: 03/25/18 13:31 Dose: 40 mg Polyethylene Glycol (Miralax (For Daily Use) -) 17 gm PO DAILY [facility] Last Admin: 03/25/18 09:50 Dose: Not Given Rosuvastatin Calcium (Crestor -) 5 mg PO HS [facility] Last Admin: 03/24/18 22:19 Dose: 5 mg - Objective Vital Signs: Vital Signs Temperature 98.0 F 03/25/18 13:40 Pulse Rate 71 03/25/18 13:40 Respiratory Rate 20 03/25/18 13:40 Blood Pressure 172/72 H 03/25/18 13:40 O2 Sat by Pulse Oximetry (%) 98 03/24/18 22:00 Constitutional: Yes: No Distress Eyes: Yes: WNL HENT: Yes: WNL Neck: Yes: WNL Cardiovascular: Yes: WNL Respiratory: Yes: WNL Gastrointestinal: Yes: WNL Genitourinary: Yes: WNL Musculoskeletal: Yes: WNL Extremities: Yes: WNL Edema: No Peripheral Pulses WNL: Yes Integumentary: Yes: WNL Wound/Incision: Yes: Clean/Dry Neurological: Yes: Other ...Motor Strength: WNL Psychiatric: Yes: Other Labs: CBC, BMP 03/25/18 06:30 03/25/18 06:30 INR, PTT INR 1.03 (0.83-1.09) 03/20/18 20:32 Problem List - Problems (1) Acute on chronic kidney failure Code(s): N17.9 - ACUTE KIDNEY FAILURE, UNSPECIFIED; N18.9 - CHRONIC KIDNEY DISEASE, UNSPECIFIED (2) Gastrointestinal bleeding Code(s): K92.2 - GASTROINTESTINAL HEMORRHAGE, UNSPECIFIED (3) Type 2 diabetes mellitus with other specified complication Code(s): E11.69 - TYPE 2 DIABETES MELLITUS WITH OTHER SPECIFIED COMPLICATION (4) Accelerated essential hypertension Code(s): I10 - ESSENTIAL (PRIMARY) HYPERTENSION (5) Anemia Code(s): D64.9 - ANEMIA, UNSPECIFIED (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
--- NOTE | 2018-03-25 16:30 | SPA.PREOP ---
- PRE-OP NOTE Dx: Renal Failure Planned Procedure: Permacath placement Surgeon: Demetrius Meza MD Consent: Will be obtained after surgeon explained all risks, benefits and alternatives. Opportunity for questions. Last Vital Signs Temp Pulse Resp BP Pulse Ox 98.0 F 71 20 172/72 H 95 03/25/18 13:40 03/25/18 13:40 03/25/18 13:40 03/25/18 13:40 03/25/18 13:00 Lab Results WBC 11.3 K/mm3 (4.0-10.0) H 03/25/18 06:30 RBC 3.71 M/mm3 (3.60-5.2) 03/25/18 06:30 Hgb 10.9 GM/dL (10.7-15.3) 03/25/18 06:30 Hct 32.7 % (32.4-45.2) 03/25/18 06:30 MCV 88.1 fl (80-96) 03/25/18 06:30 MCHC 33.3 g/dl (32.0-36.0) 03/25/18 06:30 RDW 16.6 % (11.6-15.6) H 03/25/18 06:30 Plt Count 186 K/MM3 (134-434) 03/25/18 06:30 Sodium 137 mmol/L (136-145) 03/25/18 06:30 Potassium 4.6 mmol/L (3.5-5.1) 03/25/18 06:30 Chloride 101 mmol/L (98-107) 03/25/18 06:30 Carbon Dioxide 25 mmol/L (21-32) 03/25/18 06:30 Anion Gap 11 MMOL/L (8-16) 03/25/18 06:30 BUN 87 mg/dL (7-18) H 03/25/18 06:30 Creatinine 7.1 mg/dL (0.55-1.3) H 03/25/18 06:30 Random Glucose 86 mg/dL (74-106) 03/25/18 06:30 Calcium 10.5 mg/dL (8.5-10.1) H 03/25/18 06:30 Blood Type A POSITIVE 03/20/18 13:48 Antibody Screen Negative 03/20/18 13:48 INR 1.03 (0.83-1.09) 03/20/18 20:32 - ASSESSMENT/PLAN 1. Make NPO after midnight except po meds 2. GI/DVT PPX 3. Medical optimization / clearance Problem List - Problems (1) Acute on chronic kidney failure Code(s): N17.9 - ACUTE KIDNEY FAILURE, UNSPECIFIED; N18.9 - CHRONIC KIDNEY DISEASE, UNSPECIFIED
--- NOTE | 2018-03-25 18:34 | PATH ---
Surgical Pathology Report Patient Name: NANCY JAMESON Med. Rec. #: [id number] /Age/Gender: 1935 (Age: 82) / F Account: [id number] Location: [facility] MED/SURG Taken: 03/24/2018 Received: 03/24/2018 Reported: 03/25/2018 Physicians: Amol Palma M.D. Specimen(s) Received A: BX 2ND PORTION DUODENUM AND DUODENAL BULB B: BX ANTRUM Clinical History Anemia Postoperative diagnosis: Erosive gastritis Final Diagnosis A. SECOND PORTION DUODENUM AND BULB, BIOPSY: DUODENAL MUCOSAL WITH NONSPECIFIC CHRONIC DUODENITIS. B. ANTRUM, BIOPSY: GASTRIC MUCOSA SHOWING CHRONIC GASTRITIS WITH INTESTINAL METAPLASIA. IMMUNOSTAIN FOR H. PYLORI IS NEGATIVE. Electronically Signed Trev Kenyon M.D. Gross Description A. Received in formalin, labeled "biopsy second portion of duodenum and duodenal bulb" are 3 montiel, irregular portions of soft tissue ranging from 0.3-0.4 cm. in greatest dimension. The specimens are submitted in toto in one cassette. B. Received in formalin, labeled "biopsy antrum" are 2 montiel, irregular portions of soft tissue averaging 0.3 cm. in greatest dimension. The specimens are submitted in toto in one cassette. /03/24/2018 saudi03/24/2018
[2018-03-25] MEDS ORDERED: PT OWN MED DRAWER 7, Y5N ONE (21:43)
[2018-03-25] MEDS: ROSUVASTATIN CA 5 MG TABLET (FP) PO SCH (21:51)
[2018-03-26] MEDS: LEVOTHYROXINE NA 50 MCG TABLET (FP) PO SCH (06:23)
[2018-03-26 06:56] LABS: BASO % 0.3 % (0-2.0); HEMATOCRIT 32.3 % (32.4-45.2); HEMOGLOBIN 10.9 GM/dL (10.7-15.3); LYMPH % 17.9 % (8-40); MCH 29.5 pg (25.7-33.7); MCHC 33.6 g/dl (32.0-36.0); MEAN PLT VOLUME 8.6 fl (7.5-11.1); MONO % 7.1 % (3.8-10.2); NEUT % 73.7 % (42.8-82.8); PLATELET COUNT 197 K/MM3 (134-434); RBC 3.68 M/mm3 (3.60-5.2); RDW 16.6 % (11.6-15.6); WHITE BLOOD COUNT 11.5 K/mm3 (4.0-10.0)
[2018-03-26 06:58] LABS: ALBUMIN 3.6 g/dl (3.4-5.0); ALK PHOS 48 U/L (45-117); ANION GAP 10 MMOL/L (8-16); BILIRUBIN,TOTAL 0.4 mg/dL (0.2-1); BLOOD UREA NITROGEN 54 mg/dL (7-18); CALCIUM 9.4 mg/dL (8.5-10.1); CHLORIDE 101 mmol/L (98-107); CO2 28 mmol/L (21-32); CREATININE 5.6 mg/dL (0.55-1.3); GLUCOSE,RANDOM 107 mg/dL (74-106); SGOT/AST 14 U/L (15-37); SGPT/ALT 17 U/L (13-61); SODIUM 139 mmol/L (136-145); TOT PROT 7.5 g/dl (6.4-8.2)
--- NOTE | 2018-03-26 08:02 | PN ---
Progress Note, Physician Chief Complaint: TRANSFERRED TO O.R. FOR PERMACATH PLACEMENT NAD - Current Medication List Current Medications: Active Medications Acetaminophen (Tylenol -) 650 mg PO Q4H PRN PRN Reason: PAIN LEVEL 1-5 Last Admin: 03/24/18 18:16 Dose: 650 mg Calcitriol (Rocaltrol -) 0.25 mcg PO DAILY [facility] Last Admin: 03/25/18 13:31 Dose: 0.25 mcg Calcium Acetate (Phoslo -) 2,001 mg PO TIDCM [facility] Last Admin: 03/25/18 17:56 Dose: Not Given Carvedilol (Coreg -) 25 mg PO BID [facility] Last Admin: 03/25/18 21:51 Dose: 25 mg Cyanocobalamin (Vitamin B12 Injection -) 1,000 mcg IM Q7D@1000 [facility] Last Admin: 03/23/18 13:42 Dose: 1,000 mcg Sodium Chloride (Normal Saline -) 250 mls @ 3,000 mls/hr IV PRN PRN PRN Reason: Hypotension during Dialysis Stop: 03/26/18 13:22 Levothyroxine Sodium (Synthroid -) 50 mcg PO DAILY@0700 [facility] Last Admin: 03/26/18 06:23 Dose: 50 mcg Nifedipine (Procardia Xl -) 60 mg PO BID [facility] Last Admin: 03/25/18 21:55 Dose: 60 mg Pantoprazole Sodium (Protonix -) 40 mg PO BID [facility] Last Admin: 03/25/18 21:51 Dose: 40 mg Polyethylene Glycol (Miralax (For Daily Use) -) 17 gm PO DAILY [facility] Last Admin: 03/25/18 09:50 Dose: Not Given Rosuvastatin Calcium (Crestor -) 5 mg PO HS [facility] Last Admin: 03/25/18 21:51 Dose: 5 mg - Objective Vital Signs: Vital Signs Temperature 98.7 F 03/26/18 06:20 Pulse Rate 64 03/26/18 06:20 Respiratory Rate 20 03/26/18 06:20 Blood Pressure 99/45 L 03/26/18 06:20 O2 Sat by Pulse Oximetry (%) 95 03/25/18 21:00 Constitutional: Yes: No Distress Eyes: Yes: WNL HENT: Yes: WNL Neck: Yes: WNL Cardiovascular: Yes: WNL Respiratory: Yes: WNL Gastrointestinal: Yes: WNL Genitourinary: Yes: Incontinence, Other Musculoskeletal: Yes: Muscle Weakness Extremities: Yes: WNL Edema: No Peripheral Pulses WNL: Yes Integumentary: Yes: WNL Wound/Incision: Yes: Clean/Dry Neurological: Yes: Confusion, Pre-Existing Deficit ...Motor Strength: LLE, RLE Psychiatric: Yes: Other Labs: CBC, BMP 03/26/18 05:30 03/26/18 05:30 INR, PTT INR 1.03 (0.83-1.09) 03/20/18 20:32 Problem List - Problems (1) Acute on chronic kidney failure Code(s): N17.9 - ACUTE KIDNEY FAILURE, UNSPECIFIED; N18.9 - CHRONIC KIDNEY DISEASE, UNSPECIFIED (2) Gastrointestinal bleeding Code(s): K92.2 - GASTROINTESTINAL HEMORRHAGE, UNSPECIFIED (3) Type 2 diabetes mellitus with other specified complication Code(s): E11.69 - TYPE 2 DIABETES MELLITUS WITH OTHER SPECIFIED COMPLICATION (4) Accelerated essential hypertension Code(s): I10 - ESSENTIAL (PRIMARY) HYPERTENSION (5) Anemia Code(s): D64.9 - ANEMIA, UNSPECIFIED (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
[2018-03-26 08:06] LABS: FIBROSIS SCORE. 0.44 (0.00-0.21); HCV ALPHA 2 MACRO CHART 317 mg/dL (110-276); HCV GGT 15 IU/L (0-60); NECRO.INFLAM ACT.SCORE 0.05 (0.00-0.17); NECROINFLAM. ACTIVITY GRADE A0-No activity (.)
[2018-03-26] MEDS: CARVEDILOL 25 MG TABLET (FP) PO SCH ×2 (09:20→21:50)
[2018-03-26] MEDS: NIFEdipine E.R 60 MG TABLET (UD) PO SCH ×2 (09:21→21:50)
[2018-03-26] MEDS ORDERED: LIDOCAINE HCL 1%, 10 MG/ML (20ML VIAL) ONE (09:52)
[2018-03-26] MEDS ORDERED: HEPARIN NA (PORCINE) 5,000 UNITS/ML 1ML VIAL ONE (09:52)
[2018-03-26] MEDS ORDERED: POVIDONE-IODINE OINTMENT 10% - 28.4 GM TUBE ONE (09:52)
[2018-03-26] MEDS ORDERED: ceFAZolin SODIUM 1 GM VIAL ONE (10:38)
[2018-03-26] MEDS ORDERED: MIDAZOLAM HCL 2 MG/2 ML SINGLE DOSE VIAL ONE (10:39)
[2018-03-26] MEDS ORDERED: LIDOCAINE HCL 1%, 10 MG/ML (20ML VIAL) INF ONE ×2 (10:44)
[2018-03-26] MEDS ORDERED: HEPARIN NA (PORCINE) 5,000 UNITS/ML 1ML VIAL SQ ONE (10:44)
[2018-03-26] MEDS ORDERED: HEPARIN NA (PORCINE) 1,000 UNITS/ML 10ML M-D VIAL SQ ONE ×2 (10:56)
[2018-03-26] MEDS: POLYETHYLENE GLYCOL 3350 119 GM BTL PO SCH (11:04)
[2018-03-26] MEDS: CALCIUM ACETATE 667 MG CAPSULE (FP) PO SCH ×3 (11:04→17:54)
[2018-03-26] MEDS: CALCITRIOL 0.25 MCG CAPSULE (FP) PO SCH (11:05)
[2018-03-26] MEDS: PANTOPRAZOLE 40 MG TABLET (FP) PO SCH ×2 (11:05→21:50)
--- NOTE | 2018-03-26 11:05 | OP ---
Operative Note - Note: Operative Date: 03/26/18 Pre-Operative Diagnosis: ESRD Operation: Placement Permacath Findings: Patent right IJV Post-Operative Diagnosis: Same as Pre-op Surgeon: Demetrius Meza Anesthesiologist/DIRECTOR CHANNEL: Kerwin Adkins Anesthesia: Fractional Estimated Blood Loss (mls): 10
[2018-03-26] MEDS ORDERED: ACETAMINOPHEN 325 MG TABLET (FP) PO PRN (11:33)
[2018-03-26] MEDS ORDERED: SODIUM CHLORIDE 250 ML IV PRN (11:33)
--- NOTE | 2018-03-26 12:06 | OP ---
DATE OF OPERATION: 03/26/2018 SURGEON: Demetrius Meza MD PROCEDURE: Placement of Permcath. PREOPERATIVE DIAGNOSIS: Renal failure. POSTOPERATIVE DIAGNOSIS: Renal failure. ANESTHESIA: Fractional. ANESTHESIOLOGIST: Kerwin Adkins MD OPERATIVE PROCEDURE: Following routine patient identification with side and site verification intravenous sedation was established. The right neck and chest were prepped with ChloraPrep. Timeout was performed. Using realtime duplex imaging the right internal jugular vein was identified. It was patent, compressible with normal phasic flow. Lidocaine 1% was infiltrated in the skin lateral to the vein. The vein was then cannulated under ultrasound guidance using a micropuncture needle. A wire was passed into the right atrium and the needle was exchanged for a 5-Sinhala catheter. The wire was then exchanged for a J-tip wire. Additional Xylocaine was infiltrated in the chest wall and a stab wound made beneath the clavicle. A 19-cm Permcath was advanced with a tunneler from chest to neck. The tract around the wire was dilated under fluoroscopic guidance and then the introducer was placed into the superior vena cava. The dilator and the wire were removed and the Permcath was advanced through the introducer and the tip positioned at the junction of the superior vena cava and right atrium. The sheath was peeled away. Each limb was aspirated for blood and flushed with saline and heparin solution. The neck wound was closed with subcuticular suture of 3-0 Vicryl and the catheter was sutured to the skin at the exit site with 3-0 nylon. Sterile dressings were applied and the patient was taken to the recovery room in stable condition. Amol [id number]
--- NOTE | 2018-03-26 12:07 | OP ---
DATE OF OPERATION: 03/25/2018 PROCEDURE: Placement of percutaneous dialysis catheter. INDICATION: Renal failure. PROCEDURE: Patient was brought to the dialysis unit. Timeout was performed. The right groin was prepped with ChloraPrep. Lidocaine 1% was infiltrated medial to the right femoral pulse and a needle was used to access the right common femoral vein. A wire was passed proximally and the tract around the wire was dilated. A double-lumen percutaneous dialysis catheter was then advanced over the wire. The wire was removed. Each limb was aspirated for blood. The catheter was sutured to the skin with 3-0 nylon. The patient was then started on hemodialysis through the catheter. Sterile dressing was applied. Patient tolerated the procedure well. Amol [id number]
--- NOTE | 2018-03-26 15:31 | PN ---
Progress Note (short form) - Note Progress Note: Right femoral shiley was removed at bedside without incident, bleeding was controlled and clean dressing placed. Problem List - Problems (1) Acute on chronic kidney failure Code(s): N17.9 - ACUTE KIDNEY FAILURE, UNSPECIFIED; N18.9 - CHRONIC KIDNEY DISEASE, UNSPECIFIED
--- NOTE | 2018-03-26 18:10 | PN ---
Progress Note (short form) - Note Progress Note: Renal follow up for CKD Pt seen and examined during dialysis no complaints talking more today Vital Signs Temperature 98.2 F 03/26/18 12:35 Pulse Rate 68 03/26/18 15:36 Respiratory Rate 18 03/26/18 15:36 Blood Pressure 122/66 03/26/18 15:36 O2 Sat by Pulse Oximetry (%) 94 L 03/26/18 11:45 Intake & Output 03/23/18 03/24/18 03/25/18 03/26/18 23:59 23:59 23:59 23:59 Intake Total 390 120 550 260 Output Total 5 Balance 390 120 550 255 Weight 53.524 kg NAD awake and alert MMM Neck supple no JVD RRR Dec BS, mild rales at lung bases soft NT/ND no Le edema CBC, BMP 03/26/18 05:30 03/26/18 05:30 Current Medications Acetaminophen (Tylenol -) 650 mg PO Q4H PRN PRN Reason: PAIN LEVEL 1-5 Calcitriol (Rocaltrol -) 0.25 mcg PO DAILY [facility] Calcium Acetate (Phoslo -) 2,001 mg PO TIDCM [facility] Last Admin: 03/26/18 17:54 Dose: 2,001 mg Carvedilol (Coreg -) 25 mg PO BID [facility] Cyanocobalamin (Vitamin B12 Injection -) 1,000 mcg IM Q7D@1000 [facility] Sodium Chloride (Normal Saline -) 250 mls @ 3,000 mls/hr IV PRN PRN PRN Reason: Hypotension during Dialysis Stop: 03/26/18 13:22 Levothyroxine Sodium (Synthroid -) 50 mcg PO DAILY@0700 [facility] Nifedipine (Procardia Xl -) 60 mg PO BID [facility] Pantoprazole Sodium (Protonix -) 40 mg PO BID [facility] Polyethylene Glycol (Miralax (For Daily Use) -) 17 gm PO DAILY [facility] Rosuvastatin Calcium (Crestor -) 5 mg PO HS [facility] 82 year old woman with 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 #CKD stage 5 not yet on dialysis #Acute on Chronic Anemia #Fall #Hypertension #Renal Osteodystrophy tolerating 2nd dialysis well will plan for next session on Saturday dose all meds for intermittent HD outpatient HD arrangements to be made continue present bp meds Thank you Levy Mancia DO
[2018-03-26] MEDS: INSULIN SLIDING SCALE (NOVOLOG) 1 VIAL SQ SCH (21:49)
[2018-03-26] MEDS: ROSUVASTATIN CA 5 MG TABLET (FP) PO SCH (21:50)
[2018-03-27 00:11] LABS: HBSAG SCREEN Negative (Negative); HEP A AB, IGM Negative (Negative); HEP B CORE AB, TOT Negative (Negative)
[2018-03-27] MEDS: LEVOTHYROXINE NA 50 MCG TABLET (FP) PO SCH (06:03)
[2018-03-27] MEDS: INSULIN SLIDING SCALE (NOVOLOG) 1 VIAL SQ SCH ×4 (06:03→21:57)
[2018-03-27] MEDS ORDERED: INSULIN (NOVOLOG) ASPART 100 UNITS/ML 10ML VIAL ONE ×2 (06:09→14:07)
[2018-03-27 08:08] LABS: BASO % 0.3 % (0-2.0); HEMATOCRIT 31.4 % (32.4-45.2); HEMOGLOBIN 10.3 GM/dL (10.7-15.3); LYMPH % 18.6 % (8-40); MCH 28.8 pg (25.7-33.7); MCHC 32.7 g/dl (32.0-36.0); MEAN CELL VOLUME 87.9 fl (80-96); MEAN PLT VOLUME 8.7 fl (7.5-11.1); MONO % 8.3 % (3.8-10.2); NEUT % 70.8 % (42.8-82.8); PLATELET COUNT 188 K/MM3 (134-434); RBC 3.57 M/mm3 (3.60-5.2); RDW 16.6 % (11.6-15.6); WHITE BLOOD COUNT 12.4 K/mm3 (4.0-10.0)
[2018-03-27 08:43] LABS: ALBUMIN 3.3 g/dl (3.4-5.0); ALK PHOS 43 U/L (45-117); ANION GAP 9 MMOL/L (8-16); BILIRUBIN,TOTAL 0.3 mg/dL (0.2-1); BLOOD UREA NITROGEN 31 mg/dL (7-18); CALCIUM 9.4 mg/dL (8.5-10.1); CHLORIDE 101 mmol/L (98-107); CO2 30 mmol/L (21-32); CREATININE 4.4 mg/dL (0.55-1.3); GLUCOSE,RANDOM 106 mg/dL (74-106); POTASSIUM 3.7 mmol/L (3.5-5.1); SGOT/AST 11 U/L (15-37); SGPT/ALT 14 U/L (13-61); SODIUM 140 mmol/L (136-145)
[2018-03-27] MEDS: CALCIUM ACETATE 667 MG CAPSULE (FP) PO SCH ×3 (09:00→17:35)
[2018-03-27] MEDS: CALCITRIOL 0.25 MCG CAPSULE (FP) PO SCH (09:28)
[2018-03-27] MEDS: CARVEDILOL 25 MG TABLET (FP) PO SCH ×2 (09:28→21:58)
[2018-03-27] MEDS: PANTOPRAZOLE 40 MG TABLET (FP) PO SCH ×2 (09:28→21:58)
[2018-03-27] MEDS: NIFEdipine E.R 60 MG TABLET (UD) PO SCH ×2 (09:29→22:04)
[2018-03-27] MEDS: POLYETHYLENE GLYCOL 3350 119 GM BTL PO SCH (09:31)
--- NOTE | 2018-03-27 10:08 | PN ---
Progress Note, Physician Chief Complaint: ASLEEP COMFORTABLE HD VIA PC - Current Medication List Current Medications: Active Medications Acetaminophen (Tylenol -) 650 mg PO Q4H PRN PRN Reason: PAIN LEVEL 1-5 Calcitriol (Rocaltrol -) 0.25 mcg PO DAILY [facility] Last Admin: 03/27/18 09:28 Dose: 0.25 mcg Calcium Acetate (Phoslo -) 2,001 mg PO TIDCM [facility] Last Admin: 03/27/18 09:00 Dose: 2,001 mg Carvedilol (Coreg -) 25 mg PO BID [facility] Last Admin: 03/27/18 09:28 Dose: 25 mg Cyanocobalamin (Vitamin B12 Injection -) 1,000 mcg IM Q7D@1000 [facility] Sodium Chloride (Normal Saline -) 250 mls @ 3,000 mls/hr IV PRN PRN PRN Reason: Hypotension during Dialysis Stop: 03/26/18 13:22 Insulin Aspart (Novolog Vial Sliding Scale -) 1 vial SQ [facility]; Protocol Last Admin: 03/27/18 06:03 Dose: Not Given Levothyroxine Sodium (Synthroid -) 50 mcg PO DAILY@0700 [facility] Last Admin: 03/27/18 06:03 Dose: 50 mcg Nifedipine (Procardia Xl -) 60 mg PO BID [facility] Last Admin: 03/27/18 09:29 Dose: 60 mg Pantoprazole Sodium (Protonix -) 40 mg PO BID [facility] Last Admin: 03/27/18 09:28 Dose: 40 mg Polyethylene Glycol (Miralax (For Daily Use) -) 17 gm PO DAILY [facility] Last Admin: 03/27/18 09:31 Dose: 17 gm Rosuvastatin Calcium (Crestor -) 5 mg PO HS [facility] Last Admin: 03/26/18 21:50 Dose: 5 mg - Objective Vital Signs: Vital Signs Temperature 98.2 F 03/27/18 06:50 Pulse Rate 62 03/27/18 06:50 Respiratory Rate 20 03/27/18 06:50 Blood Pressure 120/52 L 03/27/18 06:50 O2 Sat by Pulse Oximetry (%) 97 03/26/18 21:50 Constitutional: Yes: Mild Distress Eyes: Yes: WNL HENT: Yes: WNL Neck: Yes: WNL Cardiovascular: Yes: WNL Respiratory: Yes: WNL, On Nasal O2 Gastrointestinal: Yes: WNL Genitourinary: Yes: Other Musculoskeletal: Yes: Muscle Weakness Extremities: Yes: WNL Edema: No Peripheral Pulses WNL: Yes Integumentary: Yes: WNL Wound/Incision: Yes: Clean/Dry Neurological: Yes: Confusion, Pre-Existing Deficit ...Motor Strength: LLE, RLE Psychiatric: Yes: Other Labs: CBC, BMP 03/27/18 07:00 03/27/18 07:00 INR, PTT INR 1.03 (0.83-1.09) 03/20/18 20:32 Problem List - Problems (1) Acute on chronic kidney failure Code(s): N17.9 - ACUTE KIDNEY FAILURE, UNSPECIFIED; N18.9 - CHRONIC KIDNEY DISEASE, UNSPECIFIED (2) Gastrointestinal bleeding Code(s): K92.2 - GASTROINTESTINAL HEMORRHAGE, UNSPECIFIED (3) Type 2 diabetes mellitus with other specified complication Code(s): E11.69 - TYPE 2 DIABETES MELLITUS WITH OTHER SPECIFIED COMPLICATION (4) Accelerated essential hypertension Code(s): I10 - ESSENTIAL (PRIMARY) HYPERTENSION (5) Anemia Code(s): D64.9 - ANEMIA, UNSPECIFIED (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
--- NOTE | 2018-03-27 14:36 | PN ---
Progress Note, Physician Chief Complaint: The patient seen in her room. Seems comfortable. some difficulty to speak because of the CVA. denies any chest pain, No shortness of breath. Had uneventful HD yesterday. - Current Medication List Current Medications: Active Medications Acetaminophen (Tylenol -) 650 mg PO Q4H PRN PRN Reason: PAIN LEVEL 1-5 Calcitriol (Rocaltrol -) 0.25 mcg PO DAILY [facility] Last Admin: 03/27/18 09:28 Dose: 0.25 mcg Calcium Acetate (Phoslo -) 2,001 mg PO TIDCM [facility] Last Admin: 03/27/18 14:12 Dose: 2,001 mg Carvedilol (Coreg -) 25 mg PO BID [facility] Last Admin: 03/27/18 09:28 Dose: 25 mg Cyanocobalamin (Vitamin B12 Injection -) 1,000 mcg IM Q7D@1000 [facility] Sodium Chloride (Normal Saline -) 250 mls @ 3,000 mls/hr IV PRN PRN PRN Reason: Hypotension during Dialysis Stop: 03/26/18 13:22 Insulin Aspart (Novolog Vial Sliding Scale -) 1 vial SQ [facility]; Protocol Last Admin: 03/27/18 14:09 Dose: 2 unit Levothyroxine Sodium (Synthroid -) 50 mcg PO DAILY@0700 [facility] Last Admin: 03/27/18 06:03 Dose: 50 mcg Nifedipine (Procardia Xl -) 60 mg PO BID [facility] Last Admin: 03/27/18 09:29 Dose: 60 mg Pantoprazole Sodium (Protonix -) 40 mg PO BID [facility] Last Admin: 03/27/18 09:28 Dose: 40 mg Polyethylene Glycol (Miralax (For Daily Use) -) 17 gm PO DAILY [facility] Last Admin: 03/27/18 09:31 Dose: 17 gm Rosuvastatin Calcium (Crestor -) 5 mg PO HS [facility] Last Admin: 03/26/18 21:50 Dose: 5 mg - Objective Vital Signs: Vital Signs Temperature 98.2 F 03/27/18 06:50 Pulse Rate 62 03/27/18 06:50 Respiratory Rate 20 03/27/18 06:50 Blood Pressure 120/52 L 03/27/18 06:50 O2 Sat by Pulse Oximetry (%) 97 03/26/18 21:50 Constitutional: Yes: No Distress, Anxious HENT: Yes: Atraumatic Neck: Yes: Trachea Midline Cardiovascular: Yes: Pulse Irregular, S1, S2 Respiratory: Yes: CTA Bilaterally, Diminished Gastrointestinal: Yes: Normal Bowel Sounds, Soft. No: Tenderness, Epigastrium, Tenderness, Rebound Musculoskeletal: Yes: Joint Stiffness Neurological: Yes: Alert, Oriented Psychiatric: Yes: Alert Labs: CBC, BMP 03/27/18 07:00 03/27/18 07:00 INR, PTT INR 1.03 (0.83-1.09) 03/20/18 20:32 Problem List - Problems (1) Anemia Code(s): D64.9 - ANEMIA, UNSPECIFIED (2) CVA (cerebral vascular accident) Code(s): I63.9 - CEREBRAL INFARCTION, UNSPECIFIED (3) Diabetes Code(s): E11.9 - TYPE 2 DIABETES MELLITUS WITHOUT COMPLICATIONS (4) HTN (hypertension) Code(s): I10 - ESSENTIAL (PRIMARY) HYPERTENSION Qualifiers: (5) Hepatitis C Code(s): B19.20 - UNSPECIFIED VIRAL HEPATITIS C WITHOUT HEPATIC COMA (6) Type 2 diabetes mellitus with other diabetic kidney complication Code(s): E11.29 - TYPE 2 DIABETES MELLITUS W OTH DIABETIC KIDNEY COMPLICATION (7) Weakness Code(s): R53.1 - WEAKNESS Assessment/Plan 82yo F with PMH of ESRD , DM, HTN, CVA, Anemia presenting with multiple unwitnessed falls and weakness. The patient has GI bleeding, and worsening of her Chronic anemia from CKD. The patient tolerated HD well. Permacath in place. Next HD scheduled for tomorrow. Orders written, and reviewed with the HD RN Sharon Stahl MD
[2018-03-27] MEDS ORDERED: PT OWN MED DRAWER 7, Y5N ONE (21:45)
[2018-03-27] MEDS: ROSUVASTATIN CA 5 MG TABLET (FP) PO SCH (21:58)
[2018-03-28] MEDS: INSULIN SLIDING SCALE (NOVOLOG) 1 VIAL SQ SCH ×3 (06:17→17:46)
[2018-03-28] MEDS: LEVOTHYROXINE NA 50 MCG TABLET (FP) PO SCH (06:18)
--- NOTE | 2018-03-28 08:08 | PN ---
Progress Note, Physician - Current Medication List Current Medications: Active Medications Acetaminophen (Tylenol -) 650 mg PO Q4H PRN PRN Reason: PAIN LEVEL 1-5 Calcitriol (Rocaltrol -) 0.25 mcg PO DAILY [facility] Last Admin: 03/27/18 09:28 Dose: 0.25 mcg Calcium Acetate (Phoslo -) 2,001 mg PO TIDCM [facility] Last Admin: 03/27/18 17:35 Dose: 2,001 mg Carvedilol (Coreg -) 25 mg PO BID [facility] Last Admin: 03/27/18 21:58 Dose: 25 mg Cyanocobalamin (Vitamin B12 Injection -) 1,000 mcg IM Q7D@1000 [facility] Epoetin Josh (Procrit -) 10,000 unit SQ ONCE ONE Stop: 03/28/18 14:38 Sodium Chloride (Normal Saline -) 250 mls @ 3,000 mls/hr IV PRN PRN PRN Reason: Hypotension during Dialysis Stop: 03/26/18 13:22 Insulin Aspart (Novolog Vial Sliding Scale -) 1 vial SQ [facility]; Protocol Last Admin: 03/28/18 06:17 Dose: Not Given Levothyroxine Sodium (Synthroid -) 50 mcg PO DAILY@0700 [facility] Last Admin: 03/28/18 06:18 Dose: 50 mcg Nifedipine (Procardia Xl -) 60 mg PO BID [facility] Last Admin: 03/27/18 22:04 Dose: 60 mg Pantoprazole Sodium (Protonix -) 40 mg PO BID [facility] Last Admin: 03/27/18 21:58 Dose: 40 mg Polyethylene Glycol (Miralax (For Daily Use) -) 17 gm PO DAILY [facility] Last Admin: 03/27/18 09:31 Dose: 17 gm Rosuvastatin Calcium (Crestor -) 5 mg PO HS [facility] Last Admin: 03/27/18 21:58 Dose: 5 mg - Objective Vital Signs: Vital Signs Temperature 98.6 F 03/28/18 06:23 Pulse Rate 60 03/28/18 06:23 Respiratory Rate 20 03/28/18 06:23 Blood Pressure 142/88 03/28/18 06:23 O2 Sat by Pulse Oximetry (%) 96 03/27/18 21:00 Labs: INR, PTT INR 1.03 (0.83-1.09) 03/20/18 20:32 Problem List - Problems (1) Acute on chronic kidney failure Code(s): N17.9 - ACUTE KIDNEY FAILURE, UNSPECIFIED; N18.9 - CHRONIC KIDNEY DISEASE, UNSPECIFIED (2) Gastrointestinal bleeding Code(s): K92.2 - GASTROINTESTINAL HEMORRHAGE, UNSPECIFIED (3) Type 2 diabetes mellitus with other specified complication Code(s): E11.69 - TYPE 2 DIABETES MELLITUS WITH OTHER SPECIFIED COMPLICATION (4) Accelerated essential hypertension Code(s): I10 - ESSENTIAL (PRIMARY) HYPERTENSION (5) Anemia Code(s): D64.9 - ANEMIA, UNSPECIFIED (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
[2018-03-28 08:37] LABS: ALBUMIN 3.2 g/dl (3.4-5.0); ALK PHOS 42 U/L (45-117); ANION GAP 11 MMOL/L (8-16); BILIRUBIN,TOTAL 0.3 mg/dL (0.2-1); BLOOD UREA NITROGEN 43 mg/dL (7-18); CALCIUM 10.2 mg/dL (8.5-10.1); CHLORIDE 100 mmol/L (98-107); CO2 27 mmol/L (21-32); CREATININE 5.7 mg/dL (0.55-1.3); GLUCOSE,RANDOM 119 mg/dL (74-106); POTASSIUM 3.9 mmol/L (3.5-5.1); SGOT/AST 14 U/L (15-37); SGPT/ALT 12 U/L (13-61); SODIUM 138 mmol/L (136-145); TOT PROT 6.9 g/dl (6.4-8.2)
[2018-03-28] MEDS: CALCIUM ACETATE 667 MG CAPSULE (FP) PO SCH ×2 (08:59→12:53)
[2018-03-28 09:23] LABS: BASO % 0.4 % (0-2.0); EOS % 1.8 % (0-4.5); HEMATOCRIT 30.3 % (32.4-45.2); LYMPH % 16.1 % (8-40); MCH 28.9 pg (25.7-33.7); MCHC 32.9 g/dl (32.0-36.0); MEAN CELL VOLUME 87.9 fl (80-96); MONO % 7.2 % (3.8-10.2); NEUT % 74.5 % (42.8-82.8); PLATELET COUNT 218 K/MM3 (134-434); RBC 3.45 M/mm3 (3.60-5.2); RDW 16.7 % (11.6-15.6); WHITE BLOOD COUNT 13.5 K/mm3 (4.0-10.0)
[2018-03-28] MEDS: POLYETHYLENE GLYCOL 3350 119 GM BTL PO SCH (09:46)
[2018-03-28] MEDS ORDERED: PT OWN MED DRAWER 7, Y5N ONE (09:48)
[2018-03-28] MEDS: PANTOPRAZOLE 40 MG TABLET (FP) PO SCH (09:53)
[2018-03-28] MEDS: NIFEdipine E.R 60 MG TABLET (UD) PO SCH (09:53)
[2018-03-28] MEDS: CARVEDILOL 25 MG TABLET (FP) PO SCH (09:53)
[2018-03-28] MEDS: CALCITRIOL 0.25 MCG CAPSULE (FP) PO SCH (09:53)
[2018-03-28] MEDS ORDERED: EPOETIN ALFA 10,000 UNIT/1 ML VIAL SQ ONE (14:00)
--- NOTE | 2018-03-28 14:05 | PN ---
Progress Note (short form) - Note Progress Note: Renal follow up for CKD Pt seen and examined during dialysis awake and alert reports feeling tired catheter with good flow, UF goal is 0L Vital Signs Temperature 98.5 F 03/28/18 13:15 Pulse Rate 72 03/28/18 13:20 Respiratory Rate 16 03/28/18 13:20 Blood Pressure 135/56 L 03/28/18 13:20 O2 Sat by Pulse Oximetry (%) 96 03/27/18 21:00 Intake & Output 03/25/18 03/26/18 03/27/18 03/28/18 23:59 23:59 23:59 23:59 Intake Total 550 620 420 510 Output Total 5 Balance 550 615 420 510 NAD awake and alert MMM Neck supple no JVD RRR Dec BS, mild rales at lung bases soft NT/ND no Le edema CBC, BMP 03/28/18 07:00 03/28/18 07:00 Current Medications Acetaminophen (Tylenol -) 650 mg PO Q4H PRN PRN Reason: PAIN LEVEL 1-5 Calcitriol (Rocaltrol -) 0.25 mcg PO DAILY [facility] Last Admin: 03/28/18 09:53 Dose: 0.25 mcg Carvedilol (Coreg -) 25 mg PO BID [facility] Last Admin: 03/28/18 09:53 Dose: 25 mg Cyanocobalamin (Vitamin B12 Injection -) 1,000 mcg IM Q7D@1000 [facility] Epoetin Josh (Procrit -) 10,000 unit SQ ONCE ONE Stop: 03/28/18 14:01 Insulin Aspart (Novolog Vial Sliding Scale -) 1 vial SQ [facility]; Protocol Last Admin: 03/28/18 12:53 Dose: 6 unit Levothyroxine Sodium (Synthroid -) 50 mcg PO DAILY@0700 [facility] Last Admin: 03/28/18 06:18 Dose: 50 mcg Nifedipine (Procardia Xl -) 60 mg PO BID [facility] Last Admin: 03/28/18 09:53 Dose: 60 mg Pantoprazole Sodium (Protonix -) 40 mg PO BID [facility] Last Admin: 03/28/18 09:53 Dose: 40 mg Polyethylene Glycol (Miralax (For Daily Use) -) 17 gm PO DAILY [facility] Last Admin: 03/28/18 09:46 Dose: Not Given Rosuvastatin Calcium (Crestor -) 5 mg PO [facility] Last Admin: 03/27/18 21:58 Dose: 5 mg Sevelamer Carbonate (Renvela -) 1,600 mg PO TIDCM [facility] 82 year old woman with 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 #CKD stage 5 not yet on dialysis #Acute on Chronic Anemia #Fall #Hypertension #Renal Osteodystrophy tolerating 3rd HD today with UF goal of 0 (no evidence of fluid overload) outpatient HD arranged and to have first outpatient treatment on Saturday BP low on HD, will minimize UF change Phoslo to renvela because of mildly elevated Ca hold calcitriol for now Thank you Levy Mancia DO
--- NOTE | 2018-03-28 14:35 | DS ---
Physical Examination Vital Signs: Vital Signs Temperature 98.5 F 03/28/18 13:15 Pulse Rate 72 03/28/18 13:20 Respiratory Rate 16 03/28/18 13:20 Blood Pressure 135/56 L 03/28/18 13:20 O2 Sat by Pulse Oximetry (%) 96 03/27/18 21:00 Constitutional: Yes: No Distress Eyes: Yes: WNL HENT: Yes: WNL Neck: Yes: WNL Cardiovascular: Yes: WNL Respiratory: Yes: WNL Gastrointestinal: Yes: WNL Renal/: Yes: WNL Edema: No Peripheral Pulses WNL: Yes Integumentary: Yes: WNL Wound/Incision: Yes: Clean/Dry Neurological: Yes: Confusion, Pre-Existing Deficit ...Motor Strength: WNL Psychiatric: Yes: WNL Labs: CBC, BMP 03/28/18 07:00 03/28/18 07:00 Discharge Summary Reason For Visit: ACUTE RENAL FAILURE SUPERIMPOSED ON CKD Current Active Problems Acute on chronic kidney failure (Acute) Gastrointestinal bleeding (Acute) History of colon polyps (Acute) Type 2 diabetes mellitus with other specified complication (Acute) Procedures: Principal: CT Hospital Course: STARTED HD PERMA CATH PLACED, WILL F/U WITH NEPHROLOGY FOR HD Condition: Fair - Instructions Diet, Activity, Other Instructions: SEE YOUR PRIMARY DOCTOR IN 1 WEEK HD PER RENAL Referrals: Home Morin MD [Primary Care Provider] - Disposition: VNS/HOME HEALTH CARE - Home Medications Comprehensive Discharge Medication List: Ambulatory Orders Carvedilol [Coreg -] 12.5 mg PO BID #60 tablet 07/08/17 Nifedipine ER [Procardia XL -] 60 mg PO DAILY #30 tab.er.24 07/08/17 Aspirin [ASA -] 162 mg PO DAILY #30 tab.chew 01/03/18 Cyanocobalamin (Vitamin B-12) [B-12] 2,500 mcg SL DAILY #30 tab.subl 01/03/18 Calcium Acetate [Phoslo -] 2,001 mg PO TIDCM capsule 01/04/18 Ferrous Sulfate [Feosol] 325 mg PO BID #60 tablet 01/04/18 Levothyroxine [Synthroid -] 50 mcg PO DAILY@0700 #30 tablet 01/04/18 Rosuvastatin [Crestor -] 5 mg PO HS #30 tablet 01/04/18 Calcitriol [Calcitriol -] 0.25 mcg PO DAILY 03/20/18 Sodium Bicarbonate - 650 mg PO ASDIR 03/20/18 Acetaminophen [Tylenol .Regular Strength -] 650 mg PO Q4H PRN tablet 03/28/18 Pantoprazole Sodium [Protonix -] 40 mg PO BID #60 tablet.ec 03/28/18 Polyethylene Glycol 3350 [Miralax 119 gm Btl -] 17 gm PO DAILY #1 bottle Sevelamer Carbonate [Renvela -] 1,600 mg PO TIDCM #90 tab 03/28/18
[2018-03-28] MEDS ORDERED: SEVELAMER CARBONATE 800 MG TAB (FP) PO SCH (17:30)
[2018-03-28 19:26] VITALS: BP 135/56; PULSE 56; TEMP 98.7
[2018-03-30] MEDS ORDERED: CYANOCOBALAMIN (VITAMIN B-12) 1000 MCG/1 ML VIAL IM SCH (10:00)
== END 2018-03-28 20:55 | disposition home health service (06) | DRG 377 ==
LOC: JER 12:38 → JERBED 16:39 → J7W 21:03 → J8W 03-23 19:07
PROVIDERS: ADMIT Family Medicine; ATTEND Family Medicine
PROC: 0DD68ZX Extraction of Stomach, Via Natural or Artificial Opening Endoscopic, Diagnostic (ICD-10-PCS; 2018-03-24)
PROC: 0DD98ZX Extraction of Duodenum, Via Natural or Artificial Opening Endoscopic, Diagnostic (ICD-10-PCS; principal; 2018-03-24 11:30)
PROC: 06HM33Z Insertion of Infusion Device into Right Femoral Vein, Percutaneous Approach (ICD-10-PCS; 2018-03-25)
PROC: 5A1D70Z Performance of Urinary Filtration, Intermittent, Less than 6 Hours Per Day (ICD-10-PCS; 2018-03-25)
PROC: 05HM33Z Insertion of Infusion Device into Right Internal Jugular Vein, Percutaneous Approach (ICD-10-PCS; 2018-03-26)
PROC: B543ZZA Ultrasonography of Right Jugular Veins, Guidance (ICD-10-PCS; 2018-03-26)
PROC: B513ZZA Fluoroscopy of Right Jugular Veins, Guidance (ICD-10-PCS; 2018-03-26)
DX: K25.4 Chronic or unspecified gastric ulcer with hemorrhage (principal); N18.6 End stage renal disease; I12.0 Hypertensive chronic kidney disease with stage 5 chronic kidney disease or end stage renal disease; D62 Acute posthemorrhagic anemia; N17.9 Acute kidney failure, unspecified; D63.1 Anemia in chronic kidney disease; E11.65 Type 2 diabetes mellitus with hyperglycemia; E11.22 Type 2 diabetes mellitus with diabetic chronic kidney disease; E11.21 Type 2 diabetes mellitus with diabetic nephropathy; N25.0 Renal osteodystrophy; Z86.73 Personal history of transient ischemic attack (TIA), and cerebral infarction without residual deficits; Z91.81 History of falling; Z79.84 Long term (current) use of oral hypoglycemic drugs; Z87.891 Personal history of nicotine dependence; E03.9 Hypothyroidism, unspecified; B19.20 Unspecified viral hepatitis C without hepatic coma; M54.5 Low back pain; G62.9 Polyneuropathy, unspecified; R63.4 Abnormal weight loss; Z68.20 Body mass index [BMI] 20.0-20.9, adult; Z99.2 Dependence on renal dialysis
CPT/HCPCS: 36415; 36430; 70450-TC; 71045-TC-FY; 72131-TC; 72192-TC; 76700-TC; 80048; 80053; 81003; 81015; 82105; 82172; 82272; 82550; 82607; 82728; 82962; 82977; 83010; 83540; 83550; 83735; 83880; 83883; 84100; 84439; 84443; 84460; 84484; 85025; 85044; 85610; 86704; 86706; 86708; 86803; 86850; 86900; 86901; 86922; 87040; 87086; 87340; 88305-TC; 93005; 93010; 94760; 97116-GP; 97162-GP; 99283-25; J0131; J0885; J1644; P9038; P9058

== ENCOUNTER 2018-06-30 14:46 | Inpatient (IN) | payer OTHER, MEDICARE ==
[2018-06-30] MEDS ORDERED: SODIUM CHLORIDE 1,000 ML IV SCH (15:15)
[2018-06-30 15:20] LABS: BASO % 0.6 % (0-2.0); EOS % 1.4 % (0-4.5); HEMATOCRIT 32.7 % (32.4-45.2); HEMOGLOBIN 10.8 GM/dL (10.7-15.3); LYMPH % 16.5 % (8-40); MCH 29.9 pg (25.7-33.7); MCHC 32.9 g/dl (32.0-36.0); MEAN CELL VOLUME 90.7 fl (80-96); NEUT % 72.5 % (42.8-82.8); PLATELET COUNT 283 K/MM3 (134-434); RBC 3.61 M/mm3 (3.60-5.2); RDW 17.5 % (11.6-15.6); WHITE BLOOD COUNT 8.1 K/mm3 (4.0-10.0)
[2018-06-30 15:45] LABS: INR 1.1 (0.83-1.09)
[2018-06-30 15:58] LABS: ALBUMIN 3.5 g/dl (3.4-5.0); ALK PHOS 68 U/L (45-117); ANION GAP 8 MMOL/L (8-16); BILIRUBIN,TOTAL 0.2 mg/dL (0.2-1); BLOOD UREA NITROGEN 55 mg/dL (7-18); CALCIUM 8.2 mg/dL (8.5-10.1); CHLORIDE 107 mmol/L (98-107); CHOLESTEROL 133 mg/dL (50-200); CO2 24 mmol/L (21-32); CREATININE 6.1 mg/dL (0.55-1.3); GLUCOSE,RANDOM 151 mg/dL (74-106); HDL CHOLESTEROL 57 mg/dL (40-60); POTASSIUM 4.3 mmol/L (3.5-5.1); SGOT/AST 8 U/L (15-37); SGPT/ALT 18 U/L (13-61); SODIUM 139 mmol/L (136-145); TOT PROT 7.4 g/dl (6.4-8.2); TRIGLYCERIDES 123 mg/dL (0-150)
--- NOTE | 2018-06-30 15:59 | PDOC ---
History of Present Illness - General Chief Complaint: Altered Mental Status Stated Complaint: Altered Mental Status Time Seen by Provider: 06/30/18 15:01 History Source: Patient, Family Exam Limitations: Clinical Condition (nonverbal) - History of Present Illness Initial Comments: 06/30/18 15:58 The patient is an 83F with a PMH of diabetes, end-stage renal disease on dialysis MWF, chronic anemia, hypothyroidism, hypertension, hepatitis C, previous stroke (affecting R side) who presents to the ER with complaints of sudden onset aphasia and weakness. The patient's last known well is 1420. She is with her daughter who provides the history. The daughter states she was in her normals state of health and was about to get dialysis when she slumped over and became nonverbal. She had no complaints at the time but was intermittently following directions. tPA Exclusion Checklist 0-3hr - Time Elapsed Date last known well: 06/30/18 Time last known well: 14:20 Elaspsed time: Day(s) and 6 Hour(s) and 18 Minutes - Thrombolytic Therapy Candidate Is the patient eligible for Thrombolytic Therapy?: Yes - Exclusion Criteria 0-3hr SBP greater than 185 or DBP greater than 110mmHg despite tx: No Recent IC/spinal surgery,head trauma or stroke w/in last 3mo: No Hx of previous IC hemorrhage, IC neoplasm, AVM or aneurysm: No Active internal bleeding: No Blding diathesis(low plt ct, inc PTT,INR>1.7 or use of NOAC): No Symptoms suggest subarachnoid hemorrhage: No CT demonstrates multilobar infarct(>1/3 cerebral hemiphere): No Arterial puncture at noncompressible site in previous 7 days: No Blood glucose concentration less than 50mg/dL (2.7mmol/L): No - Ineligibility reason(s) Reasons No tPA given: See reason(s) noted above (Symptoms resolved, d/w neurology) NIH Stroke Scale - Last Known Well Date/Time & Onset Date Last Known Well: 06/30/18 Time Last Known Well: 14:20 - Initial Evaluation Level of consciousness: Alert Ask patient the month and their age: Answers both correctly Ask patient to open & close eyes; make fist and let go: Obeys both correctly Best gaze (horizontal eye movement): Normal Visual field testing: Partial hemianopia Facial paresis (Show teeth/raise eyebrows/close eyes tight): Normal symmetrical movement Motor Function: Left Arm: Normal Motor Function: Right Arm: Normal (extends arm 90 (or 45) degrees for 10 seconds without drift Motor Function: Left Leg: Normal (extends leg 30 degrees for 5 seconds without drift) Motor Function: Right Leg: Normal (extends leg 30 degrees for 5 seconds without drift) Limb Ataxia: No ataxia Sensory(Use pinprick test arms,legs,trunk,face/side to side): Normal Best language (Describe picture, name items, read sentences): No Aphasia Dysarthria (read several words): Mild to moderate slurring of words Extinction and Inattention: No abnormality - Total Score NIH Stroke Scale Score: 2 Past History - Past Medical History Allergies/Adverse Reactions: Allergies Allergy/AdvReac Type Severity Reaction Status Date / Time No Known Allergies Allergy Verified 06/30/18 15:21 Home Medications: Ambulatory Orders Carvedilol [Coreg -] 12.5 mg PO BID #60 tablet 07/08/17 Nifedipine ER [Procardia XL -] 60 mg PO DAILY #30 tab.er.24 07/08/17 Aspirin [ASA -] 162 mg PO DAILY #30 tab.chew 01/03/18 Cyanocobalamin (Vitamin B-12) [B-12] 2,500 mcg SL DAILY #30 tab.subl 01/03/18 Levothyroxine [Synthroid -] 50 mcg PO DAILY@0700 #30 tablet 01/04/18 Rosuvastatin [Crestor -] 5 mg PO HS #30 tablet 01/04/18 Acetaminophen [Tylenol .Regular Strength -] 650 mg PO Q4H PRN tablet 03/28/18 Pantoprazole Sodium [Protonix -] 40 mg PO BID #60 tablet.ec 03/28/18 Anemia: No Asthma: No Cancer: No Cardiac Disorders: No CVA: Yes (TIA) COPD: No CHF: No DVT: No Dementia: No Diabetes: Yes (IDDM) GI Disorders: No Disorders: Yes (ESRD dialysis sat-sat-sat) HTN: Yes Hypercholesterolemia: No Liver Disease: No Seizures: No Thyroid Disease: Yes - Surgical History Abdominal Surgery: No Appendectomy: No Cardiac Surgery: No Cholecystectomy: Yes Lung Surgery: No Neurologic Surgery: No Orthopedic Surgery: No - Immunization History Immunization Up to Date: Yes - Suicide/Smoking/Psychosocial Hx Smoking Status: Yes Smoking History: Current every day smoker Have you smoked in the past 12 months: No Number of Cigarettes Smoked Daily: 20 If you are a former smoker, when did you quit?: 2018 Information on smoking cessation initiated: No 'Breaking Loose' booklet given: 07/05/17 Hx Alcohol Use: No Drug/Substance Use Hx: No Substance Use Type: None Hx Substance Use Treatment: No Review of Systems - Review of Systems Able to Perform ROS?: No (nonverbal) *Physical Exam - Vital Signs Last Vital Signs Temp Pulse Resp BP Pulse Ox 97.5 F L 72 16 149/82 100 06/30/18 15:55 06/30/18 14:46 06/30/18 14:46 06/30/18 14:46 06/30/18 14:46 - Physical Exam Comments: 06/30/18 16:25 GENERAL: Well developed, well nourished. Awake and alert. No acute distress. HEENT: Normocephalic, atraumatic. Hearing grossly normal. Moist mucous membranes. PERRLA, EOMI. No conjunctival pallor. Sclera are non-icteric. NECK: Supple. Full ROM. No JVD. CARDIOVASCULAR: Regular rate and rhythm. No murmurs, rubs, or gallops. PULMONARY: No evidence of respiratory distress. Lungs clear to auscultation bilaterally. No wheezing, rales or rhonchi. ABDOMINAL: Soft. Non-tender. Non-distended. No rebound or guarding. GENITOURINARY: No CVA tenderness bilaterally. MUSCULOSKELETAL: Normal range of motion at all joints. No bony deformities or tenderness. EXTREMITIES: No cyanosis. No clubbing. No edema. No calf tenderness or swelling. SKIN: Warm and dry. Normal capillary refill. No rashes. No jaundice. NEUROLOGICAL: Alert, awake, appropriate. Cranial nerves 2-12 intact. No deficits to light touch and temperature in face, upper extremities and lower extremities. 5/5 strength in deltoids, biceps, triceps, quadriceps, hamstrings, and gastrocnemius. Normal speech. PSYCHIATRIC: Cooperative. Good eye contact. Appropriate mood and affect. Moderate Sedation - Procedure Monitoring Vital Signs: Procedure Monitoring Vital Signs Temperature 97.5 F L 06/30/18 15:55 Pulse Rate 72 06/30/18 14:46 Respiratory Rate 16 06/30/18 14:46 Blood Pressure 149/82 06/30/18 14:46 O2 Sat by Pulse Oximetry (%) 100 06/30/18 14:46 Heart Score/ECG Review #1 General ECG Interpretation: Sinus Rhythm, Normal Rate, Normal Intervals, No acute ischemic changes Compared to previous ECG there are: No significant change 06/30/18 16:28 NSR vent rate 70 MN 192 QRS 80 QTc 442 No STD or LUKASZ No signs of acute ischemia ED Treatment Course - LABORATORY CBC & Chemistry Diagram: 06/30/18 15:00 06/30/18 15:00 - ADDITIONAL ORDERS Additional order review: Laboratory Results 06/30/18 06/30/18 15:14 15:00 PT with INR 13.00 INR 1.10 H POC Glucometer [id number] 06/30/18 06/30/18 15:14 15:00 RBC 3.61 MCV 90.7 MCHC 32.9 RDW 17.5 H MPV 8.0 D Neutrophils % 72.5 Lymphocytes % 16.5 Monocytes % 9.0 Eosinophils % 1.4 Basophils % 0.6 POC Glucometer [id number] - RADIOLOGY Radiology Studies Ordered: Category Date Time Status HEAD CT (STROKE) [CT] Stat CT Scan 06/30/18 15:02 Completed CHEST X-RAY PORTABLE* [RAD] Stat Radiology 06/30/18 15:02 Taken Medical Decision Making - Medical Decision Making 06/30/18 16:29 The patient is an 83F with a PMH of diabetes, end-stage renal disease not on dialysis, chronic anemia, hypothyroidism, hypertension, hepatitis C, previous stroke (affecting R side) who presents with aphasia and not following directions with an acute onset, concerning for CVA/TIA. CTH negative. Case d/w Dr. Morrison who will see the patient in an inpatient setting. Pt will need dialysis. K is 4.3. 06/30/18 16:52 Attending endorsed patient to Dr. Jay for admission. On reexamination, the patient had resolution of the symptoms she presented with , therefore not a TPA candidate. *DC/Admit/Observation/Transfer Diagnosis at time of Disposition: CVA (cerebral vascular accident) Qualifiers: CVA mechanism: unspecified Qualified Code(s): I63.9 - Cerebral infarction, unspecified - Discharge Dispostion Condition at time of disposition: Guarded Decision to Admit order: Yes - Referrals - Patient Instructions - Post Discharge Activity
--- NOTE | 2018-06-30 16:03 | PDOC ---
Attending Attestation - Resident Resident Name: NievesTon - ED Attending Attestation I have performed the following: I have examined & evaluated the patient, The case was reviewed & discussed with the resident, I agree w/resident's findings & plan - HPI HPI: 06/30/18 16:29 The patient is a 83 year old female with a significant PMH of DM, ESRD, anemia, hypothyroidism, HTN, hepatitis C, stroke ( R sided weakness residual) who presents to the ER with sudden onset aphasia and left sided weakness. Last known normal was 2:20 PM. Daughter at bedside is providing this history. Allergies: NKA Past surgical history: None reported. Social history: No reported alcohol, drug or cigarette use. PCP: Dr. Morin 06/30/18 16:31 - Physicial Exam PE: 06/30/18 16:28 NAD, well appearing, PERRL, EOMI, MMM, nl conjunctiva, anicteric; neck supple. lungs clear, RRR, abdomen soft nontender. TERRAZAS x4, no focal neuro deficits. No peripheral edema. normal color for ethnicity, WWP. weak effort, nonverbal, turns head side to side. 4/5 sole scraper strength, did not lift legs above bed, but bends at the knee. speech unable to assess. - Medical Decision Making 06/30/18 16:30 hpi as documented, VS Wnl. Fingerstick 180s. reversible sx, no focal neuro deficits, with chronic right sided weakness from prior stroke. not TPA candidate as documented ESRD noted, not on dialysis labs and lytes normal otherwise trop neg. EKG nonischemic, nonspecific T wave abnormalities. no elevations or depressions. CT head with old stroke, microvascular changes. no acute stroke/mass/bleed or findings neuro cs with Dr Morrison. admit for r/o stroke vs TIA, weakness, neuro cs, and likely MRI. admit to Dr Clay service for r/o stroke, neuro eval and supportive care. 06/30/18 16:31 06/30/18 17:41 06/30/18 17:41 Heart Score/ECG Review - ECG Impressions Normal ECG: No Comment:: 06/30/18 16:31 EKG normal sinus rhythm, no interval abnormalities, narrow QRS, ST and T wave segments and morphology normal. Nonspecific T wave abnormalities
--- NOTE | 2018-06-30 17:09 | HP ---
Admitting History and Physical - Primary Care Physician PCP: Hoem Morin - Admission Chief Complaint: came in for left sided weakness History of Present Illness: The patient is an 83F with a PMH of diabetes, end-stage renal disease not on dialysis, chronic anemia, hypothyroidism, hypertension, hepatitis C, previous stroke (affecting R side) who presents to the ER with complaints of sudden onset aphasia and weakness. The patient's last known well is 1420. She is with her daughter who provides the history. The daughter states she was in her normals state of health and was about to get dialysis when she slumped over and became nonverbal. She had no complaints at the time but was intermittently following directions. 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: 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), Peripheral Neuropathy Cardiovascular: Yes: HTN, Hyperlipdemia Gastrointestinal: Yes: Constipation, Other (cecal polyp removed 2005) Hepatobiliary: Yes: Hepatitis C Renal/: Yes: Renal Failure Heme/Onc: Yes: Anemia Endocrine: Yes: Diabetes Mellitus, Hypothyroidism - Past Surgical History Past Surgical History: Yes: Cholecystectomy (complicated open cholecystectomy requiring transfusions), Colonoscopy, , Tonsillectomy, Vein Stripping/ Ligation (Thyroidectomy,) - Smoking History Smoking history: Current every day smoker Have you smoked in the past 12 months: No Aproximately how many cigarettes per day: 20 If you are a former smoker, when did you quit?: 2018 - Alcohol/Substance Use Hx Alcohol Use: No History of Substance Use: reports: None - Social History ADL: Family Assistance 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 History of Recent Travel: No Home Medications - Allergies Allergies/Adverse Reactions: Allergies Allergy/AdvReac Type Severity Reaction Status Date / Time No Known Allergies Allergy Verified 06/30/18 15:21 - Home Medications Home Medications: Ambulatory Orders Carvedilol [Coreg -] 12.5 mg PO BID #60 tablet 07/08/17 Nifedipine ER [Procardia XL -] 60 mg PO DAILY #30 tab.er.24 07/08/17 Aspirin [ASA -] 162 mg PO DAILY #30 tab.chew 01/03/18 Cyanocobalamin (Vitamin B-12) [B-12] 2,500 mcg SL DAILY #30 tab.subl 01/03/18 Levothyroxine [Synthroid -] 50 mcg PO DAILY@0700 #30 tablet 01/04/18 Rosuvastatin [Crestor -] 5 mg PO HS #30 tablet 01/04/18 Acetaminophen [Tylenol .Regular Strength -] 650 mg PO Q4H PRN tablet 03/28/18 Pantoprazole Sodium [Protonix -] 40 mg PO BID #60 tablet.ec 03/28/18 Family Disease History - Family Disease History Family Disease History: Other: Father (lived to 90), Mother (lived to 96 ) Review of Systems - Review of Systems Constitutional: reports: Other (awake alert able to speak) Gastrointestinal: reports: No Symptoms Genitourinary: reports: No Symptoms Physical Examination Vital Signs: Vital Signs Temperature 97.5 F L 06/30/18 15:55 Pulse Rate 70 06/30/18 16:44 Respiratory Rate 16 06/30/18 16:44 Blood Pressure 175/75 H 06/30/18 16:44 O2 Sat by Pulse Oximetry (%) 96 06/30/18 16:44 Constitutional: Yes: Calm, Thin Cardiovascular: Yes: Regular Rate and Rhythm, S1, S2 Respiratory: Yes: CTA Bilaterally Gastrointestinal: Yes: Normal Bowel Sounds, Soft Edema: No Neurological: Yes: Alert, Oriented, Other (motor and sensory intact able to speak clearly) Labs: CBC, BMP 06/30/18 15:00 06/30/18 15:00 Imaging - Results Cat Scan: Report Reviewed Problem List - Problems (1) CVA (cerebral vascular accident) Assessment/Plan: tia symptroms MRI mRA neurology lipid profile statin asa neurology Code(s): I63.9 - CEREBRAL INFARCTION, UNSPECIFIED Qualifiers: CVA mechanism: unspecified Qualified Code(s): I63.9 - Cerebral infarction, unspecified (2) Hypothyroid Assessment/Plan: synthroid tsh Code(s): E03.9 - HYPOTHYROIDISM, UNSPECIFIED
[2018-06-30] MEDS ORDERED: CARVEDILOL 12.5 MG TABLET (FP) ONE (23:26)
[2018-06-30] MEDS: CARVEDILOL 12.5 MG TABLET (FP) PO SCH (23:42)
[2018-06-30] MEDS: INSULIN SLIDING SCALE (NOVOLOG) 1 VIAL SQ SCH (23:43)
[2018-06-30] MEDS: ROSUVASTATIN CA 5 MG TABLET (FP) PO SCH (23:43)
[2018-07-01 03:00] VITALS: BMI 19.5
[2018-07-01] MEDS: LEVOTHYROXINE NA 50 MCG TABLET (FP) PO SCH ×2 (06:02→06:44)
[2018-07-01] MEDS: INSULIN SLIDING SCALE (NOVOLOG) 1 VIAL SQ SCH ×4 (06:03→22:05)
[2018-07-01 07:09] LABS: BASO % 0.6 % (0-2.0); EOS % 1.5 % (0-4.5); HEMATOCRIT 30.4 % (32.4-45.2); LYMPH % 14.6 % (8-40); MCH 29.7 pg (25.7-33.7); MCHC 32.9 g/dl (32.0-36.0); MEAN CELL VOLUME 90.2 fl (80-96); MEAN PLT VOLUME 7.9 fl (7.5-11.1); MONO % 7.2 % (3.8-10.2); NEUT % 76.1 % (42.8-82.8); PLATELET COUNT 276 K/MM3 (134-434); RBC 3.37 M/mm3 (3.60-5.2); RDW 17.5 % (11.6-15.6)
[2018-07-01 07:42] LABS: ANION GAP 11 MMOL/L (8-16); BLOOD UREA NITROGEN 61 mg/dL (7-18); CALCIUM 8.2 mg/dL (8.5-10.1); CHLORIDE 108 mmol/L (98-107); CO2 22 mmol/L (21-32); CREATININE 6.2 mg/dL (0.55-1.3); GLUCOSE,RANDOM 125 mg/dL (74-106); MAGNESIUM 1.9 mg/dL (1.8-2.4); PHOSPHOROUS 4.8 mg/dL (2.5-4.9); POTASSIUM 4.1 mmol/L (3.5-5.1); SODIUM 140 mmol/L (136-145)
[2018-07-01 08:42] LABS: CHOLESTEROL 124 mg/dL (50-200); HDL CHOLESTEROL 53 mg/dL (40-60); TRIGLYCERIDES 142 mg/dL (0-150)
[2018-07-01] MEDS: NIFEdipine E.R 60 MG TABLET (UD) PO SCH (09:22)
[2018-07-01] MEDS: CARVEDILOL 12.5 MG TABLET (FP) PO SCH ×2 (09:22→22:05)
[2018-07-01] MEDS: ASPIRIN COATED 81 MG TABLET.EC PO SCH (09:23)
--- NOTE | 2018-07-01 09:36 | PN ---
Progress Note, Physician - Current Medication List Current Medications: Active Medications Aspirin (Ecotrin -) 81 mg PO DAILY [facility] Last Admin: 07/01/18 09:23 Dose: 81 mg Carvedilol (Coreg -) 12.5 mg PO BID [facility] Last Admin: 07/01/18 09:22 Dose: 12.5 mg Insulin Aspart (Novolog Vial Sliding Scale -) 1 vial SQ [facility]; Protocol Last Admin: 07/01/18 06:03 Dose: Not Given Levothyroxine Sodium (Synthroid -) 50 mcg PO DAILY@0600 [facility] Last Admin: 07/01/18 06:44 Dose: Not Given Nifedipine (Procardia Xl -) 60 mg PO DAILY [facility] Last Admin: 07/01/18 09:22 Dose: 60 mg Rosuvastatin Calcium (Crestor -) 5 mg PO HS [facility] Last Admin: 06/30/18 23:43 Dose: 5 mg - Objective Vital Signs: Vital Signs Temperature 97.6 F 07/01/18 09:20 Pulse Rate 66 07/01/18 09:20 Respiratory Rate 18 07/01/18 09:20 Blood Pressure 192/77 H 07/01/18 09:20 O2 Sat by Pulse Oximetry (%) 97 07/01/18 01:26 Cardiovascular: Yes: S1, S2 Respiratory: Yes: Regular, CTA Bilaterally Gastrointestinal: Yes: Normal Bowel Sounds, Soft Labs: CBC, BMP 07/01/18 06:00 07/01/18 06:00 INR, PTT INR 1.10 (0.83-1.09) H 06/30/18 15:00 Problem List - Problems (1) CVA (cerebral vascular accident) Assessment/Plan: Await MRA and MRI Carvedilol [Coreg -] 12.5 mg PO BID Rosuvastatin [Crestor -] 5 mg PO HS Aspirin Coated [Ecotrin -] 81 mg PO DAILY Nifedipine ER [Procardia Xl -] 60 mg PO DAILY Code(s): I63.9 - CEREBRAL INFARCTION, UNSPECIFIED Qualifiers: CVA mechanism: unspecified Qualified Code(s): I63.9 - Cerebral infarction, unspecified (2) ESRD (end stage renal disease) Assessment/Plan: PER RENAL Code(s): N18.6 - END STAGE RENAL DISEASE (3) Hypothyroid Code(s): E03.9 - HYPOTHYROIDISM, UNSPECIFIED (4) Diabetes Assessment/Plan: Laboratory Tests 06/30/18 17:57 Hemoglobin A1c % 5.8 Code(s): E11.9 - TYPE 2 DIABETES MELLITUS WITHOUT COMPLICATIONS
--- NOTE | 2018-07-01 10:28 | CON.CARD ---
Consult Consult Specialty:: Cardiology Referred by:: Dr. Clay Reason for Consultation:: HTN - History of Present Illness Chief Complaint: apashia weakness History of Present Illness: 83 year old woman with a PMHx of HTN, DM, CVA, ESRD not on HD and anemia prior admission with with multiple unwitnessed falls and has weakness previously found to have small non-bleeding gastric ulcer and gastritis. BP severely uncontrolled on prior admissions, now admitted with sudden onset aphasia and weakness noted again to have uncontrolled htn. pt seen and examined today in nad. awake and alert, able to speak. no complaints currently. denies chest pain, sob, palpitations, pnd, orthopnea, or LE edema. 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), Peripheral Neuropathy Cardio/Vascular: Yes: HTN, Hyperlipdemia Gastrointestinal: Yes: Constipation, Other (cecal polyp removed 2005) Hepatobiliary: Yes: Hepatitis C Renal/: Yes: Renal Failure ...: No Endocrine: Yes: Diabetes Mellitus, Hypothyroidism - Past Surgical History Past Surgical History: Yes: Cholecystectomy (complicated open cholecystectomy requiring transfusions), Colonoscopy, , Tonsillectomy, Vein Stripping/ Ligation (Thyroidectomy,) - Alcohol/Substance Use Hx Alcohol Use: No History of Substance Use: reports: None - Smoking History Smoking history: Never smoked Have you smoked in the past 12 months: No Aproximately how many cigarettes per day: 20 If you are a former smoker, when did you quit?: 2017 - Social History Usual Living Arrangement: With Child ADL: Family Assistance 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 History of Recent Travel: No Home Medications - Allergies Allergies/Adverse Reactions: Allergies Allergy/AdvReac Type Severity Reaction Status Date / Time No Known Allergies Allergy Verified 06/30/18 15:21 - Home Medications Home Medications: Ambulatory Orders Carvedilol [Coreg -] 12.5 mg PO BID #60 tablet 07/08/17 Nifedipine ER [Procardia XL -] 60 mg PO DAILY #30 tab.er.24 07/08/17 Rosuvastatin [Crestor -] 5 mg PO HS #30 tablet 01/04/18 Acetaminophen [Tylenol .Regular Strength -] 650 mg PO Q4H PRN tablet 03/28/18 Pantoprazole Sodium [Protonix -] 40 mg PO BID #60 tablet.ec 03/28/18 Levothyroxine [Synthroid -] 25 mcg PO DAILY@0700 06/30/18 Sevelamer Carbonate [Renvela] 800 mg NR DAILY 06/30/18 Aspirin 81 mg PO BID 07/01/18 Family Disease History - Family Disease History Family Disease History: Other: Father (lived to 90), Mother (lived to 96 ) Review of Systems - Review of Systems Constitutional: reports: Weakness. denies: No Symptoms, Chills, Diaphoresis, Fever, Lethargy, Loss of Appetite, Malaise, Night Sweats, Unintentional Wgt. Loss, Other Eyes: denies: No Symptoms, Blind Spots, Blurred Vision, Double Vision, Eye Pain , Floaters, Photophobia, Recent Change in Vision, Other HENT: denies: No Symptoms, Difficult Swallowing, Ear Discharge, Ear Pain, Epistaxis, Gingival Bleeding, Hearing Loss, Mouth Swelling, Nasal Congestion, Ocular Prosthesis, Throat Pain, Toothache, Ringing in Ears, Other Neck: denies: No Symptoms, Decreased ROM, Lumps, Pain on Movement, Stiffness, Swollen Glands, Tenderness, Other Cardiovascular: denies: No Symptoms, Chest Pain, Edema, Palpitations, Shortness of Breath, Other Respiratory: denies: No Symptoms, Cough, Exercise Intolerance, Hemoptysis, Orthopnea, PND, Snoring, SOB, SOB on Exertion, Wheezing, Other Gastrointestinal: denies: No Symptoms, Abdominal Pain, Bloating, Constipation, Diarrhea, Dysphagia, Indigestion, Melena, Nausea, Rectal Bleeding, Vomiting, Vomiting Blood, Other Genitourinary: denies: No Symptoms, Burning, Discharge, Dysuria, Flank Pain, Frequency, Hematuria, Incontinence, Lesions, Menses, Pain, Testicular Mass, Testicular Pain, Testicular Swelling, Urgency, Vaginal Bleeding, Other Breasts: denies: No Symptoms Reported, See HPI, Breast Implants, Discharge from Nipple, Lumps, Pain, Skin Changes, Other Musculoskeletal: denies: No Symptoms, Back Pain, Crepitus, Decreased ROM, Extremity Pain, Joint Pain, Joint Swelling, Muscle Pain, Muscle Cramps, Muscle Weakness, Other Integumentary: denies: No Symptoms, Blister, Bruising, Change in Color, Eczema, Erythema, Incision, Lesions, Lump, Pallor, Pruritis, Rash, Wound, Other Neurological: reports: Change in LOC, Change in Speech, Pre-Existing Deficit, Weakness. denies: No Symptoms, Confusion, Dizziness, Headache, Incoordination, Numbness, Parasthesia, Seizure, Syncope, Tremors, Unsteady Gait, Other Endocrine: denies: No Symptoms, Excessive Sweating, Flushing, Increased Hunger, Increased Thirst, Intolerance to Cold, Intolerance to Heat, Unexplained Weight Gain, Unexplained Weight Loss, Other Hematology/Lymphatic: denies: No Symptoms, Easily Bruised, Excessive Bleeding, Swollen Glands, Other Psychiatric: denies: No Symptoms, Altered Sleep Pattern, Anxiety, Depression, Hallucinations, Panic, Paranoia, Suicidal, Other - Risk Factors Known Risk Factors: Yes: Age, Hypercholesterolemia, Hypertension, Prior CT /Emb Stroke Vital Signs: Vital Signs Temperature 97.6 F 07/01/18 09:20 Pulse Rate 66 07/01/18 09:20 Respiratory Rate 18 07/01/18 09:20 Blood Pressure 192/77 H 07/01/18 09:20 O2 Sat by Pulse Oximetry (%) 97 07/01/18 09:00 Constitutional: Yes: No Distress, Calm Eyes: Yes: Conjunctiva Clear, EOM Intact HENT: Yes: Atraumatic, Normocephalic Neck: Yes: Supple, Trachea Midline Respiratory: Yes: Regular, CTA Bilaterally. No: Rales, Rhonchi, SOB, Wheezes Gastrointestinal: Yes: Normal Bowel Sounds, Soft Cardiovascular: Yes: Regular Rate and Rhythm. No: Bradycardia, Tachycardia, Pulse Irregular, Gallop, Rub, Varicosities JVD: No Carotid Bruit: No PMI: Non-Displaced Heart Sounds: Yes: S1, S2. No: Split S2, S3, S4, Clicks, Gallop, Rub, Bruit Murmur: Yes: Systolic Murmur Musculoskeletal: Yes: WNL Extremities: Yes: WNL Edema: No Peripheral Pulses WNL: Yes Peripheral Pulses: 2+ Left Doralis Pedis, 2+ Right Dorsalis Pedis Neurological: Yes: Alert Psychiatric: Yes: Alert - Other Data Labs, Other Data: CBC, BMP 07/01/18 06:00 07/01/18 06:00 INR, PTT INR 1.10 (0.83-1.09) H 06/30/18 15:00 Troponin, BNP 06/30/18 15:00 Troponin I < 0.02 Troponin, BNP 06/30/18 15:00 Troponin I < 0.02 ekg-nsr 70bpm, septal infarct, nsst Echo: Report Reviewed Imaging - Results Chest X-ray: Report Reviewed, Image Reviewed EKG: Report Reviewed, Image Reviewed Other: Report Reviewed, Image Reviewed (tele-nsr, no sig arrhythmias recorded) Assessment/Plan 83 year old woman with a PMHx of HTN, DM, CVA, ESRD not on HD and anemia prior admission with with multiple unwitnessed falls and has weakness previously found to have small non-bleeding gastric ulcer and gastritis. BP severely uncontrolled on prior admissions, now admitted with sudden onset aphasia and weakness noted again to have uncontrolled htn. denies chest pain, sob, palpitations, pnd, orthopnea, or LE edema. HTN-uncontrolled, in setting of possible acute TIA/CVA -received Coreg 12.5mg last night and this am and nifedipine 60mg this am -re-evaluate HTN after this am meds, has not been checked again yet -HTN goals as per Neurology reccs in setting of possible acute TIA/CVA -if above goal after this am meds then would uptitrate Nifedipine and Coreg as needed for HTN control, If still not controlled after uptitration then would add additional agent ie Hydralazine -not on TODD-I/ARB given ESRD not on HD -of note pt was on Nifeipine 60mg bid and Coreg 25mg bid on prior admission, may need to uptitrate back to this dose regimen. Possible Acute TIA/CVA -neuro to evaluate -HTN control as above -no arrythmias on ekg or tele -echo 06/2017 showed normal LVEF, mild to mod valvular abnl -pt on ASA and statin currently -no additional inpatient cardiac work up needed at this time.
[2018-07-01] MEDS ORDERED: SODIUM CHLORIDE 500 ML IV STA (12:38)
--- NOTE | 2018-07-01 13:18 | CONSULT ---
Consult - text type - Consultation Consultation Note: Renal Consult for ESRD on HD This is a 83 year old woman with hx of ESRD on HD, Anemia, CVA with right side weakness, hypertension, DM, Hepatitis C who presented from the dialysis center with AMS and acute onset weakness and admitted for r/o acute CVA. Pt is awake and alert but speech is mumbled. Pt cannot provide a good history. Spoke with daughter who is her care-taker and history obtained from her. She said she felt dizzy and then had passed out into her chair at the center. She had yet to start dialysis at that time. She could not talk or move her extremities until she came to to ER. PMhx: as above Allergies: NKDA Family Hx: NC Social hx: No T/A/D ROS: as per HPI Vital Signs Temperature 97.6 F 07/01/18 09:20 Pulse Rate 66 07/01/18 09:20 Respiratory Rate 18 07/01/18 09:20 Blood Pressure 192/77 H 07/01/18 09:20 O2 Sat by Pulse Oximetry (%) 97 07/01/18 09:00 Intake & Output 06/28/18 06/29/18 06/30/18 07/01/18 23:59 23:59 23:59 23:59 Intake Total 250 Balance 250 Weight 52.617 kg 51.71 kg NAD awake and alert right sided facial droop RRR, No M/R CTA soft NT/ND no LE edema Right IJ tunneled HD catheter CBC, BMP 07/01/18 06:00 07/01/18 06:00 Current Medications Aspirin (Ecotrin -) 81 mg PO DAILY [facility] Last Admin: 07/01/18 09:23 Dose: 81 mg Carvedilol (Coreg -) 12.5 mg PO BID [facility] Last Admin: 07/01/18 09:22 Dose: 12.5 mg Sodium Chloride (Normal Saline -) 500 mls @ 500 mls/hr IV ASDIR STA Stop: 07/01/18 13:37 Insulin Aspart (Novolog Vial Sliding Scale -) 1 vial SQ ACHS [facility]; Protocol Last Admin: 07/01/18 11:05 Dose: Not Given Levothyroxine Sodium (Synthroid -) 50 mcg PO DAILY@0600 [facility] Last Admin: 07/01/18 06:44 Dose: Not Given Nifedipine (Procardia Xl -) 60 mg PO DAILY [facility] Last Admin: 07/01/18 09:22 Dose: 60 mg Rosuvastatin Calcium (Crestor -) 5 mg PO HS [facility] Last Admin: 06/30/18 23:43 Dose: 5 mg 83 year old woman with hx of ESRD on HD, Anemia, CVA with right side weakness, hypertension, DM, Hepatitis C who presented from the dialysis center with AMS and acute onset weakness and admitted for r/o acute CVA. #Suspected CVA #ESRD on HD #Hypertension #Chronic Anemia #DM #Hx of Hep C No acute indication for [employer] today will defer dialysis today to avoid fluctuations in BP given suspected CVA MRI done, results pending Neurology consulted Will need to allow permissive hypertension following suspected CVA BP noted to drop to less then 100 systolic following AM meds, will give IVF to keep SBP > 170/180 will hold antihypertensives for now will await neurology recs for further BP gaols Continue Renal diet Will give ALBA with HD supportive care Discussed with Daughter Thank you Levy Mancia DO
--- NOTE | 2018-07-01 15:07 | EKG ---
Test Reason : Blood Pressure : / mmHG Vent. Rate : 070 BPM Atrial Rate : 070 BPM P-R Int : 192 ms QRS Dur : 080 ms QT Int : 410 ms P-R-T Axes : 059 010 082 degrees QTc Int : 442 ms NORMAL SINUS RHYTHM SEPTAL INFARCT (CITED ON OR BEFORE 10-JUL-2012) ABNORMAL ECG Confirmed by Santiago Roe MD ([id number]) on 07/01/2018 3:07:23 PM Referred By: Confirmed By:Santiago Roe MD
[2018-07-01] MEDS ORDERED: SODIUM CHLORIDE 1,000 ML IV SCH ×2 (18:00→22:15)
[2018-07-01] MEDS: ROSUVASTATIN CA 5 MG TABLET (FP) PO SCH (22:04)
--- NOTE | 2018-07-02 00:05 | CONSULT ---
Consult - text type - Consultation Consultation Note: NEUROLOGY CONSULTATION is greatly appreciated: Events reviewed, Pt. examined. This 83 yo RH woman lives with her daughter, Nga. PMH sig for HTN, DM, Chol, Hypothyroidism, GERD, Anemia and Hep C. Maintained on: Carvedilol; Nifedipine; Aspirin 162; B-12; Levothyroxine; Rosuvastatin; Acetaminophen; and Pantoprazole. Well-known to me over many years with RLS and the more recent development of Cognitive decline. Increased confusion in Feb.-Mar. with the development of ESRD requiring HD. [facility] started on Donepezil 5 mg and Pramipexole O.25 mg prior to HD for severe exacerbations of RLS on HD. Now admitted after Syncope/presyncope on HD yesterday AM with brief unresponsiveness and decreased speech. Rapidly improved. CT/MRI/MRA (reviewed): Moderate, diffuse atrophy with enlarged ventricles, multiple lacunar infarcts and severe, diffuse, microvascular changes. CT is unchanged from the prior study of 03/24/18. PHILIPPE: No bruits. No head trauma. Cor reg. NEURO: Awake, alert, confused. doesn't recognize me. Ox "her house," June. No year. Recalls 1 of 3 @ 3 mins. + Glabella, snout. Full fowler. No facial, gag OK No drift. Normal strength. Absent AJ's. Toes downgoing No FTN dystaxia Decreased vibration in feet. IMP: Moderate, B/L cerebral dysfunction (OMS, Chronic features) Syncope SUGGEST: Check orthostatic BP's Mobilize patient OO Bed to chair. Check B12, TSH, RPR, Fe++, TIBC, Ferritin Decrease Carvedilol to 6.25 mg BID Agree with telemetry and cardiology eval. Observe off Pramipexole and Donepezil. Thank you very much, Lucio Morrison MD
[2018-07-02] MEDS: INSULIN SLIDING SCALE (NOVOLOG) 1 VIAL SQ SCH ×4 (06:06→23:09)
[2018-07-02] MEDS: LEVOTHYROXINE NA 50 MCG TABLET (FP) PO SCH (06:38)
[2018-07-02] MEDS: CARVEDILOL 12.5 MG TABLET (FP) PO SCH (09:24)
[2018-07-02] MEDS: NIFEdipine E.R 60 MG TABLET (UD) PO SCH (09:24)
[2018-07-02] MEDS: ASPIRIN COATED 81 MG TABLET.EC PO SCH (09:24)
--- NOTE | 2018-07-02 09:31 | PN ---
Progress Note, Physician History of Present Illness: weakness sleepy - Current Medication List Current Medications: Active Medications Aspirin (Ecotrin -) 81 mg PO DAILY [facility] Last Admin: 07/02/18 09:24 Dose: 81 mg Carvedilol (Coreg -) 12.5 mg PO BID [facility] Last Admin: 07/02/18 09:24 Dose: Not Given Sodium Chloride (Normal Saline -) 1,000 mls @ 40 mls/hr IV ASDIR [facility] Last Admin: 07/01/18 22:36 Dose: 40 mls/hr Insulin Aspart (Novolog Vial Sliding Scale -) 1 vial SQ ACHS [facility]; Protocol Last Admin: 07/02/18 06:06 Dose: Not Given Levothyroxine Sodium (Synthroid -) 50 mcg PO DAILY@0600 [facility] Last Admin: 07/02/18 06:38 Dose: Not Given Nifedipine (Procardia Xl -) 60 mg PO DAILY [facility] Last Admin: 07/02/18 09:24 Dose: Not Given Rosuvastatin Calcium (Crestor -) 5 mg PO HS [facility] Last Admin: 07/01/18 22:04 Dose: 5 mg - Objective Vital Signs: Vital Signs Temperature 98.1 F 07/02/18 06:00 Pulse Rate 71 07/02/18 06:00 Respiratory Rate 18 07/02/18 06:00 Blood Pressure 167/64 07/02/18 06:00 O2 Sat by Pulse Oximetry (%) 95 07/01/18 21:00 Cardiovascular: Yes: S1, S2 Respiratory: Yes: Regular, CTA Bilaterally Gastrointestinal: Yes: Normal Bowel Sounds, Soft Neurological: Yes: Confusion, Weakness Labs: CBC, BMP 07/01/18 06:00 07/01/18 06:00 INR, PTT INR 1.10 (0.83-1.09) H 06/30/18 15:00 Problem List - Problems (1) CVA (cerebral vascular accident) Assessment/Plan: Await MRA and MRI--no acute event Carvedilol [Coreg -] 12.5 mg PO BID Rosuvastatin [Crestor -] 5 mg PO HS Aspirin Coated [Ecotrin -] 81 mg PO DAILY Nifedipine ER [Procardia Xl -] 60 mg PO DAILY Monitor Neuro Follow up Code(s): I63.9 - CEREBRAL INFARCTION, UNSPECIFIED Qualifiers: CVA mechanism: unspecified Qualified Code(s): I63.9 - Cerebral infarction, unspecified (2) ESRD (end stage renal disease) Assessment/Plan: PER RENAL IVF per renal Code(s): N18.6 - END STAGE RENAL DISEASE (3) Hypothyroid Code(s): E03.9 - HYPOTHYROIDISM, UNSPECIFIED (4) Diabetes Assessment/Plan: Laboratory Tests 06/30/18 17:57 Hemoglobin A1c % 5.8 Code(s): E11.9 - TYPE 2 DIABETES MELLITUS WITHOUT COMPLICATIONS
[2018-07-02] MEDS ORDERED: SODIUM CHLORIDE 250 ML IV PRN (10:26)
--- NOTE | 2018-07-02 11:32 | PN ---
Progress Note (short form) - Note Progress Note: Renal follow up for ESRD Pt seen and examined at the bedside awake and alert no acute complaints was on IVF overnight, denies any sob BP stable Vital Signs Temperature 97.8 F 07/02/18 08:50 Pulse Rate 71 07/02/18 08:50 Respiratory Rate 18 07/02/18 09:00 Blood Pressure 167/68 07/02/18 08:50 O2 Sat by Pulse Oximetry (%) 95 07/02/18 09:00 Intake & Output 06/29/18 06/30/18 07/01/18 07/02/18 23:59 23:59 23:59 23:59 Intake Total 570 240 Balance 570 240 Weight 52.617 kg 51.71 kg NAD right sided facial droop (improved) RRR, No M/R CTA soft NT/ND no LE edema Right IJ tunneled HD catheter CBC, BMP 07/01/18 06:00 07/01/18 06:00 Current Medications Aspirin (Ecotrin -) 81 mg PO DAILY [facility] Last Admin: 07/02/18 09:24 Dose: 81 mg Carvedilol (Coreg -) 12.5 mg PO BID [facility] Last Admin: 07/02/18 09:24 Dose: Not Given Sodium Chloride (Normal Saline -) 1,000 mls @ 40 mls/hr IV ASDIR [facility] Last Admin: 07/01/18 22:36 Dose: 40 mls/hr Sodium Chloride (Normal Saline -) 250 mls @ 3,000 mls/hr IV PRN PRN PRN Reason: Hypotension during Dialysis Stop: 07/03/18 10:26 Insulin Aspart (Novolog Vial Sliding Scale -) 1 vial SQ ACHS [facility]; Protocol Last Admin: 07/02/18 06:06 Dose: Not Given Levothyroxine Sodium (Synthroid -) 50 mcg PO DAILY@0600 [facility] Last Admin: 07/02/18 06:38 Dose: Not Given Nifedipine (Procardia Xl -) 60 mg PO DAILY [facility] Last Admin: 07/02/18 09:24 Dose: Not Given Rosuvastatin Calcium (Crestor -) 5 mg PO HS [facility] Last Admin: 07/01/18 22:04 Dose: 5 mg 83 year old woman with hx of ESRD on HD, Anemia, CVA with right side weakness, hypertension, DM, Hepatitis C who presented from the dialysis center with AMS and acute onset weakness and admitted for r/o acute CVA. #Chronic vs. Acute ishemic + hemorragic CVA/Crebral dysfunction #ESRD on HD #Hypertension #Chronic Anemia #DM #Hx of Hep C MRI reviewed, Neurology consult appreciated Continue ASA/Statin BP stable, holding BP meds for now will plan for dialysis today with UF goal of 2L Renal diet Physical therapy Thank you Levy Mancia DO
[2018-07-02 12:44] LABS: HEMATOCRIT 30.8 % (32.4-45.2); HEMOGLOBIN 10.1 GM/dL (10.7-15.3); MCH 29.9 pg (25.7-33.7); MCHC 32.8 g/dl (32.0-36.0); MEAN CELL VOLUME 91.3 fl (80-96); MEAN PLT VOLUME 8.3 fl (7.5-11.1); PLATELET COUNT 271 K/MM3 (134-434); RBC 3.37 M/mm3 (3.60-5.2); RDW 17.5 % (11.6-15.6); WHITE BLOOD COUNT 6.6 K/mm3 (4.0-10.0)
[2018-07-02 12:55] LABS: ANION GAP 10 MMOL/L (8-16); BLOOD UREA NITROGEN 65 mg/dL (7-18); CALCIUM 7.6 mg/dL (8.5-10.1); CHLORIDE 113 mmol/L (98-107); CO2 19 mmol/L (21-32); CREATININE 5.7 mg/dL (0.55-1.3); GLUCOSE,RANDOM 106 mg/dL (74-106); PHOSPHOROUS 4.7 mg/dL (2.5-4.9); POTASSIUM 4.5 mmol/L (3.5-5.1); SODIUM 142 mmol/L (136-145)
--- NOTE | 2018-07-02 13:09 | PN ---
Progress Note, Physician Chief Complaint: A fascia History of Present Illness: 83 year old woman with a PMHx of HTN, DM, CVA, ESRD not on HD and anemia prior admission with with multiple unwitnessed falls and has weakness previously found to have small non-bleeding gastric ulcer and gastritis. BP severely uncontrolled on prior admissions, now admitted with sudden onset aphasia and weakness noted again to have uncontrolled htn. - Current Medication List Current Medications: Active Medications Aspirin (Ecotrin -) 81 mg PO DAILY [facility] Last Admin: 07/02/18 09:24 Dose: 81 mg Sodium Chloride (Normal Saline -) 250 mls @ 3,000 mls/hr IV PRN PRN PRN Reason: Hypotension during Dialysis Stop: 07/03/18 10:26 Insulin Aspart (Novolog Vial Sliding Scale -) 1 vial SQ ACHS [facility]; Protocol Last Admin: 07/02/18 11:43 Dose: Not Given Levothyroxine Sodium (Synthroid -) 50 mcg PO DAILY@0600 [facility] Last Admin: 07/02/18 06:38 Dose: Not Given Rosuvastatin Calcium (Crestor -) 5 mg PO HS [facility] Last Admin: 07/01/18 22:04 Dose: 5 mg - Objective Vital Signs: Vital Signs Temperature 97.8 F 07/02/18 08:50 Pulse Rate 71 07/02/18 08:50 Respiratory Rate 18 07/02/18 09:00 Blood Pressure 167/68 07/02/18 08:50 O2 Sat by Pulse Oximetry (%) 95 07/02/18 09:00 Constitutional: Yes: Well Nourished, No Distress, Calm Eyes: Yes: WNL, Conjunctiva Clear, EOM Intact HENT: Yes: WNL, Atraumatic, Normocephalic Neck: Yes: WNL, Supple, Trachea Midline Cardiovascular: Yes: WNL, Regular Rate and Rhythm Respiratory: Yes: WNL, Regular, CTA Bilaterally Gastrointestinal: Yes: WNL, Normal Bowel Sounds, Soft ...Rectal Exam: Yes: Deferred Musculoskeletal: Yes: WNL Extremities: Yes: WNL Edema: No Peripheral Pulses: Left Radial: 1+, Right Radial: 1+, Left Doralis Pedis: 1+, Right Dorsalis Pedis: 1+, Left Femoral: 1+, Right Femoral: 1+ Integumentary: Yes: WNL Labs: CBC, BMP 07/02/18 11:50 07/02/18 11:50 INR, PTT INR 1.10 (0.83-1.09) H 06/30/18 15:00 Assessment/Plan 83 year old woman with a PMHx of HTN, DM, CVA, ESRD not on HD and anemia prior admission with with multiple unwitnessed falls and has weakness previously found to have small non-bleeding gastric ulcer and gastritis. BP severely uncontrolled on prior admissions, now admitted with sudden onset aphasia and weakness noted again to have uncontrolled htn. The patient seems to be quite comfortable. Denies chest pains and shortness of breath. Breathing normally. The blood pressure is moderately elevated. Would start Coreg 6.25 mg twice daily. Continue the other medications as currently. No need for further cardiac workup in this setting. Please do not hesitate to call us PRN
[2018-07-02] MEDS ORDERED: NIFEdipine E.R. 30 MG TABLET (FP) PO ONE (21:30)
--- NOTE | 2018-07-02 21:50 | CONSULT ---
Consult Consult Specialty:: endocrine Referred by:: dr.iyad marion Reason for Consultation:: diabetes mellitus - History of Present Illness Chief Complaint: weakness and change mental state History of Present Illness: 83F with a PMH of diabetes, end-stage renal disease not on dialysis, chronic anemia, hypothyroidism, hypertension, hepatitis C, previous stroke (affecting R side) who presents to the ER with complaints of sudden onset aphasia and weakness. 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), Peripheral Neuropathy Cardio/Vascular: Yes: HTN, Hyperlipdemia Gastrointestinal: Yes: Constipation, Other (cecal polyp removed 2005) Hepatobiliary: Yes: Hepatitis C Renal/: Yes: Renal Failure ...: No Endocrine: Yes: Diabetes Mellitus, Hypothyroidism - Past Surgical History Past Surgical History: Yes: Cholecystectomy (complicated open cholecystectomy requiring transfusions), Colonoscopy, , Tonsillectomy, Vein Stripping/ Ligation (Thyroidectomy,) - Alcohol/Substance Use Hx Alcohol Use: No History of Substance Use: reports: None - Smoking History Smoking history: Never smoked Have you smoked in the past 12 months: No Aproximately how many cigarettes per day: 20 If you are a former smoker, when did you quit?: 2018 - Social History Usual Living Arrangement: With Child ADL: Family Assistance 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 History of Recent Travel: No Home Medications - Allergies Allergies/Adverse Reactions: Allergies Allergy/AdvReac Type Severity Reaction Status Date / Time No Known Allergies Allergy Verified 06/30/18 15:21 - Home Medications Home Medications: Ambulatory Orders Carvedilol [Coreg -] 12.5 mg PO BID #60 tablet 07/08/17 Nifedipine ER [Procardia XL -] 60 mg PO DAILY #30 tab.er.24 07/08/17 Rosuvastatin [Crestor -] 5 mg PO HS #30 tablet 01/04/18 Acetaminophen [Tylenol .Regular Strength -] 650 mg PO Q4H PRN tablet 03/28/18 Pantoprazole Sodium [Protonix -] 40 mg PO BID #60 tablet.ec 03/28/18 Levothyroxine [Synthroid -] 25 mcg PO DAILY@0700 06/30/18 Sevelamer Carbonate [Renvela] 800 mg NR DAILY 06/30/18 Aspirin 81 mg PO BID 07/01/18 Family Disease History - Family Disease History Family Disease History: Other: Father (lived to 90), Mother (lived to 96 ) Review of Systems - Review of Systems Constitutional: reports: Lethargy, Weakness Eyes: reports: No Symptoms HENT: reports: No Symptoms Neck: reports: No Symptoms Cardiovascular: reports: Shortness of Breath Respiratory: reports: Exercise Intolerance, SOB on Exertion Gastrointestinal: reports: Bloating, Constipation Genitourinary: reports: No Symptoms Breasts: reports: No Symptoms Reported Musculoskeletal: reports: Joint Pain Psychiatric: reports: Altered Sleep Pattern Physical Exam Vital Signs: Vital Signs Temperature 98.5 F 07/02/18 20:36 Pulse Rate 73 07/02/18 20:36 Respiratory Rate 18 07/02/18 20:36 Blood Pressure 193/87 H 07/02/18 20:36 O2 Sat by Pulse Oximetry (%) 95 07/02/18 20:36 Constitutional: Yes: Calm Eyes: Yes: EOM Intact HENT: Yes: Normocephalic Neck: Yes: Trachea Midline Cardiovascular: Yes: Regular Rate and Rhythm Respiratory: Yes: CTA Bilaterally Gastrointestinal: Yes: Normal Bowel Sounds ...Rectal Exam: Yes: Deferred Renal/: Yes: WNL Musculoskeletal: Yes: Back Pain, Muscle Pain Extremities: Yes: WNL Neurological: Yes: Alert, Aphasia Labs: CBC, BMP 07/02/18 11:50 07/02/18 11:50 Problem List - Problems (1) CVA (cerebral vascular accident) Code(s): I63.9 - CEREBRAL INFARCTION, UNSPECIFIED Qualifiers: CVA mechanism: unspecified Qualified Code(s): I63.9 - Cerebral infarction, unspecified (2) ESRD (end stage renal disease) Code(s): N18.6 - END STAGE RENAL DISEASE (3) Hypothyroid Code(s): E03.9 - HYPOTHYROIDISM, UNSPECIFIED (4) TRAVIS (acute kidney injury) Code(s): N17.9 - ACUTE KIDNEY FAILURE, UNSPECIFIED (5) Accelerated essential hypertension Code(s): I10 - ESSENTIAL (PRIMARY) HYPERTENSION (6) Acute on chronic kidney failure Code(s): N17.9 - ACUTE KIDNEY FAILURE, UNSPECIFIED; N18.9 - CHRONIC KIDNEY DISEASE, UNSPECIFIED (7) Anemia Code(s): D64.9 - ANEMIA, UNSPECIFIED (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 Code(s): G11.9 - HEREDITARY ATAXIA, UNSPECIFIED Assessment/Plan Current Active Problems CVA (cerebral vascular accident) (Acute) ESRD (end stage renal disease) (Acute) Hypothyroid (Acute) dm 2 hyperglycemia hypertension hypocalcemia/osteomalacia Abnormal Lab Results 07/02/18 07/02/18 11:50 11:50 RBC 3.37 L Hgb 10.1 L Hct 30.8 L RDW 17.5 H Chloride 113 H Carbon Dioxide 19 L BUN 65 H Creatinine 5.7 H Calcium 7.6 L Laboratory Results - last 24 hr 07/01/18 07/02/18 07/02/18 22:03 06:05 11:37 WBC RBC Hgb Hct MCV MCH MCHC RDW Plt Count MPV Sodium Potassium Chloride Carbon Dioxide Anion Gap BUN Creatinine Creat Clearance w eGFR POC Glucometer 136 103 103 Random Glucose Calcium Phosphorus 07/02/18 07/02/18 07/02/18 11:50 11:50 16:11 WBC 6.6 RBC 3.37 L Hgb 10.1 L Hct 30.8 L MCV 91.3 MCH 29.9 MCHC 32.8 RDW 17.5 H Plt Count 271 MPV 8.3 Sodium 142 Potassium 4.5 Chloride 113 H Carbon Dioxide 19 L Anion Gap 10 BUN 65 H Creatinine 5.7 H Creat Clearance w eGFR 7.12 POC Glucometer 145 Random Glucose 106 Calcium 7.6 L Phosphorus 4.7 plan: euthyroidism continue same dose synthroid 50mcg daily physcial therapy bedside
[2018-07-02] MEDS: ROSUVASTATIN CA 5 MG TABLET (FP) PO SCH (23:09)
[2018-07-03] MEDS: LEVOTHYROXINE NA 50 MCG TABLET (FP) PO SCH (06:16)
[2018-07-03] MEDS: INSULIN SLIDING SCALE (NOVOLOG) 1 VIAL SQ SCH ×4 (06:16→22:02)
[2018-07-03 08:39] LABS: ANION GAP 8 MMOL/L (8-16); BLOOD UREA NITROGEN 35 mg/dL (7-18); CALCIUM 7.8 mg/dL (8.5-10.1); CHLORIDE 104 mmol/L (98-107); CO2 30 mmol/L (21-32); CREATININE 3.6 mg/dL (0.55-1.3); GLUCOSE,RANDOM 102 mg/dL (74-106); POTASSIUM 3.4 mmol/L (3.5-5.1); SODIUM 142 mmol/L (136-145)
[2018-07-03] MEDS: CARVEDILOL 6.25 MG TABLET (FP) PO SCH ×2 (10:13→22:02)
[2018-07-03] MEDS: ASPIRIN COATED 81 MG TABLET.EC PO SCH (10:13)
[2018-07-03] MEDS: NIFEdipine E.R 60 MG TABLET (UD) PO SCH (11:33)
[2018-07-03] MEDS ORDERED: SODIUM CHLORIDE 250 ML IV PRN (12:45)
--- NOTE | 2018-07-03 12:45 | PN ---
Progress Note (short form) - Note Progress Note: Renal follow up for ESRD Pt seen and examined at the bedside awake and alert no acute complaints s/p dialysis yesterday Vital Signs Temperature 97.7 F 07/03/18 08:58 Pulse Rate 64 07/03/18 11:35 Respiratory Rate 18 07/03/18 11:35 Blood Pressure 186/75 H 07/03/18 11:35 O2 Sat by Pulse Oximetry (%) 100 07/03/18 08:59 Intake & Output 06/30/18 07/01/18 07/02/18 07/03/18 23:59 23:59 23:59 23:59 Intake Total 570 490 550 Balance 570 490 550 Weight 52.617 kg 51.71 kg NAD right sided facial droop (improved) RRR, No M/R CTA soft NT/ND no LE edema Right IJ tunneled HD catheter CBC, BMP 07/02/18 11:50 07/03/18 06:45 Current Medications Aspirin (Ecotrin -) [address] [facility] Last Admin: 07/03/18 10:13 Dose: 81 mg Carvedilol (Coreg -) 6.[address] [facility] Last Admin: 07/03/18 10:13 Dose: 6.25 mg Sodium Chloride (Normal Saline -) 250 mls @ 3,000 mls/hr IV PRN PRN PRN Reason: Hypotension during Dialysis Stop: 07/03/18 10:26 Insulin Aspart (Novolog Vial Sliding Scale -) [address] [facility]; Protocol Last Admin: 07/03/18 11:29 Dose: Not Given Levothyroxine Sodium (Synthroid -) 50 mcg PO DAILY@0600 [facility] Last Admin: 07/03/18 06:16 Dose: Not Given Nifedipine (Procardia Xl -) [address] [facility] Last Admin: 07/03/18 11:33 Dose: 60 mg Rosuvastatin Calcium (Crestor -) [address] [facility] Last Admin: 07/02/18 23:09 Dose: Not Given 83 year old woman with hx of ESRD on HD, Anemia, CVA with right side weakness, hypertension, DM, Hepatitis C who presented from the dialysis center with AMS and acute onset weakness and admitted for r/o acute CVA. #Chronic vs. Acute ishemic + hemorragic CVA/Crebral dysfunction #ESRD on HD #Hypertension #Chronic Anemia #DM #Hx of Hep C s/p dialysis yesterday, no indication for CARTOONIST SPECIAL EFFECTS today next dialysis tomorrow neurology follow up, continue ASA and crestor BP high today, restarted Nifedpine ER 60mg in addition to coreg Thank you Levy Mancia DO
--- NOTE | 2018-07-03 14:45 | PN ---
Progress Note, Physician Chief Complaint: patient seen and examined elevated BP started on coreg and nnifedipine - Current Medication List Current Medications: Active Medications Aspirin (Ecotrin -) 81 mg PO DAILY [facility] Last Admin: 07/03/18 10:13 Dose: 81 mg Carvedilol (Coreg -) 6.25 mg PO BID [facility] Last Admin: 07/03/18 10:13 Dose: 6.25 mg Sodium Chloride (Normal Saline -) 250 mls @ 3,000 mls/hr IV PRN PRN PRN Reason: Hypotension during Dialysis Stop: 07/04/18 12:45 Insulin Aspart (Novolog Vial Sliding Scale -) 1 vial SQ ACHS [facility]; Protocol Last Admin: 07/03/18 11:29 Dose: Not Given Levothyroxine Sodium (Synthroid -) 50 mcg PO DAILY@0600 [facility] Last Admin: 07/03/18 06:16 Dose: Not Given Nifedipine (Procardia Xl -) 60 mg PO DAILY [facility] Last Admin: 07/03/18 11:33 Dose: 60 mg Rosuvastatin Calcium (Crestor -) 5 mg PO HS [facility] Last Admin: 07/02/18 23:09 Dose: Not Given - Objective Vital Signs: Vital Signs Temperature 98.4 F 07/03/18 14:20 Pulse Rate 65 07/03/18 14:20 Respiratory Rate 16 07/03/18 14:20 Blood Pressure 124/45 L 07/03/18 14:20 O2 Sat by Pulse Oximetry (%) 100 07/03/18 08:59 Constitutional: Yes: Calm Cardiovascular: Yes: Regular Rate and Rhythm, S1, S2 Respiratory: Yes: CTA Bilaterally Gastrointestinal: Yes: Normal Bowel Sounds, Soft Edema: No Labs: CBC, BMP 07/02/18 11:50 07/03/18 06:45 INR, PTT INR 1.10 (0.83-1.09) H 06/30/18 15:00 Problem List - Problems (1) CVA (cerebral vascular accident) Assessment/Plan: tia symptroms resolved MRI mRA noted neurology on board lipid profile ok statin asa stop mirapex and aricept Code(s): I63.9 - CEREBRAL INFARCTION, UNSPECIFIED Qualifiers: CVA mechanism: unspecified Qualified Code(s): I63.9 - Cerebral infarction, unspecified (2) Hypothyroid Assessment/Plan: synthroid tsh ok Code(s): E03.9 - HYPOTHYROIDISM, UNSPECIFIED (3) HTN (hypertension) Assessment/Plan: coreg and nifedipine Code(s): I10 - ESSENTIAL (PRIMARY) HYPERTENSION Qualifiers: (4) ESRD (end stage renal disease) Assessment/Plan: HD in AM Code(s): N18.6 - END STAGE RENAL DISEASE
[2018-07-03] MEDS: ROSUVASTATIN CA 5 MG TABLET (FP) PO SCH (22:02)
[2018-07-04] MEDS: LEVOTHYROXINE NA 50 MCG TABLET (FP) PO SCH (06:30)
[2018-07-04] MEDS: INSULIN SLIDING SCALE (NOVOLOG) 1 VIAL SQ SCH ×2 (06:30→11:47)
[2018-07-04 08:10] LABS: HEMATOCRIT 30.4 % (32.4-45.2); HEMOGLOBIN 9.9 GM/dL (10.7-15.3); MCH 28.7 pg (25.7-33.7); MCHC 32.5 g/dl (32.0-36.0); MEAN CELL VOLUME 88.4 fl (80-96); MEAN PLT VOLUME 8.1 fl (7.5-11.1); PLATELET COUNT 232 K/MM3 (134-434); RBC 3.44 M/mm3 (3.60-5.2); RDW 17.1 % (11.6-15.6); WHITE BLOOD COUNT 6.8 K/mm3 (4.0-10.0)
[2018-07-04 08:41] LABS: ANION GAP 9 MMOL/L (8-16); BLOOD UREA NITROGEN 50 mg/dL (7-18); CALCIUM 7.7 mg/dL (8.5-10.1); CHLORIDE 104 mmol/L (98-107); CO2 27 mmol/L (21-32); CREATININE 4.6 mg/dL (0.55-1.3); GLUCOSE,RANDOM 97 mg/dL (74-106); PHOSPHOROUS 4.7 mg/dL (2.5-4.9); POTASSIUM 3.5 mmol/L (3.5-5.1); SODIUM 139 mmol/L (136-145)
[2018-07-04 10:41] VITALS: BP 157/85; PULSE 67; TEMP 97.7
[2018-07-04] MEDS: CARVEDILOL 6.25 MG TABLET (FP) PO SCH (11:08)
[2018-07-04] MEDS: NIFEdipine E.R 60 MG TABLET (UD) PO SCH (11:09)
[2018-07-04] MEDS: ASPIRIN COATED 81 MG TABLET.EC PO SCH (11:23)
--- NOTE | 2018-07-04 13:04 | DS ---
Physical Examination Vital Signs: Vital Signs Temperature 97.7 F 07/04/18 10:20 Pulse Rate 67 07/04/18 10:20 Respiratory Rate 18 07/04/18 10:20 Blood Pressure 157/85 07/04/18 10:20 O2 Sat by Pulse Oximetry (%) 100 07/04/18 09:00 Constitutional: Yes: Calm, Thin Cardiovascular: Yes: Regular Rate and Rhythm, S1, S2 Respiratory: Yes: CTA Bilaterally Gastrointestinal: Yes: Normal Bowel Sounds, Soft Edema: No Neurological: Yes: Alert, Oriented Labs: CBC, BMP 07/04/18 07:00 07/04/18 07:00 Discharge Summary Reason For Visit: CEREBRROVASCULAR ACCIDENT Current Active Problems CVA (cerebral vascular accident) (Acute) ESRD (end stage renal disease) (Acute) Hypothyroid (Acute) Other Procedures: MRI and MRA of brain done Hospital Course: Primary Care Physician PCP: Home Morin - Admission Chief Complaint: came in for left sided weakness History of Present Illness: The patient is an 83F with a PMH of diabetes, end-stage renal disease not on dialysis, chronic anemia, hypothyroidism, hypertension, hepatitis C, previous stroke (affecting R side) who presents to the ER with complaints of sudden onset aphasia and weakness. The patient's last known well is 1420. She is with her daughter who provides the history. The daughter states she was in her normals state of health and was about to get dialysis when she slumped over and became nonverbal. She had no complaints at the time but was intermittently following directions. ct head negative patient admitted to telemetry floor saw cardiology, renal got HD while in hospital Condition: Guarded - Instructions Referrals: Home Morin MD [Primary Care Provider] - Disposition: HOME - Home Medications Comprehensive Discharge Medication List: Ambulatory Orders Carvedilol [Coreg -] 12.5 mg PO BID #60 tablet 07/08/17 Nifedipine ER [Procardia XL -] 60 mg PO DAILY #30 tab.er.24 07/08/17 Rosuvastatin [Crestor -] 5 mg PO HS #30 tablet 01/04/18 Acetaminophen [Tylenol .Regular Strength -] 650 mg PO Q4H PRN tablet 03/28/18 Pantoprazole Sodium [Protonix -] 40 mg PO BID #60 tablet.ec 03/28/18 Levothyroxine [Synthroid -] 25 mcg PO DAILY@0700 06/30/18 Sevelamer Carbonate [Renvela] 800 mg NR DAILY 06/30/18 Aspirin 81 mg PO BID 07/01/18
[2018-07-04 13:21] LABS: HBSAG SCREEN Negative (Negative); HEP A AB, IGM Negative (Negative); HEP B CORE AB, TOT Negative (Negative)
== END 2018-07-04 14:16 | disposition home or self-care (01) | DRG 64 ==
LOC: JER 14:46 → JERBED 16:34 → J4S 07-01 02:28
PROVIDERS: ADMIT Family Medicine; ATTEND Family Medicine
PROC: 5A1D70Z Performance of Urinary Filtration, Intermittent, Less than 6 Hours Per Day (ICD-10-PCS; principal; 2018-07-02)
DX: I63.9 Cerebral infarction, unspecified (principal); N18.6 End stage renal disease; I12.0 Hypertensive chronic kidney disease with stage 5 chronic kidney disease or end stage renal disease; I69.351 Hemiplegia and hemiparesis following cerebral infarction affecting right dominant side; E11.22 Type 2 diabetes mellitus with diabetic chronic kidney disease; Z99.2 Dependence on renal dialysis; E03.9 Hypothyroidism, unspecified; B19.20 Unspecified viral hepatitis C without hepatic coma; F17.210 Nicotine dependence, cigarettes, uncomplicated; D64.9 Anemia, unspecified; R47.01 Aphasia; R53.1 Weakness; R29.6 Repeated falls; G62.9 Polyneuropathy, unspecified; K59.00 Constipation, unspecified; R55 Syncope and collapse
CPT/HCPCS: 36415; 70450-TC; 70544-TC; 70551-TC; 71045-TC-FY; 80048; 80053; 80061; 82465; 82550; 82962; 83036; 83718; 83721; 83735; 84100; 84443; 84478; 84484; 85025; 85027; 85610; 86704; 86706; 86708; 86803; 86850; 86900; 86901; 87340; 93005; 93010; 97116-GP; 97162-GP; 99284-25; J7030

== ENCOUNTER 2018-07-26 14:37 | Inpatient (IN) | payer OTHER, MEDICARE ==
--- NOTE | 2018-07-26 15:40 | PDOC ---
History of Present Illness - General Chief Complaint: CVA/TIA Stated Complaint: R/O STROKE Time Seen by Provider: 07/26/18 15:32 Past History - Past Medical History Allergies/Adverse Reactions: Allergies Allergy/AdvReac Type Severity Reaction Status Date / Time No Known Allergies Allergy Verified 07/26/18 14:48 Home Medications: Ambulatory Orders Nifedipine ER [Procardia XL -] 60 mg PO DAILY #30 tab.er.24 07/08/17 Rosuvastatin [Crestor -] 5 mg PO HS #30 tablet 01/04/18 Acetaminophen [Tylenol .Regular Strength -] 650 mg PO Q4H PRN tablet 03/28/18 Pantoprazole Sodium [Protonix -] 40 mg PO BID #60 tablet.ec 03/28/18 Levothyroxine [Synthroid -] 25 mcg PO DAILY@0700 06/30/18 Sevelamer Carbonate [Renvela -] 800 mg NR DAILY 06/30/18 Aspirin 81 mg PO BID 07/01/18 Carvedilol [Coreg -] 6.25 mg PO BID #30 tablet MDD 2 07/04/18 Levothyroxine [Synthroid -] 50 mcg PO DAILY@0600 #30 tablet MDD 1 07/04/18 Nifedipine ER [Procardia XL -] 60 mg PO DAILY #30 tab.er.24 MDD 2 07/04/18 Anemia: No Asthma: No Cancer: No Cardiac Disorders: No CVA: Yes (TIA) COPD: No CHF: No DVT: No Dementia: No Diabetes: Yes (IDDM) GI Disorders: No Disorders: Yes (ESRD dialysis sat-sat-sat) HTN: Yes Hypercholesterolemia: No Liver Disease: No Seizures: No Thyroid Disease: Yes - Surgical History Abdominal Surgery: No Appendectomy: No Cardiac Surgery: No Cholecystectomy: Yes Lung Surgery: No Neurologic Surgery: No Orthopedic Surgery: No - Immunization History Immunization Up to Date: Yes - Suicide/Smoking/Psychosocial Hx Smoking Status: Yes Smoking History: Former smoker Have you smoked in the past 12 months: No Number of Cigarettes Smoked Daily: 20 If you are a former smoker, when did you quit?: 2018 Information on smoking cessation initiated: No 'Breaking Loose' booklet given: 07/05/17 Hx Alcohol Use: No Drug/Substance Use Hx: No Substance Use Type: None Hx Substance Use Treatment: No *Physical Exam - Vital Signs Last Vital Signs Temp Pulse Resp BP Pulse Ox 97.9 F 66 19 120/51 L 97 07/26/18 14:48 07/26/18 14:48 07/26/18 14:48 07/26/18 14:48 07/26/18 14:48 Moderate Sedation - Procedure Monitoring Vital Signs: Procedure Monitoring Vital Signs Temperature 97.9 F 07/26/18 14:48 Pulse Rate 66 07/26/18 14:48 Respiratory Rate 19 07/26/18 14:48 Blood Pressure 120/51 L 07/26/18 14:48 O2 Sat by Pulse Oximetry (%) 97 07/26/18 14:48
[2018-07-26 16:26] LABS: HEMOGLOBIN 11.7 GM/dL (10.7-15.3); MEAN CELL VOLUME 89.7 fl (80-96); MEAN PLT VOLUME 8.6 fl (7.5-11.1); WHITE BLOOD COUNT 8.2 K/mm3 (4.0-10.0)
--- NOTE | 2018-07-26 16:28 | PDOC ---
History of Present Illness - General Chief Complaint: CVA/TIA Stated Complaint: R/O STROKE Time Seen by Provider: 07/26/18 15:32 - History of Present Illness Initial Comments: 07/26/18 16:29 The patient is an 83F with a PMH of diabetes, end-stage renal disease on dialysis M/W/F since February 2018, chronic anemia, hypothyroidism, hypertension , hepatitis C, previous stroke (affecting R side) who presents to the ER with complaints of sudden onset aphasia and weakness around 11am today. She was present exactly one month ago for the exact same symptoms, admitted for TIA. Found on MRI/MRA to have lacunar infarcts. Past History - Past Medical History Allergies/Adverse Reactions: Allergies Allergy/AdvReac Type Severity Reaction Status Date / Time No Known Allergies Allergy Verified 07/26/18 14:48 Home Medications: Ambulatory Orders Nifedipine ER [Procardia XL -] 60 mg PO DAILY #30 tab.er.24 07/08/17 Rosuvastatin [Crestor -] 5 mg PO HS #30 tablet 01/04/18 Acetaminophen [Tylenol .Regular Strength -] 650 mg PO Q4H PRN tablet 03/28/18 Pantoprazole Sodium [Protonix -] 40 mg PO BID #60 tablet.ec 03/28/18 Levothyroxine [Synthroid -] 25 mcg PO DAILY@0700 06/30/18 Sevelamer Carbonate [Renvela -] 800 mg NR DAILY 06/30/18 Aspirin 81 mg PO BID 07/01/18 Carvedilol [Coreg -] 6.25 mg PO BID #30 tablet MDD 2 07/04/18 Levothyroxine [Synthroid -] 50 mcg PO DAILY@0600 #30 tablet MDD 1 07/04/18 Nifedipine ER [Procardia XL -] 60 mg PO DAILY #30 tab.er.24 MDD 2 07/04/18 Anemia: No Asthma: No Cancer: No Cardiac Disorders: No CVA: Yes (TIA) COPD: No CHF: No DVT: No Dementia: No Diabetes: Yes (IDDM) GI Disorders: No Disorders: Yes (ESRD dialysis sat-sat-sat) HTN: Yes Hypercholesterolemia: No Liver Disease: No Seizures: No Thyroid Disease: Yes - Surgical History Abdominal Surgery: No Appendectomy: No Cardiac Surgery: No Cholecystectomy: Yes Lung Surgery: No Neurologic Surgery: No Orthopedic Surgery: No - Immunization History Immunization Up to Date: Yes - Suicide/Smoking/Psychosocial Hx Smoking Status: Yes Smoking History: Former smoker Have you smoked in the past 12 months: No Number of Cigarettes Smoked Daily: 20 If you are a former smoker, when did you quit?: 2018 Information on smoking cessation initiated: No 'Breaking Loose' booklet given: 07/05/17 Hx Alcohol Use: No Drug/Substance Use Hx: No Substance Use Type: None Hx Substance Use Treatment: No *Physical Exam - Vital Signs Last Vital Signs Temp Pulse Resp BP Pulse Ox 97.9 F 66 19 120/51 L 97 07/26/18 14:48 07/26/18 14:48 07/26/18 14:48 07/26/18 14:48 07/26/18 14:48 NIH Stroke Scale - Last Known Well Date/Time & Onset Date Last Known Well: 08/05/18 Time Last Known Well: 11:00 - Initial Evaluation Level of consciousness: Alert Ask patient the month and their age: Answers both correctly Ask patient to open & close eyes; make fist and let go: Obeys both correctly Best gaze (horizontal eye movement): Normal Visual field testing: No visual field loss Facial paresis (Show teeth/raise eyebrows/close eyes tight): Normal symmetrical movement Motor Function: Left Arm: Normal Motor Function: Right Arm: Normal (extends arm 90 (or 45) degrees for 10 seconds without drift Motor Function: Left Leg: Normal (extends leg 30 degrees for 5 seconds without drift) Motor Function: Right Leg: Normal (extends leg 30 degrees for 5 seconds without drift) Limb Ataxia: Present in two limbs Sensory(Use pinprick test arms,legs,trunk,face/side to side): Normal Best language (Describe picture, name items, read sentences): No Aphasia Dysarthria (read several words): Normal articulation Extinction and Inattention: No abnormality - Total Score NIH Stroke Scale Score: 2 Moderate Sedation - Procedure Monitoring Vital Signs: Procedure Monitoring Vital Signs Temperature 97.9 F 07/26/18 14:48 Pulse Rate 66 07/26/18 14:48 Respiratory Rate 19 07/26/18 14:48 Blood Pressure 120/51 L 07/26/18 14:48 O2 Sat by Pulse Oximetry (%) 97 07/26/18 14:48 Critical Care Time/MDM Note - Medical Decision Making Note: 07/26/18 17:[address] head: Moderate chronic small vessels ischemic changes otherwise normal Ct head. Patient has exact same symptoms as last admission. Will admit to Stroke Obs. Consulted with Dr. Harper, Neurology. Patient admitted to Stroke obs under Dr. Benavidez. 07/26/18 18:10 *DC/Admit/Observation/Transfer Diagnosis at time of Disposition: TIA (transient ischemic attack) - Discharge Dispostion Decision to Admit order: Yes - Referrals - Patient Instructions - Post Discharge Activity
[2018-07-26 16:31] LABS: VENOUS PC02 46.4 mmHg (38-52); VENOUS PH 7.34 (7.32-7.42); VENOUS PO2 28.5 mmHg (28-48)
[2018-07-26 16:34] LABS: BASO % 0.8 % (0-2.0); EOS % 0.9 % (0-4.5); HEMATOCRIT 36.5 % (32.4-45.2); LYMPH % 13.9 % (8-40); MCH 28.9 pg (25.7-33.7); MCHC 32.2 g/dl (32.0-36.0); MONO % 7.1 % (3.8-10.2); NEUT % 77.3 % (42.8-82.8); PLATELET COUNT 300 K/MM3 (134-434); RBC 4.06 M/mm3 (3.60-5.2); RDW 18.6 % (11.6-15.6)
[2018-07-26 16:36] LABS: INR 1.14 (0.83-1.09); PROTHROMBIN TIME (PATIENT) 13.5 SEC (9.7-13.0)
[2018-07-26 16:39] LABS: ACTIVATED PTT 28.5 SECONDS (25.2-36.5)
[2018-07-26 16:56] LABS: ALBUMIN 3.3 g/dl (3.4-5.0); ALK PHOS 66 U/L (45-117); ANION GAP 10 MMOL/L (8-16); BILIRUBIN,TOTAL 0.2 mg/dL (0.2-1); BLOOD UREA NITROGEN 26 mg/dL (7-18); CALCIUM 8.3 mg/dL (8.5-10.1); CHLORIDE 101 mmol/L (98-107); CO2 24 mmol/L (21-32); CREATININE 4.7 mg/dL (0.55-1.3); GLUCOSE,RANDOM 142 mg/dL (74-106); MAGNESIUM 1.9 mg/dL (1.8-2.4); PHOSPHOROUS 3.4 mg/dL (2.5-4.9); SGOT/AST 10 U/L (15-37); SGPT/ALT 16 U/L (13-61); SODIUM 135 mmol/L (136-145); TOT PROT 7.5 g/dl (6.4-8.2)
[2018-07-26 17:42] LABS: URINE APPEARANCE SLCLOUDY; URINE BILIRUBIN NEGATIVE (<2.0 mg/dL); URINE COLOR YELLOW; URINE GLUCOSE (UA) NEGATIVE (NEGATIVE); URINE KETONE NEGATIVE (NEGATIVE); URINE LEUK ESTERASE NEGATIVE (NEGATIVE); URINE NITRITE NEGATIVE (NEGATIVE); URINE PROTEIN 2+ (NEGATIVE); URINE UROBILINOGEN NEGATIVE mg/dL (0.2-1.0)
[2018-07-26 17:57] LABS: EPI CELLS RARE /HPF (FEW); URINE BACTERIA RARE /hpf (NONE SEEN); URINE HYALINE CAST 1 /lpf; URINE MUCUS RARE
--- NOTE | 2018-07-26 18:00 | PDOC ---
Attending Attestation - Resident Resident Name: Layo Burks - HPI HPI: 07/26/18 18:00 The patient is a 83 year old female with past medical history significant for DM , ESRD (on Dialysis), HTN, Hep C. hx of stroke presents to the emergency department accompanied with daughter with AMS. Per daughter, she tried to ambulate the patient out of her bed, when patients leg became shaky. The daughter reports when she tried to sit her up, the patient just fell to one side. The patient at baseline is verbal, however when he wasnt responsive to daughter talking to her. At the ER, the patient is verbal. Allergies: NKDA PCP: Home Morin MD. - Physicial Exam PE: 07/26/18 18:00 CONSTITUTIONAL: Well-appearing; well-nourished; in no apparent distress HEAD: Normocephalic; atraumatic EYES: PERRL; EOM intact ENMT: External appears normal; normal oropharynx NECK: Supple; non-tender; no cervical lymphadenopathy CARD: Normal S1, S2; no murmurs, rubs, or gallops RESP: Normal chest excursion with respiration; breath sounds clear and equal bilaterally; no wheezes, rhonchi, or rales ABD: Soft, non-distended; non-tender; no palpable organomegaly, no palpable hernias EXT: Normal ROM in all four extremities; non-tender to palpation; distal pulses intact SKIN: Warm, dry, no rash NEURO: Alert, answering all questions, normal symmetrical movement, normal sensation, no aphasia. - Medical Decision Making 07/26/18 18:00 Documentation prepared by Liz Sebastian, acting as certified medical transcriptionist for Kalyani Argueta MD. <Liz Sebastian - Last Filed: 07/26/18 18:00> - HPI HPI: 07/26/18 19:28 I, Dr. Kalyani Argueta, attest that the scribes documentation that appears above has been prepared under my direction and personally reviewed by me. I confirmed that the note above accurately reflects all work, treatment, procedures, and medical decision-making performed by me. - Medical Decision Making 07/26/18 19:28 I, Dr. Kalyani Argueta, attest that the scribes documentation that appears above has been prepared under my direction and personally reviewed by me. I confirmed that the note above accurately reflects all work, treatment, procedures, and medical decision-making performed by me. Pt brought in from home for evaluation of episode of altered mental status where she would not talk to her daughter and had troubel walking just prior to incident. PT had a similar incident one month ago was admitted had ct of head and MRI done. Pt was diagnosed with lacunar infarcts but no other acute neurological condition identified. PT was told she still needs EEG from last months incident and follows with Dr Morrison as her neurologist. Pt is currently back to baseline, given her ager and comorbidities she will require neuro observation admission to r/o TIA. Pt agrees with this plan, PT for admisison to hospital. 07/26/18 19:29 <Kalyani Argueta - Last Filed: 07/26/18 19:33>
--- NOTE | 2018-07-26 19:48 | PN ---
Teaching Attending Note Name of Resident: Oz Sena ATTENDING PHYSICIAN STATEMENT I saw and evaluated the patient. I reviewed the resident's note and discussed the case with the resident. I agree with the resident's findings and plan as documented. SUBJECTIVE: Patient is an 83 year old woman with PMH of NIDDM, ESRD (on hemodialysis), HTN, Hep C disease and CVA who presents to the ER for AMS. As per her daughter, she tried to ambulate the patient out of her bed, when patients leg became shaky. The daughter reports when she tried to sit her up, the patient just fell to one side. The patient at baseline is verbal, however when he wasnt responsive to daughter talking to her. In the ER, the patient is verbal and her NIHSS was 2. Her last hemodialysis was yesterday for 3.45 hours - unclear how much fluid was removed. OBJECTIVE: Alert Vital Signs Period Temp Pulse Resp BP Sys/Monsivais Pulse Ox Last 24 Hr 97.9 F 66-77 18-19 120-141/51-73 97-97 HEENT: No Jaundice, eye redness or discharge, PERRLA, EOMI. Normocephalic, atraumatic. External ears are normal and hearing is grossly intact. No nasal discharge. Neck: Supple, nontender. No palpable adenopathy or thyromegaly. No JVD Chest: Good effort. Right chest permacath. Clear to auscultation and percussion. Heart: Regular. No S3, rub or murmur Abdomen: Not distended, soft, nontender and no HSM. No rebound or guarding. Normoactive bowel sounds. Ext: Peripheral pulses intact. No leg edema. Skin: Warm and dry. No petechiae, rash or ecchymosis. Neuro: Alert. Oriented x3. CN 2-12 grossly intact. Sensation grossly intact in all four extremities and DTR are symmetric. Gait cannot be tested for safety reasons. Home Medications Medication Instructions Recorded Nifedipine ER [Procardia XL -] 60 mg PO DAILY #30 tab.er.24 07/08/17 Rosuvastatin [Crestor -] 5 mg PO HS #30 tablet 01/04/18 Acetaminophen [Tylenol .Regular 650 mg PO Q4H PRN tablet 03/28/18 Strength -] Pantoprazole Sodium [Protonix -] 40 mg PO BID #60 tablet.ec 03/28/18 Levothyroxine [Synthroid -] 25 mcg PO DAILY@0700 06/30/18 Sevelamer Carbonate [Renvela -] 800 mg NR DAILY 06/30/18 Aspirin 81 mg PO BID 07/01/18 Carvedilol [Coreg -] 6.25 mg PO BID #30 tablet MDD 2 07/04/18 Levothyroxine [Synthroid -] 50 mcg PO DAILY@0600 #30 tablet 07/04/18 MDD 1 Nifedipine ER [Procardia XL -] 60 mg PO DAILY #30 tab.er.24 MDD 2 07/04/18 Abnormal Lab Results 07/26/18 07/26/18 07/26/18 16:00 16:00 16:10 RDW 18.6 H PT with INR 13.50 H INR 1.14 H Sodium 135 L BUN 26 H Creatinine 4.7 H Random Glucose 142 H Calcium 8.3 L AST 10 L Albumin 3.3 L Urine Protein Urine Blood Salicylates < 1.7 L 07/26/18 17:32 RDW PT with INR INR Sodium BUN Creatinine Random Glucose Calcium AST Albumin Urine Protein 2+ H Urine Blood 1+ H Salicylates ASSESSMENT AND PLAN: 1. TIA - No acute abnormality on head CT and CXR. Had a similar episode last month. Consult nephrology to schedule and review hemodialysis regimen - confirm when she takes Nifedipine in relation to dialysis treatment. Uses walker and wheelchair at baseline. EKG is NSR with no significant ST-T wave changes and initial troponin is negative. Admit to telemetry for monitoring and rule out ACS. Will optimize statin therapy, get ECHO, fasting lipids, speech and swallow evaluation, carotid doppler, and repeat MRI. If new infarcts are seen on MRI, then longer outpatient cardiac monitoring to pickup paroxysmal Afib will be justified. Consult neurology, PT and cardiology. 2. Hypoalbuminemia - Possibly due to combined effects of malnutrition, proteinuria and inflammation associated with comorbid chronic conditions. Will ensure adequate dietary protein intake of at least 1.5 gm/Kg body weight per day. Consult wool sampler. 3. DM Will implement sliding scale insulin regimen. Provide comprehensive diabetes care with patient teaching and counseling about the importance of adherence to prescribed diabetes regimen, euglycemia, eye care and foot care. 4. DVT prophylaxis - Heparin 5000u sq tid. 5. Advance directives - Full code
[2018-07-26] MEDS ORDERED: ACETAMINOPHEN 325 MG TABLET (FP) PO PRN (21:34)
--- NOTE | 2018-07-26 21:49 | HP ---
CHIEF COMPLAINT: PCP: HISTORY OF PRESENT ILLNESS: 83F with a PMH of DM ESRD M/W/F since February 2018, chronic anemia, hypothyroidism, hypertension, hepatitis C, previous stroke (affecting R side) who presents to the ER with complaints of sudden onset aphasia and b/l arm and leg weakness/leg became shaky around 11am today. pt lives w/ daughter and daughter noticed pt was not talking and had limb weakness/could not stand or lift arms. pt Uses walker and wheelchair at baseline. daughter tried to walk mom but she could not. The daughter reports when she tried to sit her up, the patient just fell to one side. mom started to regain strength in hands but daughter decided to bring her to ED bec She was present exactly one month ago for the exact same symptoms, admitted for TIA. Found on MRI/MRA to have lacunar infarcts. of note, The patient at baseline is verbal, however when he wasnt responsive to daughter talking to her. At the ER, the patient is verbal. PT was told she still needs EEG from last months incident and follows with Dr Morrison as her neurologist. In the ER, the patient is verbal and her NIHSS was 2. Her last hemodialysis was yesterday for 3.45 hours - unclear how much fluid was removed. per daughter pt is usually HTN after HD and she gives her her bp meds ER course was notable for: (1)CT head: Moderate chronic small vessels ischemic changes otherwise normal Ct head. Patient has exact same symptoms as last admission. (2) (3) Recent Travel: PAST MEDICAL HISTORY: [facility] [place] PAST SURGICAL HISTORY: Social History: Smoking: quit 1 yr ago, 50+ yrs Alcohol: social Drugs: denies Family History: Allergies No Known Allergies Allergy (Verified 07/26/18 14:48) HOME MEDICATIONS: Home Medications Medication Instructions Recorded Nifedipine ER [Procardia XL -] 60 mg PO DAILY #30 tab.er.24 07/08/17 Rosuvastatin [Crestor -] 5 mg PO HS #30 tablet 01/04/18 Acetaminophen [Tylenol .Regular 650 mg PO Q4H PRN tablet 03/28/18 Strength -] Pantoprazole Sodium [Protonix -] 40 mg PO BID #60 tablet.ec 03/28/18 Levothyroxine [Synthroid -] 25 mcg PO DAILY@0700 06/30/18 Sevelamer Carbonate [Renvela -] 800 mg NR DAILY 06/30/18 Aspirin 81 mg PO BID 07/01/18 Carvedilol [Coreg -] 6.25 mg PO BID #30 tablet MDD 2 07/04/18 Levothyroxine [Synthroid -] 50 mcg PO DAILY@0600 #30 tablet 07/04/18 MDD 1 Nifedipine ER [Procardia XL -] 60 mg PO DAILY #30 tab.er.24 MDD 2 07/04/18 REVIEW OF SYSTEMS as per hpi PHYSICAL EXAMINATION Vital Signs - 24 hr 07/26/18 07/26/18 07/26/18 14:48 18:37 20:23 Temperature 97.9 F 97.6 F Pulse Rate 66 78 Pulse Rate [ 77 Left Radial] Respiratory 19 18 18 Rate Blood Pressure 120/51 L 122/58 L Blood Pressure 141/73 [Right Arm] O2 Sat by Pulse 97 97 Oximetry (%) GENERAL: Awake, alert, and fully oriented, in no acute distress. HEAD: Normal with no signs of trauma. EYES: Pupils equal, round and reactive to light, extraocular movements intact, sclera anicteric, conjunctiva clear. No lid lag. EARS, NOSE, THROAT: Ears normal, nares patent, oropharynx clear without exudates. Moist mucous membranes. NECK: Normal range of motion, supple without lymphadenopathy, JVD, or masses. LUNGS: Breath sounds equal, clear to auscultation bilaterally. No wheezes, and no crackles. No accessory muscle use. HEART: Regular rate and rhythm, normal S1 and S2 without murmur, rub or gallop. ABDOMEN: Soft, nontender, not distended, normoactive bowel sounds, no guarding, no rebound, no masses. No hepatomegaly or splenomegaly. MUSCULOSKELETAL: Normal range of motion at all joints. No bony deformities or tenderness. No CVA tenderness. UPPER EXTREMITIES: 2+ pulses, warm, well-perfused. No cyanosis. No clubbing. No peripheral edema. LOWER EXTREMITIES: 2+ pulses, warm, well-perfused. No calf tenderness. No peripheral edema. NEUROLOGICAL: Cranial nerves II through XII grossly intact. Normal speech, gait not observed. sensation strength grossly intact, FNT nl PSYCHIATRIC: Cooperative. Good eye contact. Appropriate mood and affect. SKIN: Warm, dry, normal turgor, no rashes or lesions noted, normal capillary refill. Laboratory Results - last 24 hr 07/26/18 07/26/18 07/26/18 16:00 16:00 16:05 WBC 8.2 RBC 4.06 Hgb 11.7 Hct 36.5 D MCV 89.7 MCH 28.9 MCHC 32.2 RDW 18.6 H Plt Count 300 D MPV 8.6 Absolute Neuts (auto) 6.4 Neutrophils % 77.3 Lymphocytes % 13.9 Monocytes % 7.1 Eosinophils % 0.9 Basophils % 0.8 Nucleated RBC % 0 PT with INR INR PTT (Actin FS) VBG pH POC VBG pCO2 POC VBG pO2 Mixed VBG HCO3 Sodium 135 L Potassium 4.0 Chloride 101 Carbon Dioxide 24 Anion Gap 10 BUN 26 H Creatinine 4.7 H Creat Clearance w eGFR 8.90 POC Glucometer 126 Random Glucose 142 H Lactic Acid Calcium 8.3 L Phosphorus 3.4 Magnesium 1.9 Total Bilirubin 0.2 AST 10 L ALT 16 Alkaline Phosphatase 66 Total Protein 7.5 Albumin 3.3 L TSH 1.09 Urine Color Urine Appearance Urine pH Ur Specific [place] Urine Protein Urine Glucose (UA) Urine Ketones Urine Blood Urine Nitrite Urine Bilirubin Urine Urobilinogen Ur Leukocyte Esterase Urine WBC (Auto) Urine RBC (Auto) Ur Epithelial Cells Urine Bacteria Hyaline Casts Urine Mucus Salicylates < 1.7 L Blood Type Antibody Screen 07/26/18 07/26/18 07/26/18 16:10 16:10 16:20 WBC RBC Hgb Hct MCV MCH MCHC RDW Plt Count MPV Absolute Neuts (auto) Neutrophils % Lymphocytes % Monocytes % Eosinophils % Basophils % Nucleated RBC % PT with INR 13.50 H INR 1.14 H PTT (Actin FS) 28.5 VBG pH POC VBG pCO2 POC VBG pO2 Mixed VBG HCO3 Sodium Potassium Chloride Carbon Dioxide Anion Gap BUN Creatinine Creat Clearance w eGFR POC Glucometer Random Glucose Lactic Acid 1.2 Calcium Phosphorus Magnesium Total Bilirubin AST ALT Alkaline Phosphatase Total Protein Albumin TSH Urine Color Urine Appearance Urine pH Ur Specific [place] Urine Protein Urine Glucose (UA) Urine Ketones Urine Blood Urine Nitrite Urine Bilirubin Urine Urobilinogen Ur Leukocyte Esterase Urine WBC (Auto) Urine RBC (Auto) Ur Epithelial Cells Urine Bacteria Hyaline Casts Urine Mucus Salicylates Blood Type A POSITIVE Antibody Screen Negative 07/26/18 07/26/18 16:20 17:32 WBC RBC Hgb Hct MCV MCH MCHC RDW Plt Count MPV Absolute Neuts (auto) Neutrophils % Lymphocytes % Monocytes % Eosinophils % Basophils % Nucleated RBC % PT with INR INR PTT (Actin FS) VBG pH 7.34 POC VBG pCO2 46.4 POC VBG pO2 28.5 Mixed VBG HCO3 24.6 Sodium Potassium Chloride Carbon Dioxide Anion Gap BUN Creatinine Creat Clearance w eGFR POC Glucometer Random Glucose Lactic Acid Calcium Phosphorus Magnesium Total Bilirubin AST ALT Alkaline Phosphatase Total Protein Albumin TSH Urine Color Yellow Urine Appearance Slcloudy Urine pH 5.0 Ur Specific [place] 1.017 Urine Protein 2+ H Urine Glucose (UA) Negative Urine Ketones Negative Urine Blood 1+ H Urine Nitrite Negative Urine Bilirubin Negative Urine Urobilinogen Negative Ur Leukocyte Esterase Negative Urine WBC (Auto) 3 Urine RBC (Auto) 3 Ur Epithelial Cells Rare Urine Bacteria Rare Hyaline Casts 1 Urine Mucus Rare Salicylates Blood Type Antibody Screen ASSESSMENT/PLAN: 83F with a PMH of DM ESRD M/W/F since February 2018, gastritis w/ ulcers? chronic anemia, hypothyroidism, hypertension, hepatitis C, previous stroke ( affecting R side) who presents to the ER with complaints of sudden onset aphasia and b/l arm and leg weakness/leg became shaky around 11am today TIA (likely) vs presyncope 2/2 BP meds after dialysis - Uses walker and wheelchair at baseline. neuro exam nl, She was present exactly one month ago for the exact same symptoms, admitted for TIA. Found on MRI/MRA to have lacunar infarcts. . CT head: Moderate chronic small vessels ischemic changes otherwise normal Ct head. neuro consult (crissy) cardio consult (va) speech consutl PT eval cardiac monitoring EKG stat c/w home dose ASA/statin c/w home BP meds seizure, fall, aspiration precautions neuro checks q4h echo carotis u/s MRI w/o con lipid panel TSH nl lactic nl VBG nl UA neg, ucx pending HTN c/w home meds anemia - stable monitor H/H ESRD (MWF), last completed [facility] at [facility]. 3hr 45min. 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 unclear how much fluid was removed. nephro (laila) DM BGM ACHS ISS A1c FEN po hydration replete prn renal diet ppx SQH home protonix 40mg bid Advance directives - Full code dispo tele obs Visit type - Emergency Visit Emergency Visit: Yes ED Registration Date: 07/26/18 Care time: The patient presented to the Emergency Department on the above date and was hospitalized for further evaluation of their emergent condition. - New Patient This patient is new to me today: Yes Date on this admission: 07/26/18 - Critical Care Critical Care patient: No
--- NOTE | 2018-07-26 21:49 | PN ---
Physical Exam: SUBJECTIVE: Patient seen and examined OBJECTIVE: Vital Signs Period Temp Pulse Resp BP Sys/Monsivais Pulse Ox Last 24 Hr 97.6 F-97.9 F 66-78 18-19 120-141/51-73 97-97 GENERAL: The patient is awake, alert, and fully oriented, in no acute distress. HEAD: Normal with no signs of trauma. EYES: PERRL, extraocular movements intact, sclera anicteric, conjunctiva clear. No ptosis. ENT: Ears normal, nares patent, oropharynx clear without exudates, moist mucous membranes. NECK: Trachea midline, full range of motion, supple. LUNGS: Breath sounds equal, clear to auscultation bilaterally, no wheezes, no crackles, no accessory muscle use. HEART: Regular rate and rhythm, S1, S2 without murmur, rub or gallop. ABDOMEN: Soft, nontender, nondistended, normoactive bowel sounds, no guarding, no rebound, no hepatosplenomegaly, no masses. EXTREMITIES: 2+ pulses, warm, well-perfused, no edema. NEUROLOGICAL: Cranial nerves II through XII grossly intact. Normal speech, gait not observed. PSYCH: Normal mood, normal affect. SKIN: Warm, dry, normal turgor, no rashes or lesions noted Laboratory Results - last 24 hr 07/26/18 07/26/18 07/26/18 16:00 16:00 16:05 WBC 8.2 RBC 4.06 Hgb 11.7 Hct 36.5 D MCV 89.7 MCH 28.9 MCHC 32.2 RDW 18.6 H Plt Count 300 D MPV 8.6 Absolute Neuts (auto) 6.4 Neutrophils % 77.3 Lymphocytes % 13.9 Monocytes % 7.1 Eosinophils % 0.9 Basophils % 0.8 Nucleated RBC % 0 PT with INR INR PTT (Actin FS) VBG pH POC VBG pCO2 POC VBG pO2 Mixed VBG HCO3 Sodium 135 L Potassium 4.0 Chloride 101 Carbon Dioxide 24 Anion Gap 10 BUN 26 H Creatinine 4.7 H Creat Clearance w eGFR 8.90 POC Glucometer 126 Random Glucose 142 H Lactic Acid Calcium 8.3 L Phosphorus 3.4 Magnesium 1.9 Total Bilirubin 0.2 AST 10 L ALT 16 Alkaline Phosphatase 66 Total Protein 7.5 Albumin 3.3 L TSH 1.09 Urine Color Urine Appearance Urine pH Ur Specific [place] Urine Protein Urine Glucose (UA) Urine Ketones Urine Blood Urine Nitrite Urine Bilirubin Urine Urobilinogen Ur Leukocyte Esterase Urine WBC (Auto) Urine RBC (Auto) Ur Epithelial Cells Urine Bacteria Hyaline Casts Urine Mucus Salicylates < 1.7 L Blood Type Antibody Screen 07/26/18 07/26/18 07/26/18 16:10 16:10 16:20 WBC RBC Hgb Hct MCV MCH MCHC RDW Plt Count MPV Absolute Neuts (auto) Neutrophils % Lymphocytes % Monocytes % Eosinophils % Basophils % Nucleated RBC % PT with INR 13.50 H INR 1.14 H PTT (Actin FS) 28.5 VBG pH POC VBG pCO2 POC VBG pO2 Mixed VBG HCO3 Sodium Potassium Chloride Carbon Dioxide Anion Gap BUN Creatinine Creat Clearance w eGFR POC Glucometer Random Glucose Lactic Acid 1.2 Calcium Phosphorus Magnesium Total Bilirubin AST ALT Alkaline Phosphatase Total Protein Albumin TSH Urine Color Urine Appearance Urine pH Ur Specific [place] Urine Protein Urine Glucose (UA) Urine Ketones Urine Blood Urine Nitrite Urine Bilirubin Urine Urobilinogen Ur Leukocyte Esterase Urine WBC (Auto) Urine RBC (Auto) Ur Epithelial Cells Urine Bacteria Hyaline Casts Urine Mucus Salicylates Blood Type A POSITIVE Antibody Screen Negative 07/26/18 07/26/18 16:20 17:32 WBC RBC Hgb Hct MCV MCH MCHC RDW Plt Count MPV Absolute Neuts (auto) Neutrophils % Lymphocytes % Monocytes % Eosinophils % Basophils % Nucleated RBC % PT with INR INR PTT (Actin FS) VBG pH 7.34 POC VBG pCO2 46.4 POC VBG pO2 28.5 Mixed VBG HCO3 24.6 Sodium Potassium Chloride Carbon Dioxide Anion Gap BUN Creatinine Creat Clearance w eGFR POC Glucometer Random Glucose Lactic Acid Calcium Phosphorus Magnesium Total Bilirubin AST ALT Alkaline Phosphatase Total Protein Albumin TSH Urine Color Yellow Urine Appearance Slcloudy Urine pH 5.0 Ur Specific [place] 1.017 Urine Protein 2+ H Urine Glucose (UA) Negative Urine Ketones Negative Urine Blood 1+ H Urine Nitrite Negative Urine Bilirubin Negative Urine Urobilinogen Negative Ur Leukocyte Esterase Negative Urine WBC (Auto) 3 Urine RBC (Auto) 3 Ur Epithelial Cells Rare Urine Bacteria Rare Hyaline Casts 1 Urine Mucus Rare Salicylates Blood Type Antibody Screen Active Medications Generic Name Dose Route Start Last Admin Trade Name Freq PRN Reason Stop Dose Admin Acetaminophen 650 mg 07/26/18 21:34 Tylenol - PO Q4H PRN PAIN LEVEL 1-5 Aspirin 162 mg 03/03/19 21:39 Asa - PO 07/27/18 21:40 ONCE ONE Carvedilol 6.25 mg 07/26/18 22:00 Coreg - PO BID [facility] Heparin Sodium (Porcine) 5,000 unit 07/26/18 22:00 Heparin - SQ TID [facility] Levothyroxine Sodium 50 mcg 07/27/18 06:00 Synthroid - PO DAILY@0600 [facility] Nifedipine 60 mg 07/27/18 10:00 Procardia Xl - PO DAILY [facility] Non-Formulary Medication 162 mg 07/27/18 10:00 Aspirin PO DAILY [facility] Pantoprazole Sodium 40 mg 07/26/18 22:00 Protonix - PO BID [facility] Rosuvastatin Calcium 5 mg 07/26/18 22:00 Crestor - PO [facility] ASSESSMENT/PLAN:
[2018-07-26] MEDS ORDERED: PATIENT'S OWN MEDICATION (NON-FORMULARY) (Aspirin 81 MG) PO SCH (22:00)
--- NOTE | 2018-07-26 22:01 | CON.NEURO ---
Consult Consult Specialty:: neurology Reason for Consultation:: AMS - History of Present Illness History of Present Illness: The patient is an 83F with a PMH of diabetes, end-stage renal disease on dialysis M/W/F since February 2018, chronic anemia, hypothyroidism, hypertension , hepatitis C, previous stroke (affecting R side) who presents to the ER with complaints of sudden onset aphasia and weakness around 11am today. She was present exactly one month ago for the exact same symptoms, admitted for TIA. Found on MRI/MRA to have lacunar infarcts. I saw and examined the pt ; she is awake and alert to self , not a good hx ; hx as above . 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), Peripheral Neuropathy Cardio/Vascular: Yes: HTN, Hyperlipdemia Gastrointestinal: Yes: Constipation, Other (cecal polyp removed 2005) Hepatobiliary: Yes: Hepatitis C Renal/: Yes: Renal Failure Endocrine: Yes: Diabetes Mellitus, Hypothyroidism - Past Surgical History Past Surgical History: Yes: Cholecystectomy (complicated open cholecystectomy requiring transfusions), Colonoscopy, , Tonsillectomy, Vein Stripping/ Ligation (Thyroidectomy,) - Alcohol/Substance Use Hx Alcohol Use: No History of Substance Use: reports: None - Smoking History Smoking history: Former smoker Have you smoked in the past 12 months: No Aproximately how many cigarettes per day: 20 If you are a former smoker, when did you quit?: 2018 - Social History Usual Living Arrangement: With Child ADL: Family Assistance 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 History of Recent Travel: No Home Medications - Allergies Allergies/Adverse Reactions: Allergies Allergy/AdvReac Type Severity Reaction Status Date / Time No Known Allergies Allergy Verified 07/26/18 14:48 - Home Medications Home Medications: Ambulatory Orders Nifedipine ER [Procardia XL -] 60 mg PO DAILY #30 tab.er.24 07/08/17 Rosuvastatin [Crestor -] 5 mg PO HS #30 tablet 01/04/18 Acetaminophen [Tylenol .Regular Strength -] 650 mg PO Q4H PRN tablet 03/28/18 Pantoprazole Sodium [Protonix -] 40 mg PO BID #60 tablet.ec 03/28/18 Levothyroxine [Synthroid -] 25 mcg PO DAILY@0700 06/30/18 Sevelamer Carbonate [Renvela -] 800 mg NR DAILY 06/30/18 Aspirin 81 mg PO BID 07/01/18 Carvedilol [Coreg -] 6.25 mg PO BID #30 tablet MDD 2 07/04/18 Levothyroxine [Synthroid -] 50 mcg PO DAILY@0600 #30 tablet MDD 1 07/04/18 Nifedipine ER [Procardia XL -] 60 mg PO DAILY #30 tab.er.24 MDD 2 07/04/18 Family Disease History - Family Disease History Family Disease History: Other: Father (lived to 90), Mother (lived to 96 ) Physical Exam-Neuro Vital Signs: Vital Signs Temperature 97.6 F 07/26/18 20:23 Pulse Rate 78 07/26/18 20:23 Respiratory Rate 18 07/26/18 20:23 Blood Pressure 122/58 L 07/26/18 20:23 O2 Sat by Pulse Oximetry (%) 97 07/26/18 18:37 Constitutional: Yes: Well Nourished, No Distress Neck: Yes: WNL, Supple Cardiovascular: Yes: Regular Rate and Rhythm Respiratory: Yes: CTA Bilaterally Musculoskeletal: Yes: WNL Edema: No Psychiatric: Yes: WNL, Alert, Oriented Labs: CBC, BMP 07/26/18 16:00 07/26/18 16:00 INR, PTT INR 1.14 (0.83-1.09) H 07/26/18 16:10 - Neuro Exam Level Of Consciousness: Yes: Oriented to Person Eyes: Yes: PERRLA Speech: WNL Cranial Nerves II-XII Intact: Yes Gag: Present Babinski: Absent Response to light touch: Normal Response to pain prick: Normal Coordination: Normal: Finger to Nose Motor Strength: 5/5: Left Arm, Right Arm, Left Leg, Right Leg Gait: Deferred Problem List - Problems (1) TIA (transient ischemic attack) Code(s): G45.9 - TRANSIENT CEREBRAL ISCHEMIC ATTACK, UNSPECIFIED (2) TRAVIS (acute kidney injury) Code(s): N17.9 - ACUTE KIDNEY FAILURE, UNSPECIFIED (3) Acute on chronic kidney failure Code(s): N17.9 - ACUTE KIDNEY FAILURE, UNSPECIFIED; N18.9 - CHRONIC KIDNEY DISEASE, UNSPECIFIED (4) CVA (cerebral vascular accident) Code(s): I63.9 - CEREBRAL INFARCTION, UNSPECIFIED Qualifiers: CVA mechanism: unspecified Qualified Code(s): I63.9 - Cerebral infarction, unspecified Assessment/Plan 83 y/o F w PMH of diabetes, end-stage renal disease on dialysis M/W/F since February 2018, chronic anemia, hypothyroidism, hypertension, hepatitis C, previous stroke (affecting R side) who presents w transient aphasia and weakness ; she has had similar episode last month. Exam non focal ; given hx of stroke raise the possibility of focal seizure . I suggest : start on keppra 250 mg bid EEG routine and 3 days video as OP c/w asp statin MRI brain last month (-) Seizure/ fall precautions Health maintenance per primary team. THKyrie Harper MD
[2018-07-26] MEDS: ROSUVASTATIN CA 5 MG TABLET (FP) PO SCH (22:43)
[2018-07-26] MEDS: PANTOPRAZOLE 40 MG TABLET (FP) PO SCH (22:43)
[2018-07-26] MEDS: HEPARIN NA (PORCINE) 5,000 UNITS/ML 1ML VIAL SQ SCH (22:44)
[2018-07-26] MEDS: CARVEDILOL 6.25 MG TABLET (FP) PO SCH (22:45)
[2018-07-26] MEDS: INSULIN SLIDING SCALE (NOVOLOG) 1 VIAL SQ SCH (23:01)
[2018-07-27] MEDS: levETIRAcetam 500 MG/5 ML INJECTION VIAL IVPB SCH ×3 (00:57→22:19)
[2018-07-27 05:54] LABS: BASO % 0.7 % (0-2.0); HEMATOCRIT 34.1 % (32.4-45.2); HEMOGLOBIN 10.8 GM/dL (10.7-15.3); LYMPH % 22.2 % (8-40); MCH 28.4 pg (25.7-33.7); MCHC 31.8 g/dl (32.0-36.0); MEAN CELL VOLUME 89.3 fl (80-96); MEAN PLT VOLUME 8.1 fl (7.5-11.1); MONO % 8.5 % (3.8-10.2); NEUT % 67.6 % (42.8-82.8); PLATELET COUNT 292 K/MM3 (134-434); RBC 3.82 M/mm3 (3.60-5.2); RDW 18.1 % (11.6-15.6); WHITE BLOOD COUNT 7.5 K/mm3 (4.0-10.0)
[2018-07-27 06:24] LABS: ALK PHOS 58 U/L (45-117); ANION GAP 12 MMOL/L (8-16); BILIRUBIN,TOTAL 0.3 mg/dL (0.2-1); BLOOD UREA NITROGEN 35 mg/dL (7-18); CALCIUM 8.4 mg/dL (8.5-10.1); CHLORIDE 107 mmol/L (98-107); CHOLESTEROL 105 mg/dL (50-200); CO2 22 mmol/L (21-32); CREATININE 5.5 mg/dL (0.55-1.3); GLUCOSE,RANDOM 104 mg/dL (74-106); HDL CHOLESTEROL 46 mg/dL (40-60); MAGNESIUM 1.7 mg/dL (1.8-2.4); POTASSIUM 3.9 mmol/L (3.5-5.1); SGOT/AST 7 U/L (15-37); SGPT/ALT 12 U/L (13-61); SODIUM 140 mmol/L (136-145); TOT PROT 6.7 g/dl (6.4-8.2); TRIGLYCERIDES 159 mg/dL (0-150)
[2018-07-27] MEDS: HEPARIN NA (PORCINE) 5,000 UNITS/ML 1ML VIAL SQ SCH ×3 (06:29→22:19)
[2018-07-27] MEDS: LEVOTHYROXINE NA 50 MCG TABLET (FP) PO SCH (06:29)
[2018-07-27] MEDS: INSULIN SLIDING SCALE (NOVOLOG) 1 VIAL SQ SCH ×4 (06:38→22:19)
[2018-07-27] MEDS ORDERED: PT OWN MED DRAWER 7, Y5N ONE (09:02)
[2018-07-27] MEDS: ASPIRIN 81 MG CHEWABLE TABLETS PO SCH (09:15)
[2018-07-27] MEDS: PANTOPRAZOLE 40 MG TABLET (FP) PO SCH ×2 (09:15→22:18)
[2018-07-27] MEDS: CARVEDILOL 6.25 MG TABLET (FP) PO SCH ×2 (09:16→22:18)
--- NOTE | 2018-07-27 09:38 | CONSULT ---
Consult Consult Specialty:: Cardiology Referred by:: Medicine Reason for Consultation:: Aphasia?CVA - History of Present Illness Chief Complaint: Aphasia History of Present Illness: 83F with a PMH of DM ESRD M/W/F since February 2018, Chronic anemia, hypertension, hepatitis C (+) tobacco with COPD quit smoking last year Known cerebrovascular disease with previous stroke (affecting R side). Recently admitted 1 month ago for similar symptoms, admitted for TIA. Found on MRI/MRA to have lacunar infarcts. Now presents to the ER with complaints of sudden onset aphasia and b/l arm and leg weakness/leg. Pt lives w/ daughter and daughter noticed patient was not talking and had limb weakness/could not stand or lift arms. pt Uses walker and wheelchair at baseline. The daughter reports when she tried to sit her up, the patient just fell to one side. Patient has had multiple admission for atixia and falls. Last seen by Dr Escalona as inpatient in 2016 for ataxia. Patient at baseline is verbal, In the ER, the patient was reportedly verbal. Pt was told she still needs EEG from last months incident and follows with Dr Morrison as her neurologist. In the ER, the patient is verbal and her NIHSS was 2. Her last hemodialysis was yesterday for 3.45 hours ER course was notable for: (1)CT head: Moderate chronic small vessels ischemic changes otherwise normal Ct head. Patient has exact same symptoms as last admission. 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: 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), Peripheral Neuropathy Cardio/Vascular: Yes: HTN, Hyperlipdemia Gastrointestinal: Yes: Constipation, Other (cecal polyp removed 2005) Hepatobiliary: Yes: Hepatitis C Renal/: Yes: Renal Failure Endocrine: Yes: Diabetes Mellitus, Hypothyroidism - Past Surgical History Past Surgical History: Yes: Cholecystectomy (complicated open cholecystectomy requiring transfusions), Colonoscopy, , Tonsillectomy, Vein Stripping/ Ligation (Thyroidectomy,) - Alcohol/Substance Use Hx Alcohol Use: No History of Substance Use: reports: None - Smoking History Smoking history: Former smoker Have you smoked in the past 12 months: No Aproximately how many cigarettes per day: 20 If you are a former smoker, when did you quit?: 2018 - Social History Usual Living Arrangement: With Child ADL: Family Assistance 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 History of Recent Travel: No Home Medications - Allergies Allergies/Adverse Reactions: Allergies Allergy/AdvReac Type Severity Reaction Status Date / Time No Known Allergies Allergy Verified 07/26/18 14:48 - Home Medications Home Medications: Ambulatory Orders Nifedipine ER [Procardia XL -] 60 mg PO DAILY #30 tab.er.24 07/08/17 Rosuvastatin [Crestor -] 5 mg PO HS #30 tablet 01/04/18 Acetaminophen [Tylenol .Regular Strength -] 650 mg PO Q4H PRN tablet 03/28/18 Pantoprazole Sodium [Protonix -] 40 mg PO BID #60 tablet.ec 03/28/18 Levothyroxine [Synthroid -] 25 mcg PO DAILY@0700 06/30/18 Sevelamer Carbonate [Renvela -] 800 mg NR DAILY 06/30/18 Aspirin 81 mg PO BID 07/01/18 Carvedilol [Coreg -] 6.25 mg PO BID #30 tablet MDD 2 07/04/18 Levothyroxine [Synthroid -] 50 mcg PO DAILY@0600 #30 tablet MDD 1 07/04/18 Nifedipine ER [Procardia XL -] 60 mg PO DAILY #30 tab.er.24 MDD 2 07/04/18 Family Disease History - Family Disease History Family Disease History: Other: Father (lived to 90), Mother (lived to 96 ) Review of Systems - Review of Systems Constitutional: reports: No Symptoms Eyes: reports: No Symptoms HENT: reports: No Symptoms Neck: reports: No Symptoms Cardiovascular: reports: No Symptoms Respiratory: reports: No Symptoms Gastrointestinal: reports: No Symptoms Genitourinary: reports: No Symptoms Physical Exam Vital Signs: Vital Signs Temperature 98 F 07/27/18 08:28 Pulse Rate 72 07/27/18 08:28 Respiratory Rate 16 07/27/18 08:28 Blood Pressure 120/68 07/27/18 08:28 O2 Sat by Pulse Oximetry (%) 95 07/27/18 08:33 Constitutional: Yes: No Distress Eyes: Yes: WNL HENT: Yes: WNL Neck: Yes: WNL Cardiovascular: Yes: Regular Rate and Rhythm (No murmur) Respiratory: Yes: Rales Gastrointestinal: Yes: Normal Bowel Sounds Musculoskeletal: Yes: WNL Extremities: Yes: WNL Edema: No Labs: CBC, BMP 07/27/18 05:15 07/27/18 05:15 Imaging - Results EKG: Image Reviewed (ECG done on 07/26/2018 at 15:01 showed NSR at 66/min with septal infarct (age indeterminate)) Other: Report Reviewed (Echo 06/2017 PReserve LV size an dfunction, MAC with midl MR. Diastolic disfunction.) Assessment/Plan 83 yo female with ESRD, HTN, DMT2, anemia, prior CVA (lacunar) Admitted with new onset aphasia ?seizure 1) Aphasia/?Seizure -Undergoing neuro evalulation awaiting EEG -Neck MRA in 04/2016 no carotid stenosis, Brain MRI 06/2018 with microvascular ischemic disease, multiple lacunar infarcts. -Will monitor on Tele for e/o AF, none so far -Continue Asa/Crestor -Last echo in 06/2017 with preserved LV, no significant valvular disease 2) HTN -Well controlled on Nifedipine and Carvedilol 3) DM -Management as per primary team
[2018-07-27] MEDS ORDERED: NIFEdipine E.R 60 MG TABLET (UD) PO SCH (10:00)
--- NOTE | 2018-07-27 10:51 | PN ---
Progress Note, Physician Chief Complaint: 83F with a PMH of DM ESRD M/W/F since February 2018, chronic anemia, hypothyroidism, hypertension, hepatitis C, previous stroke (affecting R side) who presents to the ER with complaints of sudden onset aphasia and b/l arm and leg weakness/leg became shaky around 11am today. pt lives w/ daughter and daughter noticed pt was not talking and had limb weakness/could not stand or lift arms. pt Uses walker and wheelchair at baseline. daughter tried to walk mom but she could not. The daughter reports when she tried to sit her up, the patient just fell to one side. mom started to regain strength in hands but daughter decided to bring her to ED bec She was present exactly one month ago for the exact same symptoms, admitted for TIA. Found on MRI/MRA to have lacunar infarcts. - Current Medication List Current Medications: Active Medications Acetaminophen (Tylenol -) 650 mg PO Q4H PRN PRN Reason: PAIN LEVEL 1-5 Aspirin (Asa -) 162 mg PO DAILY [facility] Last Admin: 07/27/18 09:15 Dose: 162 mg Aspirin (Asa -) 162 mg PO ONCE ONE Stop: 07/27/18 22:01 Carvedilol (Coreg -) 6.25 mg PO BID [facility] Last Admin: 07/27/18 09:16 Dose: 6.25 mg Heparin Sodium (Porcine) (Heparin -) 5,000 unit SQ TID [facility] Last Admin: 07/27/18 06:29 Dose: 5,000 unit Insulin Aspart (Novolog Vial Sliding Scale -) 1 vial SQ ACHS [facility]; Protocol Last Admin: 07/27/18 06:38 Dose: Not Given Levetiracetam (Keppra Injection -) 250 mg IVPB BID [facility] Last Admin: 07/27/18 09:13 Dose: 250 mg Levothyroxine Sodium (Synthroid -) 50 mcg PO DAILY@0600 [facility] Last Admin: 07/27/18 06:29 Dose: 50 mcg Nifedipine (Procardia Xl -) 60 mg PO DAILY [facility] Last Admin: 07/27/18 09:16 Dose: 60 mg Pantoprazole Sodium (Protonix -) 40 mg PO BID [facility] Last Admin: 07/27/18 09:15 Dose: 40 mg Rosuvastatin Calcium (Crestor -) 5 mg PO HS [facility] Last Admin: 07/26/18 22:43 Dose: 5 mg - Objective Vital Signs: Vital Signs Temperature 98 F 07/27/18 08:28 Pulse Rate 72 07/27/18 08:28 Respiratory Rate 16 07/27/18 08:28 Blood Pressure 120/68 07/27/18 08:28 O2 Sat by Pulse Oximetry (%) 95 07/27/18 08:33 Constitutional: Yes: No Distress Eyes: Yes: WNL HENT: Yes: WNL Neck: Yes: WNL Cardiovascular: Yes: Regular Rate and Rhythm Respiratory: Yes: Regular Gastrointestinal: Yes: WNL Genitourinary: Yes: Incontinence Musculoskeletal: Yes: Muscle Weakness Extremities: Yes: Other Edema: No Peripheral Pulses WNL: Yes Integumentary: Yes: WNL Wound/Incision: Yes: Clean/Dry Neurological: Yes: Weakness ...Motor Strength: LLE, RLE Psychiatric: Yes: Other Labs: CBC, BMP 07/27/18 05:15 07/27/18 05:15 INR, PTT INR 1.14 (0.83-1.09) H 07/26/18 16:10 Problem List - Problems (1) TIA (transient ischemic attack) Code(s): G45.9 - TRANSIENT CEREBRAL ISCHEMIC ATTACK, UNSPECIFIED (2) TRAVIS (acute kidney injury) Code(s): N17.9 - ACUTE KIDNEY FAILURE, UNSPECIFIED (3) Accelerated essential hypertension Code(s): I10 - ESSENTIAL (PRIMARY) HYPERTENSION (4) Acute on chronic kidney failure Code(s): N17.9 - ACUTE KIDNEY FAILURE, UNSPECIFIED; N18.9 - CHRONIC KIDNEY DISEASE, UNSPECIFIED (5) Anemia Code(s): D64.9 - ANEMIA, UNSPECIFIED (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
--- NOTE | 2018-07-27 12:34 | CONSULT ---
Consult Consult Specialty:: Nephrology ( Favio/ Gavino) Reason for Consultation:: Patient has ESRD, on HD - History of Present Illness Chief Complaint: The patient is a 83 year old female admitted with difficulty to ambulate and talk. History of Present Illness: Ms. Pinto is an 83 y/o female well known to us, with history of DM, ESRD (on Dialysis), HTN, Hep C. hx of stroke who presented to the emergency room accompanied with daughter with altered mentation, weakness and difficulty to talk. Being evaluated for CVA/ TIA. The patient has ESRD, on HD at [facility] Dialysis unit.Her last HD was on last Saturday. 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: 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), Peripheral Neuropathy Cardio/Vascular: Yes: HTN, Hyperlipdemia Gastrointestinal: Yes: Constipation, Other (cecal polyp removed 2005) Hepatobiliary: Yes: Hepatitis C Renal/: Yes: Renal Failure, Hemodialysis Endocrine: Yes: Diabetes Mellitus, Hypothyroidism - Past Surgical History Past Surgical History: Yes: Cholecystectomy (complicated open cholecystectomy requiring transfusions), Colonoscopy, , Tonsillectomy, Vein Stripping/ Ligation (Thyroidectomy,) - Alcohol/Substance Use Hx Alcohol Use: No History of Substance Use: reports: None - Smoking History Smoking history: Former smoker Have you smoked in the past 12 months: No Aproximately how many cigarettes per day: 20 If you are a former smoker, when did you quit?: 2018 - Social History Usual Living Arrangement: With Child ADL: Family Assistance 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 History of Recent Travel: No Home Medications - Allergies Allergies/Adverse Reactions: Allergies Allergy/AdvReac Type Severity Reaction Status Date / Time No Known Allergies Allergy Verified 07/26/18 14:48 - Home Medications Home Medications: Ambulatory Orders Nifedipine ER [Procardia XL -] 60 mg PO DAILY #30 tab.er.24 07/08/17 Rosuvastatin [Crestor -] 5 mg PO HS #30 tablet 01/04/18 Acetaminophen [Tylenol .Regular Strength -] 650 mg PO Q4H PRN tablet 03/28/18 Pantoprazole Sodium [Protonix -] 40 mg PO BID #60 tablet.ec 03/28/18 Levothyroxine [Synthroid -] 25 mcg PO DAILY@0700 06/30/18 Sevelamer Carbonate [Renvela -] 800 mg NR DAILY 06/30/18 Aspirin 81 mg PO BID 07/01/18 Carvedilol [Coreg -] 6.25 mg PO BID #30 tablet MDD 2 07/04/18 Levothyroxine [Synthroid -] 50 mcg PO DAILY@0600 #30 tablet MDD 1 07/04/18 Nifedipine ER [Procardia XL -] 60 mg PO DAILY #30 tab.er.24 MDD 2 07/04/18 Family Disease History - Family Disease History Family Disease History: Other: Father (lived to 90), Mother (lived to 96 ) Review of Systems - Review of Systems Constitutional: reports: Weakness Eyes: reports: No Symptoms Neck: reports: No Symptoms Cardiovascular: denies: Chest Pain, Palpitations, Shortness of Breath Respiratory: reports: No Symptoms Gastrointestinal: denies: Abdominal Pain Genitourinary: reports: No Symptoms Musculoskeletal: reports: No Symptoms Neurological: reports: Change in LOC, Confusion, Unsteady Gait, Weakness Physical Exam Vital Signs: Vital Signs Temperature 98 F 07/27/18 08:28 Pulse Rate 72 07/27/18 08:28 Respiratory Rate 16 07/27/18 08:28 Blood Pressure 120/68 07/27/18 08:28 O2 Sat by Pulse Oximetry (%) 95 07/27/18 08:33 Constitutional: Yes: Anxious Eyes: Yes: Conjunctiva Clear HENT: Yes: Normocephalic Cardiovascular: Yes: Regular Rate and Rhythm, S1, S2 Respiratory: Yes: CTA Bilaterally Gastrointestinal: Yes: Normal Bowel Sounds, Soft Renal/: No: CVA Tenderness - Left, CVA Tenderness - Right, Hematuria Musculoskeletal: No: Joint Stiffness Edema: No Neurological: Yes: Unsteady Gait, Weakness Labs: CBC, BMP 07/27/18 05:15 07/27/18 05:15 Assessment/Plan Ms. Pinto is an 83 y/o female well known to us, with history of DM, ESRD (on Dialysis), HTN, Hep C. hx of stroke who presented to the emergency room accompanied with daughter with altered mentation, weakness and difficulty to talk. Being evaluated for CVA/ TIA. The patient has ESRD, on HD at [facility] Dialysis [facility].Her last HD was on Saturday. CVA/TIA...Neurlogy w/u in progress. No overt deficit noted now. Hemodialysis in AM. Orders as ordered. Will monitor the patient with you. Thank you. Sharon Stahl MD
[2018-07-27] MEDS ORDERED: ASPIRIN 81 MG CHEWABLE TABLETS PO ONE (22:00)
[2018-07-27] MEDS: ROSUVASTATIN CA 5 MG TABLET (FP) PO SCH (22:19)
[2018-07-28] MEDS: HEPARIN NA (PORCINE) 5,000 UNITS/ML 1ML VIAL SQ SCH ×3 (05:37→22:14)
[2018-07-28] MEDS: INSULIN SLIDING SCALE (NOVOLOG) 1 VIAL SQ SCH ×4 (06:05→22:14)
[2018-07-28] MEDS: LEVOTHYROXINE NA 50 MCG TABLET (FP) PO SCH (06:05)
--- NOTE | 2018-07-28 08:33 | PN ---
Progress Note (short form) - Note Progress Note: 83F with a PMH of diabetes, end-stage renal disease on dialysis M/W/F since February 2018, chronic anemia, hypothyroidism, hypertension, hepatitis C, previous stroke (affecting R side) who presents to the ER with complaints of sudden onset aphasia and weakness around 11am today. She was present exactly one month ago for the exact same symptoms, admitted for TIA. Found on MRI/MRA to have lacunar infarcts. 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), Peripheral Neuropathy Cardio/Vascular: Yes: HTN, Hyperlipdemia Gastrointestinal: Yes: Constipation, Other (cecal polyp removed 2005) Hepatobiliary: Yes: Hepatitis C Renal/: Yes: Renal Failure Endocrine: Yes: Diabetes Mellitus, Hypothyroidism - Past Surgical History Past Surgical History: Yes: Cholecystectomy (complicated open cholecystectomy requiring transfusions), Colonoscopy, , Tonsillectomy, Vein Stripping/ Ligation (Thyroidectomy,) - Alcohol/Substance Use Hx Alcohol Use: No History of Substance Use: reports: None - Smoking History Smoking history: Former smoker Have you smoked in the past 12 months: No Aproximately how many cigarettes per day: 20 If you are a former smoker, when did you quit?: 2018 - Social History Usual Living Arrangement: With Child ADL: Family Assistance 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 History of Recent Travel: No Home Medications - Allergies Allergies/Adverse Reactions: Allergies Allergy/AdvReac Type Severity Reaction Status Date / Time No Known Allergies Allergy Verified 07/26/18 14:48 - Home Medications Home Medications: Ambulatory Orders Nifedipine ER [Procardia XL -] 60 mg PO DAILY #30 tab.er.24 07/08/17 Rosuvastatin [Crestor -] 5 mg PO HS #30 tablet 01/04/18 Acetaminophen [Tylenol .Regular Strength -] 650 mg PO Q4H PRN tablet 03/28/18 Pantoprazole Sodium [Protonix -] 40 mg PO BID #60 tablet.ec 03/28/18 Levothyroxine [Synthroid -] 25 mcg PO DAILY@0700 06/30/18 Sevelamer Carbonate [Renvela -] 800 mg NR DAILY 06/30/18 Aspirin 81 mg PO BID 07/01/18 Carvedilol [Coreg -] 6.25 mg PO BID #30 tablet MDD 2 07/04/18 Levothyroxine [Synthroid -] 50 mcg PO DAILY@0600 #30 tablet MDD 1 07/04/18 Nifedipine ER [Procardia XL -] 60 mg PO DAILY #30 tab.er.24 MDD 2 07/04/18 Family Disease History - Family Disease History Family Disease History: Other: Father (lived to 90), Mother (lived to 96 ) Physical Exam-Neuro Vital Signs: Vital Signs Temperature 97.8 F 07/28/18 08:26 Pulse Rate 70 07/28/18 08:26 Respiratory Rate 20 07/28/18 08:26 Blood Pressure 144/73 07/28/18 08:26 O2 Sat by Pulse Oximetry (%) 95 07/28/18 05:00 Constitutional: Yes: Well Nourished, No Distress Neck: Yes: WNL, Supple Cardiovascular: Yes: Regular Rate and Rhythm Respiratory: Yes: CTA Bilaterally Musculoskeletal: Yes: WNL Edema: No Psychiatric: Yes: WNL, Alert, Oriented Labs: CBC, BMP 07/26/18 16:00 07/26/18 16:00 INR, PTT INR 1.14 (0.83-1.09) H 07/26/18 16:10 - Neuro Exam Level Of Consciousness: Yes: Oriented to Person Eyes: Yes: PERRLA Speech: WNL Cranial Nerves II-XII Intact: Yes Gag: Present Babinski: Absent Response to light touch: Normal Response to pain prick: Normal Coordination: Normal: Finger to Nose Motor Strength: 5/5: Left Arm, Right Arm, Left Leg, Right Leg Gait: Deferred Problem List - Problems (1) TIA (transient ischemic attack) Code(s): G45.9 - TRANSIENT CEREBRAL ISCHEMIC ATTACK, UNSPECIFIED (2) TRAVIS (acute kidney injury) Code(s): N17.9 - ACUTE KIDNEY FAILURE, UNSPECIFIED (3) Acute on chronic kidney failure Code(s): N17.9 - ACUTE KIDNEY FAILURE, UNSPECIFIED; N18.9 - CHRONIC KIDNEY DISEASE, UNSPECIFIED (4) CVA (cerebral vascular accident) Code(s): I63.9 - CEREBRAL INFARCTION, UNSPECIFIED Qualifiers: CVA mechanism: unspecified Qualified Code(s): I63.9 - Cerebral infarction, unspecified Assessment/Plan 83 y/o F w PMH of diabetes, end-stage renal disease on dialysis M/W/F since February 2018, chronic anemia, hypothyroidism, hypertension, hepatitis C, previous stroke (affecting R side) who presents w transient aphasia and weakness ; she has had similar episode last month. Exam non focal ; given hx of stroke raise the possibility of focal seizure . keppra 250 mg bid can maintain EEG routine and 3 days video as OP c/w asp statin MRI brain last month (-) can FU as outpt DR BENNETT
[2018-07-28] MEDS: NIFEdipine E.R 60 MG TABLET (UD) PO SCH (09:11)
[2018-07-28] MEDS: levETIRAcetam 500 MG/5 ML INJECTION VIAL IVPB SCH ×2 (09:11→22:14)
[2018-07-28] MEDS: CARVEDILOL 6.25 MG TABLET (FP) PO SCH ×2 (09:11→22:14)
[2018-07-28] MEDS: ASPIRIN 81 MG CHEWABLE TABLETS PO SCH (09:11)
[2018-07-28] MEDS: PANTOPRAZOLE 40 MG TABLET (FP) PO SCH ×2 (09:11→22:14)
--- NOTE | 2018-07-28 10:16 | CONSULT ---
Admitting History and Physical - Primary Care Physician PCP: Eros Clay - Admission History of Present Illness: 83 y/o F w PMH of diabetes, end-stage renal disease on dialysis M/W/F since February 2018, chronic anemia, hypothyroidism, hypertension, hepatitis C, previous stroke (affecting R side) who presents w transient aphasia and weakness Seen last by me in 2016-complaint of weakness and dizziness-MRI noted-Left middle cerebellar infarct. Tolerated diet well. Speech is precise. Pt admitted 06/30/18 with reportedly similar symptoms of sudden onset aphasia and weakness.Chronic vs. Acute ischemic + hemorrhagic CVA/Cerebral dysfunction Selected Entries 07/27/18 07/28/18 07/28/18 22:57 02:00 06:00 Supper 50% Temperature 97.8 F 98.0 F 07/28/18 08:26 Supper Temperature 97.8 F Laboratory Tests 07/27/18 05:15 WBC 7.5 Reported to be tolerating reg diet/thin liquids. 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), Peripheral Neuropathy Cardiovascular: Yes: HTN, Hyperlipdemia Gastrointestinal: Yes: Constipation, Other (cecal polyp removed 2005) Hepatobiliary: Yes: Hepatitis C Renal/: Yes: Renal Failure, Hemodialysis Heme/Onc: Yes: Anemia Endocrine: Yes: Diabetes Mellitus, Hypothyroidism - Past Surgical History Past Surgical History: Yes: Cholecystectomy (complicated open cholecystectomy requiring transfusions), Colonoscopy, , Tonsillectomy, Vein Stripping/ Ligation (Thyroidectomy,) - Smoking History Smoking history: Former smoker Have you smoked in the past 12 months: No Aproximately how many cigarettes per day: 20 If you are a former smoker, when did you quit?: 2018 - Alcohol/Substance Use Hx Alcohol Use: No History of Substance Use: reports: None - Social History ADL: Family Assistance 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 History of Recent Travel: No History - Admission Reason For Visit: TRANSIENT ISCHEMIC ATTACK - Diagnostics X-ray: Report Reviewed CT Scan: Report Reviewed - General Mental Status: Awake and Alert (knows she is in the hospital, but not why, "85", "1900'S"), Able to Follow Commands, Forgetful (suspected), Vague Attention: Distractible, Mild Impairment Ability to Follow Directions: Fair Head/Neck Control: Good - Hearing Hearing: Impaired Hearing Aide: No With Patient: No Speech Evaluation - Communication Primary Language: INDONESIAN Communication: Yes: Simple Responses - Speech Production Intelligibility: Yes: WNL - Speech Characteristics Voice Loudness: Normal Voice Pitch: Yes: Normal Voice Phonatory-based Quality: Yes: Normal Speech Pattern: Normal Speech Clarity: < 100% Nasal Resonance: Normal Articulation: Yes: Precise Rate of Speech: Intact - Language/Auditory Comprehension Follows: Yes: 1 Stage Simple Commands - Language/Verbal Expression Able to Respond to Simple Queries: Yes: WNL Able to Communicate Wants and Needs: Yes: WNL - Swallow Evaluation/Bedside Assessment Current Nutritional Intake: Regular, Thin Liquids Oral Secretions: Yes: WFL Dentition: Yes: Adequate Facial Symmetry at Rest: Symmetrical Facial Symmetry on Retraction: Symmetrical Against Resistance Opening: Normal Against Resistance Closing: Normal Pucker Lips: Normal Smile: Normal Lingual Movement: Normal Lingual Speed of Movement: Normal Lingual Movement Strgth Against Opposition: Normal Lingual Movement Characteristics: Normal Velopharyngeal Movement: Normal Laryngeal Elevation: WFL Laryngeal Movement: Able to Palpate Rate of Intake: WFL Bolus Size: WFL Labial Seal: WFL Chewing: WFL Oral Prep Time: WFL A-P Transit: WFL Timing of Swallow: Delayed (needs reminders to swallow) Coughing/Throat Clear: No Change in Voice: No Recommendations - Speech Evaluation, Impression/Plan Impression: Vague. Not oriented to time.Distractible, needs reminders to swallow. Tolerating diet. Speech precise. - Dysphagia Impressions/Plan Swallowing Skills: [facility] Dysphagia Impressions: No Impairment, Mild Impairment *Silent aspiration: cannot be R/O at bedside Dysphagia Treatment Plan: Small Bites, Chin Tuck/Down, Clear Pocket Food, 1/2 tsp. at a time, Elevate HOB during feed, OOB for meals, OOB for 1 h. after meals , Other (Assist with meals.) - Recommendations Diet Consistency: Regular Liquids: Thin Liquids
--- NOTE | 2018-07-28 11:27 | PN ---
Progress Note, Physician Chief Complaint: aphasia, weakness History of Present Illness: currently undergoing HD speaking (in emirati), denies cp, sob, palpitations, dizziness - Current Medication List Current Medications: Active Medications Acetaminophen (Tylenol -) 650 mg PO Q4H PRN PRN Reason: PAIN LEVEL 1-5 Aspirin (Asa -) 162 mg PO DAILY [facility] Last Admin: 07/28/18 09:11 Dose: 162 mg Carvedilol (Coreg -) 6.25 mg PO BID [facility] Last Admin: 07/28/18 09:11 Dose: 6.25 mg Epoetin Josh (Procrit -) 10,000 unit SQ ONCE ONE Stop: 07/28/18 11:07 Heparin Sodium (Porcine) (Heparin -) 5,000 unit SQ TID [facility] Last Admin: 07/28/18 05:37 Dose: 5,000 unit Insulin Aspart (Novolog Vial Sliding Scale -) [address] [facility]; Protocol Last Admin: 07/28/18 06:05 Dose: Not Given Levetiracetam (Keppra Injection -) 250 mg IVPB BID [facility] Last Admin: 07/28/18 09:11 Dose: 250 mg Levothyroxine Sodium (Synthroid -) 50 mcg PO DAILY@0600 [facility] Last Admin: 07/28/18 06:05 Dose: 50 mcg Nifedipine (Procardia Xl -) 30 mg PO DAILY [facility] Last Admin: 07/28/18 09:11 Dose: 30 mg Pantoprazole Sodium (Protonix -) 40 mg PO BID [facility] Last Admin: 07/28/18 09:11 Dose: 40 mg Rosuvastatin Calcium (Crestor -) 5 mg PO HS [facility] Last Admin: 07/27/18 22:19 Dose: 5 mg - Objective Vital Signs: Vital Signs Temperature 97.8 F 07/28/18 08:26 Pulse Rate 70 07/28/18 08:26 Respiratory Rate 20 07/28/18 08:26 Blood Pressure 144/73 07/28/18 08:26 O2 Sat by Pulse Oximetry (%) 95 07/28/18 05:00 Constitutional: Yes: Well Nourished, No Distress, Moderate Distress Cardiovascular: Yes: Regular Rate and Rhythm, S1, S2. No: Gallop, Murmur Respiratory: Yes: Regular, CTA Bilaterally (anteriorly). No: Accessory Muscle Use Extremities: No: Cold Edema: No Neurological: Yes: Alert. No: Seizure Psychiatric: No: Agitated Labs: CBC, BMP 07/27/18 05:15 07/27/18 05:15 INR, PTT INR 1.14 (0.83-1.09) H 07/26/18 16:10 Assessment/Plan Known cerebrovascular disease with previous stroke (affecting R side). Recently admitted 1 month ago for similar symptoms, admitted for TIA. Found on MRI/MRA to have lacunar infarcts. Now presents to the ER with complaints of sudden onset aphasia and b/l arm and leg weakness/leg. Pt lives w/ daughter and daughter noticed patient was not talking and had limb weakness/could not stand or lift arms. pt Uses walker and wheelchair at baseline. The daughter reports when she tried to sit her up, the patient just fell to one side. ECG done on 07/26/2018 at 15:01 showed NSR at 66/min with septal infarct (age indeterminate)) Echo 06/2017: preserved LV size and function, mild MR. Diastolic disfunction. Assessment/Plan 83 yo female with ESRD, HTN, DMT2, anemia, prior CVA (lacunar) Admitted with new onset aphasia ?seizure Aphasia/generalized weakness/? Seizure -appreciate neuro eval rec.s--for EEG. started keppra -Neck MRA in 04/2016 no carotid stenosis, Brain MRI 06/2018 with microvascular ischemic disease, multiple lacunar infarcts. -bp control as disc'd below (difficult given bp lability) -Continue Asa, home Crestor -Last echo in 06/2017 with preserved LV, no significant valvular disease HTN -very labile bp's at home with symptomatic lows at times (caron at HD), with recent episode of possibly syncope prior to HD (vs cerebrovasc event) -bp's better at home since meds adjusted on HD days, and dtr using prn nifedipine with good result (target systolic <170-180) -cont home Nifedipine and Carvedilol (6.25 bid dose--recently adjusted) DM -Management as per primary team
--- NOTE | 2018-07-28 11:45 | PN ---
Progress Note (short form) - Note Progress Note: Renal follow up for ESRD on HD Pt seen and examined at the bedside awake and alert moving arms and legs, not taking but follows all commands denies any pain, sob, N/V Vital Signs Temperature 97.8 F 07/28/18 08:26 Pulse Rate 70 07/28/18 08:26 Respiratory Rate 20 07/28/18 08:26 Blood Pressure 144/73 07/28/18 08:26 O2 Sat by Pulse Oximetry (%) 95 07/28/18 05:00 Intake & Output 07/25/18 07/26/18 07/27/18 07/28/18 23:59 23:59 23:59 23:59 Intake Total 60 260 Balance 60 260 Weight 52.617 kg NAD awake and alert No LE edema CBC, BMP 07/27/18 05:15 07/27/18 05:15 Current Medications Acetaminophen (Tylenol -) 650 mg PO Q4H PRN PRN Reason: PAIN LEVEL 1-5 Aspirin (Asa -) 162 mg PO DAILY [facility] Last Admin: 07/28/18 09:11 Dose: 162 mg Carvedilol (Coreg -) 6.25 mg PO BID [facility] Last Admin: 07/28/18 09:11 Dose: 6.25 mg Epoetin Josh (Procrit -) 10,000 unit SQ ONCE ONE Stop: 07/28/18 11:07 Heparin Sodium (Porcine) (Heparin -) 5,000 unit SQ TID [facility] Last Admin: 07/28/18 05:37 Dose: 5,000 unit Insulin Aspart (Novolog Vial Sliding Scale -) 1 vial SQ [facility]; Protocol Last Admin: 07/28/18 06:05 Dose: Not Given Levetiracetam (Keppra Injection -) 250 mg IVPB BID [facility] Last Admin: 07/28/18 09:11 Dose: 250 mg Levothyroxine Sodium (Synthroid -) 50 mcg PO DAILY@0600 [facility] Last Admin: 07/28/18 06:05 Dose: 50 mcg Nifedipine (Procardia Xl -) 30 mg PO DAILY [facility] Last Admin: 07/28/18 09:11 Dose: 30 mg Pantoprazole Sodium (Protonix -) 40 mg PO BID [facility] Last Admin: 07/28/18 09:11 Dose: 40 mg Rosuvastatin Calcium (Crestor -) 5 mg PO HS [facility] Last Admin: 07/27/18 22:19 Dose: 5 mg 83 y/o female well known to us, with history of DM, ESRD (on Dialysis), HTN, Hep C. hx of stroke who presented to the emergency room accompanied with daughter with altered mentation, weakness and difficulty to talk. Being evaluated for CVA/ TIA. #ESRD on HD #Aphasia/AMS r/o CVA vs seizure #Hypertension #CKD related Anemia #Hyperlipidemia #Hypothyroidism For dialysis today as inpatient today CT on admission showed no acute infarcts but serval chronic infarcts Work up on-going as per Neurology Continue Nifedpine ER and Coreg for hypertension control will give ALBA with HD for anemia Continue synthroid continue crestor Thank you Levy Mancia DO
--- NOTE | 2018-07-28 11:54 | ECHO ---
Name: NANCY JAMESON Exam:Adult Echocardiogram Study Date: 07/28/2018 07:30 AM Age: 83 yrs Reason For Study: TIA,[facility] CVA Height: 64 in Weight: 116 lb BSA: 1.6 m2 Procedure A complete two-dimensional transthoracic echocardiogram was performed (2D, M-mode, Doppler and color flow Doppler). Left Ventricle The left ventricle is normal in size. There is mild concentric left ventricular hypertrophy. Left bhanu tricular systolic function is normal. Ejection Fraction = >70%. Grade I diastolic dysfunction, (abnormal relax ation pattern). Ratio E/E'= 13. No regional wall motion abnormalities noted. Right Ventricle The right ventricle is normal size. The right ventricular systolic function is normal. Atria The left atrial size is normal. Right atrial size is normal. Mitral Valve There is mild to moderate mitral annular calcification. There is no mitral regurgitation noted. Tricuspid Valve The tricuspid valve is normal in structure and function. No tricuspid regurgitation. Aortic Valve There is mild aortic sclerosis.;. No aortic regurgitation is present. Pulmonic Valve The pulmonic valve is not well visualized. Great Vessels The aortic root is normal size. Pericardium/Pleura There is no pericardial effusion. Interpretation Summary The left ventricle is normal in size. There is mild concentric left ventricular hypertrophy. Left ventricular systolic function is normal. No regional wall motion abnormalities noted. Ejection Fraction = >70%. Grade I diastolic dysfunction, (abnormal relaxation pattern). Ratio E/E'= 13 c/w normal filling pressure The right ventricular systolic function is normal. The left atrial size is normal. Right atrial size is normal. There is mild to moderate mitral annular calcification. There is mild aortic sclerosis. No significant valvular regurgitations are seen There is no pericardial effusion. Previous study is not available for comparison Keegan Alvarado MD 07/28/2018 11:54 AM
--- NOTE | 2018-07-28 12:14 | PN ---
Progress Note, Physician Chief Complaint: patient seen in room currently getting HD told me where she is located said she is in hospital able to move her arms and legs echo noted normal left ventricle systolic function , normal left ventricle size, grade 1 diastolic dysfunction - Current Medication List Current Medications: Active Medications Acetaminophen (Tylenol -) 650 mg PO Q4H PRN PRN Reason: PAIN LEVEL 1-5 Aspirin (Asa -) 162 mg PO DAILY [facility] Last Admin: 07/28/18 09:11 Dose: 162 mg Carvedilol (Coreg -) 6.25 mg PO BID [facility] Last Admin: 07/28/18 09:11 Dose: 6.25 mg Epoetin Josh (Procrit -) 10,000 unit SQ ONCE ONE Stop: 07/28/18 11:07 Heparin Sodium (Porcine) (Heparin -) 5,000 unit SQ TID [facility] Last Admin: 07/28/18 05:37 Dose: 5,000 unit Insulin Aspart (Novolog Vial Sliding Scale -) 1 vial SQ [facility]; Protocol Last Admin: 07/28/18 11:54 Dose: 4 unit Levetiracetam (Keppra Injection -) 250 mg IVPB BID [facility] Last Admin: 07/28/18 09:11 Dose: 250 mg Levothyroxine Sodium (Synthroid -) 50 mcg PO DAILY@0600 [facility] Last Admin: 07/28/18 06:05 Dose: 50 mcg Nifedipine (Procardia Xl -) 30 mg PO DAILY [facility] Last Admin: 07/28/18 09:11 Dose: 30 mg Pantoprazole Sodium (Protonix -) 40 mg PO BID [facility] Last Admin: 07/28/18 09:11 Dose: 40 mg Rosuvastatin Calcium (Crestor -) 5 mg PO HS [facility] Last Admin: 07/27/18 22:19 Dose: 5 mg - Objective Vital Signs: Vital Signs Temperature 97.8 F 07/28/18 08:26 Pulse Rate 70 07/28/18 08:26 Respiratory Rate 20 07/28/18 08:26 Blood Pressure 144/73 07/28/18 08:26 O2 Sat by Pulse Oximetry (%) 95 07/28/18 05:00 Constitutional: Yes: Calm Cardiovascular: Yes: Regular Rate and Rhythm, S1, S2 Respiratory: Yes: CTA Bilaterally Gastrointestinal: Yes: Normal Bowel Sounds, Soft Edema: No Neurological: Yes: Alert, Oriented (to place) Labs: CBC, BMP 03/03/19 05:15 07/27/18 05:15 INR, PTT INR 1.14 (0.83-1.09) H 07/26/18 16:10 Problem List - Problems (1) TIA (transient ischemic attack) Assessment/Plan: neurology on board PT sherlyn chan saw patient stated on keppra bid for possible seizre EEG as outpatient asprin statin Code(s): G45.9 - TRANSIENT CEREBRAL ISCHEMIC ATTACK, UNSPECIFIED (2) ESRD (end stage renal disease) Assessment/Plan: on HD Code(s): N18.6 - END STAGE RENAL DISEASE (3) Hypothyroid Assessment/Plan: synthroid tsh wnl Code(s): E03.9 - HYPOTHYROIDISM, UNSPECIFIED (4) Anemia Assessment/Plan: epogen with HD Code(s): D64.9 - ANEMIA, UNSPECIFIED (5) HTN (hypertension) Assessment/Plan: coreg and nifedipine for BP control Code(s): I10 - ESSENTIAL (PRIMARY) HYPERTENSION Qualifiers:
[2018-07-28] MEDS ORDERED: EPOETIN ALFA 10,000 UNIT/1 ML VIAL SQ ONE (13:00)
[2018-07-28 13:02] VITALS: BMI 19.9
[2018-07-28 13:46] LABS: HEMATOCRIT 31.8 % (32.4-45.2); HEMOGLOBIN 10.3 GM/dL (10.7-15.3); MCH 29.2 pg (25.7-33.7); MCHC 32.3 g/dl (32.0-36.0); MEAN CELL VOLUME 90.5 fl (80-96); MEAN PLT VOLUME 8.4 fl (7.5-11.1); PLATELET COUNT 302 K/MM3 (134-434); RBC 3.52 M/mm3 (3.60-5.2); RDW 18.9 % (11.6-15.6); WHITE BLOOD COUNT 6.8 K/mm3 (4.0-10.0)
[2018-07-28 14:00] LABS: ANION GAP 12 MMOL/L (8-16); BLOOD UREA NITROGEN 46 mg/dL (7-18); CALCIUM 7.8 mg/dL (8.5-10.1); CHLORIDE 104 mmol/L (98-107); CO2 22 mmol/L (21-32); CREATININE 6.5 mg/dL (0.55-1.3); GLUCOSE,RANDOM 190 mg/dL (74-106); POTASSIUM 3.9 mmol/L (3.5-5.1); SODIUM 137 mmol/L (136-145)
[2018-07-28 16:35] LABS: CREATININE 1.8 mg/dL (0.55-1.3)
--- NOTE | 2018-07-28 21:17 | HOSP ---
Subjective - Review of Symptoms Events since last encounter: Hospitalist Encounter Notified by the RN to call radiology manager simulation regarding the Brain MRI results for the patient. Subjective: Arrived to bedside, patient is asleep but arousable. Patient is Greenlandic speaking , RN translated at bedside. Patient has no complaints PE performed see EMR Received results of the Brain MRI from Dr. Becerra- Acute Infarct within the R- Thalamus Call placed to Dr. Carrera to regarding MRI results Dr. Carrera called back, discussed results no new orders, he will see pt tomorrow Assessment: This is a 83 y/o woman with a PMHx of ESRD M/W/F since February 2018, DM, gastritis w/ ulcers? chronic anemia, hypothyroidism, hypertension, hepatitis C, previous stroke (affecting R side). Who presented to the ER with complaints of sudden onset aphasia and b/l arm and leg weakness/leg became shaky around 11am on 07/26/18. Placed in Tele Observation for TIA. Plan: Continue with current regimen Continue cardiac monitoring Physical Examination Vital Signs: Vital Signs Temperature 98.8 F 07/28/18 18:00 Pulse Rate 73 07/28/18 18:00 Respiratory Rate 18 07/28/18 18:00 Blood Pressure 136/56 L 07/28/18 18:00 O2 Sat by Pulse Oximetry (%) 95 07/28/18 13:00 Constitutional: Yes: No Distress, Calm Eyes: Yes: WNL, Conjunctiva Clear, EOM Intact, PERRL HENT: Yes: WNL, Atraumatic, Normocephalic Neck: Yes: WNL, Supple, Trachea Midline Cardiovascular: Yes: WNL, Regular Rate and Rhythm, S1, S2 Respiratory: Yes: WNL, Regular, CTA Bilaterally Gastrointestinal: Yes: WNL, Normal Bowel Sounds, Soft Peripheral Pulses WNL: Yes Neurological: Yes: WNL, Alert, Oriented, Cran Nerves II-XII Intact ...Motor Strength: WNL Psychiatric: Yes: WNL, Alert, Oriented Labs: CBC, BMP 07/28/18 12:05 07/28/18 15:00
[2018-07-28] MEDS: ROSUVASTATIN CA 5 MG TABLET (FP) PO SCH (22:14)
[2018-07-29] MEDS: LEVOTHYROXINE NA 50 MCG TABLET (FP) PO SCH (05:19)
[2018-07-29] MEDS: HEPARIN NA (PORCINE) 5,000 UNITS/ML 1ML VIAL SQ SCH ×3 (05:19→22:22)
[2018-07-29] MEDS: INSULIN SLIDING SCALE (NOVOLOG) 1 VIAL SQ SCH ×4 (06:10→22:26)
--- NOTE | 2018-07-29 08:02 | PN ---
Progress Note, Physician - Current Medication List Current Medications: Active Medications Acetaminophen (Tylenol -) 650 mg PO Q4H PRN PRN Reason: PAIN LEVEL 1-5 Last Admin: 07/28/18 22:14 Dose: 650 mg Aspirin (Asa -) 162 mg PO DAILY [facility] Last Admin: 07/28/18 09:11 Dose: 162 mg Carvedilol (Coreg -) 6.25 mg PO BID [facility] Last Admin: 07/28/18 22:14 Dose: 6.25 mg Heparin Sodium (Porcine) (Heparin -) 5,000 unit SQ TID [facility] Last Admin: 07/29/18 05:19 Dose: 5,000 unit Insulin Aspart (Novolog Vial Sliding Scale -) 1 vial SQ [facility]; Protocol Last Admin: 07/29/18 06:10 Dose: Not Given Levetiracetam (Keppra Injection -) 250 mg IVPB BID [facility] Last Admin: 07/28/18 22:14 Dose: 250 mg Levothyroxine Sodium (Synthroid -) 50 mcg PO DAILY@0600 [facility] Last Admin: 07/29/18 05:19 Dose: 50 mcg Nifedipine (Procardia Xl -) 30 mg PO DAILY [facility] Last Admin: 07/28/18 09:11 Dose: 30 mg Pantoprazole Sodium (Protonix -) 40 mg PO BID [facility] Last Admin: 07/28/18 22:14 Dose: 40 mg Rosuvastatin Calcium (Crestor -) 5 mg PO HS [facility] Last Admin: 07/28/18 22:14 Dose: 5 mg - Objective Vital Signs: Vital Signs Temperature 97.4 F L 07/29/18 06:00 Pulse Rate 70 07/29/18 06:00 Respiratory Rate 20 07/29/18 06:00 Blood Pressure 157/72 07/29/18 06:00 O2 Sat by Pulse Oximetry (%) 95 07/29/18 04:53 Cardiovascular: Yes: S1, S2 Respiratory: Yes: Regular, CTA Bilaterally Gastrointestinal: Yes: Normal Bowel Sounds, Soft Neurological: Yes: Alert, Weakness Labs: CBC, BMP 07/28/18 12:05 07/28/18 15:00 INR, PTT INR 1.14 (0.83-1.09) H 07/26/18 16:10 Problem List - Problems (1) CVA (cerebral vascular accident) Assessment/Plan: neurology on board PT sherlyn chan saw patient stated on keppra bid for possible seizure EEG as outpatient asprin add plavix mri acute cva pt statin Code(s): I63.9 - CEREBRAL INFARCTION, UNSPECIFIED Qualifiers: CVA mechanism: unspecified Qualified Code(s): I63.9 - Cerebral infarction, unspecified (2) HTN (hypertension) Assessment/Plan: cardio on board coreg and nifedipine for BP control Code(s): I10 - ESSENTIAL (PRIMARY) HYPERTENSION Qualifiers: (3) ESRD (end stage renal disease) Assessment/Plan: on HD Code(s): N18.6 - END STAGE RENAL DISEASE
[2018-07-29] MEDS: levETIRAcetam 500 MG/5 ML INJECTION VIAL IVPB SCH (09:14)
[2018-07-29] MEDS: NIFEdipine E.R 60 MG TABLET (UD) PO SCH (09:14)
[2018-07-29] MEDS: PANTOPRAZOLE 40 MG TABLET (FP) PO SCH ×2 (09:14→22:22)
[2018-07-29] MEDS: ASPIRIN 81 MG CHEWABLE TABLETS PO SCH (09:14)
[2018-07-29] MEDS: CARVEDILOL 6.25 MG TABLET (FP) PO SCH ×2 (09:14→22:22)
--- NOTE | 2018-07-29 10:07 | PN ---
Progress Note (short form) - Note Progress Note: s: no chest pain, palps, dyspnea, edema Current Medications Acetaminophen (Tylenol -) 650 mg PO Q4H PRN PRN Reason: PAIN LEVEL 1-5 Last Admin: 07/28/18 22:14 Dose: 650 mg Aspirin (Asa -) 162 mg PO DAILY [facility] Last Admin: 07/29/18 09:14 Dose: 162 mg Carvedilol (Coreg -) 6.25 mg PO BID [facility] Last Admin: 07/29/18 09:14 Dose: 6.25 mg Heparin Sodium (Porcine) (Heparin -) 5,000 unit SQ TID [facility] Last Admin: 07/29/18 05:19 Dose: 5,000 unit Insulin Aspart (Novolog Vial Sliding Scale -) 1 vial SQ [facility]; Protocol Last Admin: 07/29/18 06:10 Dose: Not Given Levetiracetam (Keppra Injection -) 250 mg IVPB BID [facility] Last Admin: 07/29/18 09:14 Dose: 250 mg Levothyroxine Sodium (Synthroid -) 50 mcg PO DAILY@0600 [facility] Last Admin: 07/29/18 05:19 Dose: 50 mcg Nifedipine (Procardia Xl -) 30 mg PO DAILY [facility] Last Admin: 07/29/18 09:14 Dose: 30 mg Pantoprazole Sodium (Protonix -) 40 mg PO BID [facility] Last Admin: 07/29/18 09:14 Dose: 40 mg Rosuvastatin Calcium (Crestor -) 5 mg PO HS [facility] Last Admin: 07/28/18 22:14 Dose: 5 mg - Objective Vital Signs Period Temp Pulse Resp BP Sys/Monsivais Pulse Ox Last 24 Hr 97.3 F-100.5 F 60-89 18-20 90-157/48-74 95-95 Constitutional: Yes: Well Nourished, No Distress, Moderate Distress Cardiovascular: Yes: Regular Rate and Rhythm, S1, S2. No: Gallop, Murmur Respiratory: Yes: Regular, CTA Bilaterally (anteriorly). No: Accessory Muscle Use Extremities: No: Cold Edema: No Neurological: Yes: Alert. No: Seizure Psychiatric: No: Agitated ECG done on 07/26/2018 at 15:01 showed NSR at 66/min with septal infarct (age indeterminate)) Echo 06/2017: preserved LV size and function, mild MR. Diastolic disfunction. Assessment/Plan 83 yo female with ESRD, HTN, DMT2, anemia, prior CVA (lacunar) Admitted with new onset aphasia ?seizure Aphasia/generalized weakness/? Seizure -appreciate neuro eval rec.s--for EEG. started keppra -Neck MRA in 04/2016 no carotid stenosis, Brain MRI 06/2018 with microvascular ischemic disease, multiple lacunar infarcts. -bp control as disc'd below (difficult given bp lability) -Continue Asa, home Crestor -Last echo in 06/2017 with preserved LV, no significant valvular disease HTN -very labile bp's at home with symptomatic lows at times (caron at HD), with recent episode of possibly syncope prior to HD (vs cerebrovasc event) -bp's better at home since meds adjusted on HD days, and dtr using prn nifedipine with good result (target systolic <170-180) -cont home Nifedipine and Carvedilol (6.25 bid dose--recently adjusted) DM -Management as per primary team
[2018-07-29] MEDS: CLOPIDOGREL BISULFATE 75 MG TABLET (FP) PO SCH (11:53)
--- NOTE | 2018-07-29 12:31 | CONSULT ---
Consult Consult Specialty:: PM&R Dr Baird for Dr Estevez - History of Present Illness Chief Complaint: weakness History of Present Illness: This is an 83 year old woman with a medical history of previous CVA with R HP, HTN, HCV, ESRD on HD MWF, chronic anemia, DM, who presented to the ED 07/26/18 with sudden onset aphasia and BUE/ BLE weakness. Of note, she had been to [facility] 1 month [employer] with the same symptoms, at which time MRI showed lacunar infarcts. CT head 07/26/18 showed moderate chronic vessel ischemic changes without acute pathology. She was admitted for CVA/ TIA. Renal was consulted for HD management. Neuro was consulted for CVA/ TIA, who recommended outpatient EEG; MRI brain 07/28/18 shows recent R thalamus and R retrolenticular IC lacunar infarcts in addition to multiple chronic infarcts. Cardiology monitored her on Telemetry; carotid doppler US showed moderate atherosclerosis without significant stenosis, and echo showed EF >70% with mild LVH and mild . ST consult showed no significant dysphagia and recommended regular diet with thin liquids. With PT, she was [employer] [facility] [employer], although poorly compliant with directions. Physiatry is being consulted for further recommendations. - Past Medical History [employer]: Yes: 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), Peripheral Neuropathy Cardio/Vascular: Yes: HTN, Hyperlipdemia Gastrointestinal: Yes: Constipation, Other (cecal polyp removed 2005) Hepatobiliary: Yes: Hepatitis C Renal/: Yes: Renal Failure, Hemodialysis Endocrine: Yes: Diabetes Mellitus, Hypothyroidism - Past Surgical History Past Surgical History: Yes: Cholecystectomy (complicated open cholecystectomy requiring transfusions), Colonoscopy, , Tonsillectomy, Vein Stripping/ Ligation (Thyroidectomy,) - Alcohol/Substance Use Hx Alcohol Use: No History of Substance Use: reports: None - Smoking History Smoking history: Former smoker Have you smoked in the past 12 months: No Aproximately how many cigarettes per day: 20 If you are a former smoker, when did you quit?: 2018 - Social History Usual Living Arrangement: With Child (in house with 3 steps to enter) ADL: Family Assistance 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 History of Recent Travel: No Home Medications - Allergies Allergies/Adverse Reactions: Allergies Allergy/AdvReac Type Severity Reaction Status Date / Time No Known Allergies Allergy Verified 07/26/18 14:48 - Home Medications Home Medications: Ambulatory Orders Nifedipine ER [Procardia XL -] 60 mg PO DAILY #30 tab.er.24 07/08/17 Rosuvastatin [Crestor -] 5 mg PO HS #30 tablet 01/04/18 Acetaminophen [Tylenol .Regular Strength -] 650 mg PO Q4H PRN tablet 03/28/18 Pantoprazole Sodium [Protonix -] 40 mg PO BID #60 tablet.ec 03/28/18 Levothyroxine [Synthroid -] 25 mcg PO DAILY@0700 06/30/18 Sevelamer Carbonate [Renvela -] 800 mg NR DAILY 06/30/18 Aspirin 81 mg PO BID 07/01/18 Carvedilol [Coreg -] 6.25 mg PO BID #30 tablet MDD 2 07/04/18 Levothyroxine [Synthroid -] 50 mcg PO DAILY@0600 #30 tablet MDD 1 07/04/18 Nifedipine ER [Procardia XL -] 60 mg PO DAILY #30 tab.er.24 MDD 2 07/04/18 Family Disease History - Family Disease History Family Disease History: Other: Father (lived to 90), Mother (lived to 96 ) Review of Systems Findings/Remarks: Denies fevers, changes in vision/ hearing/ mood, CP, SOB, abdominal pain, dysuria, muscle/ joint pain, or numbness/ paresthesias. She notes diffuse ongoing weakness. Physical Exam Vital Signs: Vital Signs Temperature 98.7 F 07/29/18 10:00 Pulse Rate 74 07/29/18 10:00 Respiratory Rate 20 07/29/18 10:00 Blood Pressure 104/74 07/29/18 10:00 O2 Sat by Pulse Oximetry (%) 95 07/29/18 04:53 Musculoskeletal: Yes: Other (General: calm elderly HF sitting in bed NAD, awake and alert N/M: B shoulder flexion to 90 degrees, 4+/5 BUE except for 4/5 L triceps; 4-/5 B HF then 4/5 B KE and 4+/5 B DF/ EHL; Pinprick Intact BUE/ BLE Extremities: no BLE pitting edema, no B calf tenderness) Labs: CBC, BMP 07/28/18 12:05 07/28/18 15:00 Imaging - Results Cat Scan: Report Reviewed (as per HPI) Ultrasound: Report Reviewed (as pr HPI) MRI: Report Reviewed (as per HPI) Assessment/Plan Impression: 1) Deficits mobility/ ADLs 2) Deconditioning 3) Gait abnormality 4) Multiple acute and chronic lacunar CVA 5) HTN with PAC on Telemetry 6) hx HCV 7) ESRD on HD MWF 8) Chronic anemia 9) DM 10) BMI WNL 11) Up to date flu shot/ pneumovax Recommendations: 1) PT for stretching strengthening ROM and functional mobility 2) Falls, safety precautions 3) Cardiac, diabetic precautions 4) DVT ppx: on hep sc TID 5) Bowel regimen prn 6) Skin protection: float heels, frequent turning 7) Monitor CBC given anemia 8) Continue plan per primary team/ Neuro 9) Discharge planning: depending on her progress while in hospital, she may be able to return home with services (given low prior level of function) although she would likely benefit from inpatient rehabilitation once medically stable Thank you for this referral.
--- NOTE | 2018-07-29 13:31 | PN ---
Progress Note, LAUNCH LEADER - Note Progress Note: Selected Entries 07/28/18 07/28/18 07/28/18 02:00 06:00 08:26 Breakfast Lunch Supper Temperature 97.8 F 98.0 F 97.8 F 07/28/18 07/28/18 07/28/18 09:00 11:50 14:00 Breakfast 75% Lunch 25% Supper Temperature 97.6 F 97.6 F 07/28/18 07/28/18 07/29/18 18:00 21:00 02:00 Breakfast Lunch Supper 25% Temperature 98.8 F 100.5 F H 97.3 F L 07/29/18 07/29/18 06:00 10:00 Breakfast Lunch Supper Temperature 97.4 F L 98.7 F Laboratory Tests 07/28/18 12:05 WBC 6.8 Pt seen lunchtime, feeding herself, packing food into both cheeks, closing eyes and resting. Tray taken away due to choking risk and cognitive deficits. Reviewed with staff. PERFECT BINDER OPERATOR will assist pt further. PERFECT BINDER OPERATOR emptied packed cheeks of food. He gave her a drink and she was holding it again. I reassessed. Pt needs to be told "water.... Sip....now swallow" She did well. Suggest small bites, 1/2 tsp, diect pt to chew and swallow, alternate with sip of liquid. Pt can not eat independently.
--- NOTE | 2018-07-29 13:55 | EKG ---
Test Reason : Blood Pressure : / mmHG Vent. Rate : 066 BPM Atrial Rate : 066 BPM P-R Int : 180 ms QRS Dur : 086 ms QT Int : 430 ms P-R-T Axes : 055 010 077 degrees QTc Int : 450 ms NORMAL SINUS RHYTHM SEPTAL INFARCT (CITED ON OR BEFORE 10-JUL-2012) ABNORMAL ECG WHEN COMPARED WITH ECG OF 30-JUN-2018 15:35, QUESTIONABLE CHANGE IN INITIAL FORCES OF SEPTAL LEADS Confirmed by MD Saroj, Brady ([id number]) on 07/29/2018 1:55:15 PM Referred By: Confirmed By:Brady Kyle MD
[2018-07-29 15:23] LABS: HBSAG SCREEN Negative (Negative); HEP A AB, IGM Negative (Negative); HEP B CORE AB, TOT Negative (Negative)
--- NOTE | 2018-07-29 16:15 | PN ---
Progress Note (short form) - Note Progress Note: 3F with a PMH of diabetes, end-stage renal disease on dialysis M/W/F since February 2018, chronic anemia, hypothyroidism, hypertension, hepatitis C, previous stroke (affecting R side) who presents to the ER with complaints of sudden onset aphasia and weakness around 11am today. She was present exactly one month ago for the exact same symptoms, admitted for TIA. Found on MRI/MRA to have lacunar infarcts. FU : MRi reviewed Doppler : mod atherosclerosis disease without hemodynamic sig stenosis IMPRESSION. Foci of restricted diffusion are seen in the right thalamus, right retrolenticular internal capsule corresponding with low signal intensity on the ADC consistent with a recent nonhemorrhagic lacunar infarcts. Extensive supratentorial white matter microangiopathic ischemic changes. Chronic bilateral basal ganglia, left thalamic lacunar infarcts. Chronic lacunar infarct - superior aspect of the left periventricular white matter. Brainstem gliosis. Chronic right paramedian pontine infarct. Multiple supratentorial chronic microbleed. Chronic hypertensive encephalopathy with multiple chronic hyperintense microbleeds. 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), Peripheral Neuropathy Cardio/Vascular: Yes: HTN, Hyperlipdemia Gastrointestinal: Yes: Constipation, Other (cecal polyp removed 2005) Hepatobiliary: Yes: Hepatitis C Renal/: Yes: Renal Failure Endocrine: Yes: Diabetes Mellitus, Hypothyroidism - Past Surgical History Past Surgical History: Yes: Cholecystectomy (complicated open cholecystectomy requiring transfusions), Colonoscopy, , Tonsillectomy, Vein Stripping/ Ligation (Thyroidectomy,) - Alcohol/Substance Use Hx Alcohol Use: No History of Substance Use: reports: None - Smoking History Smoking history: Former smoker Have you smoked in the past 12 months: No Aproximately how many cigarettes per day: 20 If you are a former smoker, when did you quit?: 2018 - Social History Usual Living Arrangement: With Child ADL: Family Assistance 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 History of Recent Travel: No Home Medications - Allergies Allergies/Adverse Reactions: Allergies Allergy/AdvReac Type Severity Reaction Status Date / Time No Known Allergies Allergy Verified 07/26/18 14:48 - Home Medications Home Medications: Ambulatory Orders Nifedipine ER [Procardia XL -] 60 mg PO DAILY #30 tab.er.24 07/08/17 Rosuvastatin [Crestor -] 5 mg PO HS #30 tablet 01/04/18 Acetaminophen [Tylenol .Regular Strength -] 650 mg PO Q4H PRN tablet 03/28/18 Pantoprazole Sodium [Protonix -] 40 mg PO BID #60 tablet.ec 03/28/18 Levothyroxine [Synthroid -] 25 mcg PO DAILY@0700 06/30/18 Sevelamer Carbonate [Renvela -] 800 mg NR DAILY 06/30/18 Aspirin 81 mg PO BID 07/01/18 Carvedilol [Coreg -] 6.25 mg PO BID #30 tablet MDD 2 07/04/18 Levothyroxine [Synthroid -] 50 mcg PO DAILY@0600 #30 tablet MDD 1 07/04/18 Nifedipine ER [Procardia XL -] 60 mg PO DAILY #30 tab.er.24 MDD 2 07/04/18 Family Disease History - Family Disease History Family Disease History: Other: Father (lived to 90), Mother (lived to 96 ) Physical Exam-Neuro Vital Signs: Vital Signs Vital Signs Temperature 98.6 F 07/29/18 14:00 Pulse Rate 60 07/29/18 14:00 Respiratory Rate 20 07/29/18 14:00 Blood Pressure 154/75 07/29/18 14:00 O2 Sat by Pulse Oximetry (%) 95 07/29/18 04:53 Constitutional: Yes: Well Nourished, No Distress Neck: Yes: WNL, Supple Cardiovascular: Yes: Regular Rate and Rhythm Respiratory: Yes: CTA Bilaterally Musculoskeletal: Yes: WNL Edema: No Psychiatric: Yes: WNL, Alert, Oriented Labs: CBC, BMP 07/26/18 16:00 07/26/18 16:00 INR, PTT INR 1.14 (0.83-1.09) H 07/26/18 16:10 - Neuro Exam Level Of Consciousness: Yes: Oriented to Person Eyes: Yes: PERRLA Speech: WNL Cranial Nerves II-XII Intact: Yes Gag: Present Babinski: Absent Response to light touch: Normal Response to pain prick: Normal Coordination: Normal: Finger to Nose Motor Strength: 5/5: Left Arm, Right Arm, Left Leg, Right Leg Gait: Deferred Problem List - Problems (1) TIA (transient ischemic attack) Code(s): G45.9 - TRANSIENT CEREBRAL ISCHEMIC ATTACK, UNSPECIFIED (2) TRAVIS (acute kidney injury) Code(s): N17.9 - ACUTE KIDNEY FAILURE, UNSPECIFIED (3) Acute on chronic kidney failure Code(s): N17.9 - ACUTE KIDNEY FAILURE, UNSPECIFIED; N18.9 - CHRONIC KIDNEY DISEASE, UNSPECIFIED (4) CVA (cerebral vascular accident) Code(s): I63.9 - CEREBRAL INFARCTION, UNSPECIFIED Qualifiers: CVA mechanism: unspecified Qualified Code(s): I63.9 - Cerebral infarction, unspecified Assessment/Plan 83 y/o F w PMH of diabetes, end-stage renal disease on dialysis M/W/F since February 2018, chronic anemia, hypothyroidism, hypertension, hepatitis C, previous stroke (affecting R side) who presents w transient aphasia and weakness ; she has had similar episode last month. appears ot have another small vessel R subcortical event , sig white matter disease burden ;;; Doppler : mod atherosclerosis disease without hemodynamic sig stenosis will DC keppra as ischemic event most likely the culprit in her sx resume combo ASA/plavix , (? underlying amyloid given multiple chronic microbleeds ) and statin can recheck ECHO, holter , BP optimization rehab and DC planning neuro cleared DR BENNETT
[2018-07-29] MEDS: ROSUVASTATIN CA 5 MG TABLET (FP) PO SCH (22:22)
[2018-07-30] MEDS: LEVOTHYROXINE NA 50 MCG TABLET (FP) PO SCH (05:30)
[2018-07-30] MEDS: HEPARIN NA (PORCINE) 5,000 UNITS/ML 1ML VIAL SQ SCH ×3 (05:30→21:24)
[2018-07-30] MEDS: INSULIN SLIDING SCALE (NOVOLOG) 1 VIAL SQ SCH ×4 (06:04→21:24)
[2018-07-30] MEDS ORDERED: SODIUM CHLORIDE 250 ML IV PRN (07:03)
[2018-07-30 08:03] LABS: HEMATOCRIT 31.2 % (32.4-45.2); MCH 28.8 pg (25.7-33.7); MCHC 32.2 g/dl (32.0-36.0); MEAN CELL VOLUME 89.5 fl (80-96); MEAN PLT VOLUME 8.1 fl (7.5-11.1); PLATELET COUNT 277 K/MM3 (134-434); RBC 3.48 M/mm3 (3.60-5.2); RDW 18.7 % (11.6-15.6); WHITE BLOOD COUNT 7.9 K/mm3 (4.0-10.0)
--- NOTE | 2018-07-30 08:26 | PN ---
Progress Note, Physician - Current Medication List Current Medications: Active Medications Acetaminophen (Tylenol -) 650 mg PO Q4H PRN PRN Reason: PAIN LEVEL 1-5 Last Admin: 07/28/18 22:14 Dose: 650 mg Aspirin (Asa -) 162 mg PO DAILY [facility] Last Admin: 07/29/18 09:14 Dose: 162 mg Carvedilol (Coreg -) 6.25 mg PO BID [facility] Last Admin: 07/29/18 22:22 Dose: 6.25 mg Clopidogrel Bisulfate (Plavix -) 75 mg PO DAILY [facility] Last Admin: 07/29/18 11:53 Dose: 75 mg Heparin Sodium (Porcine) (Heparin -) 5,000 unit SQ TID [facility] Last Admin: 07/30/18 05:30 Dose: 5,000 unit Sodium Chloride (Normal Saline -) 250 mls @ 3,000 mls/hr IV PRN PRN PRN Reason: Hypotension during Dialysis Stop: 07/31/18 07:03 Insulin Aspart (Novolog Vial Sliding Scale -) 1 vial SQ [facility]; Protocol Last Admin: 07/30/18 06:04 Dose: Not Given Levothyroxine Sodium (Synthroid -) 50 mcg PO DAILY@0600 [facility] Last Admin: 07/30/18 05:30 Dose: 50 mcg Nifedipine (Procardia Xl -) 30 mg PO DAILY [facility] Last Admin: 07/29/18 09:14 Dose: 30 mg Pantoprazole Sodium (Protonix -) 40 mg PO BID [facility] Last Admin: 07/29/18 22:22 Dose: 40 mg Rosuvastatin Calcium (Crestor -) 5 mg PO HS [facility] Last Admin: 07/29/18 22:22 Dose: 5 mg - Objective Vital Signs: Vital Signs Temperature 97.1 F L 07/30/18 06:00 Pulse Rate 77 07/30/18 06:00 Respiratory Rate 20 07/30/18 06:00 Blood Pressure 162/76 07/30/18 06:00 O2 Sat by Pulse Oximetry (%) 95 07/29/18 21:00 Cardiovascular: Yes: S1, S2 Respiratory: Yes: Regular, CTA Bilaterally Gastrointestinal: Yes: Normal Bowel Sounds, Soft. No: Tenderness Neurological: Yes: Alert, Oriented Labs: CBC, BMP 07/30/18 07:40 INR, PTT INR 1.14 (0.83-1.09) H 07/26/18 16:10 Problem List - Problems (1) CVA (cerebral vascular accident) Assessment/Plan: neurology on board PT sherlyn chan saw patient stated on keppra bid for possible seizure EEG as outpatient asprin add plavix mri acute cva pt statin Code(s): I63.9 - CEREBRAL INFARCTION, UNSPECIFIED Qualifiers: CVA mechanism: unspecified Qualified Code(s): I63.9 - Cerebral infarction, unspecified (2) HTN (hypertension) Assessment/Plan: cardio on board coreg and nifedipine for BP control Code(s): I10 - ESSENTIAL (PRIMARY) HYPERTENSION Qualifiers: (3) ESRD (end stage renal disease) Assessment/Plan: on HD Code(s): N18.6 - END STAGE RENAL DISEASE
[2018-07-30 08:33] LABS: ANION GAP 7 MMOL/L (8-16); BLOOD UREA NITROGEN 29 mg/dL (7-18); CALCIUM 8.2 mg/dL (8.5-10.1); CHLORIDE 106 mmol/L (98-107); CO2 28 mmol/L (21-32); CREATININE 4.3 mg/dL (0.55-1.3); GLUCOSE,RANDOM 108 mg/dL (74-106); PHOSPHOROUS 2.3 mg/dL (2.5-4.9); POTASSIUM 3.5 mmol/L (3.5-5.1); SODIUM 142 mmol/L (136-145)
[2018-07-30] MEDS ORDERED: PT OWN MED DRAWER 7, Y5N ONE (09:40)
--- NOTE | 2018-07-30 09:55 | PN ---
Progress Note (short form) - Note Progress Note: s: no chest pain, palps, dyspnea, edema Current Medications Acetaminophen (Tylenol -) 650 mg PO Q4H PRN PRN Reason: PAIN LEVEL 1-5 Last Admin: 07/28/18 22:14 Dose: 650 mg Aspirin (Asa -) 162 mg PO DAILY [facility] Last Admin: 07/29/18 09:14 Dose: 162 mg Carvedilol (Coreg -) 6.25 mg PO BID [facility] Last Admin: 07/29/18 22:22 Dose: 6.25 mg Clopidogrel Bisulfate (Plavix -) 75 mg PO DAILY [facility] Last Admin: 07/29/18 11:53 Dose: 75 mg Heparin Sodium (Porcine) (Heparin -) 5,000 unit SQ TID [facility] Last Admin: 07/30/18 05:30 Dose: 5,000 unit Sodium Chloride (Normal Saline -) 250 mls @ 3,000 mls/hr IV PRN PRN PRN Reason: Hypotension during Dialysis Stop: 07/31/18 07:03 Insulin Aspart (Novolog Vial Sliding Scale -) 1 vial SQ [facility]; Protocol Last Admin: 07/30/18 06:04 Dose: Not Given Levothyroxine Sodium (Synthroid -) 50 mcg PO DAILY@0600 [facility] Last Admin: 07/30/18 05:30 Dose: 50 mcg Nifedipine (Procardia Xl -) 30 mg PO DAILY [facility] Last Admin: 07/29/18 09:14 Dose: 30 mg Pantoprazole Sodium (Protonix -) 40 mg PO BID [facility] Last Admin: 07/29/18 22:22 Dose: 40 mg Rosuvastatin Calcium (Crestor -) 5 mg PO HS [facility] Last Admin: 07/29/18 22:22 Dose: 5 mg - Objective Vital Signs Period Temp Pulse Resp BP Sys/Monsivais Pulse Ox Last 24 Hr 97.1 F-99.3 F 60-79 18-20 104-162/55-76 95-95 Constitutional: Yes: Well Nourished, No Distress, Moderate Distress Cardiovascular: Yes: Regular Rate and Rhythm, S1, S2. No: Gallop, Murmur Respiratory: Yes: Regular, CTA Bilaterally (anteriorly). No: Accessory Muscle Use Extremities: No: Cold Edema: No Neurological: Yes: Alert. No: Seizure Psychiatric: No: Agitated ECG done on 07/26/2018 at 15:01 showed NSR at 66/min with septal infarct (age indeterminate)) Echo 06/2017: preserved LV size and function, mild MR. Diastolic disfunction. echo 07/2018 mild conc LVH, nl LV function, EF >70%, grade I diastolic dysfunction, mod MAC tele: sinus Assessment/Plan 83 yo female with ESRD, HTN, DMT2, anemia, prior CVA (lacunar) Admitted with new onset aphasia Aphasia/generalized weakness, stroke -Neck MRA in 04/2016 no carotid stenosis, Brain MRI 06/2018 with microvascular ischemic disease, multiple lacunar infarcts. - brain MRI with mult acute and chronic lacunar CVA - on aspirin and plavix - echo 07/2018 nl LV function -bp control as disc'd below (difficult given bp lability) -Continue Asa, plavix, home Crestor -appreciate neuro recs HTN -very labile bp's at home with symptomatic lows at times (caron at HD), with recent episode of possibly syncope prior to HD (vs cerebrovasc event) -bp's better at home since meds adjusted on HD days, and dtr using prn nifedipine with good result (target systolic <170-180) -cont home Nifedipine and Carvedilol (6.25 bid dose--recently adjusted) DM -Management as per primary team
[2018-07-30] MEDS: ASPIRIN 81 MG CHEWABLE TABLETS PO SCH (11:21)
[2018-07-30] MEDS: CARVEDILOL 6.25 MG TABLET (FP) PO SCH ×2 (11:22→21:24)
[2018-07-30] MEDS: CLOPIDOGREL BISULFATE 75 MG TABLET (FP) PO SCH (11:22)
[2018-07-30] MEDS: PANTOPRAZOLE 40 MG TABLET (FP) PO SCH ×2 (11:23→21:24)
[2018-07-30] MEDS: NIFEdipine E.R 60 MG TABLET (UD) PO SCH (11:23)
--- NOTE | 2018-07-30 11:40 | PN ---
Progress Note (short form) - Note Progress Note: 83F with a PMH of diabetes, end-stage renal disease on dialysis M/W/F since February 2018, chronic anemia, hypothyroidism, hypertension, hepatitis C, previous stroke (affecting R side) who presents to the ER with complaints of sudden onset aphasia and weakness around 11am today. She was present exactly one month ago for the exact same symptoms, admitted for TIA. Found on MRI/MRA to have lacunar infarcts. FU : no new issues, completed HD today MRi reviewed Doppler : mod atherosclerosis disease without hemodynamic sig stenosis IMPRESSION. Foci of restricted diffusion are seen in the right thalamus, right retrolenticular internal capsule corresponding with low signal intensity on the ADC consistent with a recent nonhemorrhagic lacunar infarcts. Extensive supratentorial white matter microangiopathic ischemic changes. Chronic bilateral basal ganglia, left thalamic lacunar infarcts. Chronic lacunar infarct - superior aspect of the left periventricular white matter. Brainstem gliosis. Chronic right paramedian pontine infarct. Multiple supratentorial chronic microbleed. Chronic hypertensive encephalopathy with multiple chronic hyperintense microbleeds. 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), Peripheral Neuropathy Cardio/Vascular: Yes: HTN, Hyperlipdemia Gastrointestinal: Yes: Constipation, Other (cecal polyp removed 2005) Hepatobiliary: Yes: Hepatitis C Renal/: Yes: Renal Failure Endocrine: Yes: Diabetes Mellitus, Hypothyroidism - Past Surgical History Past Surgical History: Yes: Cholecystectomy (complicated open cholecystectomy requiring transfusions), Colonoscopy, , Tonsillectomy, Vein Stripping/ Ligation (Thyroidectomy,) - Alcohol/Substance Use Hx Alcohol Use: No History of Substance Use: reports: None - Smoking History Smoking history: Former smoker Have you smoked in the past 12 months: No Aproximately how many cigarettes per day: 20 If you are a former smoker, when did you quit?: 2018 - Social History Usual Living Arrangement: With Child ADL: Family Assistance 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 History of Recent Travel: No Home Medications - Allergies Allergies/Adverse Reactions: Allergies Allergy/AdvReac Type Severity Reaction Status Date / Time No Known Allergies Allergy Verified 07/26/18 14:48 - Home Medications Home Medications: Ambulatory Orders Nifedipine ER [Procardia XL -] 60 mg PO DAILY #30 tab.er.24 07/08/17 Rosuvastatin [Crestor -] 5 mg PO HS #30 tablet 01/04/18 Acetaminophen [Tylenol .Regular Strength -] 650 mg PO Q4H PRN tablet 03/28/18 Pantoprazole Sodium [Protonix -] 40 mg PO BID #60 tablet.ec 03/28/18 Levothyroxine [Synthroid -] 25 mcg PO DAILY@0700 06/30/18 Sevelamer Carbonate [Renvela -] 800 mg NR DAILY 06/30/18 Aspirin 81 mg PO BID 07/01/18 Carvedilol [Coreg -] 6.25 mg PO BID #30 tablet MDD 2 07/04/18 Levothyroxine [Synthroid -] 50 mcg PO DAILY@0600 #30 tablet MDD 1 07/04/18 Nifedipine ER [Procardia XL -] 60 mg PO DAILY #30 tab.er.24 MDD 2 07/04/18 Family Disease History - Family Disease History Family Disease History: Other: Father (lived to 90), Mother (lived to 96 ) Physical Exam-Neuro Vital Signs: Vital Signs Vital Signs Temperature 98.6 F 07/29/18 14:00 Pulse Rate 60 07/29/18 14:00 Respiratory Rate 20 07/29/18 14:00 Blood Pressure 154/75 07/29/18 14:00 O2 Sat by Pulse Oximetry (%) 95 07/29/18 04:53 Constitutional: Yes: Well Nourished, No Distress Neck: Yes: WNL, Supple Cardiovascular: Yes: Regular Rate and Rhythm Respiratory: Yes: CTA Bilaterally Musculoskeletal: Yes: WNL Edema: No Psychiatric: Yes: WNL, Alert, Oriented Labs: CBC, BMP 07/26/18 16:00 07/26/18 16:00 INR, PTT INR 1.14 (0.83-1.09) H 07/26/18 16:10 - Neuro Exam Level Of Consciousness: Yes: Oriented to Person Eyes: Yes: PERRLA Speech: WNL Cranial Nerves II-XII Intact: Yes Gag: Present Babinski: Absent Response to light touch: Normal Response to pain prick: Normal Coordination: Normal: Finger to Nose Motor Strength: 5/5: Left Arm, Right Arm, Left Leg, Right Leg Gait: Deferred Problem List - Problems (1) TIA (transient ischemic attack) Code(s): G45.9 - TRANSIENT CEREBRAL ISCHEMIC ATTACK, UNSPECIFIED (2) TRAVIS (acute kidney injury) Code(s): N17.9 - ACUTE KIDNEY FAILURE, UNSPECIFIED (3) Acute on chronic kidney failure Code(s): N17.9 - ACUTE KIDNEY FAILURE, UNSPECIFIED; N18.9 - CHRONIC KIDNEY DISEASE, UNSPECIFIED (4) CVA (cerebral vascular accident) Code(s): I63.9 - CEREBRAL INFARCTION, UNSPECIFIED Qualifiers: CVA mechanism: unspecified Qualified Code(s): I63.9 - Cerebral infarction, unspecified Assessment/Plan 83 y/o F w PMH of diabetes, end-stage renal disease on dialysis M/W/F since February 2018, chronic anemia, hypothyroidism, hypertension, hepatitis C, previous stroke (affecting R side) who presents w transient aphasia and weakness ; she has had similar episode last month. appears ot have another small vessel R subcortical event , sig white matter disease burden ;;; Doppler : mod atherosclerosis disease without hemodynamic sig stenosis will DC keppra as ischemic event most likely the culprit in her sx resume combo ASA/plavix , (? underlying amyloid given multiple chronic microbleeds ) and statin BP optimization neuro cleared and outpt FU DR JIGNESH BENNETT
--- NOTE | 2018-07-30 11:43 | PN ---
Progress Note (short form) - Note Progress Note: Renal follow up for ESRD on HD Pt seen and examined while on dialysis BP stable, UF achieved 2L pt is awake and alert, answering questions appropriately Vital Signs Temperature 98 F 07/30/18 10:00 Pulse Rate 73 07/30/18 10:00 Respiratory Rate 18 07/30/18 10:00 Blood Pressure 150/77 07/30/18 10:00 O2 Sat by Pulse Oximetry (%) 95 07/30/18 09:00 Intake & Output 07/27/18 07/28/18 07/29/18 07/30/18 23:59 23:59 23:59 23:59 Intake Total 260 300 300 Balance 260 300 300 Weight 52.617 kg NAD awake and alert No LE edema CBC, BMP 07/30/18 07:40 07/30/18 07:40 Current Medications Acetaminophen (Tylenol -) 650 mg PO Q4H PRN PRN Reason: PAIN LEVEL 1-5 Last Admin: 07/28/18 22:14 Dose: 650 mg Aspirin (Asa -) 162 mg PO DAILY [facility] Last Admin: 07/30/18 11:21 Dose: 162 mg Carvedilol (Coreg -) 6.25 mg PO BID [facility] Last Admin: 07/30/18 11:22 Dose: Not Given Clopidogrel Bisulfate (Plavix -) 75 mg PO DAILY [facility] Last Admin: 07/30/18 11:22 Dose: 75 mg Heparin Sodium (Porcine) (Heparin -) 5,000 unit SQ TID [facility] Last Admin: 07/30/18 05:30 Dose: 5,000 unit Sodium Chloride (Normal Saline -) 250 mls @ 3,000 mls/hr IV PRN PRN PRN Reason: Hypotension during Dialysis Stop: 07/31/18 07:03 Insulin Aspart (Novolog Vial Sliding Scale -) 1 vial SQ ACHS [facility]; Protocol Last Admin: 07/30/18 11:23 Dose: 2 unit Levothyroxine Sodium (Synthroid -) 50 mcg PO DAILY@0600 [facility] Last Admin: 07/30/18 05:30 Dose: 50 mcg Nifedipine (Procardia Xl -) 30 mg PO DAILY [facility] Last Admin: 07/30/18 11:23 Dose: Not Given Pantoprazole Sodium (Protonix -) 40 mg PO BID [facility] Last Admin: 07/30/18 11:23 Dose: 40 mg Rosuvastatin Calcium (Crestor -) 5 mg PO HS [facility] Last Admin: 07/29/18 22:22 Dose: 5 mg 83 y/o female well known to us, with history of DM, ESRD (on Dialysis), HTN, Hep C. hx of stroke who presented to the emergency room accompanied with daughter with altered mentation, weakness and difficulty to talk. Being evaluated for CVA/ TIA. #ESRD on HD #Aphasia/AMS r/o CVA vs seizure #Hypertension #CKD related Anemia #Hyperlipidemia #Hypothyroidism tolerated dialysis well this AM MRI confirmed small ischemic strokes continue ASA, Plavix and crestor continue nifedpine and coreg discharge planning as per primary Thank you Levy Mancia DO
[2018-07-30] MEDS ORDERED: INSULIN SLIDING SCALE (NOVOLOG) 1 VIAL SQ ONE (12:20)
--- NOTE | 2018-07-30 12:57 | PN ---
Progress Note, METER CALIBRATOR - Note Progress Note: Selected Entries 07/28/18 07/28/18 07/28/18 02:00 06:00 08:26 Supper Temperature 97.8 F 98.0 F 97.8 F 07/28/18 07/28/18 07/28/18 11:50 14:00 18:00 Supper Temperature 97.6 F 97.6 F 98.8 F 07/28/18 07/29/18 07/29/18 21:00 02:00 06:00 Supper Temperature 100.5 F H 97.3 F L 97.4 F L 07/29/18 07/29/18 07/29/18 10:00 14:00 18:00 Supper 50% Temperature 98.7 F 98.6 F 98.2 F 07/29/18 07/30/18 07/30/18 21:00 02:00 06:00 Supper Temperature 99.3 F 98.3 F 97.1 F L 07/30/18 07/30/18 07:20 10:00 Supper Temperature 98 F 98 F Laboratory Tests 07/27/18 07/28/18 07/30/18 05:15 12:05 07:40 WBC 7.5 6.8 7.9 Pt completed reg food from her daughter last night during dinner. Oral holding of meds. Per SHAREPOINT WEB DEVELOPER, oral holding persists intermittently. Oral cavity packed bilaterally with hamburger. Removed residue. Demonstrated with fruit cup, 1 bite "chew,swallow", check mouth , give another bite, with good affect. Suggest small bites, 1/2 tsp, diect pt to chew and swallow, alternate with sip of liquid Mix meds with Maple syrup to reduce bitterness, follow with water.
--- NOTE | 2018-07-30 14:11 | PN ---
Progress Note (short form) - Note Progress Note: NEUROLOGY PROGRESS: Events reviewed and discussed with staff. This 83 yo RH woman is well known to me over many years with RLS and more recent development of cognitive decline. Currently lives with daughter. Previously ambulating with walker. Last seen 07/01/18 here due to syncope/presyncope during HD at which time donepezil and pramipexole were DC'd. Now admitted for reports of B/L weakness and difficulty producing speech per daughter. Has not been able to ambulate since admission per nursing and family. S/P HD today. PMHX: DM,ESRD M/W/F since February 2018, chronic anemia, hypothyroidism, hypertension, hepatitis C Meds: carvededilol, nifedipine, asa, B12, levothyroxine, rosuvastatin, pantoprazole, ranvela Head CT: moderate atrophy with multiple lacunar infarcts and severe, diffuse, microvascular changes Carotid duplex: moderate atherosclerosis, no significant stenosis Brain MRI: (reviewed): Multiple, diffuse, lacunar infarcts. Possible new thalamic CVA. MCV 89.5, TSH 1.09, A1c 6.2 PHILIPPE: BP's 90-160/60-80 supine. Cor reg. No bruits. Sl reduced neck ROM. Permacath in R Subclavian. NEURO: Mentation/Speech:Awake, alert, confused. Sparse speech. Periods of staring. [facility]. Not name. June corrected to July. With cues recalls "Saturday."No year. No president. No recall. CNII-CNXII: EOM intact. Full fowler appreciated. + glabella, snout, grasps. Gag ok. Motor: No drift. Strong grasps. Decreased MORELIA R >L. Absent AJ's. R babinski. Coordination: No FTN dystaxia. Sensation: Decreased vibration in toes. Gait: Variable, unsteady. Impression: B/L Cerebral Dysfunction (Chronic, consistent with OMS and multi- infarct) Possible new thalamic lacunar infarct-would not explain episodic changes in speech and possibly, LOC. Peripheral Neuropathy Syncope vs seizure Plan: Check orthostatic BP's Mobilize pt OO bed to chair Check B12, RPR, Fe++, TIBC, Ferritin Agree with telemtery and cardiology. EEG. Thank you very much, Lucio Morrison MD
[2018-07-30] MEDS: ROSUVASTATIN CA 5 MG TABLET (FP) PO SCH (21:24)
[2018-07-31] MEDS: HEPARIN NA (PORCINE) 5,000 UNITS/ML 1ML VIAL SQ SCH ×2 (06:07→13:45)
[2018-07-31] MEDS: INSULIN SLIDING SCALE (NOVOLOG) 1 VIAL SQ SCH ×3 (06:08→16:40)
[2018-07-31] MEDS: LEVOTHYROXINE NA 50 MCG TABLET (FP) PO SCH (06:08)
[2018-07-31] MEDS: PANTOPRAZOLE 40 MG TABLET (FP) PO SCH (10:43)
[2018-07-31] MEDS: CARVEDILOL 6.25 MG TABLET (FP) PO SCH (10:43)
[2018-07-31] MEDS: ASPIRIN 81 MG CHEWABLE TABLETS PO SCH (10:43)
[2018-07-31] MEDS: NIFEdipine E.R 60 MG TABLET (UD) PO SCH (10:43)
[2018-07-31] MEDS: CLOPIDOGREL BISULFATE 75 MG TABLET (FP) PO SCH (10:44)
--- NOTE | 2018-07-31 10:49 | PN ---
Progress Note (short form) - Note Progress Note: s: no chest pain, palps, dyspnea, edema Current Medications Generic Name Dose Route Start Last Admin Trade Name Freq PRN Reason Stop Dose Admin Acetaminophen 650 mg 07/26/18 21:34 07/28/18 22:14 Tylenol - PO 650 mg Q4H PRN Administration PAIN LEVEL 1-5 Aspirin 162 mg 07/27/18 10:00 07/31/18 10:43 Asa - PO 162 mg DAILY CARL Administration Carvedilol 6.25 mg 07/26/18 22:00 07/31/18 10:43 Coreg - PO 6.25 mg BID CARL Administration Clopidogrel Bisulfate 75 mg 07/29/18 11:15 07/31/18 10:44 Plavix - PO 75 mg DAILY CARL Administration Heparin Sodium (Porcine) 5,000 unit 07/26/18 22:00 07/31/18 06:07 Heparin - SQ 5,000 unit TID CARL Administration Sodium Chloride 250 mls @ 3,000 mls/hr 07/30/18 07:03 Normal Saline - IV 07/31/18 07:03 PRN PRN Hypotension during Dialysis Insulin Aspart 1 vial 07/26/18 22:00 07/31/18 06:08 Novolog Vial Sliding Scale - SQ Not Given ACHS [facility] Protocol Levothyroxine Sodium 50 mcg 07/27/18 06:00 07/31/18 06:08 Synthroid - PO 50 mcg DAILY@0600 CARL Administration Nifedipine 30 mg 07/28/18 10:00 07/31/18 10:43 Procardia Xl - PO 30 mg DAILY CARL Administration Pantoprazole Sodium 40 mg 07/26/18 22:00 07/31/18 10:43 Protonix - PO 40 mg BID CARL Administration Rosuvastatin Calcium 5 mg 07/26/18 22:00 07/30/18 21:24 Crestor - PO 5 mg HS CARL Administration - Objective Vital Signs Period Temp Pulse Resp BP Sys/Monsivais Pulse Ox Last 24 Hr 97.6 F-98.5 F 71-90 18-20 102-149/65-80 96 Constitutional: Yes: Well Nourished, No Distress, Moderate Distress Cardiovascular: Yes: Regular Rate and Rhythm, S1, S2. No: Gallop, Murmur Respiratory: Yes: Regular, CTA Bilaterally (anteriorly). No: Accessory Muscle Use Extremities: No: Cold Edema: No Neurological: Yes: Alert. No: Seizure Psychiatric: No: Agitated ECG done on 07/26/2018 at 15:01 showed NSR at 66/min with septal infarct (age indeterminate)) Echo 06/2017: preserved LV size and function, mild MR. Diastolic disfunction. echo 07/2018 mild conc LVH, nl LV function, EF >70%, grade I diastolic dysfunction, mod MAC tele: sinus Assessment/Plan 83 yo female with ESRD, HTN, DMT2, anemia, prior CVA (lacunar) Admitted with new onset aphasia Aphasia/generalized weakness, stroke -Neck MRA in 04/2016 no carotid stenosis, Brain MRI 06/2018 with microvascular ischemic disease, multiple lacunar infarcts. - brain MRI with mult acute and chronic lacunar CVA - on aspirin and plavix - echo 07/2018 nl LV function -bp control as disc'd below (difficult given bp lability) -Continue Asa, plavix, home Crestor -appreciate neuro recs HTN -very labile bp's at home with symptomatic lows at times (caron at HD), with recent episode of possibly syncope prior to HD (vs cerebrovasc event) -bp's better at home since meds adjusted on HD days, and dtr using prn nifedipine with good result (target systolic <170-180) -cont home Nifedipine and Carvedilol (6.25 bid dose--recently adjusted) DM -Management as per primary team cardiac caballero stable
[2018-07-31 14:13] VITALS: BP 96/45; PULSE 69; TEMP 97.2
[2018-07-31] MEDS ORDERED: SODIUM CHLORIDE 250 ML IV PRN (14:59)
--- NOTE | 2018-07-31 14:59 | PN ---
Progress Note (short form) - Note Progress Note: Renal follow up for ESRD on HD Pt seen and examined at the bedside sleeping bout arouseable no sob, cp, abd pain s/p dialysis yesterday Vital Signs Temperature 97.2 F L 07/31/18 14:12 Pulse Rate 69 07/31/18 14:12 Respiratory Rate 16 07/31/18 14:12 Blood Pressure 96/45 L 07/31/18 14:12 O2 Sat by Pulse Oximetry (%) 96 07/31/18 09:00 Intake & Output 07/28/18 07/29/18 07/30/18 07/31/18 23:59 23:59 23:59 23:59 Intake Total 300 300 200 290 Balance 300 300 200 290 Weight 52.617 kg NAD awake and alert No LE edema CBC, BMP 07/30/18 07:40 07/30/18 07:40 Current Medications Acetaminophen (Tylenol -) 650 mg PO Q4H PRN PRN Reason: PAIN LEVEL 1-5 Last Admin: 07/28/18 22:14 Dose: 650 mg Aspirin (Asa -) 162 mg PO DAILY [facility] Last Admin: 07/31/18 10:43 Dose: 162 mg Carvedilol (Coreg -) 6.25 mg PO BID [facility] Last Admin: 07/31/18 10:43 Dose: 6.25 mg Clopidogrel Bisulfate (Plavix -) 75 mg PO DAILY [facility] Last Admin: 07/31/18 10:44 Dose: 75 mg Heparin Sodium (Porcine) (Heparin -) 5,000 unit SQ TID [facility] Last Admin: 07/31/18 13:45 Dose: 5,000 unit Sodium Chloride (Normal Saline -) 250 mls @ 3,000 mls/hr IV PRN PRN PRN Reason: Hypotension during Dialysis Stop: 07/31/18 07:03 Insulin Aspart (Novolog Vial Sliding Scale -) 1 vial SQ ACHS [facility]; Protocol Last Admin: 07/31/18 11:18 Dose: 2 unit Levothyroxine Sodium (Synthroid -) 50 mcg PO DAILY@0600 [facility] Last Admin: 07/31/18 06:08 Dose: 50 mcg Nifedipine (Procardia Xl -) 30 mg PO DAILY [facility] Last Admin: 07/31/18 10:43 Dose: 30 mg Pantoprazole Sodium (Protonix -) 40 mg PO BID [facility] Last Admin: 07/31/18 10:43 Dose: 40 mg Rosuvastatin Calcium (Crestor -) 5 mg PO HS [facility] Last Admin: 07/30/18 21:24 Dose: 5 mg 83 y/o female well known to us, with history of DM, ESRD (on Dialysis), HTN, Hep C. hx of stroke who presented to the emergency room accompanied with daughter with altered mentation, weakness and difficulty to talk. Being evaluated for CVA/ TIA. #ESRD on HD #Aphasia/AMS r/o CVA vs seizure #Hypertension #CKD related Anemia #Hyperlipidemia #Hypothyroidism clinically stable continue work up as per neurology continue ASA, statin BP acceptable on current meds for dialysis tomorrow as inpatient discharge planning as per primary Thank you Levy Mancia DO
--- NOTE | 2018-07-31 15:15 | PN ---
Progress Note, UNDERCOVER COP - Note Progress Note: Selected Entries 07/30/18 07/31/18 07/31/18 18:00 01:49 05:00 Breakfast Lunch Supper 50% Temperature 97.6 F 98.5 F 07/31/18 07/31/18 07/31/18 09:00 10:05 14:12 Breakfast 50% Lunch 50% Supper Temperature 98.4 F 97.2 F L Pt tolerating diet with improving acceptance. 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 Suggest small bites, 1/2 tsp, direct pt to chew and swallow, alternate with sip of liquid Mix meds with Maple syrup to reduce bitterness, follow with water.
--- NOTE | 2018-07-31 15:32 | DS ---
Physical Examination Vital Signs: Vital Signs Temperature 97.2 F L 07/31/18 14:12 Pulse Rate 69 07/31/18 14:12 Respiratory Rate 16 07/31/18 14:12 Blood Pressure 96/45 L 07/31/18 14:12 O2 Sat by Pulse Oximetry (%) 96 07/31/18 09:00 Constitutional: Yes: Calm, Thin Cardiovascular: Yes: Regular Rate and Rhythm, S1, S2 Respiratory: Yes: CTA Bilaterally Gastrointestinal: Yes: Normal Bowel Sounds, Soft Edema: No Labs: CBC, BMP 07/30/18 07:40 07/30/18 07:40 Discharge Summary Reason For Visit: TRANSIENT ISCHEMIC ATTACK Current Active Problems TIA (transient ischemic attack) (Acute) Other Procedures: brain MRI right thalamic and right internal capsule infarct. echo grade 1 diastolic dysfunction. carotid stenosis moderate atherosclerotic disease Hospital Course: 83F with a PMH of DM ESRD M/W/F since February 2018, chronic anemia, hypothyroidism, hypertension, hepatitis C, previous stroke (affecting R side) who presents to the ER with complaints of sudden onset aphasia and b/l arm and leg weakness/leg became shaky around 11am today. pt lives w/ daughter and daughter noticed pt was not talking and had limb weakness/could not stand or lift arms. pt Uses walker and wheelchair at baseline. daughter tried to walk mom but she could not. The daughter reports when she tried to sit her up, the patient just fell to one side. mom started to regain strength in hands but daughter decided to bring her to ED bec She was present exactly one month ago for the exact same symptoms, admitted for TIA. Found on MRI/MRA to have lacunar infarct seen by Neurology and cardiology as well to continue aspirin,plavix and statin HD at [facility] Condition: Guarded - Instructions Disposition: VNS/HOME HEALTH CARE - Home Medications Comprehensive Discharge Medication List: Ambulatory Orders Nifedipine ER [Procardia XL -] 60 mg PO DAILY #30 tab.er.24 07/08/17 Rosuvastatin [Crestor -] 5 mg PO HS #30 tablet 01/04/18 Acetaminophen [Tylenol .Regular Strength -] 650 mg PO Q4H PRN tablet 03/28/18 Pantoprazole Sodium [Protonix -] 40 mg PO BID #60 tablet.ec 03/28/18 Levothyroxine [Synthroid -] 25 mcg PO DAILY@0700 06/30/18 Sevelamer Carbonate [Renvela -] 800 mg NR DAILY 06/30/18 Aspirin 81 mg PO BID 07/01/18 Carvedilol [Coreg -] 6.25 mg PO BID #30 tablet MDD 2 07/04/18 Levothyroxine [Synthroid -] 50 mcg PO DAILY@0600 #30 tablet MDD 1 07/04/18 Nifedipine ER [Procardia XL -] 60 mg PO DAILY #30 tab.er.24 MDD 2 07/04/18
[2018-07-31] MEDS ORDERED: INSULIN SLIDING SCALE (NOVOLOG) 1 VIAL SQ ONE (18:57)
[2018-08-01 04:15] LABS: SERUM IRON SATURATION 18 % (15-55); TOTAL IRON BINDING CAPACITY 171 ug/dL (250-450); UIBC 141 ug/dL (118-369)
== END 2018-07-31 18:30 | disposition home health service (06) | DRG 64 ==
LOC: JER 14:37 → JERBED 17:52 → J4S 19:51 → OBSVTOIN 07-29 08:00 → J4S 07-30 22:03
PROVIDERS: ADMIT Internal Medicine; ATTEND Family Medicine
PROC: 5A1D70Z Performance of Urinary Filtration, Intermittent, Less than 6 Hours Per Day (ICD-10-PCS; principal; 2018-07-30)
DX: I63.9 Cerebral infarction, unspecified (principal); N18.6 End stage renal disease; G81.91 Hemiplegia, unspecified affecting right dominant side; I12.0 Hypertensive chronic kidney disease with stage 5 chronic kidney disease or end stage renal disease; R29.702 NIHSS score 2; R47.01 Aphasia; R53.1 Weakness; E11.22 Type 2 diabetes mellitus with diabetic chronic kidney disease; E88.09 Other disorders of plasma-protein metabolism, not elsewhere classified; J44.9 Chronic obstructive pulmonary disease, unspecified; B19.20 Unspecified viral hepatitis C without hepatic coma; D63.1 Anemia in chronic kidney disease; Z86.73 Personal history of transient ischemic attack (TIA), and cerebral infarction without residual deficits; Z79.4 Long term (current) use of insulin; Z87.891 Personal history of nicotine dependence; G62.9 Polyneuropathy, unspecified; E89.0 Postprocedural hypothyroidism; Z99.2 Dependence on renal dialysis
CPT/HCPCS: 36415; 70450-TC; 70551-TC; 71045-TC-FY; 80048; 80053; 80061; 80307; 81003; 81015; 82565; 82607; 82803; 82962; 83036; 83540; 83550; 83605; 83721; 83735; 84100; 84443; 84520; 85025; 85027; 85610; 85730; 86593; 86704; 86706; 86708; 86803; 86850; 86900; 86901; 87040; 87086; 87340; 93005; 93010; 93306-TC; 93880-TC; 97116-GP; 97162-GP; 99283-25; G0378; J0885; J1644

== ENCOUNTER 2018-09-22 14:36 | Emergency (ER) | payer OTHER, MEDICARE ==
[2018-09-22 14:48] VITALS: BP 119/63; PULSE 71; TEMP 97.7; BMI 18.8
--- NOTE | 2018-09-22 14:57 | PDOC ---
Rapid Medical Evaluation Chief Complaint: Pain Time Seen by Provider: 09/22/18 14:45 Medical Evaluation: Allergies Allergy/AdvReac Type Severity Reaction Status Date / Time No Known Allergies Allergy Verified 09/22/18 14:46 Vital Signs Temp Pulse Resp BP Pulse Ox 97.7 F 71 18 119/63 96 09/22/18 14:46 09/22/18 14:46 09/22/18 14:46 09/22/18 14:46 09/22/18 14:46 09/22/18 14:53 Pt presents to the ED: left sided abd pain x 1 week worse with movement Pt on exam: mild left flank tenderness, vss, no cva tenderness, no rash Pt ordered for: labs, ueine, cxr Pt to proceed to the ED Discharge Disposition - Diagnosis Abdominal pain - Referrals Referrals: Home Morin MD [Primary Care Provider] - - Patient Instructions - Post Discharge Activity
[2018-09-22 15:25] LABS: BASO % 0.5 % (0-2.0); EOS % 0.4 % (0-4.5); HEMATOCRIT 33.1 % (32.4-45.2); HEMOGLOBIN 10.2 GM/dL (10.7-15.3); LYMPH % 7.7 % (8-40); MCH 26.9 pg (25.7-33.7); MCHC 30.7 g/dl (32.0-36.0); MEAN CELL VOLUME 87.9 fl (80-96); MEAN PLT VOLUME 8.2 fl (7.5-11.1); MONO % 5.6 % (3.8-10.2); NEUT % 85.8 % (42.8-82.8); PLATELET COUNT 425 K/MM3 (134-434); RBC 3.77 M/mm3 (3.60-5.2); RDW 18.7 % (11.6-15.6)
[2018-09-22 16:22] LABS: ALBUMIN 2.8 g/dl (3.4-5.0); ALK PHOS 54 U/L (45-117); ANION GAP 11 MMOL/L (8-16); BILIRUBIN,TOTAL 0.3 mg/dL (0.2-1); BLOOD UREA NITROGEN 42 mg/dL (7-18); CALCIUM 8.5 mg/dL (8.5-10.1); CHLORIDE 101 mmol/L (98-107); CO2 23 mmol/L (21-32); CREATININE 7.1 mg/dL (0.55-1.3); GLUCOSE,RANDOM 147 mg/dL (74-106); POTASSIUM 3.6 mmol/L (3.5-5.1); SGOT/AST 18 U/L (15-37); SGPT/ALT 10 U/L (13-61); SODIUM 135 mmol/L (136-145); TOT PROT 7.2 g/dl (6.4-8.2)
[2018-09-22] MEDS ORDERED: ACETAMINOPHEN 1000 MG/100 ML VIAL (NON FORMULARY) IVPB ONE (16:31)
--- NOTE | 2018-09-22 16:37 | PDOC ---
History of Present Illness <Valarie Velarde - Last Filed: 09/22/18 18:20> <Mic Ha - Last Filed: 09/22/18 18:21> - General Chief Complaint: Pain Stated Complaint: SENT BY PCP Time Seen by Provider: 09/22/18 14:45 Past History - Past Medical History Anemia: No Asthma: No Cancer: No Cardiac Disorders: No CVA: Yes (TIA) COPD: No CHF: No DVT: No Dementia: No Diabetes: Yes (IDDM) GI Disorders: No Disorders: Yes (ESRD dialysis sat-sat-sat) HTN: Yes Hypercholesterolemia: No Liver Disease: No Seizures: No Thyroid Disease: Yes - Surgical History Abdominal Surgery: No Appendectomy: No Cardiac Surgery: No Cholecystectomy: Yes Lung Surgery: No Neurologic Surgery: No Orthopedic Surgery: No - Immunization History Immunization Up to Date: Yes - Suicide/Smoking/Psychosocial Hx Smoking Status: Yes Smoking History: Never smoked Have you smoked in the past 12 months: No Number of Cigarettes Smoked Daily: 20 If you are a former smoker, when did you quit?: 2018 'Breaking Loose' booklet given: 07/05/17 Hx Alcohol Use: No Drug/Substance Use Hx: No Substance Use Type: None Hx Substance Use Treatment: No <Valarie Velarde - Last Filed: 09/22/18 18:20> <Mic Ha - Last Filed: 09/22/18 18:21> - Past Medical History Allergies/Adverse Reactions: Allergies Allergy/AdvReac Type Severity Reaction Status Date / Time No Known Allergies Allergy Verified 09/22/18 14:46 Home Medications: Ambulatory Orders Rosuvastatin [Crestor -] 5 mg PO HS #30 tablet 01/04/18 Acetaminophen [Tylenol .Regular Strength -] 650 mg PO Q4H PRN tablet 03/28/18 Pantoprazole Sodium [Protonix -] 40 mg PO BID #60 tablet.ec 03/28/18 Aspirin 81 mg PO DAILY 07/01/18 Carvedilol [Coreg -] 6.25 mg PO BID #30 tablet MDD 2 07/04/18 Clopidogrel Bisulfate [Plavix -] 75 mg PO DAILY #30 tablet MDD 1 07/31/18 Levothyroxine [Synthroid -] 50 mcg PO DAILY@0600 #30 tablet MDD 1 07/31/18 Nifedipine ER [Procardia XL -] 60 mg PO DAILY #30 tab.er.24 07/31/18 *Physical Exam - Vital Signs Last Vital Signs Temp Pulse Resp BP Pulse Ox 97.7 F 71 18 119/63 96 09/22/18 14:46 09/22/18 14:46 09/22/18 14:46 09/22/18 14:46 09/22/18 14:46 <Valarie Velarde - Last Filed: 09/22/18 18:20> - Vital Signs Last Vital Signs Temp Pulse Resp BP Pulse Ox 97.7 F 71 18 119/63 96 09/22/18 14:46 09/22/18 14:46 09/22/18 14:46 09/22/18 14:46 09/22/18 14:46 <Mic Ha - Last Filed: 09/22/18 18:21> ED Treatment Course - LABORATORY CBC & Chemistry Diagram: 09/22/18 15:04 09/22/18 15:04 - ADDITIONAL ORDERS Additional order review: Laboratory Results 09/22/18 15:04 Sodium 135 L Potassium 3.6 Chloride 101 Carbon Dioxide 23 Anion Gap 11 BUN 42 H Creatinine 7.1 H Creat Clearance w eGFR 5.53 Random Glucose 147 H Calcium 8.5 Total Bilirubin 0.3 AST 18 ALT 10 L Alkaline Phosphatase 54 Creatine Kinase 41 Troponin I < 0.02 Total Protein 7.2 Albumin 2.8 L 09/22/18 15:04 RBC 3.77 MCV 87.9 MCHC 30.7 L RDW 18.7 H MPV 8.2 Neutrophils % 85.8 H D Lymphocytes % 7.7 L D Monocytes % 5.6 Eosinophils % 0.4 Basophils % 0.5 - RADIOLOGY Radiology Studies Ordered: Category Date Time Status RIBS-LEFT SIDE [RAD] Stat Radiology 09/22/18 16:31 Ordered <Valarie Velarde - Last Filed: 09/22/18 18:20> - LABORATORY CBC & Chemistry Diagram: 09/22/18 15:04 09/22/18 15:04 - ADDITIONAL ORDERS Additional order review: Laboratory Results 09/22/18 15:04 Sodium 135 L Potassium 3.6 Chloride 101 Carbon Dioxide 23 Anion Gap 11 BUN 42 H Creatinine 7.1 H Creat Clearance w eGFR 5.53 Random Glucose 147 H Calcium 8.5 Total Bilirubin 0.3 AST 18 ALT 10 L Alkaline Phosphatase 54 Creatine Kinase 41 Troponin I < 0.02 Total Protein 7.2 Albumin 2.8 L 09/22/18 15:04 RBC 3.77 MCV 87.9 MCHC 30.7 L RDW 18.7 H MPV 8.2 Neutrophils % 85.8 H D Lymphocytes % 7.7 L D Monocytes % 5.6 Eosinophils % 0.4 Basophils % 0.5 <Mic Ha - Last Filed: 09/22/18 18:21> Medical Decision Making - Medical Decision Making EKG: rate 69, QTc 432, NSR 09/22/18 16:37 <Valarie Velarde - Last Filed: 09/22/18 18:20> *DC/Admit/Observation/Transfer <Valarie Velarde - Last Filed: 09/22/18 18:20> - Discharge Dispostion Decision to Admit order: No <Mic Ha - Last Filed: 09/22/18 18:21> Diagnosis at time of Disposition: Rib pain - Discharge Dispostion Disposition: HOME - Referrals Referrals: Home Morin MD [Primary Care Provider] - - Patient Instructions Printed Discharge Instructions: Contusion Additional Instructions: Proceed to dialysis. Take [id number] Tylenol as needed for pain. Return to ED for any severe worsening symptoms or for any concerns. - Post Discharge Activity
--- NOTE | 2018-09-22 17:17 | PDOC ---
Documentation entered by Kiya Mitchell SCRIBE, acting as scribe for Mic Ha MD. Mic Ha MD: This documentation has been prepared by the Stephen mcgarry Nirvannie, SCRIBE, under my direction and personally reviewed by me in its entirety. I confirm that the documentation accurately reflects all work, treatment, procedures, and medical decision making performed by me. Attending Attestation - Resident Resident Name: Valarie Velarde - ED Attending Attestation I have performed the following: I have examined & evaluated the patient, The case was reviewed & discussed with the resident, I agree w/resident's findings & plan - HPI HPI: 09/22/18 16:49 CC: Left sided pain HPI: The patient is a 83 year old female, with a significant past medical history of DM, ESRD (on Dialysis), HTN, Hep C., and CVA, who presents to the emergency department with, 9 days of left sided pain and new onset dizziness. She denies recent nausea, vomit, diarrhea or constipation. She denies recent dysuria, frequency, urgency or hematuria. She denies recent chest pain or shortness of breath. Allergies: NKDA Primary Care Physician: Dr. Morin - Physicial Exam PE: 09/22/18 16:49 Vitals: Triage vital signs reviewed General Appearance: No acute distress, well nourished, well developed Head: Atraumatic Neck: Supple; No nuchal rigidity Chest Wall: Nontender Cardiac: Regular rate and rhythm, no murmurs, no rubs, no gallops Lungs: Clear to auscultation bilateral, good air movement bilaterally Abdomen: Soft, nondistended, normal bowel sounds, nontender to palpation Genitourinary: Exam deferred Rectal: Exam deferred Skin: +Left lateral rib pain overlying the 10th rib with ecchymosis. Psych: Normal mood, normal affect - Medical Decision Making 09/22/18 16:51 83 year old female, with a significant past medical history of DM, ESRD (on Dialysis), HTN, Hep C., and CVA, who presents to the emergency department with, 9 days of left sided pain and new onset dizziness. Plan is: Xray Pain medication UA 09/22/18 19:20 Small contusion to left rib area. No acute fracture noted on x-ray Labs unremarkable were able to arrange for patient to be dialyzed tonight daughter will take patient directly to dialysis Findings, need for follow-up and strict return instructions discussed with patient and family.
[2018-09-22] MEDS ORDERED: ACETAMINOPHEN INJECTION 100 ML IVPB ONE (17:41)
--- NOTE | 2018-09-23 17:16 | EKG ---
Test Reason : Blood Pressure : / mmHG Vent. Rate : 069 BPM Atrial Rate : 069 BPM P-R Int : 176 ms QRS Dur : 082 ms QT Int : 404 ms P-R-T Axes : 043 -04 084 degrees QTc Int : 432 ms NORMAL SINUS RHYTHM CANNOT RULE OUT ANTERIOR INFARCT (CITED ON OR BEFORE 10-JUL-2012) ABNORMAL ECG WHEN COMPARED WITH ECG OF 26-JUL-2018 15:01, QUESTIONABLE CHANGE IN INITIAL FORCES OF SEPTAL LEADS Confirmed by MD Saroj, Brady ([id number]) on 09/23/2018 5:16:17 PM Referred By: Confirmed By:Brady Kyle MD
== END 2018-09-22 18:20 | disposition home or self-care (01) ==
LOC: JER 14:36
PROC: 3E033NZ Introduction of Analgesics, Hypnotics, Sedatives into Peripheral Vein, Percutaneous Approach (ICD-10-PCS; principal; 2018-09-22)
DX: S20.212A Contusion of left front wall of thorax, initial encounter (principal); X58.XXXA Exposure to other specified factors, initial encounter; Y93.9 Activity, unspecified; Y92.89 Other specified places as the place of occurrence of the external cause; Y99.8 Other external cause status; I12.0 Hypertensive chronic kidney disease with stage 5 chronic kidney disease or end stage renal disease; E11.22 Type 2 diabetes mellitus with diabetic chronic kidney disease; N18.6 End stage renal disease; N17.8 Other acute kidney failure; Z99.2 Dependence on renal dialysis; Z79.4 Long term (current) use of insulin; E03.9 Hypothyroidism, unspecified; Z86.73 Personal history of transient ischemic attack (TIA), and cerebral infarction without residual deficits; Z79.82 Long term (current) use of aspirin
CPT/HCPCS: 36415; 71046-TC-FY; 71101-TC-LT-FY; 80053; 82550; 84484; 85025; 93005; 93010; 96374; 99283-25; J0131

== ENCOUNTER 2018-10-15 19:48 | Inpatient (IN) | payer OTHER, MEDICARE ==
--- NOTE | 2018-10-15 21:28 | PDOC ---
History of Present Illness - General Chief Complaint: Altered Mental Status Stated Complaint: AMS Time Seen by Provider: 10/15/18 20:45 History Source: Family (Daughter at bedside) Exam Limitations: Clinical Condition - History of Present Illness Initial Comments: 10/15/18 21:39 83F with a PMH of DM, ESRD (on Dialysis), HTN, Hep C., and CVA who presents with her daughter for concerns of AMS. The patient finished her dialysis today and became less alert and oriented per daughter. The daughter states that for the past 10 days she's had decreased appetite and weakness. The daughter denies the patient having any complaints of cough, dysuria, fever, chills, nausea, or vomiting. The patient cannot provide any of the history. Past History - Past Medical History Allergies/Adverse Reactions: Allergies Allergy/AdvReac Type Severity Reaction Status Date / Time lactose AdvReac Severe Verified 10/17/18 14:15 Home Medications: Ambulatory Orders Rosuvastatin [Crestor -] 5 mg PO HS #30 tablet 01/04/18 Acetaminophen [Tylenol .Regular Strength -] 650 mg PO Q4H PRN tablet 03/28/18 Pantoprazole Sodium [Protonix -] 40 mg PO BID #60 tablet.ec 03/28/18 Aspirin 81 mg PO DAILY #0 07/01/18 Carvedilol [Coreg -] 6.25 mg PO BID #30 tablet MDD 2 07/04/18 Clopidogrel Bisulfate [Plavix -] 75 mg PO DAILY #30 tablet MDD 1 07/31/18 Levothyroxine [Synthroid -] 50 mcg PO DAILY@0600 #30 tablet MDD 1 07/31/18 Nifedipine ER [Procardia XL -] 60 mg PO DAILY #30 tab.er.24 07/31/18 Mirtazapine [Remeron -] 15 mg PO HS 10/16/18 Anemia: No Asthma: No Cancer: No Cardiac Disorders: No CVA: Yes (TIA) COPD: No CHF: No DVT: No Dementia: No Diabetes: Yes (IDDM) GI Disorders: No Disorders: Yes (ESRD dialysis sat-sat-sat) HTN: Yes Hypercholesterolemia: No Liver Disease: No Seizures: No Thyroid Disease: Yes - Surgical History Abdominal Surgery: No Appendectomy: No Cardiac Surgery: No Cholecystectomy: Yes Lung Surgery: No Neurologic Surgery: No Orthopedic Surgery: No - Immunization History Immunization Up to Date: Yes - Suicide/Smoking/Psychosocial Hx Smoking Status: Yes Smoking History: Never smoked Have you smoked in the past 12 months: No Number of Cigarettes Smoked Daily: 20 If you are a former smoker, when did you quit?: 2018 Information on smoking cessation initiated: No 'Breaking Loose' booklet given: 07/05/17 Hx Alcohol Use: No Drug/Substance Use Hx: No Substance Use Type: None Hx Substance Use Treatment: No Review of Systems - Review of Systems Able to Perform ROS?: No (nonverbal) Is the patient limited Azeri proficient: No *Physical Exam - Vital Signs Last Vital Signs Temp Pulse Resp BP Pulse Ox 97.8 F 87 19 137/64 96 10/15/18 19:50 10/15/18 19:50 10/15/18 19:50 10/15/18 19:50 10/15/18 19:50 - Physical Exam Comments: 10/15/18 21:43 GENERAL: Well developed, well nourished. Awake and alert. No acute distress. HEENT: Normocephalic, atraumatic. Hearing grossly normal. Moist mucous membranes. PERRLA, EOMI. No conjunctival pallor. Sclera are non-icteric. NECK: Supple. Full ROM. No JVD. CARDIOVASCULAR: Regular rate and rhythm. No murmurs, rubs, or gallops. PULMONARY: No evidence of respiratory distress. Lungs clear to auscultation bilaterally. No wheezing, rales or rhonchi. ABDOMINAL: Soft. Non-tender. Non-distended. No rebound or guarding. GENITOURINARY: No CVA tenderness bilaterally. MUSCULOSKELETAL: Normal range of motion at all joints. No bony deformities or tenderness. EXTREMITIES: No cyanosis. No clubbing. No edema. No calf tenderness or swelling. SKIN: Warm and dry. Normal capillary refill. No rashes. No jaundice. NEUROLOGICAL: Alert, awake, appropriate. Cranial nerves 2-12 grossly intact. PSYCHIATRIC: Turns toward verbal stimuli. Poor eye contact. ED Treatment Course - LABORATORY CBC & Chemistry Diagram: 10/18/18 07:21 10/18/18 07:21 - RADIOLOGY Radiology Studies Ordered: Category Date Time Status CHEST X-RAY PORTABLE* [RAD] Stat Radiology 10/15/18 21:14 Ordered Medical Decision Making - Medical Decision Making 10/15/18 21:44 83F with MMP including ESRD on HD who presents from dialysis for AMS. Concern for subdural vs electrolyte abnormality vs weakness d/t lack of appetite/diet. Pending labs and imaging. Pt stable on monitor. 10/15/18 21:57 Pt signed out to Dr. Velarde for further evaluation. *DC/Admit/Observation/Transfer Diagnosis at time of Disposition: Weakness, Altered mental status - Discharge Dispostion Condition at time of disposition: Guarded - Referrals - Patient Instructions - Post Discharge Activity
--- NOTE | 2018-10-15 22:02 | PDOC ---
*Physical Exam - Vital Signs Last Vital Signs Temp Pulse Resp BP Pulse Ox 97.8 F 87 19 137/64 96 10/15/18 19:50 10/15/18 19:50 10/15/18 19:50 10/15/18 19:50 10/15/18 19:50 ED Treatment Course - LABORATORY CBC & Chemistry Diagram: 10/15/18 22:10 10/15/18 22:10 Medical Decision Making - Medical Decision Making Patient signed out by Dr. Abad 83yo F with PMH of HTN, DM, ESRD (dialysis on MWF), anemia, hypothyroid, CVA presenting with altered mental status. Pending labs and CT head EKG: rate 90, QTc 452, NSR 10/15/18 22:44 CT Head: TECHNIQUE: Sequential axial images were obtained from the base of the skull to the vertex. The study is limited due to the patient's poor cooperation. There is no evidence of acute intracranial hemorrhage, mass lesions or infarctions. There is a moderate degree of diffuse cerebral atrophy with sulcal widening and ventricular dilatation. Hypodense changes are noted within the periventricular white matter consistent with chronic, small vessel ischemia. IMPRESSION: No evidence of acute intracranial pathology. 10/15/18 23:27 CBC WBC 13.2 K/mm3 (4.0-10.0) H 10/15/18 22:10 RBC 3.19 M/mm3 (3.60-5.2) L 10/15/18 22:10 Hgb 8.2 GM/dL (10.7-15.3) L 10/15/18 22:10 Hct 27.7 % (32.4-45.2) L D 10/15/18 22:10 MCV 86.7 fl (80-96) 10/15/18 22:10 MCH 25.8 pg (25.7-33.7) 10/15/18 22:10 MCHC 29.7 g/dl (32.0-36.0) L 10/15/18 22:10 RDW 19.2 % (11.6-15.6) H 10/15/18 22:10 Plt Count 439 K/MM3 (134-434) H 10/15/18 22:10 MPV 7.9 fl (7.5-11.1) 10/15/18 22:10 Absolute Neuts (auto) 11.5 K/mm3 (1.5-8.0) H 10/15/18 22:10 Neutrophils % 86.9 % (42.8-82.8) H 10/15/18 22:10 Lymphocytes % 6.5 % (8-40) L 10/15/18 22:10 Monocytes % 5.9 % (3.8-10.2) 10/15/18 22:10 Eosinophils % 0.2 % (0-4.5) 10/15/18 22:10 Basophils % 0.5 % (0-2.0) 10/15/18 22:10 Nucleated RBC % 0 % (0-0) 10/15/18 22:10 Hgb 8.2 down from 10.2 on 09/22/18 10/15/18 23:33 CMP Sodium 139 mmol/L (136-145) 10/15/18 22:10 Potassium 3.7 mmol/L (3.5-5.1) 10/15/18 22:10 Chloride 104 mmol/L (98-107) 10/15/18 22:10 Carbon Dioxide 23 mmol/L (21-32) 10/15/18 22:10 Anion Gap 11 MMOL/L (8-16) 10/15/18 22:10 BUN 11 mg/dL (7-18) 10/15/18 22:10 Creatinine 1.9 mg/dL (0.55-1.3) H 10/15/18 22:10 Est GFR (CKD-EPI)AfAm 27.96 10/15/18 22:10 Est GFR (CKD-EPI)NonAf 24.13 10/15/18 22:10 Random Glucose 83 mg/dL (74-106) 10/15/18 22:10 Calcium 7.7 mg/dL (8.5-10.1) L 10/15/18 22:10 Total Bilirubin 0.3 mg/dL (0.2-1) 10/15/18 22:10 AST 25 U/L (15-37) 10/15/18 22:10 ALT 15 U/L (13-61) 10/15/18 22:10 Alkaline Phosphatase 53 U/L (45-117) 10/15/18 22:10 Creatine Kinase 23 U/L (26-192) L 10/15/18 22:10 Troponin I 0.02 ng/ml (0.00-0.05) 10/15/18 22:10 Total Protein 6.5 g/dl (6.4-8.2) 10/15/18 22:10 Albumin 2.5 g/dl (3.4-5.0) L 10/15/18 22:10 Electrolytes WNL CXR without acute pathology, my impression Plan to admit for altered mental status 10/15/18 23:46 Dr. Briceno discussed case with inpatient team who accepted patient for admission 10/16/18 00:00 UA with 3+ LE, 62 WBC, and 104.5 bacteria consistent with UTI Inpatient team placed orders for antibiotics 10/16/18 05:18 *DC/Admit/Observation/Transfer Diagnosis at time of Disposition: Weakness, Altered mental status - Discharge Dispostion Condition at time of disposition: Guarded - Referrals - Patient Instructions - Post Discharge Activity
[2018-10-15] MEDS ORDERED: SODIUM CHLORIDE 0.9% 1000 ML INFUS.BAG IV ONE (22:17)
[2018-10-15 22:43] LABS: BASO % 0.5 % (0-2.0); EOS % 0.2 % (0-4.5); HEMATOCRIT 27.7 % (32.4-45.2); HEMOGLOBIN 8.2 GM/dL (10.7-15.3); LYMPH % 6.5 % (8-40); MCH 25.8 pg (25.7-33.7); MCHC 29.7 g/dl (32.0-36.0); MEAN CELL VOLUME 86.7 fl (80-96); MEAN PLT VOLUME 7.9 fl (7.5-11.1); MONO % 5.9 % (3.8-10.2); NEUT % 86.9 % (42.8-82.8); PLATELET COUNT 439 K/MM3 (134-434); RBC 3.19 M/mm3 (3.60-5.2); RDW 19.2 % (11.6-15.6); WHITE BLOOD COUNT 13.2 K/mm3 (4.0-10.0)
[2018-10-15 22:57] LABS: INR 1.34 (0.83-1.09); PROTHROMBIN TIME (PATIENT) 15.9 SEC (9.7-13.0)
[2018-10-15 23:30] LABS: ALBUMIN 2.5 g/dl (3.4-5.0); BILIRUBIN,TOTAL 0.3 mg/dL (0.2-1); CALCIUM 7.7 mg/dL (8.5-10.1); CREATININE 1.9 mg/dL (0.55-1.3); POTASSIUM 3.7 mmol/L (3.5-5.1); TOT PROT 6.5 g/dl (6.4-8.2)
--- NOTE | 2018-10-15 23:44 | PDOC ---
Documentation entered by Aylin Ferro SCRIBE, acting as scribe for Belle Briceno DO. Belle Briceno DO: This documentation has been prepared by the Pillo mcgarry Daisy, SCRIBE, under my direction and personally reviewed by me in its entirety. I confirm that the documentation accurately reflects all work, treatment, procedures, and medical decision making performed by me. Attending Attestation - Resident Resident Name: GiovanyjohnTon - ED Attending Attestation I have performed the following: I have examined & evaluated the patient, The case was reviewed & discussed with the resident, I agree w/resident's findings & plan - HPI HPI: 10/15/18 21:46 The patient is a 83 YOF with a PMH of DM and ESRD on dialysis M/W/F who presents to the ER for worsening weakness and decreased appetite for the past 10 days. History is provided by daughter at bedside. She reports the patient did not eat much yesterday and did not seem like herself after dialysis yesterday. As per daughter, patient was not talking much and felt disoriented as well. Patient was able to finish her dialysis yesterday. Daughter reports the patient typically feels tired after receiving dialysis. Allergies: NKDA - Physicial Exam PE: 10/15/18 22:11 Constitutional: (+) Lethargic but arousable. Follows simple commands. Head: Normocephalic. Atraumatic Eyes: PERRL. EOMI. Conjunctivae are not pale. ENT: (+) Dry mucous membranes. Posterior pharynx without exudates or erythema. Uvula midline. Neck: Supple. Full ROM. No lymphadenopathy. Cardiovascular: (+) Dialysis catheter is in the right chest wall. Regular rate. Regular rhythm. S1, S2 regular. Distal pulses are 2+ and symmetric. Pulmonary/Chest: (+) poor respiratory effort. Clear to auscultation bilaterally No wheezing, rales or rhonchi. Abdominal: Soft and non-distended. There is no tenderness. No rebound, guarding or rigidity. Good bowel sounds. Rectal: (+) Hemorrhoids, but no bleeding. Musculoskeletal: No edema. Full range of motion in all extremities. No calf tenderness. Skin: Skin is warm and dry. Neurological: No focal deficits. - Medical Decision Making 10/15/18 23:41 I, Dr. Belle Briceno, DO, attest that this document has been prepared under my direction and personally reviewed by me in its entirety. I further attest, that it accurately reflects all work, treatment, procedures and medical decision -making performed by me. 10/15/18 23:41 a/p: 83yo female with ams -per daughter, decreased PO intake, lethargic -no fevers -had full HD today -more confused/lethargic today after HD -sent from HD for eval -pt arousable, but lethargic, no focal findings, moving all extremities -hemoglobin saturday was 8 on HD -had full HD today -will obtain labs, head ct, cxr, ekg -will need admission for ams -will monitor and reassess 10/15/18 23:43 no acute findings on head ct hemoglobin 8 today mildly elevated wbc only makes urine 1x per week cxr clear 10/15/18 23:55 case discussed with RITA Santo from [facility] who accepts pt to service Dr. Morin covered by Dr. Park who admits to [facility] overnight 10/16/18 00:02 daughter updated, pt updated *DC/Admit/Observation/Transfer Diagnosis at time of Disposition: Weakness, Altered mental status - Discharge Dispostion Condition at time of disposition: Guarded Decision to Admit order: Yes - Referrals - Patient Instructions - Post Discharge Activity Heart Score/ECG Review - ECG Intrepretation Comment:: 10/15/18 23:43 sinus at 90, low voltage, nl interval, q waves septally which are age indeterminate, no acute st/t wave findings
[2018-10-16] MEDS ORDERED: ACETAMINOPHEN 1000 MG/100 ML VIAL (NON FORMULARY) IVPB ONE (00:28)
--- NOTE | 2018-10-16 00:38 | HP ---
CHIEF COMPLAINT:generalized weakness, decreased appetite, weight loss, lethargy PCP:Dr. Morin Quarter Section Ironer: Dr. Escalona Environmental Field Office Manager: Dr. Gavino Lockett Card Scraper: Dr. Li Neurologist:Dr. Morrison HISTORY OF PRESENT ILLNESS: 83 year old female with history of diabetes mellitus, ESRD (started on hemodialysis by rt subclavian catheter 02/2018, schedule MWF), hypertension, normal EF and no valvular disease by echo 2017, Hepatitis C, and CVA (lacunar infarct) in June 2018 who presents from home with her daughter for concerns of an altered mental status in setting of generalized weakness, anorexia, and approximately 40 pound weight loss with worsenoing symptoms since her stroke. She reported she finished hemodialysis today and became less alert and oriented as per her daughter. The daughter reported that she has been having a decreased appetite and generalized weakness with 40 pound weight loss since her stroke. Daughter denies patient having any complaints of shortness of breath, chest pain , dysuria (urinates once per month),cough,fever, chills,nausea, vomiting or bleeding. Daughter reports she has blood clots with bowel movements from her rectum and relates this to her hemorrhoids. The patient cannot provide any of the history. Upon evaluation in the ER labs notable for WBC13.2, hemoglobin 8.2 , creatinine 1.9, normal troponin and albumin 2.5.CT scan of head with no acute findings.EKG w/NSR. Vital signs are stable. Urinalysis with 3 + leukoesterase, negative nitrite. She is being admitted to the Medicine Service for altered mental status changes in setting of failure to thrive. Recent Travel: denies PAST MEDICAL HISTORY: diabtes mellitus ESRD (on dialysis by right subclavian catheter, schedule MWF) hypertension Hepatitis C CVA in June 2018 PAST SURGICAL HISTORY: none Social History: Smoking:no Alcohol:no Drugs: no Family History: noncontributory Allergies No Known Allergies Allergy (Verified 09/22/18 14:46) HOME MEDICATIONS: Home Medications Medication Instructions Recorded Rosuvastatin [Crestor -] 5 mg PO HS #30 tablet 01/04/18 Acetaminophen [Tylenol .Regular 650 mg PO Q4H PRN tablet 03/28/18 Strength -] Pantoprazole Sodium [Protonix -] 40 mg PO BID #60 tablet.ec 03/28/18 Aspirin 81 mg PO DAILY 07/01/18 Carvedilol [Coreg -] 6.25 mg PO BID #30 tablet MDD 2 07/04/18 Clopidogrel Bisulfate [Plavix -] 75 mg PO DAILY #30 tablet MDD 1 07/31/18 Levothyroxine [Synthroid -] 50 mcg PO DAILY@0600 #30 tablet 07/31/18 MDD 1 Nifedipine ER [Procardia XL -] 60 mg PO DAILY #30 tab.er.24 07/31/18 REVIEW OF SYSTEMS CONSTITUTIONAL: Absent: fever, chills, diaphoresis, generalized weakness, malaise, loss of appetite, weight loss HEENT: Absent: rhinorrhea, nasal congestion, throat pain, throat swelling, difficulty swallowing, mouth swelling, ear pain, eye pain, visual changes CARDIOVASCULAR: Absent: chest pain, syncope, palpitations, irregular heart rate, lightheadedness , peripheral edema RESPIRATORY: Absent: cough, shortness of breath, dyspnea with exertion, orthopnea, wheezing, stridor, hemoptysis GASTROINTESTINAL: Absent: abdominal pain, abdominal distension, nausea, vomiting, diarrhea, constipation, melena, hematochezia GENITOURINARY: Absent: dysuria, frequency, urgency, hesitancy, hematuria, flank pain, genital pain, makes urine once a month MUSCULOSKELETAL: Absent: myalgia, arthralgia, joint swelling, back pain, neck pain SKIN: Absent: rash, itching, pallor, sacral redness, no open wounds HEMATOLOGIC/IMMUNOLOGIC: Absent: easy bruising, +bruising to both eyelids,lymphadenopathy, frequent infections ENDOCRINE: Absent: unexplained weight gain, unexplained weight loss, heat intolerance, cold intolerance NEUROLOGIC: Absent: headache, focal weakness or paresthesias, dizziness, unsteady gait, seizure, mental status changes, bladder or bowel incontinence PSYCHIATRIC: Absent: anxiety, depression, suicidal or homicidal ideation, hallucinations. PHYSICAL EXAMINATION Vital Signs - 24 hr 10/15/18 19:50 Temperature 97.8 F Pulse Rate 87 Respiratory 19 Rate Blood Pressure 137/64 O2 Sat by Pulse 96 Oximetry (%) GENERAL: thin appearing lady who opens eyes on command, nonverbal, no acute distress HEAD: normal EYES: pupils equal, round and reactive to light, bilateral eyelids with small ( less than dimed size) bruises present EARS, NOSE, THROAT: Ears normal, nares patent, oropharynx clear without exudates. Moist mucous membranes. NECK: no JVD LUNGS: breath sounds clear to auscultation bilaterally no use of accessory muscle use HEART: regular rate and rhythm, normal S1 and S2 ABDOMEN: soft, nontender, not distended, normoactive bowel sounds MUSCULOSKELETAL:limited ROM UPPER EXTREMITIES: 2+ pulses, warm no cyanosis. no peripheral edema LOWER EXTREMITIES: 2+ pulses, warm, no pitting edema NEUROLOGICAL: no facial droop PSYCHIATRIC:unable to assess SKIN: poor skin turgor,redness to sacrum present , no open decubiti Laboratory Results - last 24 hr 10/15/18 10/15/18 10/15/18 22:10 22:10 22:10 WBC 13.2 H RBC 3.19 L Hgb 8.2 L Hct 27.7 L D MCV 86.7 MCH 25.8 MCHC 29.7 L RDW 19.2 H Plt Count 439 H MPV 7.9 Absolute Neuts (auto) 11.5 H Neutrophils % 86.9 H Lymphocytes % 6.5 L Monocytes % 5.9 Eosinophils % 0.2 Basophils % 0.5 Nucleated RBC % 0 PT with INR 15.90 H INR 1.34 H Sodium 139 Potassium 3.7 Chloride 104 Carbon Dioxide 23 Anion Gap 11 BUN 11 Creatinine 1.9 H Est GFR (CKD-EPI)AfAm 27.96 Est GFR (CKD-EPI)NonAf 24.13 Random Glucose 83 Calcium 7.7 L Total Bilirubin 0.3 AST 25 ALT 15 Alkaline Phosphatase 53 Creatine Kinase 23 L Troponin I 0.02 Total Protein 6.5 Albumin 2.5 L ASSESSMENT/PLAN: In summary this is an 83 year old female with history of diabetes mellitus, ESRD (on dialysis by right subclavian catheter, schedule MWF), hypertension, Hepatitis C, and CVA in early July 2018 who presented from home with her daughter with altered mental status changes in setting of generalized weakness , anorexia, and 40 pound weight loss which has worsened since her recent stroke in June. #1 Altered Mental Status/ Weakness in setting of Failure to Thrive CT scan of head negative. - IVF D51/2NS at 75cc/hr - Check TSH - Dr. Morrison of Neurology consulted #[address] scan of head negative. -Continue with baby aspirin, plavix 75mg qod and atorvastatin -Dr. Morrison of Neurology consulted. -Physical Therapy evaluation #3 Anorexia/Weight Loss/ History Hepatitis C last/alt total bilirubin normal, low albumin level - Gastroenterolyog consulted - Dr. Hernandez for evaluation and recommendatios for ?PEG #4 Leukocytosis WBC 13.2, trended up from 10.0 on 09/22/18 ,currently afebrile, UA w/ 3+ leukoesterase, neg nitrite, neg blood, urine culture pending -will give one dosage of IV Ceftriaxone now -repeat CBC in am #5 End Stage Renal Disease (on HD schedule MWF) - Dr. Gavino Lockett of Nephrology consulted #6 Hypertension Controlled, echo 07/2018 nl LV function -Continue with coreg and nifedipine #7 Diabtes Mellitus -Accucheks before meals and at bedtime. - monitor for hypoglycemia as patient is not tolerating oral intake #8 Hypoalbuminia/Malnutrition -Consult Registered Dietitian . Encouarge adequate intake of protein to prevent skin breakdown. #9 Anemia of Chronic Disease hgb 8.2/ hemoglobin 27.7, no evidence of active bleeding -Continue to monitor closely #10 Hypothyroidism - Continue with synthroid TSH pending FEN IVF D51/2 NS @75cc/hr,soft diet, monitor electrolytesclosely DVT TEDS and SCD's bilaterally Visit type - Emergency Visit Emergency Visit: Yes ED Registration Date: 10/15/18 Care time: The patient presented to the Emergency Department on the above date and was hospitalized for further evaluation of their emergent condition. - New Patient This patient is new to me today: Yes Date on this admission: 10/16/18 - Critical Care Critical Care patient: No
[2018-10-16 01:20] LABS: EPI CELLS 0.4 /HPF (0-5/HPF); HYALINE CASTS 3 /lpf (0-8); URINE APPEARANCE CLOUDY; URINE BACTERIA 104.5 /hpf (NEGATIVE); URINE BILIRUBIN NEGATIVE (NEGATIVE); URINE COLOR DK YELLOW; URINE GLUCOSE (UA) NEGATIVE (NEGATIVE); URINE KETONE TRACE (NEGATIVE); URINE LEUK ESTERASE 3+ (NEGATIVE); URINE NITRITE NEGATIVE (NEGATIVE); URINE PROTEIN 2+ (NEGATIVE); URINE RBC 2 /hpf (0-4); URINE UROBILINOGEN 0.2 mg/dL (0.2-1.0); URINE WBC 62 /hpf (0-5)
[2018-10-16] MEDS: DEXTROSE 5%-0.45% SALINE 1,000 ML IV SCH ×3 (01:50→21:39)
[2018-10-16] MEDS ORDERED: CEFTRIAXONE 1 GM in DEXTROSE 5%-WATER - 50 ML IVPB ONE (03:00)
[2018-10-16] MEDS ORDERED: CEFTRIAXONE 1 GM/50 ML BAG ONE (04:13)
[2018-10-16] MEDS: LEVOTHYROXINE NA 50 MCG TABLET (FP) PO SCH (07:35)
--- NOTE | 2018-10-16 10:10 | CONSULT ---
Consult - text type - Consultation Consultation Note: NEUROLOGY CONSULT APPRECIATED: This 83 yo RH woman is well known to me initially with RLS and more recent development of cognitive decline, now with moderately advanced OMS (AD). Currently lives with daughter. Previously ambulating with walker. Last seen 07/30/18 in consult due to recurrent, episodic confused speech, generalized weakness and poor appetite. Modified barium swallow 09/03/18 revealed swallow was brisk, but patient pocketing. Recommendation for variable textures and blenderized foods through straw. Now admitted for similar concerns per daughter and global worsening of cognition , speech, attention, and swallowing. Pt is vague historian, unable to provide cogent history. Per report, received dialysis yesterday 10/15/18. PMHX: DM,ESRD M/W/F since February 2018, chronic anemia, hypothyroidism, hypertension, hepatitis C Meds: carvededilol, nifedipine, asa, B12, levothyroxine, rosuvastatin, pantoprazole, ranvela Head CT: moderate atrophy with multiple lacunar infarcts and severe, diffuse, microvascular changes WBC= 12.2 Urine WBC= 62; 07/30/18 W82=6700; TSH=1.09; RPR non-reactive PHILIPPE: BP's 90-140/40-60 supine. Cor reg. No bruits. Neck supple. Permacath in R Subclavian. Wearing diaper. NEURO: Mentation/Speech:Awake, alert, confused. Sparse speech. Periods of staring. [facility]. Not name. June corrected to September. No year. No president. No recall. CNII-CNXII: EOM intact. Full fowler appreciated. + glabella. Tongue mvm'ts preserved. Gag ok. Motor: No drift. Strong grasps. Decreased MORELIA's. Absent AJ's. Coordination: No FTN dystaxia. Sensation: Decreased vibration in toes. Gait: Deferred Impression: B/L Cerebral Dysfunction (OMS, Chronic c/w moderately advanced Alzheimer's Disease) Worsened by Toxic-Metabolic Encephalopathy (UTI) Peripheral Neuropathy Plan: ID consult. Tx with antibiotics and gentle hydration as tolerated. Mobilize pt OO bed to chair. Assist with feeds. PT eval for gait safety with walker school services officer eval for consideration of HHS or SNF Thank you very much, Lucio Morrison MD
[2018-10-16] MEDS: ASPIRIN 81 MG CHEWABLE TABLETS PO SCH ×2 (10:46→13:00)
[2018-10-16] MEDS: CLOPIDOGREL BISULFATE 75 MG TABLET (FP) PO SCH ×2 (10:46→13:00)
[2018-10-16] MEDS: CARVEDILOL 3.125 MG TABLET (FP) PO SCH ×3 (10:46→21:29)
--- NOTE | 2018-10-16 12:44 | CONSULT ---
Consult - text type - Consultation Consultation Note: Renal consult for ESRD on HD This is a 83 year old woman with hx of ESRD on HD due to diabetic nephropathy, hyperension, hypothyrodism, hepatitis C, DM, recent CVA who presented s/p dialysis with AMS and hx of poor oral intake. History obtained from the daughter who says she was not talking and was very lethargic after dialysis. She does typically feel fatigued after dialysis but this was worse then normal. She also has had poor oral intake for the past week. No diarrhea, fever, chills , SOB. Was noted to have UA indicative for infection, was given ceftriaxone. Pt is awake but groggy when examined. PMhx: as above Allergies: NKDA Family Hx: NC Social Hx: NO T/A/D ROS: limited due to clinical status Home Medications Medication Instructions Recorded Rosuvastatin [Crestor -] 5 mg PO HS #30 tablet 01/04/18 Acetaminophen [Tylenol .Regular 650 mg PO Q4H PRN tablet 03/28/18 Strength -] Pantoprazole Sodium [Protonix -] 40 mg PO BID #60 tablet.ec 03/28/18 Aspirin 81 mg PO DAILY #0 07/01/18 Carvedilol [Coreg -] 6.25 mg PO BID #30 tablet MDD 2 07/04/18 Clopidogrel Bisulfate [Plavix -] 75 mg PO DAILY #30 tablet MDD 1 07/31/18 Levothyroxine [Synthroid -] 50 mcg PO DAILY@0600 #30 tablet 07/31/18 MDD 1 Nifedipine ER [Procardia XL -] 60 mg PO DAILY #30 tab.er.24 07/31/18 Vital Signs Temperature 97.3 F L 10/16/18 10:00 Pulse Rate 64 10/16/18 10:00 Respiratory Rate 18 10/16/18 10:00 Blood Pressure 148/73 10/16/18 10:00 O2 Sat by Pulse Oximetry (%) 98 10/16/18 09:00 Intake & Output 10/13/18 10/14/18 10/15/18 10/16/18 23:59 23:59 23:59 23:59 Weight 43.091 kg NAD alert, groggy neck supple RRR, no M/R CTA no rales or wheeze soft NT/ND no LE edema, clubbing or cyanosis CBC, BMP 10/15/18:10 10/15/18 22:10 Current Medications Aspirin (Asa -) 81 mg PO DAILY [facility] Last Admin: 10/16/18 10:46 Dose: Not Given Carvedilol (Coreg -) 3.125 mg PO BID [facility] Last Admin: 10/16/18 10:46 Dose: Not Given Clopidogrel Bisulfate (Plavix -) 75 mg PO Q2D [facility] Last Admin: 10/16/18 10:46 Dose: Not Given Dextrose/Sodium Chloride (D5-1/2ns -) 1,000 mls @ 75 mls/hr IV ASDIR [facility] Last Admin: 10/16/18 01:50 Dose: 75 mls/hr Levothyroxine Sodium (Synthroid -) 50 mcg PO DAILY@0600 [facility] Last Admin: 10/16/18 07:35 Dose: 50 mcg Nifedipine (Procardia Xl -) 30 mg PO HS [facility] Rosuvastatin Calcium (Crestor -) 5 mg PO HS [facility] CT head - no acute infarction 83 year old woman with hx of ESRD on HD due to diabetic nephropathy, hyperension , hypothyrodism, hepatitis C, DM, recent CVA who presented s/p dialysis with AMS and hx of poor oral intake. #ESRD on HD #Altered mental status #R/o cystitits #Anemia #Hypertension #Failure to thrive no acute need for dialysis today, will likely also skip tomorrows treatment to monitor for improvement in clinical status s/p Ceftriaxone given early this am check blood and urine cultures Neurology consult noted and appreciated will continue ALBA with HD continue nifedpine, coreg Nutrition evaluation Thank you Levy Mancia DO
[2018-10-16 12:54] LABS: BASO % 0.5 % (0-2.0); EOS % 0.6 % (0-4.5); HEMATOCRIT 28.9 % (32.4-45.2); HEMOGLOBIN 8.6 GM/dL (10.7-15.3); LYMPH % 10.7 % (8-40); MCH 25.9 pg (25.7-33.7); MCHC 29.7 g/dl (32.0-36.0); MEAN CELL VOLUME 87.4 fl (80-96); MEAN PLT VOLUME 7.9 fl (7.5-11.1); NEUT % 80.2 % (42.8-82.8); PLATELET COUNT 427 K/MM3 (134-434); RDW 18.3 % (11.6-15.6); WHITE BLOOD COUNT 9.1 K/mm3 (4.0-10.0)
--- NOTE | 2018-10-16 13:12 | EKG ---
Test Reason : Blood Pressure : / mmHG Vent. Rate : 090 BPM Atrial Rate : 090 BPM P-R Int : 164 ms QRS Dur : 080 ms QT Int : 370 ms P-R-T Axes : 062 003 077 degrees QTc Int : 452 ms NORMAL SINUS RHYTHM LOW VOLTAGE QRS SEPTAL INFARCT (CITED ON OR BEFORE 10-JUL-2012) ABNORMAL ECG WHEN COMPARED WITH ECG OF 22-SEP-2018 15:01, NO SIGNIFICANT CHANGE WAS FOUND Confirmed by GARFIELD LANGFORD MD ([id number]) on 10/16/2018 1:11:53 PM Referred By: Confirmed By:GARFIELD LANGFORD MD
--- NOTE | 2018-10-16 13:19 | PN ---
Progress Note, Physician Chief Complaint: patient seen and examined in ER she does not know why she is in the hospital she is able to tell me her name admitted for uti and leukocytosis PT eval nutritional consult - Current Medication List Current Medications: Active Medications Aspirin (Asa -) 81 mg PO DAILY [facility] Last Admin: 10/16/18 10:46 Dose: Not Given Carvedilol (Coreg -) 3.125 mg PO BID [facility] Last Admin: 10/16/18 10:46 Dose: Not Given Clopidogrel Bisulfate (Plavix -) 75 mg PO Q2D [facility] Last Admin: 10/16/18 10:46 Dose: Not Given Dextrose/Sodium Chloride (D5-1/2ns -) 1,000 mls @ 75 mls/hr IV ASDIR [facility] Last Admin: 10/16/18 01:50 Dose: 75 mls/hr Levothyroxine Sodium (Synthroid -) 50 mcg PO DAILY@0600 [facility] Last Admin: 10/16/18 07:35 Dose: 50 mcg Nifedipine (Procardia Xl -) 30 mg PO [facility] Rosuvastatin Calcium (Crestor -) 5 mg PO [facility] - Objective Vital Signs: Vital Signs Temperature 97.3 F L 10/16/18 10:00 Pulse Rate 64 10/16/18 10:00 Respiratory Rate 18 10/16/18 10:00 Blood Pressure 148/73 10/16/18 10:00 O2 Sat by Pulse Oximetry (%) 98 10/16/18 09:00 Constitutional: Yes: Calm, Thin Cardiovascular: Yes: Regular Rate and Rhythm, S1, S2 Respiratory: Yes: CTA Bilaterally Gastrointestinal: Yes: Normal Bowel Sounds, Soft Edema: No Neurological: Yes: Alert Labs: CBC, BMP 10/16/18 12:30 INR, PTT INR 1.34 (0.83-1.09) H 10/15/18 22:10 Problem List - Problems (1) Leukocytosis Assessment/Plan: improved s/p rocephin dose awaiting final cultures Code(s): D72.829 - ELEVATED WHITE BLOOD CELL COUNT, UNSPECIFIED (2) Altered mental status Assessment/Plan: maybe secondary to toxic metabolic iv abx FU cultures Code(s): R41.82 - ALTERED MENTAL STATUS, UNSPECIFIED (3) Weakness Assessment/Plan: neurology on board PT eval nutritional eval assist with feeds gi eval possible peg Code(s): R53.1 - WEAKNESS (4) Hypothyroid Assessment/Plan: tsh synthroid Code(s): E03.9 - HYPOTHYROIDISM, UNSPECIFIED Qualifiers: (5) ESRD (end stage renal disease) Assessment/Plan: HD per renal Code(s): N18.6 - END STAGE RENAL DISEASE (6) HTN (hypertension) Assessment/Plan: coreg and nifedipine Code(s): I10 - ESSENTIAL (PRIMARY) HYPERTENSION Qualifiers:
[2018-10-16 13:31] LABS: ALBUMIN 2.6 g/dl (3.4-5.0); BILIRUBIN,TOTAL 0.2 mg/dL (0.2-1); CALCIUM 7.6 mg/dL (8.5-10.1); CREATININE 2.8 mg/dL (0.55-1.3); POTASSIUM 3.5 mmol/L (3.5-5.1); TOT PROT 6.5 g/dl (6.4-8.2)
[2018-10-16] MEDS ORDERED: ACETAMINOPHEN 325 MG TABLET (FP) PO PRN (19:53)
[2018-10-16] MEDS ORDERED: ACETAMINOPHEN 325 MG TABLET (FP) ONE (20:09)
[2018-10-16] MEDS: NIFEdipine E.R. 30 MG TABLET (FP) PO SCH (21:29)
[2018-10-16] MEDS: PANTOPRAZOLE 40 MG TABLET (FP) PO SCH (21:29)
[2018-10-16] MEDS: ROSUVASTATIN CA 5 MG TABLET (FP) PO SCH (21:29)
[2018-10-16] MEDS: MIRTAZAPINE 15 MG TABLET (FP) PO SCH (22:34)
--- NOTE | 2018-10-16 23:42 | CONSULT ---
Consult Consult Specialty:: endocrine Referred by:: hermelinda rider Reason for Consultation:: diabetes mellitus type2/hypothyroidism - History of Present Illness Chief Complaint: weakness and lethargic History of Present Illness: 83 year old female with history of diabetes mellitus, hypothyroidism,ESRD ( started on hemodialysis by rt subclavian catheter 02/2018, schedule MWF), hypertension, normal EF and no valvular disease by echo 2017, Hepatitis C, and CVA (lacunar infarct) in June 2018 who presents from home with her daughter for concerns of an altered mental status in setting of generalized weakness after dialysis she was admitted for possible tia. 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), Peripheral Neuropathy Cardio/Vascular: Yes: HTN, Hyperlipdemia Gastrointestinal: Yes: Constipation, Other (cecal polyp removed 2005) Hepatobiliary: Yes: Hepatitis C Renal/: Yes: Renal Failure, Hemodialysis Endocrine: Yes: Diabetes Mellitus, Hypothyroidism - Past Surgical History Past Surgical History: Yes: Cholecystectomy (complicated open cholecystectomy requiring transfusions), Colonoscopy, , Tonsillectomy, Vein Stripping/ Ligation (Thyroidectomy,) - Alcohol/Substance Use Hx Alcohol Use: No History of Substance Use: reports: None - Smoking History Smoking history: Never smoked Have you smoked in the past 12 months: No Aproximately how many cigarettes per day: 20 If you are a former smoker, when did you quit?: 2018 - Social History Usual Living Arrangement: With Child (in house with 3 steps to enter) ADL: Family Assistance 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 History of Recent Travel: No Home Medications - Allergies Allergies/Adverse Reactions: Allergies Allergy/AdvReac Type Severity Reaction Status Date / Time No Known Allergies Allergy Verified 09/22/18 14:46 - Home Medications Home Medications: Ambulatory Orders Rosuvastatin [Crestor -] 5 mg PO HS #30 tablet 01/04/18 Acetaminophen [Tylenol .Regular Strength -] 650 mg PO Q4H PRN tablet 03/28/18 Pantoprazole Sodium [Protonix -] 40 mg PO BID #60 tablet.ec 03/28/18 Aspirin 81 mg PO DAILY #0 07/01/18 Carvedilol [Coreg -] 6.25 mg PO BID #30 tablet MDD 2 07/04/18 Clopidogrel Bisulfate [Plavix -] 75 mg PO DAILY #30 tablet MDD 1 07/31/18 Levothyroxine [Synthroid -] 50 mcg PO DAILY@0600 #30 tablet MDD 1 07/31/18 Nifedipine ER [Procardia XL -] 60 mg PO DAILY #30 tab.er.24 07/31/18 Mirtazapine [Remeron -] 15 mg PO HS 10/16/18 Family Disease History - Family Disease History Family Disease History: Other: Father (lived to 90), Mother (lived to 96 ) Review of Systems - Review of Systems Constitutional: reports: Loss of Appetite Eyes: reports: No Symptoms HENT: reports: No Symptoms Neck: reports: No Symptoms Cardiovascular: reports: No Symptoms Respiratory: reports: Exercise Intolerance, SOB on Exertion Gastrointestinal: reports: Constipation Neurological: reports: Confusion, Dizziness, Unsteady Gait, Weakness Endocrine: reports: Unexplained Weight Loss Physical Exam Vital Signs: Vital Signs Temperature 97.8 F 10/16/18 17:35 Pulse Rate 82 10/16/18 17:35 Respiratory Rate 18 10/16/18 20:25 Blood Pressure 136/69 10/16/18 17:35 O2 Sat by Pulse Oximetry (%) 97 10/16/18 20:25 Constitutional: Yes: Calm Eyes: Yes: EOM Intact HENT: Yes: Normocephalic Neck: Yes: Trachea Midline Cardiovascular: Yes: Regular Rate and Rhythm Respiratory: Yes: CTA Bilaterally Gastrointestinal: Yes: Normal Bowel Sounds ...Rectal Exam: Yes: Deferred Musculoskeletal: Yes: Back Pain, Joint Stiffness Neurological: Yes: Alert, Unsteady Gait, Weakness Labs: CBC, BMP 10/16/18 12:30 10/16/18 12:30 Problem List - Problems (1) Type 2 diabetes mellitus with hyperosmolarity without nonketotic hyperglycemic-hyperosmolar coma ([facility]) Code(s): E11.00 - TYPE 2 DIAB W HYPROSM W/O NONKET HYPRGLY-HYPROS COMA ([facility]) (2) Altered mental status Code(s): R41.82 - ALTERED MENTAL STATUS, UNSPECIFIED (3) Weakness Code(s): R53.1 - WEAKNESS (4) TRAVIS (acute kidney injury) Code(s): N17.9 - ACUTE KIDNEY FAILURE, UNSPECIFIED (5) Acute on chronic kidney failure Code(s): N17.9 - ACUTE KIDNEY FAILURE, UNSPECIFIED; N18.9 - CHRONIC KIDNEY DISEASE, UNSPECIFIED (6) Anemia Code(s): D64.9 - ANEMIA, UNSPECIFIED (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(s): G11.9 - HEREDITARY ATAXIA, UNSPECIFIED (8) CVA (cerebral vascular accident) Code(s): I63.9 - CEREBRAL INFARCTION, UNSPECIFIED Qualifiers: CVA mechanism: unspecified Qualified Code(s): I63.9 - Cerebral infarction, unspecified Assessment/Plan Current Active Problems hypothyroidism dme2 esrd hypovolemia Altered mental status (Acute) Weakness (Acute) Abnormal Lab Results 10/16/18 10/16/18 10/16/18 00:50 12:30 12:30 RBC 3.30 L Hgb 8.6 L Hct 28.9 L MCHC 29.7 L RDW 18.3 H Sodium 135 L Creatinine 2.8 H Calcium 7.6 L Albumin 2.6 L Urine Protein 2+ H Urine Ketones Trace H Ur Leukocyte Esterase 3+ H Laboratory Results - last 24 hr 10/16/18 10/16/18 10/16/18 00:50 12:30 12:30 WBC 9.1 RBC 3.30 L Hgb 8.6 L Hct 28.9 L MCV 87.4 MCH 25.9 MCHC 29.7 L RDW 18.3 H Plt Count 427 MPV 7.9 Absolute Neuts (auto) 7.3 Neutrophils % 80.2 Lymphocytes % 10.7 D Monocytes % 8.0 Eosinophils % 0.6 D Basophils % 0.5 Nucleated RBC % 0 Sodium 135 L Potassium 3.5 Chloride 102 Carbon Dioxide 26 Anion Gap 8 BUN 14 Creatinine 2.8 H Est GFR (CKD-EPI)AfAm 17.50 Est GFR (CKD-EPI)NonAf 15.10 Random Glucose 92 Calcium 7.6 L Total Bilirubin 0.2 AST 19 ALT 14 Alkaline Phosphatase 51 Total Protein 6.5 Albumin 2.6 L TSH 1.59 Urine Color Dk yellow Urine Appearance Cloudy Urine pH 6.0 Ur Specific [place] 1.020 Urine Protein 2+ H Urine Glucose (UA) Negative Urine Ketones Trace H Urine Blood Negative Urine Nitrite Negative Urine Bilirubin Negative Urine Urobilinogen 0.2 Ur Leukocyte Esterase 3+ H Urine WBC (Auto) 62 Urine RBC (Auto) 2 Urine Casts (Auto) 3 U Epithel Cells (Auto) 0.4 Urine Bacteria (Auto) 104.5 Urine Yeast (Auto) none seen plan: continue synthroid 50mcg daily check tsh free t4 check hba1c bgm bid
[2018-10-17] MEDS: DEXTROSE 5%-0.45% SALINE 1,000 ML IV SCH (00:30)
[2018-10-17] MEDS: LEVOTHYROXINE NA 50 MCG TABLET (FP) PO SCH (06:28)
[2018-10-17 07:32] LABS: BASO % 0.9 % (0-2.0); EOS % 1.2 % (0-4.5); HEMATOCRIT 28.1 % (32.4-45.2); HEMOGLOBIN 8.4 GM/dL (10.7-15.3); LYMPH % 10.8 % (8-40); MCHC 29.8 g/dl (32.0-36.0); MEAN CELL VOLUME 87.1 fl (80-96); MEAN PLT VOLUME 7.7 fl (7.5-11.1); NEUT % 80.1 % (42.8-82.8); PLATELET COUNT 454 K/MM3 (134-434); RBC 3.22 M/mm3 (3.60-5.2); RDW 18.7 % (11.6-15.6); WHITE BLOOD COUNT 8.4 K/mm3 (4.0-10.0)
[2018-10-17 08:13] LABS: ALBUMIN 2.2 g/dl (3.4-5.0); BILIRUBIN,TOTAL 0.3 mg/dL (0.2-1); CALCIUM 7.4 mg/dL (8.5-10.1); CREATININE 3.4 mg/dL (0.55-1.3); POTASSIUM 3.3 mmol/L (3.5-5.1); TOT PROT 5.8 g/dl (6.4-8.2)
[2018-10-17] MEDS: CARVEDILOL 3.125 MG TABLET (FP) PO SCH ×3 (09:43→22:02)
[2018-10-17] MEDS: PANTOPRAZOLE 40 MG TABLET (FP) PO SCH ×3 (09:43→22:02)
[2018-10-17] MEDS: ASPIRIN 81 MG CHEWABLE TABLETS PO SCH ×2 (09:43→11:10)
[2018-10-17] MEDS ORDERED: POTASSIUM CHLORIDE TABS 20 MEQ TABLET.ER (FP) PO ONE (10:06)
--- NOTE | 2018-10-17 11:30 | PN ---
Progress Note (short form) - Note Progress Note: NEUROLOGY PROGRESS: Events reviewed and discussed with staff. Pt admitted to telemetry floor. Empirically given 1 dose of IV ceftriaxone. Now on ceftriaxone as per Dr. Monson. Still refusing meals, on renal/soft diet. WBC= 12.2-> 8.4 Urine WBC= 62; TSH 1.58 T4 1.35 NEURO: Mentation/Speech:resting in bed, alert, confused. Sparse speech. Periods of staring. + glabella. Able to follow simple commands. Strong grasps. Sensation: Decreased vibration in toes. Impression: Non-focal exam sig for B/L Cerebral Dysfunction (OMS, Chronic c/w moderately advanced Alzheimer's Disease) Worsened by Toxic-Metabolic Encephalopathy (UTI) Peripheral Neuropathy Plan: Tx with antibiotics and gentle hydration as tolerated. Mobilize pt OO bed to chair. Assist with feeds. Consider liberalization of diet to foods patient enjoys- PO intake will improve with resolution of TME Thank you very much, Lucio Morrison MD
--- NOTE | 2018-10-17 12:36 | PN ---
Progress Note, Physician Chief Complaint: patient seen in bed resting awake to stimuli nodes when her name is called - Current Medication List Current Medications: Active Medications Acetaminophen (Tylenol -) 650 mg PO Q6H PRN PRN Reason: PAIN Aspirin (Asa -) 81 mg PO DAILY [facility] Last Admin: 10/17/18 11:10 Dose: 81 mg Carvedilol (Coreg -) 3.125 mg PO BID [facility] Last Admin: 10/17/18 11:10 Dose: 3.125 mg Clopidogrel Bisulfate (Plavix -) 75 mg PO Q2D [facility] Last Admin: 10/16/18 13:00 Dose: 75 mg Dextrose/Sodium Chloride (D5-1/2ns -) 1,000 mls @ 75 mls/hr IV ASDIR [facility] Last Admin: 10/17/18 00:30 Dose: Not Given Ceftriaxone Sodium 1 gm/ (Dextrose) 100 mls @ 200 mls/hr IVPB DAILY [facility]; Protocol Levothyroxine Sodium (Synthroid -) 50 mcg PO DAILY@0600 [facility] Last Admin: 10/17/18 06:28 Dose: 50 mcg Mirtazapine (Remeron -) 15 mg PO [facility] Last Admin: 10/16/18 22:34 Dose: 15 mg Nifedipine (Procardia Xl -) 30 mg PO [facility] Last Admin: 10/16/18 21:29 Dose: 30 mg Pantoprazole Sodium (Protonix -) 40 mg PO BID [facility] Last Admin: 10/17/18 11:10 Dose: 40 mg Rosuvastatin Calcium (Crestor -) 5 mg PO [facility] Last Admin: 10/16/18 21:29 Dose: 5 mg - Objective Vital Signs: Vital Signs Temperature 97.9 F 10/17/18 06:00 Pulse Rate 71 10/17/18 06:00 Respiratory Rate 18 10/17/18 09:00 Blood Pressure 122/56 L 10/17/18 06:00 O2 Sat by Pulse Oximetry (%) 94 L 10/17/18 09:00 Constitutional: Yes: Calm, Thin Cardiovascular: Yes: Regular Rate and Rhythm, S1, S2 Respiratory: Yes: CTA Bilaterally Gastrointestinal: Yes: Normal Bowel Sounds, Soft Edema: No Labs: CBC, BMP 10/17/18 06:49 10/17/18 06:49 INR, PTT INR 1.34 (0.83-1.09) H 10/15/18 22:10 Problem List - Problems (1) Leukocytosis Assessment/Plan: improved on rocephin ID consult awaiting final cultures Code(s): D72.829 - ELEVATED WHITE BLOOD CELL COUNT, UNSPECIFIED (2) Altered mental status Assessment/Plan: maybe secondary to toxic metabolic iv abx FU cultures appreicate neurology note Code(s): R41.82 - ALTERED MENTAL STATUS, UNSPECIFIED (3) Weakness Assessment/Plan: neurology on board PT eval nutritional eval assist with feeds gi eval possible peg Code(s): R53.1 - WEAKNESS (4) Hypothyroid Assessment/Plan: tsh is ok synthroid Code(s): E03.9 - HYPOTHYROIDISM, UNSPECIFIED Qualifiers: (5) ESRD (end stage renal disease) Assessment/Plan: HD per renal tmw Code(s): N18.6 - END STAGE RENAL DISEASE (6) HTN (hypertension) Assessment/Plan: coreg and nifedipine Code(s): I10 - ESSENTIAL (PRIMARY) HYPERTENSION Qualifiers:
--- NOTE | 2018-10-17 13:16 | PN ---
Progress Note (short form) - Note Progress Note: Renal follow up for ESRD on HD Pt seen and examined at the bedside awake but not talking no overnight events pt not answering questions Vital Signs Temperature 97.9 F 10/17/18 06:00 Pulse Rate 71 10/17/18 06:00 Respiratory Rate 18 10/17/18 09:00 Blood Pressure 122/56 L 10/17/18 06:00 O2 Sat by Pulse Oximetry (%) 94 L 10/17/18 09:00 Intake & Output 10/14/18 10/15/18 10/16/18 10/17/18 23:59 23:59 23:59 23:59 Intake Total 875 Balance 875 Weight 43.091 kg 46 kg 48.897 kg NAD awake and alert RRR, no M/R CTA no rales or wheeze soft NT/ND no LE edema, clubbing or cyanosis CBC, BMP 10/17/18 06:49 10/17/18 06:49 Current Medications Acetaminophen (Tylenol -) 650 mg PO Q6H PRN PRN Reason: PAIN Aspirin (Asa -) 81 mg PO DAILY [facility] Last Admin: 10/17/18 11:10 Dose: 81 mg Carvedilol (Coreg -) 3.125 mg PO BID [facility] Last Admin: 10/17/18 11:10 Dose: 3.125 mg Clopidogrel Bisulfate (Plavix -) 75 mg PO Q2D [facility] Last Admin: 10/16/18 13:00 Dose: 75 mg Dextrose/Sodium Chloride (D5-1/2ns -) 1,000 mls @ 75 mls/hr IV ASDIR [facility] Last Admin: 10/17/18 00:30 Dose: Not Given Ceftriaxone Sodium 1 gm/ (Dextrose) 50 mls @ 200 mls/hr IVPB DAILY [facility]; Protocol Levothyroxine Sodium (Synthroid -) 50 mcg PO DAILY@0600 [facility] Last Admin: 10/17/18 06:28 Dose: 50 mcg Mirtazapine (Remeron -) 15 mg PO HS [facility] Last Admin: 10/16/18 22:34 Dose: 15 mg Nifedipine (Procardia Xl -) 30 mg PO HS [facility] Last Admin: 10/16/18 21:29 Dose: 30 mg Pantoprazole Sodium (Protonix -) 40 mg PO BID [facility] Last Admin: 10/17/18 11:10 Dose: 40 mg Rosuvastatin Calcium (Crestor -) 5 mg PO HS [facility] Last Admin: 10/16/18 21:29 Dose: [address] head - no acute infarction 83 year old woman with hx of ESRD on HD due to diabetic nephropathy, hyperension , hypothyrodism, hepatitis C, DM, recent CVA who presented s/p dialysis with AMS and hx of poor oral intake. #ESRD on HD #Altered mental status #R/o cystitits #Anemia #Hypertension #Failure to thrive no acute need for dialysis today, next treatment planned for tomorrow f/u urine cultures and continue empiric ceftriaxone Neurology consult noted and appreciated will continue ALBA with HD continue nifedpine, coreg Thank you Levy Mancia DO
--- NOTE | 2018-10-17 13:48 | CON.ID ---
Consult Consult Specialty:: infectious disease Referred by:: dr land Reason for Consultation:: possible UTI - History of Present Illness Chief Complaint: weakness, lethargy, poor appetite History of Present Illness: 83 yo female on HD since the fall via PC admitted with generalized weakness history of multiple lacunar infarcts in the past lves with daughter who is principal paint maker reports she has diarrhea everytime she eats poor appetite no fevers or chills patient is resting with eyes closed, awakens easily , knows her name and that she is from [place] no abdominal pain follows simple commands started on mirtapine 2 weeks ago for depression - History Source History Provided By: Patient, Family Member, Medical Record Limitations to Obtaining History: Clinical Condition - Past Medical History 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: 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), Peripheral Neuropathy Cardio/Vascular: Yes: HTN, Hyperlipdemia Gastrointestinal: Yes: Constipation, Other (cecal polyp removed 2005) Hepatobiliary: Yes: Hepatitis C Renal/: Yes: Renal Failure, Hemodialysis Endocrine: Yes: Diabetes Mellitus, Hypothyroidism - Past Surgical History Past Surgical History: Yes: Cholecystectomy (complicated open cholecystectomy requiring transfusions), Colonoscopy, , Tonsillectomy, Vein Stripping/ Ligation (Thyroidectomy,) - Alcohol/Substance Use Hx Alcohol Use: No History of Substance Use: reports: None - Smoking History Smoking history: Never smoked Have you smoked in the past 12 months: No Aproximately how many cigarettes per day: 20 If you are a former smoker, when did you quit?: 2018 - Social History Usual Living Arrangement: With Child (in house with 3 steps to enter) ADL: Family Assistance 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 Place of : Other History of Recent Travel: No Home Medications - Allergies Allergies/Adverse Reactions: Allergies Allergy/AdvReac Type Severity Reaction Status Date / Time No Known Allergies Allergy Verified 09/22/18 14:46 - Home Medications Home Medications: Ambulatory Orders Rosuvastatin [Crestor -] 5 mg PO HS #30 tablet 01/04/18 Acetaminophen [Tylenol .Regular Strength -] 650 mg PO Q4H PRN tablet 03/28/18 Pantoprazole Sodium [Protonix -] 40 mg PO BID #60 tablet.ec 03/28/18 Aspirin 81 mg PO DAILY #0 07/01/18 Carvedilol [Coreg -] 6.25 mg PO BID #30 tablet MDD 2 07/04/18 Clopidogrel Bisulfate [Plavix -] 75 mg PO DAILY #30 tablet MDD 1 07/31/18 Levothyroxine [Synthroid -] 50 mcg PO DAILY@0600 #30 tablet MDD 1 07/31/18 Nifedipine ER [Procardia XL -] 60 mg PO DAILY #30 tab.er.24 07/31/18 Mirtazapine [Remeron -] 15 mg PO HS 10/16/18 Family Disease History - Family Disease History Family Disease History: Other: Father (lived to 90), Mother (lived to 96 ) Review of Systems - Review of Systems Constitutional: reports: Loss of Appetite, Unintentional Wgt. Loss, Weakness Eyes: reports: No Symptoms HENT: reports: No Symptoms Neck: reports: No Symptoms Cardiovascular: reports: No Symptoms Respiratory: reports: No Symptoms Gastrointestinal: reports: Rectal Bleeding. denies: Abdominal Pain Physical Exam Vital Signs: Vital Signs Temperature 97.9 F 10/17/18 06:00 Pulse Rate 71 10/17/18 06:00 Respiratory Rate 18 10/17/18 09:00 Blood Pressure 122/56 L 10/17/18 06:00 O2 Sat by Pulse Oximetry (%) 94 L 10/17/18 09:00 Constitutional: Yes: No Distress, Thin Eyes: Yes: Conjunctiva Clear HENT: No: Pharyngeal Erythema, Tonsillar Exudate Neck: Yes: Supple Cardiovascular: Yes: Regular Rate and Rhythm Respiratory: Yes: Regular, CTA Bilaterally Gastrointestinal: Yes: Normal Bowel Sounds, Soft ...Rectal Exam: No: Deferred Extremities: Yes: WNL Edema: No Integumentary: Yes: Other (pc site no erythema or pain) Labs: CBC, BMP 10/17/18 06:49 10/17/18 06:49 Microbiology 10/16/18 13:30 Blood - Peripheral Venous Blood Culture - Preliminary NO GROWTH OBTAINED AFTER 24 HOURS, INCUBATION TO CONTINUE FOR 4 DAYS. 10/16/18 13:35 Blood - Peripheral Venous Blood Culture - Preliminary NO GROWTH OBTAINED AFTER 24 HOURS, INCUBATION TO CONTINUE FOR 4 DAYS. 10/16/18 00:50 Urine - Urine Clean Catch Urine Culture - Preliminary Imaging - Results Chest X-ray: Report Reviewed, Image Reviewed (no infiltrate) Cat Scan: Report Reviewed Problem List - Problems (1) UTI (urinary tract infection) Code(s): N39.0 - URINARY TRACT INFECTION, SITE NOT SPECIFIED (2) Weakness Code(s): R53.1 - WEAKNESS (3) Anemia Code(s): D64.9 - ANEMIA, UNSPECIFIED (4) ESRD (end stage renal disease) Code(s): N18.6 - END STAGE RENAL DISEASE Assessment/Plan lethargy weakness, wears a diaper not sure she has a UTI continue cefriaxone f/u cultures if negative can stop the ceftriaxone history of multiple cvas in the past esrd/hd
--- NOTE | 2018-10-17 14:29 | PN ---
Progress Note (short form) - Note Progress Note: spoke to daughter she has been seeing dr gomez regarding weightloss and feddign tube , she will discuss with the other siblings but feels like her mom would not want a feeding tube palliative consult and psych for capactiy to make decisions spoke to daughter about DNR she said she needs to speak with rest of siblings to decide Problem List - Problems (1) Leukocytosis Code(s): D72.829 - ELEVATED WHITE BLOOD CELL COUNT, UNSPECIFIED (2) Altered mental status Code(s): R41.82 - ALTERED MENTAL STATUS, UNSPECIFIED (3) Weakness Code(s): R53.1 - WEAKNESS (4) Hypothyroid Code(s): E03.9 - HYPOTHYROIDISM, UNSPECIFIED Qualifiers: (5) ESRD (end stage renal disease) Code(s): N18.6 - END STAGE RENAL DISEASE (6) HTN (hypertension) Code(s): I10 - ESSENTIAL (PRIMARY) HYPERTENSION Qualifiers:
[2018-10-17] MEDS: CEFTRIAXONE 1 GM in DEXTROSE 5%-WATER - 50 ML IVPB SCH (15:18)
[2018-10-17] MEDS: ROSUVASTATIN CA 5 MG TABLET (FP) PO SCH (22:02)
[2018-10-17] MEDS: MIRTAZAPINE 15 MG TABLET (FP) PO SCH (22:02)
[2018-10-17] MEDS: NIFEdipine E.R. 30 MG TABLET (FP) PO SCH (22:02)
[2018-10-18] MEDS: DEXTROSE 5%-0.45% SALINE 1,000 ML IV SCH ×2 (00:45→23:22)
[2018-10-18] MEDS: LEVOTHYROXINE NA 50 MCG TABLET (FP) PO SCH (06:51)
[2018-10-18] MEDS ORDERED: cefTRIAXone SODIUM 1 GM VIAL ONE (07:33)
[2018-10-18] MEDS ORDERED: DEXTROSE 5%-WATER - 50 ML IVPB ONE (07:33)
[2018-10-18 08:04] LABS: BASO % 0.5 % (0-2.0); HEMATOCRIT 28.4 % (32.4-45.2); HEMOGLOBIN 8.7 GM/dL (10.7-15.3); LYMPH % 11.2 % (8-40); MCH 26.5 pg (25.7-33.7); MCHC 30.8 g/dl (32.0-36.0); MEAN CELL VOLUME 86.1 fl (80-96); MEAN PLT VOLUME 7.7 fl (7.5-11.1); MONO % 6.4 % (3.8-10.2); NEUT % 80.9 % (42.8-82.8); PLATELET COUNT 518 K/MM3 (134-434); RDW 18.6 % (11.6-15.6); WHITE BLOOD COUNT 8.6 K/mm3 (4.0-10.0)
--- NOTE | 2018-10-18 09:22 | PN ---
Progress Note (short form) - Note Progress Note: Renal follow up for ESRD on HD Pt seen and examined at the bedside awake and talking this am denies any pain or sob attempting to eat breakfast Vital Signs Temperature 98.1 F 10/18/18 06:00 Pulse Rate 85 10/18/18 06:00 Respiratory Rate 20 10/18/18 08:37 Blood Pressure 113/57 L 10/18/18 06:00 O2 Sat by Pulse Oximetry (%) 98 10/18/18 08:37 Intake & Output 10/15/18 10/16/18 10/17/18 10/18/18 23:59 23:59 23:59 23:59 Intake Total 875 Balance 875 Weight 43.091 kg 46 kg 48.897 kg 47.355 kg NAD awake and alert RRR, no M/R CTA no rales or wheeze soft NT/ND no LE edema, clubbing or cyanosis CBC, BMP 10/18/18 07:21 Current Medications Acetaminophen (Tylenol -) 650 mg PO Q6H PRN PRN Reason: PAIN Aspirin (Asa -) 81 mg PO DAILY [facility] Last Admin: 10/17/18 11:10 Dose: 81 mg Carvedilol (Coreg -) 3.125 mg PO BID [facility] Last Admin: 10/17/18 22:02 Dose: 3.125 mg Clopidogrel Bisulfate (Plavix -) 75 mg PO Q2D [facility] Last Admin: 10/16/18 13:00 Dose: 75 mg Epoetin Josh (Procrit -) 20,000 unit IVPUSH ONCE ONE Stop: 10/18/18 06:01 Dextrose/Sodium Chloride (D5-1/2ns -) 1,000 mls @ 75 mls/hr IV ASDIR [facility] Last Admin: 10/18/18 00:45 Dose: 75 mls/hr Ceftriaxone Sodium 1 gm/ (Dextrose) 50 mls @ 200 mls/hr IVPB DAILY [facility]; Protocol Last Admin: 10/17/18 15:18 Dose: 200 mls/hr Sodium Chloride (Normal Saline -) 250 mls @ 3,000 mls/hr IV PRN PRN PRN Reason: Hypotension during Dialysis Stop: 10/18/18 13:16 Levothyroxine Sodium (Synthroid -) 50 mcg PO DAILY@0600 [facility] Last Admin: 10/18/18 06:51 Dose: 50 mcg Mirtazapine (Remeron -) 15 mg PO HS [facility] Last Admin: 10/17/18 22:02 Dose: 15 mg Nifedipine (Procardia Xl -) 30 mg PO HS [facility] Last Admin: 10/17/18 22:02 Dose: 30 mg Pantoprazole Sodium (Protonix -) 40 mg PO BID [facility] Last Admin: 10/17/18 22:02 Dose: 40 mg Rosuvastatin Calcium (Crestor -) 5 mg PO HS [facility] Last Admin: 10/17/18 22:02 Dose: [address] head - no acute infarction 83 year old woman with hx of ESRD on HD due to diabetic nephropathy, hyperension , hypothyrodism, hepatitis C, DM, recent CVA who presented s/p dialysis with AMS and hx of poor oral intake. #ESRD on HD #Altered mental status #R/o cystitits #Anemia #Hypertension #Failure to thrive for dialysis today with 3k bath will continue HD, can consider transition to 2x weekly treatments as pt with poor oral intake and BUN/Cr/K not very elevated f/u urine cultures and continue empiric ceftriaxone Neurology consult noted and appreciated will continue ALBA with HD continue nifedpine, coreg Thank you Levy Mancia DO
[2018-10-18 09:26] LABS: ALBUMIN 2.2 g/dl (3.4-5.0); BILIRUBIN,TOTAL 0.4 mg/dL (0.2-1); CALCIUM 7.6 mg/dL (8.5-10.1); CREATININE 4.1 mg/dL (0.55-1.3); POTASSIUM 3.4 mmol/L (3.5-5.1); TOT PROT 5.9 g/dl (6.4-8.2)
[2018-10-18] MEDS: CARVEDILOL 3.125 MG TABLET (FP) PO SCH ×2 (09:26→23:07)
[2018-10-18] MEDS: ASPIRIN 81 MG CHEWABLE TABLETS PO SCH (09:26)
[2018-10-18] MEDS: CEFTRIAXONE 1 GM in DEXTROSE 5%-WATER - 50 ML IVPB SCH (09:27)
[2018-10-18] MEDS: PANTOPRAZOLE 40 MG TABLET (FP) PO SCH ×2 (09:27→23:07)
[2018-10-18] MEDS: CLOPIDOGREL BISULFATE 75 MG TABLET (FP) PO SCH (09:27)
[2018-10-18 12:21] LABS: HEMATOCRIT 26.6 % (32.4-45.2); MCH 26.2 pg (25.7-33.7); MCHC 30.2 g/dl (32.0-36.0); MEAN CELL VOLUME 86.7 fl (80-96); MEAN PLT VOLUME 7.7 fl (7.5-11.1); PLATELET COUNT 487 K/MM3 (134-434); RBC 3.06 M/mm3 (3.60-5.2); RDW 19.3 % (11.6-15.6); WHITE BLOOD COUNT 9.1 K/mm3 (4.0-10.0)
--- NOTE | 2018-10-18 12:42 | PN ---
Progress Note, Physician Chief Complaint: Leukocytosis AMS ESRD History of Present Illness: Previous notes and events reviewed awake and confused NAD getting dialysis at bedside denies chest pain or SOB - Current Medication List Current Medications: Active Medications Acetaminophen (Tylenol -) 650 mg PO Q6H PRN PRN Reason: PAIN Aspirin (Asa -) 81 mg PO DAILY [facility] Last Admin: 10/18/18 09:26 Dose: Not Given Carvedilol (Coreg -) 3.125 mg PO BID [facility] Last Admin: 10/18/18 09:26 Dose: Not Given Clopidogrel Bisulfate (Plavix -) 75 mg PO Q2D [facility] Last Admin: 10/18/18 09:27 Dose: Not Given Epoetin Josh (Procrit -) 20,000 unit IVPUSH ONCE ONE Stop: 10/18/18 06:01 Dextrose/Sodium Chloride (D5-1/2ns -) 1,000 mls @ 75 mls/hr IV ASDIR [facility] Last Admin: 10/18/18 00:45 Dose: 75 mls/hr Ceftriaxone Sodium 1 gm/ (Dextrose) 50 mls @ 200 mls/hr IVPB DAILY [facility]; Protocol Last Admin: 10/18/18 09:27 Dose: Not Given Sodium Chloride (Normal Saline -) 250 mls @ 3,000 mls/hr IV PRN PRN PRN Reason: Hypotension during Dialysis Stop: 10/18/18 13:16 Levothyroxine Sodium (Synthroid -) 50 mcg PO DAILY@0600 [facility] Last Admin: 10/18/18 06:51 Dose: 50 mcg Mirtazapine (Remeron -) 15 mg PO HS [facility] Last Admin: 10/17/18 22:02 Dose: 15 mg Nifedipine (Procardia Xl -) 30 mg PO HS [facility] Last Admin: 10/17/18 22:02 Dose: 30 mg Pantoprazole Sodium (Protonix -) 40 mg PO BID [facility] Last Admin: 10/18/18 09:27 Dose: Not Given Rosuvastatin Calcium (Crestor -) 5 mg PO [facility] Last Admin: 10/17/18 22:02 Dose: 5 mg - Objective Vital Signs: Vital Signs Temperature 98.1 F 10/18/18 06:00 Pulse Rate 85 10/18/18 06:00 Respiratory Rate 20 10/18/18 08:37 Blood Pressure 113/57 L 10/18/18 06:00 O2 Sat by Pulse Oximetry (%) 98 10/18/18 08:37 Constitutional: Yes: No Distress, Calm Eyes: Yes: Conjunctiva Clear HENT: Yes: Atraumatic Cardiovascular: Yes: Regular Rate and Rhythm Respiratory: Yes: Regular, CTA Bilaterally Gastrointestinal: Yes: Normal Bowel Sounds, Soft Genitourinary: Yes: Incontinence Musculoskeletal: Yes: Muscle Weakness Extremities: Yes: WNL Edema: No Neurological: Yes: Alert, Pre-Existing Deficit Psychiatric: Yes: Alert, Oriented (name, birthdate) Labs: CBC, BMP 10/18/18 07:21 INR, PTT INR 1.34 (0.83-1.09) H 10/15/18 22:10 Microbiology 10/17/18 21:08 Stool Clostridioides difficile Antigen - Final 10/17/18 21:08 Stool Clostridioides difficile Toxin Assay - Final 10/16/18 00:50 Urine - Urine Clean Catch Urine Culture - Final Lactobacillus Species 10/16/18 13:30 Blood - Peripheral Venous Blood Culture - Preliminary NO GROWTH OBTAINED AFTER 24 HOURS, INCUBATION TO CONTINUE FOR 4 DAYS. 10/16/18 13:35 Blood - Peripheral Venous Blood Culture - Preliminary NO GROWTH OBTAINED AFTER 24 HOURS, INCUBATION TO CONTINUE FOR 4 DAYS. Problem List - Problems (1) Toxic metabolic encephalopathy Assessment/Plan: -BC neg -UC lactobacillus species -afebrile -leukocytosis -Ceftriaxone -Neurology and ID on board -Head CT scan reviewed Code(s): G92 - TOXIC ENCEPHALOPATHY (2) UTI (urinary tract infection) Assessment/Plan: -UA 3+ leukocyte, trace ketones, 2+ protein -UC positive -Ceftriaxone -ID on board Code(s): N39.0 - URINARY TRACT INFECTION, SITE NOT SPECIFIED (3) Weakness Assessment/Plan: -Neurology on board -PT Code(s): R53.1 - WEAKNESS (4) CVA (cerebral vascular accident) Assessment/Plan: -Asa, Plavix, Crestor Code(s): I63.9 - CEREBRAL INFARCTION, UNSPECIFIED Qualifiers: CVA mechanism: unspecified Qualified Code(s): I63.9 - Cerebral infarction, unspecified (5) ESRD (end stage renal disease) Assessment/Plan: -renal on board -HD -BUN/Cr 20/4.1 Code(s): N18.6 - END STAGE RENAL DISEASE (6) HTN (hypertension) Assessment/Plan: -Nifedipine Code(s): I10 - ESSENTIAL (PRIMARY) HYPERTENSION Qualifiers: (7) Hypothyroid Assessment/Plan: -TSH 1.58 -Synthroid Code(s): E03.9 - HYPOTHYROIDISM, UNSPECIFIED Qualifiers: (8) Malnourished Assessment/Plan: -RD consult Code(s): E46 - UNSPECIFIED PROTEIN-CALORIE MALNUTRITION Assessment/Plan see problem list dvt ppx
[2018-10-18] MEDS ORDERED: EPOETIN ALFA 20,000 UNIT/1 ML VIAL IVPUSH ONE (12:45)
[2018-10-18] MEDS ORDERED: SODIUM CHLORIDE 250 ML IV PRN (12:46)
--- NOTE | 2018-10-18 19:26 | PN ---
Progress Note, Physician History of Present Illness: AWAKE, ALERT RECEIVING HEMODIALYSIS NO DIARRHEA TODAY PER STAFF - Current Medication List Current Medications: Active Medications Acetaminophen (Tylenol -) 650 mg PO Q6H PRN PRN Reason: PAIN Aspirin (Asa -) 81 mg PO DAILY [facility] Last Admin: 10/18/18 09:26 Dose: Not Given Carvedilol (Coreg -) 3.125 mg PO BID [facility] Last Admin: 10/18/18 09:26 Dose: Not Given Clopidogrel Bisulfate (Plavix -) 75 mg PO Q2D [facility] Last Admin: 10/18/18 09:27 Dose: Not Given Dextrose/Sodium Chloride (D5-1/2ns -) 1,000 mls @ 75 mls/hr IV ASDIR [facility] Last Admin: 10/18/18 00:45 Dose: 75 mls/hr Ceftriaxone Sodium 1 gm/ (Dextrose) 50 mls @ 200 mls/hr IVPB DAILY [facility]; Protocol Last Admin: 10/18/18 09:27 Dose: Not Given Levothyroxine Sodium (Synthroid -) 50 mcg PO DAILY@0600 [facility] Last Admin: 10/18/18 06:51 Dose: 50 mcg Mirtazapine (Remeron -) 15 mg PO [facility] Last Admin: 10/17/18 22:02 Dose: 15 mg Nifedipine (Procardia Xl -) 30 mg PO [facility] Last Admin: 10/17/18 22:02 Dose: 30 mg Pantoprazole Sodium (Protonix -) 40 mg PO BID [facility] Last Admin: 10/18/18 09:27 Dose: Not Given Rosuvastatin Calcium (Crestor -) 5 mg PO [facility] Last Admin: 10/17/18 22:02 Dose: 5 mg - Objective Vital Signs: Vital Signs Temperature 97.5 F L 10/18/18 17:00 Pulse Rate 83 10/18/18 17:00 Respiratory Rate 20 10/18/18 17:00 Blood Pressure 111/61 10/18/18 17:00 O2 Sat by Pulse Oximetry (%) 98 10/18/18 08:37 Constitutional: Yes: No Distress, Other (CHRONICALLY ILL APPEARING) Cardiovascular: Yes: Regular Rate and Rhythm, S1, S2 Respiratory: Yes: CTA Bilaterally Gastrointestinal: Yes: Normal Bowel Sounds, Soft Edema: No Labs: CBC, BMP 10/18/18 11:45 10/18/18 07:21 INR, PTT INR 1.34 (0.83-1.09) H 10/15/18 22:10 Assessment/Plan DIARRHEA ? UTI ESRD AWAIT C/S CONTINUE CEFTRIAXONE
--- NOTE | 2018-10-18 21:18 | PN ---
Progress Note, Physician Chief Complaint: sitting in bed poor appetite - Current Medication List Current Medications: Active Medications Acetaminophen (Tylenol -) 650 mg PO Q6H PRN PRN Reason: PAIN Aspirin (Asa -) 81 mg PO DAILY [facility] Last Admin: 10/18/18 09:26 Dose: Not Given Carvedilol (Coreg -) 3.125 mg PO BID [facility] Last Admin: 10/18/18 09:26 Dose: Not Given Clopidogrel Bisulfate (Plavix -) 75 mg PO Q2D [facility] Last Admin: 10/18/18 09:27 Dose: Not Given Dextrose/Sodium Chloride (D5-1/2ns -) 1,000 mls @ 75 mls/hr IV ASDIR [facility] Last Admin: 10/18/18 00:45 Dose: 75 mls/hr Ceftriaxone Sodium 1 gm/ (Dextrose) 50 mls @ 200 mls/hr IVPB DAILY [facility]; Protocol Last Admin: 10/18/18 09:27 Dose: Not Given Levothyroxine Sodium (Synthroid -) 50 mcg PO DAILY@0600 [facility] Last Admin: 10/18/18 06:51 Dose: 50 mcg Mirtazapine (Remeron -) 15 mg PO [facility] Last Admin: 10/17/18 22:02 Dose: 15 mg Nifedipine (Procardia Xl -) 30 mg PO [facility] Last Admin: 10/17/18 22:02 Dose: 30 mg Pantoprazole Sodium (Protonix -) 40 mg PO BID [facility] Last Admin: 10/18/18 09:27 Dose: Not Given Rosuvastatin Calcium (Crestor -) 5 mg PO [facility] Last Admin: 10/17/18 22:02 Dose: 5 mg - Objective Vital Signs: Vital Signs Temperature 97.5 F L 10/18/18 17:00 Pulse Rate 83 10/18/18 17:00 Respiratory Rate 20 10/18/18 17:00 Blood Pressure 111/61 10/18/18 17:00 O2 Sat by Pulse Oximetry (%) 98 10/18/18 08:37 Constitutional: Yes: Calm Eyes: Yes: EOM Intact HENT: Yes: Normocephalic Neck: Yes: Trachea Midline Cardiovascular: Yes: Regular Rate and Rhythm Respiratory: Yes: CTA Bilaterally Gastrointestinal: Yes: Normal Bowel Sounds ...Rectal Exam: Yes: Deferred Genitourinary: Yes: WNL Breast(s): Yes: WNL Musculoskeletal: Yes: WNL Extremities: Yes: WNL Edema: No Integumentary: Yes: WNL Neurological: Yes: Alert, Confusion Labs: CBC, BMP 10/18/18 11:45 10/18/18 07:21 INR, PTT INR 1.34 (0.83-1.09) H 10/15/18 22:10 Problem List - Problems (1) Type 2 diabetes mellitus with hyperosmolarity without nonketotic hyperglycemic-hyperosmolar coma ([facility]) Code(s): E11.00 - TYPE 2 DIAB W HYPROSM W/O NONKET HYPRGLY-HYPROS COMA ([facility]) (2) Altered mental status Code(s): R41.82 - ALTERED MENTAL STATUS, UNSPECIFIED (3) Weakness Code(s): R53.1 - WEAKNESS (4) TRAVIS (acute kidney injury) Code(s): N17.9 - ACUTE KIDNEY FAILURE, UNSPECIFIED (5) Acute on chronic kidney failure Code(s): N17.9 - ACUTE KIDNEY FAILURE, UNSPECIFIED; N18.9 - CHRONIC KIDNEY DISEASE, UNSPECIFIED (6) Anemia Code(s): D64.9 - ANEMIA, UNSPECIFIED (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(s): G11.9 - HEREDITARY ATAXIA, UNSPECIFIED (8) CVA (cerebral vascular accident) Code(s): I63.9 - CEREBRAL INFARCTION, UNSPECIFIED Qualifiers: CVA mechanism: unspecified Qualified Code(s): I63.9 - Cerebral infarction, unspecified Assessment/Plan Current Active Problems Altered mental status (Acute) Toxic metabolic encephalopathy (Acute) Type 2 diabetes mellitus with hyperosmolarity without nonketotic hyperglycemic- hyperosmolar coma ([facility]) (Acute) UTI (urinary tract infection) (Acute) Weakness (Acute) Abnormal Lab Results 10/18/18 10/18/18 10/18/18 07:21 07:21 11:45 RBC 3.30 L 3.06 L Hgb 8.7 L 8.0 L Hct 28.4 L 26.6 L MCHC 30.8 L 30.2 L RDW 18.6 H 19.3 H Plt Count 518 H 487 H Sodium 134 L Potassium 3.4 L Carbon Dioxide 19 L BUN 23 H Creatinine 4.1 H Calcium 7.6 L Phosphorus Ferritin 851.8 H ALT 12 L Total Protein 5.9 L Albumin 2.2 L 10/18/18 11:45 RBC Hgb Hct MCHC RDW Plt Count Sodium Potassium Carbon Dioxide BUN Creatinine Calcium Phosphorus 2.0 L Ferritin ALT Total Protein Albumin Laboratory Results - last 24 hr 10/18/18 10/18/18 10/18/18 06:55 07:21 07:21 WBC 8.6 RBC 3.30 L Hgb 8.7 L Hct 28.4 L MCV 86.1 MCH 26.5 MCHC 30.8 L RDW 18.6 H Plt Count 518 H MPV 7.7 Absolute Neuts (auto) 6.9 Neutrophils % 80.9 Lymphocytes % 11.2 Monocytes % 6.4 Eosinophils % 1.0 Basophils % 0.5 Nucleated RBC % 0 Sodium 134 L Potassium 3.4 L Chloride 103 Carbon Dioxide 19 L Anion Gap 12 BUN 23 H Creatinine 4.1 H Est GFR (CKD-EPI)AfAm 11.03 Est GFR (CKD-EPI)NonAf 9.52 POC Glucometer 104 Random Glucose 101 Calcium 7.6 L Phosphorus Ferritin 851.8 H Total Bilirubin 0.4 AST 15 ALT 12 L Alkaline Phosphatase 55 Total Protein 5.9 L Albumin 2.2 L 10/18/18 10/18/18 11:45 11:45 WBC 9.1 RBC 3.06 L Hgb 8.0 L Hct 26.6 L MCV 86.7 MCH 26.2 MCHC 30.2 L RDW 19.3 H Plt Count 487 H MPV 7.7 Absolute Neuts (auto) Neutrophils % Lymphocytes % Monocytes % Eosinophils % Basophils % Nucleated RBC % Sodium Potassium Chloride Carbon Dioxide Anion Gap BUN Creatinine Est GFR (CKD-EPI)AfAm Est GFR (CKD-EPI)NonAf POC Glucometer Random Glucose Calcium Phosphorus 2.0 L Ferritin Total Bilirubin AST ALT Alkaline Phosphatase Total Protein Albumin plan: bgm qd as poor appetite normal glycemia gi consult probable need for peg placement nutrition consult
[2018-10-18] MEDS: ROSUVASTATIN CA 5 MG TABLET (FP) PO SCH (23:07)
[2018-10-18] MEDS: MIRTAZAPINE 15 MG TABLET (FP) PO SCH (23:07)
[2018-10-18] MEDS: NIFEdipine E.R. 30 MG TABLET (FP) PO SCH (23:07)
[2018-10-19 06:37] LABS: SERUM IRON SATURATION 18 % (15-55); TOTAL IRON BINDING CAPACITY 118 ug/dL (250-450); UIBC 97 ug/dL (118-369)
[2018-10-19] MEDS: LEVOTHYROXINE NA 50 MCG TABLET (FP) PO SCH (07:00)
[2018-10-19 08:13] LABS: HEMATOCRIT 29.7 % (32.4-45.2); HEMOGLOBIN 8.8 GM/dL (10.7-15.3); MCH 26.1 pg (25.7-33.7); MCHC 29.7 g/dl (32.0-36.0); MEAN CELL VOLUME 87.9 fl (80-96); PLATELET COUNT 429 K/MM3 (134-434); RBC 3.38 M/mm3 (3.60-5.2); RDW 19.2 % (11.6-15.6); WHITE BLOOD COUNT 8.1 K/mm3 (4.0-10.0)
[2018-10-19 08:47] LABS: BILIRUBIN,TOTAL 0.2 mg/dL (0.2-1); CALCIUM 7.6 mg/dL (8.5-10.1); CREATININE 2.7 mg/dL (0.55-1.3); POTASSIUM 3.4 mmol/L (3.5-5.1); TOT PROT 5.6 g/dl (6.4-8.2)
[2018-10-19] MEDS ORDERED: cefTRIAXone SODIUM 1 GM VIAL ONE (09:11)
[2018-10-19] MEDS ORDERED: DEXTROSE 5%-WATER - 100 ML IVPB ONE (09:12)
--- NOTE | 2018-10-19 10:40 | PN ---
Progress Note, Physician Chief Complaint: Leukocytosis AMS ESRD History of Present Illness: Previous notes and events reviewed awake and confused NAD increased lethargy noted today--FS 103mg/dL, responsive to tactile stimuli poor PO intake - Current Medication List Current Medications: Active Medications Acetaminophen (Tylenol -) 650 mg PO Q6H PRN PRN Reason: PAIN Aspirin (Asa -) 81 mg PO DAILY [facility] Last Admin: 10/18/18 09:26 Dose: Not Given Carvedilol (Coreg -) 3.125 mg PO BID [facility] Last Admin: 10/18/18 23:07 Dose: 3.125 mg Clopidogrel Bisulfate (Plavix -) 75 mg PO Q2D [facility] Last Admin: 10/18/18 09:27 Dose: Not Given Dextrose/Sodium Chloride (D5-1/2ns -) 1,000 mls @ 75 mls/hr IV ASDIR [facility] Last Admin: 10/18/18 23:22 Dose: 75 mls/hr Ceftriaxone Sodium 1 gm/ (Dextrose) 50 mls @ 200 mls/hr IVPB DAILY [facility]; Protocol Last Admin: 10/18/18 09:27 Dose: Not Given Levothyroxine Sodium (Synthroid -) 50 mcg PO DAILY@0600 [facility] Last Admin: 10/18/18 06:51 Dose: 50 mcg Mirtazapine (Remeron -) 15 mg PO [facility] Last Admin: 10/18/18 23:07 Dose: 15 mg Nifedipine (Procardia Xl -) 30 mg PO [facility] Last Admin: 10/18/18 23:07 Dose: 30 mg Pantoprazole Sodium (Protonix -) 40 mg PO BID [facility] Last Admin: 10/18/18 23:07 Dose: 40 mg Rosuvastatin Calcium (Crestor -) 5 mg PO [facility] Last Admin: 10/18/18 23:07 Dose: 5 mg - Objective Vital Signs: Vital Signs Temperature 97.6 F 10/19/18 06:00 Pulse Rate 93 H 10/19/18 06:00 Respiratory Rate 20 10/19/18 06:00 Blood Pressure 143/77 10/19/18 06:00 O2 Sat by Pulse Oximetry (%) 96 10/18/18 22:00 Constitutional: Yes: No Distress, Calm HENT: Yes: Atraumatic Cardiovascular: Yes: Regular Rate and Rhythm Respiratory: Yes: Diminished Gastrointestinal: Yes: Normal Bowel Sounds, Soft Genitourinary: Yes: Incontinence Musculoskeletal: Yes: Muscle Weakness Extremities: Yes: WNL Edema: No Neurological: Yes: Lethargy Labs: CBC, BMP 10/19/18 05:45 10/19/18 05:45 INR, PTT INR 1.34 (0.83-1.09) H 10/15/18 22:10 Microbiology 10/16/18 13:30 Blood - Peripheral Venous Blood Culture - Preliminary NO GROWTH OBTAINED AFTER 48 HOURS, INCUBATION TO CONTINUE FOR 3 DAYS. 10/16/18 13:35 Blood - Peripheral Venous Blood Culture - Preliminary NO GROWTH OBTAINED AFTER 48 HOURS, INCUBATION TO CONTINUE FOR 3 DAYS. 10/17/18 21:09 Stool Gram Stain - Final 10/17/18 21:08 Stool Clostridioides difficile Antigen - Final 10/17/18 21:08 Stool Clostridioides difficile Toxin Assay - Final 10/16/18 00:50 Urine - Urine Clean Catch Urine Culture - Final Lactobacillus Species Problem List - Problems (1) Toxic metabolic encephalopathy Assessment/Plan: -BC neg -UC lactobacillus species -afebrile -leukocytosis -Ceftriaxone -Neurology and ID on board -Head CT scan reviewed Code(s): G92 - TOXIC ENCEPHALOPATHY (2) UTI (urinary tract infection) Assessment/Plan: -UA 3+ leukocyte, trace ketones, 2+ protein -UC positive -Ceftriaxone -ID on board Code(s): N39.0 - URINARY TRACT INFECTION, SITE NOT SPECIFIED (3) Weakness Assessment/Plan: -Neurology on board -PT Code(s): R53.1 - WEAKNESS (4) CVA (cerebral vascular accident) Assessment/Plan: -Asa, Plavix, Crestor Code(s): I63.9 - CEREBRAL INFARCTION, UNSPECIFIED Qualifiers: CVA mechanism: unspecified Qualified Code(s): I63.9 - Cerebral infarction, unspecified (5) ESRD (end stage renal disease) Assessment/Plan: -renal on board -HD -BUN/Cr 01/26. Code(s): N18.6 - END STAGE RENAL DISEASE (6) HTN (hypertension) Assessment/Plan: -Nifedipine Code(s): I10 - ESSENTIAL (PRIMARY) HYPERTENSION Qualifiers: (7) Hypothyroid Assessment/Plan: -TSH 1.58 -Synthroid Code(s): E03.9 - HYPOTHYROIDISM, UNSPECIFIED Qualifiers: (8) Malnourished Assessment/Plan: -RD consult Code(s): E46 - UNSPECIFIED PROTEIN-CALORIE MALNUTRITION (9) Lethargy Assessment/Plan: -Head CT scan STAT Code(s): R53.83 - OTHER FATIGUE
[2018-10-19] MEDS ORDERED: POTASSIUM CHLORIDE ORAL LIQUID 20 MEQ/15 ML PO ONE (11:00)
[2018-10-19] MEDS: DEXTROSE 5%-0.45% SALINE 1,000 ML IV SCH (12:20)
[2018-10-19] MEDS: CEFTRIAXONE 1 GM in DEXTROSE 5%-WATER - 50 ML IVPB SCH (12:21)
[2018-10-19] MEDS: ASPIRIN 81 MG CHEWABLE TABLETS PO SCH (12:23)
[2018-10-19] MEDS: CARVEDILOL 3.125 MG TABLET (FP) PO SCH ×3 (12:23→22:40)
[2018-10-19] MEDS: PANTOPRAZOLE 40 MG TABLET (FP) PO SCH ×3 (12:24→22:40)
--- NOTE | 2018-10-19 13:33 | PN ---
Progress Note, Physician Chief Complaint: The patient seen and examined in her bed. Lethargic. Refuses to open eyes, except when her daughter literally yelled at her. No seizures, chest pain. Comfortable. Refuses to eat. History of Present Illness: 83 year old woman with hx of ESRD on HD due to diabetic nephropathy, hyperension , hypothyrodism, hepatitis C, DM, recent CVA who presented s/p dialysis with AMS and hx of poor oral intake. - Current Medication List Current Medications: Active Medications Acetaminophen (Tylenol -) 650 mg PO Q6H PRN PRN Reason: PAIN Aspirin (Asa -) 81 mg PO DAILY [facility] Last Admin: 10/19/18 12:23 Dose: Not Given Carvedilol (Coreg -) 3.125 mg PO BID [facility] Last Admin: 10/19/18 12:23 Dose: Not Given Clopidogrel Bisulfate (Plavix -) 75 mg PO Q2D [facility] Last Admin: 10/18/18 09:27 Dose: Not Given Dextrose/Sodium Chloride (D5-1/2ns -) 1,000 mls @ 75 mls/hr IV ASDIR [facility] Last Admin: 10/19/18 12:20 Dose: 75 mls/hr Ceftriaxone Sodium 1 gm/ (Dextrose) 50 mls @ 200 mls/hr IVPB DAILY [facility]; Protocol Last Admin: 10/19/18 12:21 Dose: 200 mls/hr Levothyroxine Sodium (Synthroid -) 50 mcg PO DAILY@0600 [facility] Last Admin: 10/18/18 06:51 Dose: 50 mcg Mirtazapine (Remeron -) 15 mg PO [facility] Last Admin: 10/18/18 23:07 Dose: 15 mg Nifedipine (Procardia Xl -) 30 mg PO HS [facility] Last Admin: 10/18/18 23:07 Dose: 30 mg Pantoprazole Sodium (Protonix -) 40 mg PO BID [facility] Last Admin: 10/19/18 12:24 Dose: Not Given Rosuvastatin Calcium (Crestor -) 5 mg PO [facility] Last Admin: 10/18/18 23:07 Dose: 5 mg - Objective Vital Signs: Vital Signs Temperature 97.6 F 10/19/18 06:00 Pulse Rate 93 H 10/19/18 06:00 Respiratory Rate 20 10/19/18 06:00 Blood Pressure 143/77 10/19/18 06:00 O2 Sat by Pulse Oximetry (%) 100 10/19/18 09:00 Constitutional: Yes: Cachectic, Thin Eyes: Yes: Conjunctiva Clear HENT: Yes: Normocephalic Neck: Yes: Trachea Midline Cardiovascular: Yes: Regular Rate and Rhythm, S1, S2 Respiratory: Yes: Diminished Gastrointestinal: Yes: Normal Bowel Sounds, Soft Genitourinary: No: Bladder Distention, CVA Tenderness - Left, CVA Tenderness - Right Edema: No Labs: CBC, BMP 10/19/18 05:45 10/19/18 05:45 INR, PTT INR 1.34 (0.83-1.09) H 10/15/18 22:10 Assessment/Plan 83 year old woman with hx of ESRD on HD due to diabetic nephropathy, hyperension , hypothyrodism, hepatitis C, DM, recent CVA who presented s/p dialysis with AMS and hx of poor oral intake. #ESRD on HD #Altered mental status #On Abx for ? cystitits #Anemia #Hypertension #Failure to thrive Will schedule for next HD tomorrow. The patient's renal numbers are so "normal looking" since her oral intake and her loss of muscle mass have contributed to her lower BUN and Cr. This may not necessarily translate into cutting the dialysis frequency or time at this point. ? Stronger Antidepressants. Sharon Stahl MD
--- NOTE | 2018-10-19 16:29 | PN ---
Progress Note, Physician History of Present Illness: AWAKE, CONFUSED NO COMPLAINTS OFFERED NO DIARRHEA REPORTED - Current Medication List Current Medications: Active Medications Acetaminophen (Tylenol -) 650 mg PO Q6H PRN PRN Reason: PAIN Aspirin (Asa -) [address] [facility] Last Admin: 10/19/18 12:23 Dose: Not Given Carvedilol (Coreg -) 3.[address] [facility] Last Admin: 10/19/18 12:23 Dose: Not Given Clopidogrel Bisulfate (Plavix -) [address] [facility] Last Admin: 10/18/18 09:27 Dose: Not Given Epoetin Josh (Procrit -) 10,000 unit SQ ONCE ONE Stop: 10/20/18 13:36 Dextrose/Sodium Chloride (D5-1/2ns -) 1,000 mls @ 75 mls/hr IV ASDIR [facility] Last Admin: 10/19/18 12:20 Dose: 75 mls/hr Ceftriaxone Sodium 1 gm/ (Dextrose) 50 mls @ 200 mls/hr IVPB DAILY [facility]; Protocol Last Admin: 10/19/18 12:21 Dose: 200 mls/hr Levothyroxine Sodium (Synthroid -) 50 mcg PO DAILY@0600 [facility] Last Admin: 10/18/18 06:51 Dose: 50 mcg Mirtazapine (Remeron -) 15 mg PO [facility] Last Admin: 10/18/18 23:07 Dose: 15 mg Nifedipine (Procardia Xl -) 30 mg PO [facility] Last Admin: 10/18/18 23:07 Dose: 30 mg Pantoprazole Sodium (Protonix -) [address] [facility] Last Admin: 10/19/18 12:24 Dose: Not Given Rosuvastatin Calcium (Crestor -) 5 mg PO [facility] Last Admin: 10/18/18 23:07 Dose: 5 mg - Objective Vital Signs: Vital Signs Temperature 97.8 F 10/19/18 14:00 Pulse Rate 95 H 10/19/18 14:00 Respiratory Rate 16 10/19/18 14:00 Blood Pressure 138/84 10/19/18 14:00 O2 Sat by Pulse Oximetry (%) 100 10/19/18 09:00 Constitutional: Yes: No Distress, Cachectic Cardiovascular: Yes: Regular Rate and Rhythm, S1, S2 Respiratory: Yes: CTA Bilaterally Gastrointestinal: Yes: Normal Bowel Sounds, Soft Labs: CBC, BMP 10/19/18 05:45 10/19/18 05:45 INR, PTT INR 1.34 (0.83-1.09) H 10/15/18 22:10 Assessment/Plan DIARRHEA ? UTI ESRD STOOL C/S NEG DISCONTINUE CEFTRIAXONE
[2018-10-19] MEDS: NIFEdipine E.R. 30 MG TABLET (FP) PO SCH ×2 (22:30→22:40)
[2018-10-19] MEDS: ROSUVASTATIN CA 5 MG TABLET (FP) PO SCH ×2 (22:30→22:40)
[2018-10-19] MEDS: MIRTAZAPINE 15 MG TABLET (FP) PO SCH ×2 (22:30→22:40)
[2018-10-20] MEDS: DEXTROSE 5%-0.45% SALINE 1,000 ML IV SCH (02:48)
[2018-10-20] MEDS: LEVOTHYROXINE NA 50 MCG TABLET (FP) PO SCH (05:55)
[2018-10-20 07:36] LABS: ALBUMIN 1.8 g/dl (3.4-5.0); BILIRUBIN,TOTAL 0.2 mg/dL (0.2-1); CALCIUM 7.1 mg/dL (8.5-10.1); CREATININE 3.4 mg/dL (0.55-1.3); POTASSIUM 3.3 mmol/L (3.5-5.1)
[2018-10-20 08:38] LABS: HEMATOCRIT 27.6 % (32.4-45.2); HEMOGLOBIN 8.3 GM/dL (10.7-15.3); MCH 26.4 pg (25.7-33.7); MCHC 29.9 g/dl (32.0-36.0); MEAN CELL VOLUME 88.2 fl (80-96); MEAN PLT VOLUME 7.8 fl (7.5-11.1); PLATELET COUNT 407 K/MM3 (134-434); RBC 3.13 M/mm3 (3.60-5.2); RDW 19.4 % (11.6-15.6); WHITE BLOOD COUNT 10.1 K/mm3 (4.0-10.0)
[2018-10-20] MEDS: ASPIRIN 81 MG CHEWABLE TABLETS PO SCH (09:43)
[2018-10-20] MEDS: CARVEDILOL 3.125 MG TABLET (FP) PO SCH ×2 (09:44→21:55)
[2018-10-20] MEDS: CLOPIDOGREL BISULFATE 75 MG TABLET (FP) PO SCH (09:45)
[2018-10-20] MEDS: PANTOPRAZOLE 40 MG TABLET (FP) PO SCH ×2 (09:45→21:55)
[2018-10-20] MEDS: KCL 10 MEQ IVPB 10 MEQ/100 ML INFUS.BAG IVPB SCH ×3 (10:34→13:43)
--- NOTE | 2018-10-20 10:34 | PN ---
Progress Note, Physician Chief Complaint: Leukocytosis AMS ESRD History of Present Illness: Previous notes and events reviewed patient is more awake and responsive today NAD continue with poor PO intake - Current Medication List Current Medications: Active Medications Acetaminophen (Tylenol -) 650 mg PO Q6H PRN PRN Reason: PAIN Aspirin (Asa -) 81 mg PO DAILY [facility] Last Admin: 10/20/18 09:43 Dose: Not Given Carvedilol (Coreg -) 3.125 mg PO BID [facility] Last Admin: 10/20/18 09:44 Dose: Not Given Clopidogrel Bisulfate (Plavix -) 75 mg PO Q2D [facility] Last Admin: 10/20/18 09:45 Dose: Not Given Epoetin Josh (Procrit -) 10,000 unit SQ ONCE ONE Stop: 10/20/18 13:36 Dextrose/Sodium Chloride (D5-1/2ns -) 1,000 mls @ 75 mls/hr IV ASDIR [facility] Last Admin: 10/20/18 02:48 Dose: 75 mls/hr Potassium Chloride (Potassium Chloride 10 Meq Premix Ivpb -) 10 meq in 100 mls @ 100 mls/hr IVPB Q60M [facility] Stop: 10/20/18 11:59 Levothyroxine Sodium (Synthroid -) 50 mcg PO DAILY@0600 [facility] Last Admin: 10/20/18 05:55 Dose: Not Given Mirtazapine (Remeron -) 15 mg PO [facility] Last Admin: 10/19/18 22:30 Dose: Not Given Nifedipine (Procardia Xl -) 30 mg PO [facility] Last Admin: 10/19/18 22:30 Dose: Not Given Pantoprazole Sodium (Protonix -) 40 mg PO BID [facility] Last Admin: 10/20/18 09:45 Dose: Not Given Rosuvastatin Calcium (Crestor -) 5 mg PO [facility] Last Admin: 10/19/18 22:30 Dose: Not Given - Objective Vital Signs: Vital Signs Temperature 97.6 F 10/20/18 08:20 Pulse Rate 96 H 10/20/18 08:20 Respiratory Rate 18 10/20/18 08:20 Blood Pressure 129/72 10/20/18 08:20 O2 Sat by Pulse Oximetry (%) 95 10/20/18 08:20 Constitutional: Yes: No Distress, Calm, Cachectic Eyes: Yes: Conjunctiva Clear HENT: Yes: Atraumatic Cardiovascular: Yes: Regular Rate and Rhythm Respiratory: Yes: Regular, CTA Bilaterally Gastrointestinal: Yes: Normal Bowel Sounds, Soft Musculoskeletal: Yes: Muscle Weakness Extremities: Yes: WNL Edema: No Neurological: Yes: Alert, Pre-Existing Deficit Psychiatric: Yes: Alert, Oriented Labs: CBC, BMP 10/20/18 06:00 10/20/18 06:00 INR, PTT INR 1.34 (0.83-1.09) H 10/15/18 22:10 Microbiology 10/17/18 21:09 Stool Gram Stain - Final 10/17/18 21:09 Stool Salmonella/Shigella Culture - Final NO GROWTH OF SALMONELLA OR SHIGELLA SPECIES OBTAINED 10/17/18 21:09 Stool Campylobacter Culture - Final NO GROWTH OF CAMPYLOBACTER SPECIES OBTAINED 10/17/18 21:09 Stool Yersinia Culture - Final NO GROWTH OF YERSINIA SPECIES OBTAINED 10/17/18 21:09 Stool Vibrio Culture - Final NO GROWTH OF VIBRIO SPECIES OBTAINED 10/17/18 21:09 Stool Escherichia coli 0157 Culture - Final NO GROWTH OF E COLI 0157 OBTAINED 10/16/18 13:30 Blood - Peripheral Venous Blood Culture - Preliminary NO GROWTH OBTAINED AFTER 72 HOURS, INCUBATION TO CONTINUE FOR 2 DAYS. 10/16/18 13:35 Blood - Peripheral Venous Blood Culture - Preliminary NO GROWTH OBTAINED AFTER 72 HOURS, INCUBATION TO CONTINUE FOR 2 DAYS. 10/17/18 21:08 Stool Clostridioides difficile Antigen - Final 10/17/18 21:08 Stool Clostridioides difficile Toxin Assay - Final 10/16/18 00:50 Urine - Urine Clean Catch Urine Culture - Final Lactobacillus Species - ....Imaging Cat Scan: Report Reviewed Problem List - Problems (1) Toxic metabolic encephalopathy Assessment/Plan: -BC neg -UC lactobacillus species -afebrile -leukocytosis -Neurology and ID on board -Head CT scan reviewed Code(s): G92 - TOXIC ENCEPHALOPATHY (2) UTI (urinary tract infection) Assessment/Plan: -UA 3+ leukocyte, trace ketones, 2+ protein -UC positive -WBC 1.1 -ID on board Code(s): N39.0 - URINARY TRACT INFECTION, SITE NOT SPECIFIED (3) Weakness Assessment/Plan: -Neurology on board -PT Code(s): R53.1 - WEAKNESS (4) CVA (cerebral vascular accident) Assessment/Plan: -Asa, Plavix, Crestor Code(s): I63.9 - CEREBRAL INFARCTION, UNSPECIFIED Qualifiers: CVA mechanism: unspecified Qualified Code(s): I63.9 - Cerebral infarction, unspecified (5) ESRD (end stage renal disease) Assessment/Plan: -renal on board -HD -BUN/Cr 04/28.4 Code(s): N18.6 - END STAGE RENAL DISEASE (6) HTN (hypertension) Assessment/Plan: -Nifedipine Code(s): I10 - ESSENTIAL (PRIMARY) HYPERTENSION Qualifiers: (7) Hypothyroid Assessment/Plan: -TSH 1.58 -Synthroid Code(s): E03.9 - HYPOTHYROIDISM, UNSPECIFIED Qualifiers: (8) Malnourished Assessment/Plan: -RD consult -due to poor PO intake consider to start Clinimix Code(s): E46 - UNSPECIFIED PROTEIN-CALORIE MALNUTRITION (9) Lethargy Assessment/Plan: -Head CT scan reviewed no acute pathology Code(s): R53.83 - OTHER FATIGUE (10) Hypokalemia Assessment/Plan: -K 3.3 -monitor electrolyte and replete as needed Code(s): E87.6 - HYPOKALEMIA (11) Hyponatremia Assessment/Plan: -D5-NS at 42cc/hr Code(s): E87.1 - HYPO-OSMOLALITY AND HYPONATREMIA (12) Severe malnutrition Assessment/Plan: -RD consult -due to poor PO intake consider to start Clinimix Code(s): E43 - UNSPECIFIED SEVERE PROTEIN-CALORIE MALNUTRITION Assessment/Plan see problem list dvt ppx
[2018-10-20] MEDS ORDERED: DEXTROSE 5%-NORMAL SALINE 1,000 ML IV SCH (10:45)
--- NOTE | 2018-10-20 11:27 | PN ---
Progress Note, Physician Chief Complaint: The patient seen and examined in her bed. Very lethargic. Not responding to verbal stimuli. A CT Scan done showed no focal lesions. Patient not taking anything by mouth. History of Present Illness: 83 year old woman with hx of ESRD on HD due to diabetic nephropathy, hyperension , hypothyrodism, hepatitis C, DM, recent CVA who presented s/p dialysis with AMS and hx of poor oral intake. Her clinical condition is not improving. - Current Medication List Current Medications: Active Medications Acetaminophen (Tylenol -) 650 mg PO Q6H PRN PRN Reason: PAIN Aspirin (Asa -) 81 mg PO DAILY [facility] Last Admin: 10/20/18 09:43 Dose: Not Given Carvedilol (Coreg -) 3.125 mg PO BID [facility] Last Admin: 10/20/18 09:44 Dose: Not Given Clopidogrel Bisulfate (Plavix -) 75 mg PO Q2D [facility] Last Admin: 10/20/18 09:45 Dose: Not Given Epoetin Josh (Procrit -) 10,000 unit SQ ONCE ONE Stop: 10/20/18 13:36 Dextrose/Sodium Chloride (D5-Ns -) 1,000 mls @ 42 mls/hr IV ASDIR [facility] Last Admin: 10/20/18 10:53 Dose: 42 mls/hr Levothyroxine Sodium (Synthroid -) 50 mcg PO DAILY@0600 [facility] Last Admin: 10/20/18 05:55 Dose: Not Given Mirtazapine (Remeron -) 15 mg PO [facility] Last Admin: 10/19/18 22:30 Dose: Not Given Nifedipine (Procardia Xl -) 30 mg PO [facility] Last Admin: 10/19/18 22:30 Dose: Not Given Pantoprazole Sodium (Protonix -) 40 mg PO BID [facility] Last Admin: 10/20/18 09:45 Dose: Not Given Rosuvastatin Calcium (Crestor -) 5 mg PO [facility] Last Admin: 10/19/18 22:30 Dose: Not Given - Objective Vital Signs: Vital Signs Temperature 97.6 F 10/20/18 08:20 Pulse Rate 96 H 10/20/18 08:20 Respiratory Rate 18 10/20/18 08:20 Blood Pressure 129/72 10/20/18 08:20 O2 Sat by Pulse Oximetry (%) 95 10/20/18 08:20 Constitutional: Yes: Ashen, Thin Neck: Yes: Supple Cardiovascular: Yes: Regular Rate and Rhythm, S1, S2 Respiratory: Yes: CTA Bilaterally. No: Rales, Rhonchi Gastrointestinal: Yes: Normal Bowel Sounds, Soft Edema: No Neurological: Yes: Unresponsive, Weakness Labs: CBC, BMP 10/20/18 06:00 10/20/18 06:00 INR, PTT INR 1.34 (0.83-1.09) H 10/15/18 22:10 Problem List - Problems (1) Altered mental status Code(s): R41.82 - ALTERED MENTAL STATUS, UNSPECIFIED (2) Hypokalemia Code(s): E87.6 - HYPOKALEMIA (3) Lethargy Code(s): R53.83 - OTHER FATIGUE (4) Type 2 diabetes mellitus with hyperosmolarity without nonketotic hyperglycemic-hyperosmolar coma ([facility]) Code(s): E11.00 - TYPE 2 DIAB W HYPROSM W/O NONKET HYPRGLY-HYPROS COMA ([facility]) (5) UTI (urinary tract infection) Code(s): N39.0 - URINARY TRACT INFECTION, SITE NOT SPECIFIED (6) Anemia Code(s): D64.9 - ANEMIA, UNSPECIFIED (7) Diabetes Code(s): E11.9 - TYPE 2 DIABETES MELLITUS WITHOUT COMPLICATIONS (8) ESRD (end stage renal disease) Code(s): N18.6 - END STAGE RENAL DISEASE (9) HTN (hypertension) Code(s): I10 - ESSENTIAL (PRIMARY) HYPERTENSION Qualifiers: (10) Hypothyroid Code(s): E03.9 - HYPOTHYROIDISM, UNSPECIFIED Qualifiers: (11) Type 2 diabetes mellitus with other diabetic kidney complication Code(s): E11.29 - TYPE 2 DIABETES MELLITUS W OTH DIABETIC KIDNEY COMPLICATION (12) Type 2 diabetes mellitus with other specified complication Code(s): E11.69 - TYPE 2 DIABETES MELLITUS WITH OTHER SPECIFIED COMPLICATION Assessment/Plan 83 year old woman with hx of ESRD on HD due to diabetic nephropathy, hyperension , hypothyrodism, hepatitis C, DM, recent CVA who presented s/p dialysis with AMS and hx of poor oral intake. The patient's mental status has not improved. She has not been taking anything by mouth. Including all her medications. Will check TSH to r/o Hypothyroidism as cause for her altered mental status. Hemodialysis today in her room. Will use 3K bath in view of the tendency for Hypokalemia. ? PEG placement for food and meds. Thank you. Will follow with you. Sharon Stahl MD
--- NOTE | 2018-10-20 11:58 | CONSULT ---
Consult - text type - Consultation Consultation Note: Neurologist HISTORY OF PRESENT ILLNESS: 83 year old female with history of diabetes mellitus, ESRD (started on hemodialysis by rt subclavian catheter 02/2018, schedule MWF), hypertension, normal EF and no valvular disease by echo 2017, Hepatitis C, and CVA (lacunar infarct) in June 2018 who presented from home with her daughter for concerns of an altered mental status on day of admission with generalized weakness, anorexia, and approximately 40 pound weight loss with worsening symptoms since her stroke. She reported she finished hemodialysis today and became less alert and oriented as per her daughter. The daughter reported that she has been having a decreased appetite and generalized weakness with 40 pound weight loss since her stroke. Daughter denied patient having any complaints of shortness of breath, chest pain, dysuria (urinates once per month), cough, fever , chills, nausea, vomiting or bleeding. Daughter reported she has blood clots with bowel movements from her rectum and relates this to her hemorrhoids. The patient cannot provide any of the history. Upon evaluation in the ER labs notable for WBC 13.2, hemoglobin 8.2, creatinine 1.9, normal troponin and albumin 2.5. Head CT completed in with no acute findings. EKG w/NSR. Vital signs stable. Urinalysis with 3 + leukoesterase, negative nitrite. Repeat Head CT completed yesterday, with no acute changes when compared to Head CT on admission. Is somnolent during encounter but arousable. Ill appearnig Recent Travel: denies PAST MEDICAL HISTORY: diabtes mellitus ESRD (on dialysis by right subclavian catheter, schedule MWF) hypertension Hepatitis C CVA in June 2018 PAST SURGICAL HISTORY: none Social History: Smoking:no Alcohol:no Drugs: no Family History: HTN Allergies No Known Allergies Allergy (Verified 09/22/18 14:46) HOME MEDICATIONS: Home Medications Medication Instructions Recorded Rosuvastatin [Crestor -] 5 mg PO HS #30 tablet 01/04/18 Acetaminophen [Tylenol .Regular 650 mg PO Q4H PRN tablet 03/28/18 Strength -] Pantoprazole Sodium [Protonix -] 40 mg PO BID #60 tablet.ec 03/28/18 Aspirin 81 mg PO DAILY 07/01/18 Carvedilol [Coreg -] 6.25 mg PO BID #30 tablet MDD 2 07/04/18 Clopidogrel Bisulfate [Plavix -] 75 mg PO DAILY #30 tablet MDD 1 07/31/18 Levothyroxine [Synthroid -] 50 mcg PO DAILY@0600 #30 tablet 07/31/18 MDD 1 Nifedipine ER [Procardia XL -] 60 mg PO DAILY #30 tab.er.24 07/31/18 Active Medications Acetaminophen (Tylenol -) 650 mg PO Q6H PRN PRN Reason: PAIN Aspirin (Asa -) 81 mg PO DAILY [facility] Last Admin: 10/20/18 09:43 Dose: Not Given Carvedilol (Coreg -) 3.125 mg PO BID [facility] Last Admin: 10/20/18 09:44 Dose: Not Given Clopidogrel Bisulfate (Plavix -) 75 mg PO Q2D [facility] Last Admin: 10/20/18 09:45 Dose: Not Given Epoetin Josh (Procrit -) 10,000 unit SQ ONCE ONE Stop: 10/20/18 13:36 Dextrose/Sodium Chloride (D5-Ns -) 1,000 mls @ 42 mls/hr IV ASDIR [facility] Last Admin: 10/20/18 10:53 Dose: 42 mls/hr Levothyroxine Sodium (Synthroid -) 50 mcg PO DAILY@0600 [facility] Last Admin: 10/20/18 05:55 Dose: Not Given Mirtazapine (Remeron -) 15 mg PO [facility] Last Admin: 10/19/18 22:30 Dose: Not Given Nifedipine (Procardia Xl -) 30 mg PO [facility] Last Admin: 10/19/18 22:30 Dose: Not Given Pantoprazole Sodium (Protonix -) 40 mg PO BID [facility] Last Admin: 10/20/18 09:45 Dose: Not Given Rosuvastatin Calcium (Crestor -) 5 mg PO [facility] Last Admin: 10/19/18 22:30 Dose: Not Given REVIEW OF SYSTEMS CONSTITUTIONAL: Absent: fever, chills, diaphoresis, generalized weakness, malaise, loss of appetite, weight loss HEENT: Absent: rhinorrhea, nasal congestion, throat pain, throat swelling, difficulty swallowing, mouth swelling, ear pain, eye pain, visual changes CARDIOVASCULAR: Absent: chest pain, syncope, palpitations, irregular heart rate, lightheadedness , peripheral edema RESPIRATORY: Absent: cough, shortness of breath, dyspnea with exertion, orthopnea, wheezing, stridor, hemoptysis GASTROINTESTINAL: Absent: abdominal pain, abdominal distension, nausea, vomiting, diarrhea, constipation, melena, hematochezia GENITOURINARY: Absent: dysuria, frequency, urgency, hesitancy, hematuria, flank pain, genital pain, makes urine once a month MUSCULOSKELETAL: Absent: myalgia, arthralgia, joint swelling, back pain, neck pain SKIN: Absent: rash, itching, pallor, sacral redness, no open wounds HEMATOLOGIC/IMMUNOLOGIC: Absent: easy bruising, +bruising to both eyelids,lymphadenopathy, frequent infections ENDOCRINE: Absent: unexplained weight gain, unexplained weight loss, heat intolerance, cold intolerance NEUROLOGIC: Absent: headache, focal weakness or paresthesias, dizziness, unsteady gait, seizure, + mental status changes PSYCHIATRIC: Absent: anxiety, depression, suicidal or homicidal ideation, hallucinations. PHYSICAL EXAMINATION Vital Signs Temperature 97.6 F 10/20/18 08:20 Pulse Rate 96 H 10/20/18 08:20 Respiratory Rate 18 10/20/18 08:20 Blood Pressure 129/72 10/20/18 08:20 O2 Sat by Pulse Oximetry (%) 95 10/20/18 08:20 GENERAL: thin appearing lady who opens eyes on command, nonverbal, no acute distress HEAD: normal EYES: pupils equal, round and reactive to light, bilateral eyelids with small ( less than dimed size) bruises present EARS, NOSE, THROAT: Ears normal, nares patent, oropharynx clear without exudates. Moist mucous membranes. NECK: no JVD LUNGS: breath sounds clear to auscultation bilaterally no use of accessory muscle use HEART: regular rate and rhythm, normal S1 and S2 ABDOMEN: soft, nontender, not distended, normoactive bowel sounds MUSCULOSKELETAL:limited ROM UPPER EXTREMITIES: 2+ pulses, warm no cyanosis. no peripheral edema LOWER EXTREMITIES: 2+ pulses, warm, no pitting edema NEUROLOGICAL: Somnolent but briefly arousable, moves extremities grossly, sensory intact PSYCHIATRIC:unable to assess SKIN: poor skin turgor,redness to sacrum present , no open decubiti CBCD WBC 10.1 K/mm3 (4.0-10.0) H 10/20/18 06:00 RBC 3.13 M/mm3 (3.60-5.2) L 10/20/18 06:00 Hgb 8.3 GM/dL (10.7-15.3) L 10/20/18 06:00 Hct 27.6 % (32.4-45.2) L 10/20/18 06:00 MCV 88.2 fl (80-96) 10/20/18 06:00 MCHC 29.9 g/dl (32.0-36.0) L 10/20/18 06:00 RDW 19.4 % (11.6-15.6) H 10/20/18 06:00 Plt Count 407 K/MM3 (134-434) 10/20/18 06:00 MPV 7.8 fl (7.5-11.1) 10/20/18 06:00 CMP Sodium 133 mmol/L (136-145) L 10/20/18 06:00 Potassium 3.3 mmol/L (3.5-5.1) L 10/20/18 06:00 Chloride 102 mmol/L (98-107) 10/20/18 06:00 Carbon Dioxide 24 mmol/L (21-32) 10/20/18 06:00 Anion Gap 7 MMOL/L (8-16) L 10/20/18 06:00 BUN 12 mg/dL (7-18) 10/20/18 06:00 Creatinine 3.4 mg/dL (0.55-1.3) H 10/20/18 06:00 Random Glucose 102 mg/dL (74-106) 10/20/18 06:00 Calcium 7.1 mg/dL (8.5-10.1) L 10/20/18 06:00 Total Bilirubin 0.2 mg/dL (0.2-1) 10/20/18 06:00 AST 15 U/L (15-37) 10/20/18 06:00 ALT 8 U/L (13-61) L 10/20/18 06:00 Alkaline Phosphatase 52 U/L (45-117) 10/20/18 06:00 Total Protein 5.0 g/dl (6.4-8.2) L 10/20/18 06:00 Albumin 1.8 g/dl (3.4-5.0) L 10/20/18 06:00 CARDIAC ENZYMES Creatine Kinase 23 U/L (26-192) L 10/15/18 22:10 Troponin I 0.02 ng/ml (0.00-0.05) 10/15/18 22:10 ASSESSMENT/PLAN: 83 year old female with history of diabetes mellitus, ESRD (started on hemodialysis by rt subclavian catheter 02/2018, schedule MWF), hypertension, normal EF and no valvular disease by echo 2017, Hepatitis C, and CVA (lacunar infarct) in June 2018 who presented from home with her daughter for concerns of an altered mental status on day of admission with generalized weakness, anorexia, and approximately 40 pound weight loss with worsening symptoms since her stroke. She reported she finished hemodialysis today and became less alert and oriented as per her daughter. The daughter reported that she has been having a decreased appetite and generalized weakness with 40 pound weight loss since her stroke. Daughter denied patient having any complaints of shortness of breath, chest pain, dysuria (urinates once per month), cough, fever , chills, nausea, vomiting or bleeding. Daughter reported she has blood clots with bowel movements from her rectum and relates this to her hemorrhoids. The patient cannot provide any of the history. Upon evaluation in the ER labs notable for WBC 13.2, hemoglobin 8.2, creatinine 1.9, normal troponin and albumin 2.5. Head CT completed in with no acute findings. EKG w/NSR. Vital signs stable. Urinalysis with 3 + leukoesterase, negative nitrite. Repeat Head CT completed yesterday, with no acute changes when compared to Head CT on admission. Likely toxic metabolic encephalopathy, infectious workup, Abx as per primary. Increased hydration recommended. Continue HD as per renal.
[2018-10-20] MEDS ORDERED: EPOETIN ALFA 10,000 UNIT/1 ML VIAL SQ ONE (16:00)
[2018-10-20] MEDS: NIFEdipine E.R. 30 MG TABLET (FP) PO SCH (21:55)
[2018-10-20] MEDS: MIRTAZAPINE 15 MG TABLET (FP) PO SCH (21:55)
[2018-10-20] MEDS: ROSUVASTATIN CA 5 MG TABLET (FP) PO SCH (21:55)
[2018-10-21] MEDS: LEVOTHYROXINE NA 50 MCG TABLET (FP) PO SCH (06:04)
[2018-10-21 07:12] LABS: HEMATOCRIT 27.9 % (32.4-45.2); HEMOGLOBIN 8.5 GM/dL (10.7-15.3); MCH 26.5 pg (25.7-33.7); MCHC 30.6 g/dl (32.0-36.0); MEAN CELL VOLUME 86.6 fl (80-96); PLATELET COUNT 370 K/MM3 (134-434); RBC 3.23 M/mm3 (3.60-5.2); RDW 19.9 % (11.6-15.6); WHITE BLOOD COUNT 9.7 K/mm3 (4.0-10.0)
--- NOTE | 2018-10-21 09:01 | PN ---
Progress Note, Physician - Current Medication List Current Medications: Active Medications Acetaminophen (Tylenol -) 650 mg PO Q6H PRN PRN Reason: PAIN Aspirin (Asa -) 81 mg PO DAILY [facility] Last Admin: 10/20/18 09:43 Dose: Not Given Carvedilol (Coreg -) 3.125 mg PO BID [facility] Last Admin: 10/20/18 21:55 Dose: 3.125 mg Clopidogrel Bisulfate (Plavix -) 75 mg PO Q2D [facility] Last Admin: 10/20/18 09:45 Dose: Not Given Dextrose/Sodium Chloride (D5-Ns -) 1,000 mls @ 42 mls/hr IV ASDIR [facility] Last Admin: 10/20/18 10:53 Dose: 42 mls/hr Levothyroxine Sodium (Synthroid -) 50 mcg PO DAILY@0600 [facility] Last Admin: 10/21/18 06:04 Dose: 50 mcg Mirtazapine (Remeron -) 15 mg PO [facility] Last Admin: 10/20/18 21:55 Dose: 15 mg Nifedipine (Procardia Xl -) 30 mg PO [facility] Last Admin: 10/20/18 21:55 Dose: 30 mg Pantoprazole Sodium (Protonix -) 40 mg PO BID [facility] Last Admin: 10/20/18 21:55 Dose: 40 mg Rosuvastatin Calcium (Crestor -) 5 mg PO [facility] Last Admin: 10/20/18 21:55 Dose: 5 mg - Objective Vital Signs: Vital Signs Temperature 98.4 F 10/21/18 06:00 Pulse Rate 86 10/21/18 06:00 Respiratory Rate 18 10/21/18 06:00 Blood Pressure 111/59 L 10/21/18 06:00 O2 Sat by Pulse Oximetry (%) 95 10/20/18 21:00 Labs: CBC, BMP 10/21/18 05:30 INR, PTT INR 1.34 (0.83-1.09) H 10/15/18 22:10 Assessment/Plan - Problems (1) Toxic metabolic encephalopathy Assessment/Plan: -Improving -BC neg -UC lactobacillus species -afebrile -leukocytosis -Neurology and ID on board -Head CT scan reviewed Code(s): G92 - TOXIC ENCEPHALOPATHY (2) UTI (urinary tract infection) Assessment/Plan: -UA 3+ leukocyte, trace ketones, 2+ protein -UC positive -WBC 1.1 -ID on board Code(s): N39.0 - URINARY TRACT INFECTION, SITE NOT SPECIFIED (3) Weakness Assessment/Plan: -Neurology on board -PT Code(s): R53.1 - WEAKNESS (4) CVA (cerebral vascular accident) Assessment/Plan: -Asa, Plavix, Crestor Code(s): I63.9 - CEREBRAL INFARCTION, UNSPECIFIED Qualifiers: CVA mechanism: unspecified Qualified Code(s): I63.9 - Cerebral infarction, unspecified (5) ESRD (end stage renal disease) Assessment/Plan: -renal on board -HD -BUN/Cr 04/28.4 Code(s): N18.6 - END STAGE RENAL DISEASE (6) HTN (hypertension) Assessment/Plan: -Nifedipine Code(s): I10 - ESSENTIAL (PRIMARY) HYPERTENSION Qualifiers: (7) Hypothyroid Assessment/Plan: -TSH 1.58 -Synthroid Code(s): E03.9 - HYPOTHYROIDISM, UNSPECIFIED Qualifiers: (8) Malnourished Assessment/Plan: -RD consult -due to poor PO intake consider to start Clinimix Code(s): E46 - UNSPECIFIED PROTEIN-CALORIE MALNUTRITION (9) Anemia Assessment/Plan: -GI consult (10) Hypokalemia Assessment/Plan: -K 3.3-Replace -monitor electrolyte and replete as needed Code(s): E87.6 - HYPOKALEMIA (11) Hyponatremia Assessment/Plan: -D5-NS at 42cc/hr Code(s): E87.1 - HYPO-OSMOLALITY AND HYPONATREMIA
[2018-10-21 09:48] LABS: CALCIUM 7.4 mg/dL (8.5-10.1); CREATININE 2.7 mg/dL (0.55-1.3); POTASSIUM 3.1 mmol/L (3.5-5.1); TOT PROT 5.3 g/dl (6.4-8.2)
[2018-10-21 09:49] LABS: ALBUMIN 1.9 g/dl (3.4-5.0); BILIRUBIN,TOTAL 0.2 mg/dL (0.2-1)
[2018-10-21] MEDS: POTASSIUM CHLORIDE TABS 20 MEQ TABLET.ER (FP) PO ONE ×2 (11:02→13:47)
[2018-10-21] MEDS: ASPIRIN 81 MG CHEWABLE TABLETS PO SCH ×2 (11:03→13:49)
[2018-10-21] MEDS: PANTOPRAZOLE 40 MG TABLET (FP) PO SCH ×3 (11:04→21:57)
[2018-10-21] MEDS: CARVEDILOL 3.125 MG TABLET (FP) PO SCH ×3 (11:04→21:57)
--- NOTE | 2018-10-21 13:30 | CONSULT ---
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 Neurology was consulted for toxic metabolic encephalopathy due to UTI. ID was consulted UTI. Renal was consulted for ESRD on HD. Endo was consulted for DM and hypothyroidism. She was seen by PT, and on 10/21/18 she was Maximum assist in Transfers. Physiatry is being consulted for further recommendations. 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: 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), Peripheral Neuropathy Cardio/Vascular: Yes: HTN, Hyperlipdemia Gastrointestinal: Yes: Constipation, Other (cecal polyp removed 2005) Hepatobiliary: Yes: Hepatitis C Renal/: Yes: Renal Failure, Hemodialysis Endocrine: Yes: Diabetes Mellitus, Hypothyroidism - Past Surgical History Past Surgical History: Yes: Cholecystectomy (complicated open cholecystectomy requiring transfusions), Colonoscopy, , Tonsillectomy, Vein Stripping/ Ligation (Thyroidectomy,) - Alcohol/Substance Use Hx Alcohol Use: No History of Substance Use: reports: None - Smoking History Smoking history: Never smoked Have you smoked in the past 12 months: No Aproximately how many cigarettes per day: 20 If you are a former smoker, when did you quit?: 2018 - Social History Usual Living Arrangement: With Child (in house with 5 steps to enter and 1 flight to bedroom) ADL: Family Assistance (nonambulatory) 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 History of Recent Travel: No Home Medications - Allergies Allergies/Adverse Reactions: Allergies Allergy/AdvReac Type Severity Reaction Status Date / Time lactose AdvReac Severe Verified 10/17/18 14:15 - Home Medications Home Medications: Ambulatory Orders Rosuvastatin [Crestor -] 5 mg PO HS #30 tablet 01/04/18 Acetaminophen [Tylenol .Regular Strength -] 650 mg PO Q4H PRN tablet 03/28/18 Pantoprazole Sodium [Protonix -] 40 mg PO BID #60 tablet.ec 03/28/18 Aspirin 81 mg PO DAILY #0 07/01/18 Carvedilol [Coreg -] 6.25 mg PO BID #30 tablet MDD 2 07/04/18 Clopidogrel Bisulfate [Plavix -] 75 mg PO DAILY #30 tablet MDD 1 07/31/18 Levothyroxine [Synthroid -] 50 mcg PO DAILY@0600 #30 tablet MDD 1 07/31/18 Nifedipine ER [Procardia XL -] 60 mg PO DAILY #30 tab.er.24 07/31/18 Mirtazapine [Remeron -] 15 mg PO HS 10/16/18 Family Disease History - Family Disease History Family Disease History: Other: Father (lived to 90), Mother (lived to 96 ) Review of Systems Findings/Remarks: denies pain but does not otherwise answer ROS despite dtr- in- law and dtr translating Physical Exam Vital Signs: Vital Signs Temperature 98.4 F 10/21/18 09:00 Pulse Rate 88 10/21/18 09:00 Respiratory Rate 18 10/21/18 09:00 Blood Pressure 120/75 10/21/18 09:00 O2 Sat by Pulse Oximetry (%) 97 10/21/18 09:00 Musculoskeletal: Yes: Other (General: calm thin elderly HF sitting in bed NAD N/ M: R shoulder flexion to 60 degrees, L shoulder flexion to 75 degrees, 4-/5 BUE , 1/5 B HF, 2/5 B KE then 3/5 B DF/ EHL Extremities: no BLE pitting edema, no B calf tenderness, +TEDS/ SCDs in place BLE) Labs: CBC, BMP 10/21/18 05:30 10/21/18 05:30 Imaging - Results Cat Scan: Report Reviewed (CT head 10/19/18 shows no acute pathology) Assessment/Plan Impression: 1) Deficits mobility/ ADLs 2) Deconditioning 3) Gait abnormality 4) Toxic metabolic encephalopathy due to UTI 5) Hypothyroidism 6) Anemia 7) hx 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
[2018-10-21] MEDS: D5-1/2NS+20 MEQ KCL - 20 MEQ/1,000 ML INFUS.BAG IV SCH (13:46)
[2018-10-21] MEDS: CLOPIDOGREL BISULFATE 75 MG TABLET (FP) PO SCH (13:49)
--- NOTE | 2018-10-21 19:15 | CON.GI ---
Consult Consult Specialty:: Gastroenterology Referred by:: Dr Clay Reason for Consultation:: Anemia - History of Present Illness Chief Complaint: altered mental status History of Present Illness: 83F has been in a state of mental and physical decline and was admitted after a dialysis sesssion for altered mental status. Her daughter describes worsening confusion and difficulties feeding Antonietta. She saw my partner, Dr Pino Li several weeks ago to discuss her feeding difficulties after which Antonietta's daughter is inclined not having a G tube placed. He started a trial of Remeron but this has had little benefit. She tells me that her mother has not had any overt GI bleeding but has multiple bruises since being started on Clopidogrel. Antonietta's Hb had dropped to a similar level in 03/13 leading to an EGD on which revealed an erosive gastritis and antral ulcers. A colonoscopy was offered but never completed. She had a fistula created at that time and was started on dialysis. She last had a colonoscopy with Dr. Li on 11/26/05 when a cecal polyp was removed. Large hemorrhoids were also found. He cured her of HCV with a course of Harvoni. Her HCV was transfusion acquired from multiple transfusions required following a complicated cholecystectomy. 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), Dementia (mutiple lacunar infarcts on CT), Peripheral Neuropathy, Other (restless leg syndrome) Cardio/Vascular: Yes: HTN, Hyperlipdemia Gastrointestinal: Yes: Constipation, GI Bleed, Other (cecal polyp removed 2005) Hepatobiliary: Yes: Hepatitis C (cured with Harvoni by Dr Li) Renal/: Yes: Renal Failure, Hemodialysis Endocrine: Yes: Diabetes Mellitus, Hypothyroidism - Past Surgical History Past Surgical History: Yes: Cholecystectomy (complicated open cholecystectomy requiring transfusions), Colonoscopy, , Tonsillectomy, Upper Endoscopy , Vein Stripping/Ligation (Thyroidectomy,) - Alcohol/Substance Use Hx Alcohol Use: No History of Substance Use: reports: None - Smoking History Smoking history: Never smoked Have you smoked in the past 12 months: No Aproximately how many cigarettes per day: 20 If you are a former smoker, when did you quit?: 2018 - Social History Usual Living Arrangement: With Child (in house with 5 steps to enter and 1 flight to bedroom) ADL: Family Assistance (nonambulatory) 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 Place of : Other ([employer] [place] [place]) History of Recent Travel: No Home Medications - Allergies Allergies/Adverse Reactions: Allergies Allergy/AdvReac Type Severity Reaction Status Date / Time lactose AdvReac Severe Verified 10/17/18 14:15 - Home Medications Home Medications: Ambulatory Orders Rosuvastatin [Crestor -] 5 mg PO HS #30 tablet 01/04/18 Acetaminophen [Tylenol .Regular Strength -] 650 mg PO Q4H PRN tablet 03/28/18 Pantoprazole Sodium [Protonix -] 40 mg PO BID #60 tablet.ec 03/28/18 Aspirin 81 mg PO DAILY #0 07/01/18 Carvedilol [Coreg -] 6.25 mg PO BID #30 tablet MDD 2 07/04/18 Clopidogrel Bisulfate [Plavix -] 75 mg PO DAILY #30 tablet MDD 1 07/31/18 Levothyroxine [Synthroid -] 50 mcg PO DAILY@0600 #30 tablet MDD 1 07/31/18 Nifedipine ER [Procardia XL -] 60 mg PO DAILY #30 tab.er.24 07/31/18 Mirtazapine [Remeron -] 15 mg PO HS 10/16/18 Family Disease History - Family Disease History Family Disease History: Other: Father (lived to 90), Mother (lived to 96 ) Physical Exam-GI Vital Signs: Vital Signs Temperature 98.2 F 10/21/18 17:35 Pulse Rate 98 H 10/21/18 17:35 Respiratory Rate 20 10/21/18 17:35 Blood Pressure 121/57 L 10/21/18 17:35 O2 Sat by Pulse Oximetry (%) 97 10/21/18 09:00 CBC,CMP WBC 9.7 K/mm3 (4.0-10.0) 10/21/18 05:30 RBC 3.23 M/mm3 (3.60-5.2) L 10/21/18 05:30 Hgb 8.5 GM/dL (10.7-15.3) L 10/21/18 05:30 Hct 27.9 % (32.4-45.2) L 10/21/18 05:30 MCV 86.6 fl (80-96) 10/21/18 05:30 MCH 26.5 pg (25.7-33.7) 10/21/18 05:30 MCHC 30.6 g/dl (32.0-36.0) L 10/21/18 05:30 RDW 19.9 % (11.6-15.6) H 10/21/18 05:30 Plt Count 370 K/MM3 (134-434) 10/21/18 05:30 MPV 8.0 fl (7.5-11.1) 10/21/18 05:30 Absolute Neuts (auto) 6.9 K/mm3 (1.5-8.0) 10/18/18 07:21 Neutrophils % 80.9 % (42.8-82.8) 10/18/18 07:21 Lymphocytes % 11.2 % (8-40) 10/18/18 07:21 Monocytes % 6.4 % (3.8-10.2) 10/18/18 07:21 Eosinophils % 1.0 % (0-4.5) 10/18/18 07:21 Basophils % 0.5 % (0-2.0) 10/18/18 07:21 Nucleated RBC % 0 % (0-0) 10/18/18 07:21 Sodium 140 mmol/L (136-145) 10/21/18 05:30 Potassium 3.1 mmol/L (3.5-5.1) L 10/21/18 05:30 Chloride 107 mmol/L (98-107) 10/21/18 05:30 Carbon Dioxide 25 mmol/L (21-32) 10/21/18 05:30 Anion Gap 8 MMOL/L (8-16) 10/21/18 05:30 BUN 8 mg/dL (7-18) 10/21/18 05:30 Creatinine 2.7 mg/dL (0.55-1.3) H 10/21/18 05:30 Est GFR (CKD-EPI)AfAm 18.29 10/21/18 05:30 Est GFR (CKD-EPI)NonAf 15.78 10/21/18 05:30 POC Glucometer 108 UNITS (80-120) 10/21/18 18:38 Random Glucose 143 mg/dL (74-106) H 10/21/18 05:30 Calcium 7.4 mg/dL (8.5-10.1) L 10/21/18 05:30 Phosphorus 2.0 mg/dL (2.5-4.9) L 10/18/18 11:45 Iron 21 ug/dL (27-139) L 10/18/18 07:21 TIBC 118 ug/dL (250-450) L 10/18/18 07:21 Iron Saturation 18 % (15-55) 10/18/18 07:21 Ferritin 851.8 ng/ml (8-388) H 10/18/18 07:21 Total Bilirubin 0.2 mg/dL (0.2-1) 10/21/18 05:30 AST 15 U/L (15-37) 10/21/18 05:30 ALT 11 U/L (13-61) L 10/21/18 05:30 Alkaline Phosphatase 58 U/L (45-117) 10/21/18 05:30 Creatine Kinase 23 U/L (26-192) L 10/15/18 22:10 Troponin I 0.02 ng/ml (0.00-0.05) 10/15/18 22:10 Total Protein 5.3 g/dl (6.4-8.2) L 10/21/18 05:30 Albumin 1.9 g/dl (3.4-5.0) L 10/21/18 05:30 TSH 2.19 uIU/ml (0.358-3.74) 10/20/18 06:00 Free T4 1.29 ng/dl (0.76-1.46) 10/20/18 06:00 Current Medications Generic Name Dose Route Start Last Admin Trade Name Rachidq PRN Reason Stop Dose Admin Acetaminophen 650 mg 10/16/18 19:53 Tylenol - PO Q6H PRN PAIN Aspirin 81 mg 10/16/18 10:00 10/21/18 13:49 Asa - PO 81 mg DAILY CARL Administration Carvedilol 3.125 mg 10/16/18 10:00 10/21/18 13:47 Coreg - PO 3.125 mg BID CARL Administration Clopidogrel Bisulfate 75 mg 10/16/18 10:00 10/21/18 13:49 Plavix - PO 75 mg Q2D CARL Administration Potassium Chloride/Dextrose/Sod Cl 20 meq in 1,000 mls @ 42 mls/hr 05/28/19 10 :00 10/21/18 13:46 D5-1/2ns+20 Meq Kcl - IV 42 mls/hr ASDIR CARL Administration Levothyroxine Sodium 50 mcg 10/16/18 06:00 10/21/18 06:04 Synthroid - PO 50 mcg DAILY@0600 CARL Administration Mirtazapine 15 mg 10/16/18 22:00 10/20/18 21:55 Remeron - PO 15 mg HS CARL Administration Nifedipine 30 mg 10/16/18 22:00 10/20/18 21:55 Procardia Xl - PO 30 mg HS CARL Administration Pantoprazole Sodium 40 mg 10/16/18 22:00 10/21/18 13:49 Protonix - PO 40 mg BID CARL Administration Rosuvastatin Calcium 5 mg 10/16/18 22:00 10/20/18 21:55 Crestor - PO 5 mg HS CARL Administration Constitutional: Yes: Other (confused but interactive) Eyes: Yes: Conjunctiva Clear HENT: Yes: Atraumatic Neck: Yes: Trachea Midline Cardiovascular: Yes: Regular Rate and Rhythm Respiratory: Yes: CTA Bilaterally Gastrointestinal Inspection: Yes: Scars (long right vertical paramedian and vertical suprapubic incisions) ...Auscultate: Yes: Hypoactive Bowel Sounds ...Palpate: Yes: Mass (RLQ subcutaneous palpable hematoma), Soft, Other ( nontender) ...Rectal Exam: Yes: Guaiac Negative (brown guaiac negative stool), Hemorrhoids/ External Labs: CBC, BMP 10/21/18 05:30 10/21/18 05:30 INR, PTT INR 1.34 (0.83-1.09) H 10/15/18 22:10 Problem List - Problems (1) Anemia Assessment/Plan: I believe that Antonietta's anemia is multifactorial. Her most recent drop may reflect the abdominal wall hematoma perhaps from a fall or heparin injection. Despite her being guaiac negative at present I would suspect that she has intermittent indolent bleeding from small bowel vascular ectasias. I told the daughter that I cannot exclude an underlying bleeding GI malignancy, recurrent large polyp or ulcer and discussed a role from EGD and colonoscopy. She replied that she does not want her mother subjected to an endoscopic evaluation or to PEG insertion Code(s): D64.9 - ANEMIA, UNSPECIFIED (2) Dementia Code(s): F03.90 - UNSPECIFIED DEMENTIA WITHOUT BEHAVIORAL DISTURBANCE (3) Hematoma of abdominal wall Code(s): S30.1XXA - CONTUSION OF ABDOMINAL WALL, INITIAL ENCOUNTER (4) Altered mental status Code(s): R41.82 - ALTERED MENTAL STATUS, UNSPECIFIED (5) Type 2 diabetes mellitus with hyperosmolarity without nonketotic hyperglycemic-hyperosmolar coma ([facility]) Code(s): E11.00 - TYPE 2 DIAB W HYPROSM W/O NONKET HYPRGLY-HYPROS COMA ([facility]) (6) CVA (cerebral vascular accident) Code(s): I63.9 - CEREBRAL INFARCTION, UNSPECIFIED Qualifiers: CVA mechanism: unspecified Qualified Code(s): I63.9 - Cerebral infarction, unspecified (7) ESRD (end stage renal disease) Code(s): N18.6 - END STAGE RENAL DISEASE (8) Hepatitis C Code(s): B19.20 - UNSPECIFIED VIRAL HEPATITIS C WITHOUT HEPATIC COMA (9) History of colon polyps Code(s): Z86.010 - PERSONAL HISTORY OF COLONIC POLYPS (10) Hypothyroid Code(s): E03.9 - HYPOTHYROIDISM, UNSPECIFIED (11) Type 2 diabetes mellitus with other diabetic kidney complication Code(s): E11.29 - TYPE 2 DIABETES MELLITUS W OTH DIABETIC KIDNEY COMPLICATION Assessment/Plan Impression: Multifactorial anemia with current abdominal wall hematoma likely the source of most recent drop. Cannot exclude malignancy, ulcer or polyp recurrence but I suspect that indolent bleeding from small bowel vascular ectasias may be playing a role. Personal h/o erosive gastritis and ulcers Personal h/o cecal polyp Plan: EGD, colonoscopy and PEG discussed with Antonietta's daughter. She wants none of these Empiric PPI therapy Consider stopping Clopidogrel and relying simply on aspirin
[2018-10-21 21:08] LABS: HBSAG SCREEN Negative (Negative); HEP A AB, IGM Negative (Negative); HEP B CORE AB, TOT Negative (Negative)
[2018-10-21] MEDS: NIFEdipine E.R. 30 MG TABLET (FP) PO SCH (21:57)
[2018-10-21] MEDS: ROSUVASTATIN CA 5 MG TABLET (FP) PO SCH (21:57)
[2018-10-21] MEDS: MIRTAZAPINE 15 MG TABLET (FP) PO SCH (21:57)
[2018-10-22] MEDS: LEVOTHYROXINE NA 50 MCG TABLET (FP) PO SCH (06:06)
[2018-10-22 07:31] LABS: BASO % 1.1 % (0-2.0); HEMATOCRIT 27.2 % (32.4-45.2); HEMOGLOBIN 8.2 GM/dL (10.7-15.3); LYMPH % 9.5 % (8-40); MCH 26.1 pg (25.7-33.7); MEAN CELL VOLUME 86.9 fl (80-96); MEAN PLT VOLUME 7.9 fl (7.5-11.1); MONO % 6.3 % (3.8-10.2); NEUT % 82.1 % (42.8-82.8); PLATELET COUNT 388 K/MM3 (134-434); RBC 3.13 M/mm3 (3.60-5.2); RDW 20.7 % (11.6-15.6); WHITE BLOOD COUNT 8.8 K/mm3 (4.0-10.0)
[2018-10-22 08:24] LABS: BILIRUBIN,TOTAL 0.2 mg/dL (0.2-1); CALCIUM 7.5 mg/dL (8.5-10.1); CREATININE 3.4 mg/dL (0.55-1.3); POTASSIUM 3.6 mmol/L (3.5-5.1); TOT PROT 5.4 g/dl (6.4-8.2)
[2018-10-22] MEDS: CLOPIDOGREL BISULFATE 75 MG TABLET (FP) PO SCH (10:09)
[2018-10-22] MEDS: PANTOPRAZOLE 40 MG TABLET (FP) PO SCH ×3 (10:09→22:41)
[2018-10-22] MEDS: ASPIRIN 81 MG CHEWABLE TABLETS PO SCH (10:09)
[2018-10-22] MEDS: CARVEDILOL 3.125 MG TABLET (FP) PO SCH ×2 (10:09→22:27)
[2018-10-22] MEDS: D5-1/2NS+20 MEQ KCL - 20 MEQ/1,000 ML INFUS.BAG IV SCH ×2 (10:09→17:46)
[2018-10-22 11:12] LABS: ANISOCYTOSIS 1+; MACROCYTOSIS 1+; OVALOCYTE 1+; PLATELET ESTIMATE NORMAL; TARGET CELLS 1+
--- NOTE | 2018-10-22 11:20 | PN ---
Progress Note, Physician Chief Complaint: PATIENT ASLEEP COMFORTABLE STILL CONFUSED - Current Medication List Current Medications: Active Medications Acetaminophen (Tylenol -) 650 mg PO Q6H PRN PRN Reason: PAIN Aspirin (Asa -) 81 mg PO DAILY [facility] Last Admin: 10/22/18 10:09 Dose: 81 mg Carvedilol (Coreg -) 3.125 mg PO BID [facility] Last Admin: 10/22/18 10:09 Dose: 3.125 mg Clopidogrel Bisulfate (Plavix -) 75 mg PO Q2D [facility] Last Admin: 10/22/18 10:09 Dose: 75 mg Potassium Chloride/Dextrose/Sod Cl (D5-1/2ns+20 Meq Kcl -) 20 meq in 1,000 mls @ 42 mls/hr IV ASDIR [facility] Last Admin: 10/22/18 10:09 Dose: Not Given Levothyroxine Sodium (Synthroid -) 50 mcg PO DAILY@0600 [facility] Last Admin: 10/22/18 06:06 Dose: 50 mcg Mirtazapine (Remeron -) 15 mg PO [facility] Last Admin: 10/21/18 21:57 Dose: 15 mg Nifedipine (Procardia Xl -) 30 mg PO [facility] Last Admin: 10/21/18 21:57 Dose: 30 mg Pantoprazole Sodium (Protonix -) 40 mg PO BID [facility] Last Admin: 10/22/18 10:09 Dose: 40 mg Rosuvastatin Calcium (Crestor -) 5 mg PO [facility] Last Admin: 10/21/18 21:57 Dose: 5 mg - Objective Vital Signs: Vital Signs Temperature 99 F 10/22/18 06:47 Pulse Rate 96 H 10/22/18 06:47 Respiratory Rate 18 10/22/18 06:47 Blood Pressure 130/64 10/22/18 06:47 O2 Sat by Pulse Oximetry (%) 97 10/21/18 21:00 Constitutional: Yes: Mild Distress Cardiovascular: Yes: Regular Rate and Rhythm Respiratory: Yes: WNL Gastrointestinal: Yes: Soft Genitourinary: Yes: Incontinence Musculoskeletal: Yes: Muscle Weakness Neurological: Yes: Confusion, Weakness Psychiatric: Yes: Other Labs: CBC, BMP 10/22/18 06:30 10/22/18 06:30 INR, PTT INR 1.34 (0.83-1.09) H 10/15/18 22:10 Problem List - Problems (1) Altered mental status Code(s): R41.82 - ALTERED MENTAL STATUS, UNSPECIFIED (2) Dementia Code(s): F03.90 - UNSPECIFIED DEMENTIA WITHOUT BEHAVIORAL DISTURBANCE (3) Lethargy Code(s): R53.83 - OTHER FATIGUE (4) Toxic metabolic encephalopathy Code(s): G92 - TOXIC ENCEPHALOPATHY (5) Type 2 diabetes mellitus with hyperosmolarity without nonketotic hyperglycemic-hyperosmolar coma ([facility]) Code(s): E11.00 - TYPE 2 DIAB W HYPROSM W/O NONKET HYPRGLY-HYPROS COMA ([facility]) (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 Assessment/Plan RENAL F/U APPRECIATED SWALLOW EVAL REVIEWED STARTING DYSPHAGIA PUREE DIET CRUSHED IN APPLESAUCE PT EVAL D/W CATHERING THE PATIENT'S DAUGHTER WILL WANT HER MOM HOME WITH NURSE'S AID DOES NOT WANT HER MOM IN A SNF MONITOR LABS PLAVIX STOPPED PER GI FOR GI BLEED THE RISK OUTWEIGHS THE BENIFIT AT THIS TIME TO BE ON PLAVIX.
--- NOTE | 2018-10-22 11:31 | CONSULT ---
Admitting History and Physical - Primary Care Physician PCP: Kaleb Park - Admission History of Present Illness: Pt admitted to the Medicine Service for altered mental status changes in setting of failure to thrive. Pt receiving pureed diet/Nepro. Selected Entries 10/18/18 10/18/18 10/18/18 12:10 14:00 19:31 Breakfast 25% Diet Tolerated Poor Poor Refused Lunch 25% Supper Temperature 10/19/18 10/19/18 10/19/18 09:59 15:51 18:45 Breakfast 0 Diet Tolerated Refused Refused Lunch 0 Supper Temperature 10/20/18 10/21/18 10/21/18 22:17 02:00 06:00 Breakfast Diet Tolerated Lunch Supper 0 Temperature 98.7 F 98.4 F 10/21/18 10/21/18 10/21/18 09:00 11:39 17:35 Breakfast 0 Diet Tolerated Lunch Supper Temperature 98.4 F 98.2 F 10/21/18 10/21/18 10/21/18 18:59 20:18 21:59 Breakfast Diet Tolerated Lunch Supper 25% Temperature 98 F 97.8 F 10/22/18 06:47 Breakfast Diet Tolerated Lunch Supper Temperature 99 F Laboratory Tests 10/18/18 10/19/18 10/20/18 07:21 05:45 06:00 WBC 8.6 8.1 10.1 H 10/21/18 10/22/18 05:30 06:30 WBC 9.7 8.8 Per EMR, pt has been confused, lethargic, refusing PO trials intermittently. During 07/2018 admission, Pt was tolerating diet with improving acceptance. She benefited from compensatory strategies used by felt dyeing machine tender. Suggested small bites, 1/2 tsp, direct pt to chew and swallow, alternate with sip of liquid Mix meds with Maple syrup to reduce bitterness, follow with water. Seen 09/03/18 as out pt for MBS, due to decline in PO acceptance. Swallow was brisk, but oral control/holding was the issue. She did best with straw drinking , and alternating soft solids with puree, cold/hot, savory/sweet. The daughter reported that she has been having a decreased appetite and generalized weakness with 40 pound weight loss since her stroke. Daughter denies patient having any complaints of shortness of breath, chest pain, dysuria (urinates once per month),cough,fever, chills,nausea, vomiting or bleeding She was previously started on a trial of Remeron but this has had little benefit. 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), Dementia (mutiple lacunar infarcts on CT), Peripheral Neuropathy, Other (restless leg syndrome) Cardiovascular: Yes: HTN, Hyperlipdemia Gastrointestinal: Yes: Constipation, GI Bleed, Other (cecal polyp removed 2005) Hepatobiliary: Yes: Hepatitis C (cured with Harvoni by Dr Li) Renal/: Yes: Renal Failure, Hemodialysis Heme/Onc: Yes: Anemia Endocrine: Yes: Diabetes Mellitus, Hypothyroidism - Past Surgical History Past Surgical History: Yes: Cholecystectomy (complicated open cholecystectomy requiring transfusions), Colonoscopy, , Tonsillectomy, Upper Endoscopy , Vein Stripping/Ligation (Thyroidectomy,) - Smoking History Smoking history: Never smoked Have you smoked in the past 12 months: No Aproximately how many cigarettes per day: 20 If you are a former smoker, when did you quit?: 2018 - Alcohol/Substance Use Hx Alcohol Use: No History of Substance Use: reports: None - Social History ADL: Family Assistance (nonambulatory) 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 Oral holding. Intermittent PO acceptance. Failure to thrive secondary to Dementia/Apraxia with guarded prognosis for improved function.Pt is a full code. Risk of malnutrition, dehydration, aspiration with risk of spillage over base of tongue into airway. Per chart, Family does not want PEG at this time. - Dysphagia Impressions/Plan Swallowing Skills: Impaired Dysphagia Impressions: Severe Impairment, Ongoing Evaluation *Silent aspiration: cannot be R/O at bedside Dysphagia Treatment Plan: Small Bites, Chin Tuck/Down, Clear Pocket Food, Safe Rate, 1/2 tsp. at a time, Elevate HOB during feed, Other (alternate cold/warm/ savory/sweet) Recommendations: Palliative Care (consider if not done), Other (feed only when al;ert) - Recommendations Diet Consistency: Dysphagia Pureed Medication Administration: Crushed with applesauce Liquids: [place] Thick Supplement: Ensure, Magic Cup, Ensure Pudding
--- NOTE | 2018-10-22 16:25 | PN ---
Progress Note (short form) - Note Progress Note: Renal follow up for ESRD on HD Pt seen and examined at the bedside groggy and lethargic daughter at the bedside no overnight events last dialysis was Saturday Vital Signs Temperature 97.1 F L 10/22/18 10:00 Pulse Rate 102 H 10/22/18 10:00 Respiratory Rate 20 10/22/18 10:00 Blood Pressure 144/73 10/22/18 10:00 O2 Sat by Pulse Oximetry (%) 97 10/22/18 09:00 Intake & Output 10/19/18 10/20/18 10/21/18 10/22/18 23:59 23:59 23:59 23:59 Intake Total 325 178 420 Output Total 1 Balance 325 -1 178 420 Weight 49.26 kg 48.807 kg 48.534 kg NAD awake and alert RRR, no M/R CTA no rales or wheeze soft NT/ND no LE edema, clubbing or cyanosis CBC, BMP 10/22/18 06:30 10/22/18 06:30 Current Medications Acetaminophen (Tylenol -) 650 mg PO Q6H PRN PRN Reason: PAIN Aspirin (Asa -) 81 mg PO DAILY [facility] Last Admin: 10/22/18 10:09 Dose: 81 mg Carvedilol (Coreg -) 3.125 mg PO BID [facility] Last Admin: 10/22/18 10:09 Dose: 3.125 mg Clopidogrel Bisulfate (Plavix -) 75 mg PO Q2D [facility] Last Admin: 10/22/18 10:09 Dose: 75 mg Potassium Chloride/Dextrose/Sod Cl (D5-1/2ns+20 Meq Kcl -) 20 meq in 1,000 mls @ 42 mls/hr IV ASDIR [facility] Last Admin: 10/22/18 10:09 Dose: Not Given Levothyroxine Sodium (Synthroid -) 50 mcg PO DAILY@0600 [facility] Last Admin: 10/22/18 06:06 Dose: 50 mcg Mirtazapine (Remeron -) 15 mg PO HS [facility] Last Admin: 10/21/18 21:57 Dose: 15 mg Nifedipine (Procardia Xl -) 30 mg PO HS [facility] Last Admin: 10/21/18 21:57 Dose: 30 mg Pantoprazole Sodium (Protonix -) 40 mg PO BID [facility] Last Admin: 10/22/18 10:09 Dose: 40 mg Rosuvastatin Calcium (Crestor -) 5 mg PO HS [facility] Last Admin: 10/21/18 21:57 Dose: [address] head - no acute infarction 83 year old woman with hx of ESRD on HD due to diabetic nephropathy, hyperension , hypothyrodism, hepatitis C, DM, recent CVA who presented s/p dialysis with AMS and hx of poor oral intake. #ESRD on HD #Altered mental status #Anemia #Hypertension #Failure to thrive no acute need for PATIENT SUPPORT TECH today clinical status is poor discussed various options with daughter including discontinuing dialysis she will discuss it with her family palliative consult appreciated will plan for next dialysis on Saturday will give ALBA with HD as needed for anemia Thank you Levy Mancia DO
[2018-10-22 19:18] VITALS: BMI 18.3
[2018-10-22] MEDS: ROSUVASTATIN CA 5 MG TABLET (FP) PO SCH ×2 (22:00→22:41)
[2018-10-22] MEDS: NIFEdipine E.R. 30 MG TABLET (FP) PO SCH ×2 (22:30→22:41)
[2018-10-22] MEDS: MIRTAZAPINE 15 MG TABLET (FP) PO SCH (22:41)
[2018-10-23] MEDS: LEVOTHYROXINE NA 50 MCG TABLET (FP) PO SCH (06:35)
[2018-10-23 08:05] LABS: CREATININE 3.9 mg/dL (0.55-1.3); POTASSIUM 4.1 mmol/L (3.5-5.1)
--- NOTE | 2018-10-23 09:35 | DS ---
Physical Examination Vital Signs: Vital Signs Temperature 97.8 F 10/23/18 07:24 Pulse Rate 88 10/22/18 21:00 Respiratory Rate 18 10/23/18 07:24 Blood Pressure 122/54 L 10/23/18 07:24 O2 Sat by Pulse Oximetry (%) 93 L 10/22/18 21:00 Findings/Remarks: PALLIATIVE CARE TEAM IS ON THE CASE FAMILY WANTS THEIR MOM TO GO HOME WITH AN AID/VNS Constitutional: Yes: No Distress Eyes: Yes: WNL Cardiovascular: Yes: Regular Rate and Rhythm Respiratory: Yes: WNL Gastrointestinal: Yes: Soft Musculoskeletal: Yes: Muscle Weakness Integumentary: Yes: Other Labs: CBC, BMP 10/22/18 06:30 10/23/18 07:00 Discharge Summary Reason For Visit: WEAKNESS, ALTERED MENTAL STATUS Current Active Problems Altered mental status (Acute) Dementia (Acute) Hematoma of abdominal wall (Acute) Hypokalemia (Acute) Hyponatremia (Acute) Lethargy (Acute) Toxic metabolic encephalopathy (Acute) Type 2 diabetes mellitus with hyperosmolarity without nonketotic hyperglycemic- hyperosmolar coma ([facility]) (Acute) UTI (urinary tract infection) (Acute) Weakness (Acute) Procedures: Principal: DIALYSIS/CT SCAN Hospital Course: ADMITTED FOR TOXIC METABOLIC ENCEPHALOPATHY, TREATED WITH ABX, BP CONTROL, NEURO /ID WORKUP Condition: Poor - Instructions Diet, Activity, Other Instructions: DYSPHAGIA PUREE DIET CRUSHED IN APPLE SAUCE ENSURE OR NEPRO WITH PUREED FOODS HD PER RENAL IF TO CONTINUE Referrals: Home Morin MD [Primary Care Provider] - Disposition: VNS/HOME HEALTH CARE - Home Medications Comprehensive Discharge Medication List: Ambulatory Orders Rosuvastatin [Crestor -] 5 mg PO HS #30 tablet 01/04/18 Acetaminophen [Tylenol .Regular Strength -] 650 mg PO Q4H PRN tablet 03/28/18 Pantoprazole Sodium [Protonix -] 40 mg PO BID #60 tablet.ec 03/28/18 Aspirin 81 mg PO DAILY #0 07/01/18 Carvedilol [Coreg -] 6.25 mg PO BID #30 tablet MDD 2 07/04/18 Clopidogrel Bisulfate [Plavix -] 75 mg PO DAILY #30 tablet MDD 1 07/31/18 Levothyroxine [Synthroid -] 50 mcg PO DAILY@0600 #30 tablet MDD 1 07/31/18 Nifedipine ER [Procardia XL -] 60 mg PO DAILY #30 tab.er.24 07/31/18 Mirtazapine [Remeron -] 15 mg PO HS 10/16/18
[2018-10-23] MEDS: ASPIRIN 81 MG CHEWABLE TABLETS PO SCH (09:56)
[2018-10-23] MEDS: PANTOPRAZOLE 40 MG TABLET (FP) PO SCH ×2 (09:57→21:39)
[2018-10-23] MEDS: CARVEDILOL 3.125 MG TABLET (FP) PO SCH ×2 (09:57→21:38)
[2018-10-23] MEDS: D5-1/2NS+20 MEQ KCL - 20 MEQ/1,000 ML INFUS.BAG IV SCH ×2 (10:00→17:33)
--- NOTE | 2018-10-23 12:07 | PN ---
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 Poor prognosis Pt seen by Palliative care. Per EMR, CCC spoke to pt's daughter Nga to discuss dc plan. Nga stated she would like pt to go to [facility] and is aware that would mean stopping HD Pt is at high risk of malnutrition, dehydration, aspiration with risk of spillage over base of tongue into airway Pt is a Full Code, per EMR.
--- NOTE | 2018-10-23 13:47 | PN ---
Progress Note (short form) - Note Progress Note: Renal follow up for ESRD on HD Pt seen and examined at the bedside lethargic not arouseable to verbal stimuli awaiting discharge to hospice Vital Signs Temperature 97.1 F L 10/22/18 10:00 Pulse Rate 102 H 10/22/18 10:00 Respiratory Rate 20 10/22/18 10:00 Blood Pressure 144/73 10/22/18 10:00 O2 Sat by Pulse Oximetry (%) 97 10/22/18 09:00 Intake & Output 10/19/18 10/20/18 10/21/18 10/22/18 23:59 23:59 23:59 23:59 Intake Total 325 178 420 Output Total 1 Balance 325 -1 178 420 Weight 49.26 kg 48.807 kg 48.534 kg NAD awake and alert RRR, no M/R CTA no rales or wheeze soft NT/ND no LE edema, clubbing or cyanosis CBC, BMP 10/22/18 06:30 10/22/18 06:30 Current Medications Acetaminophen (Tylenol -) 650 mg PO Q6H PRN PRN Reason: PAIN Aspirin (Asa -) 81 mg PO DAILY [facility] Last Admin: 10/22/18 10:09 Dose: 81 mg Carvedilol (Coreg -) 3.125 mg PO BID [facility] Last Admin: 10/22/18 10:09 Dose: 3.125 mg Clopidogrel Bisulfate (Plavix -) 75 mg PO Q2D [facility] Last Admin: 10/22/18 10:09 Dose: 75 mg Potassium Chloride/Dextrose/Sod Cl (D5-1/2ns+20 Meq Kcl -) 20 meq in 1,000 mls @ 42 mls/hr IV ASDIR [facility] Last Admin: 10/22/18 10:09 Dose: Not Given Levothyroxine Sodium (Synthroid -) 50 mcg PO DAILY@0600 [facility] Last Admin: 10/22/18 06:06 Dose: 50 mcg Mirtazapine (Remeron -) 15 mg PO HS [facility] Last Admin: 10/21/18 21:57 Dose: 15 mg Nifedipine (Procardia Xl -) 30 mg PO HS [facility] Last Admin: 10/21/18 21:57 Dose: 30 mg Pantoprazole Sodium (Protonix -) 40 mg PO BID [facility] Last Admin: 10/22/18 10:09 Dose: 40 mg Rosuvastatin Calcium (Crestor -) 5 mg PO HS [facility] Last Admin: 10/21/18 21:57 Dose: [address] head - no acute infarction 83 year old woman with hx of ESRD on HD due to diabetic nephropathy, hyperension , hypothyrodism, hepatitis C, DM, recent CVA who presented s/p dialysis with AMS and hx of poor oral intake. #ESRD on HD #Altered mental status #Anemia #Hypertension #Failure to thrive family decided to pursue hospice care at this time will discontinue any further dialysis treatments would discontinue blood draws as well. overall prognosis is poor spoke to daughter and answered all questions she had. Thank you Levy Mancia DO
[2018-10-23] MEDS: NIFEdipine E.R. 30 MG TABLET (FP) PO SCH (21:37)
[2018-10-23] MEDS: MIRTAZAPINE 15 MG TABLET (FP) PO SCH (21:38)
[2018-10-23] MEDS: ROSUVASTATIN CA 5 MG TABLET (FP) PO SCH (21:38)
[2018-10-24] MEDS: LEVOTHYROXINE NA 50 MCG TABLET (FP) PO SCH (06:39)
--- NOTE | 2018-10-24 10:08 | PN ---
Progress Note (short form) - Note Progress Note: NEUROLOGY PROGRESS: Events reviewed and discussed with staff and KATERINE Mitchell. Pt s/p ceftriaxone Rx (workup for C.Diff negative, however she remains on precaution). Head CT done 10/19/18 for continued reports of lethargy remains unchanged, with mod atrophy and extensive periventricular ischemic changes. Still refusing meals, on dysphagia puree. GI workup discussed possibility of underlying indolent bleeding, and plavix dc'd. Last HD was Saturday10/20/18. Remains on IV D5 1/2 NS. Family would like palliative measures and patient sent to [facility]. BUN/Cr 15/3.9 albumin 1.9 platelet 518-> 388 PHILIPPE: Abdomen distended. NEURO: Mentation/Speech:resting in bed, eyes closed, confused. Sparse speech. Ox "hospital." + glabella. Able to follow simple commands. Strong, symmetrical, grasps. No obvious focality Impression: B/L Cerebral Dysfunction (OMS, Chronic c/w moderately advanced Alzheimer's Disease) Worsened by Toxic-Metabolic Encephalopathy (nutritional, uremia , ? GI bleed) Plan: Add Thiamine 250 mg IVP TID x 3 days Palliative care per family Pending discharge to [facility] Thank you very much, Lucio Morrison MD
[2018-10-24] MEDS: ASPIRIN 81 MG CHEWABLE TABLETS PO SCH (10:28)
[2018-10-24] MEDS: D5-1/2NS+20 MEQ KCL - 20 MEQ/1,000 ML INFUS.BAG IV SCH ×2 (10:28→17:18)
[2018-10-24] MEDS: PANTOPRAZOLE 40 MG TABLET (FP) PO SCH ×4 (10:28→23:19)
[2018-10-24] MEDS: CARVEDILOL 3.125 MG TABLET (FP) PO SCH ×4 (10:28→23:18)
[2018-10-24] MEDS: CLOPIDOGREL BISULFATE 75 MG TABLET (FP) PO SCH (10:28)
--- NOTE | 2018-10-24 14:38 | PN ---
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 Pt opens mouth to receive food but spits it all back out. Notes 10/22/18 23:03 Nurse by Samantha Marrufo pt lethargic arousable to name did not tolerate any po medication kept spitting out. total care rendered, Bp 135/67 hr 88 02 93% on room air. right chest PC dry and intact, iv infusing, will monitor. Selected Entries 10/23/18 07:24 Temperature 97.8 F Laboratory Tests 10/22/18 06:30 WBC 8.8 Poor prognosis Pt is at high risk of malnutrition, dehydration, aspiration with risk of spillage over base of tongue into airway Pt is now DNR/DNI pending [place] transfer.
--- NOTE | 2018-10-24 14:52 | PN ---
Progress Note (short form) - Note Progress Note: Renal follow up for ESRD on HD Pt remains groggy. no overnight events Vital Signs Temperature 99.0 F 10/24/18 10:00 Pulse Rate 79 10/24/18 10:00 Respiratory Rate 18 10/24/18 10:00 Blood Pressure 145/72 10/24/18 10:00 O2 Sat by Pulse Oximetry (%) 95 10/23/18 21:00 NAD awake and alert RRR, no M/R CTA no rales or wheeze soft NT/ND no LE edema, clubbing or cyanosis CBC, BMP 10/22/18 06:30 10/23/18 07:00 Current Medications Acetaminophen (Tylenol -) 650 mg PO Q6H PRN PRN Reason: PAIN Aspirin (Asa -) 81 mg PO DAILY [facility] Last Admin: 10/24/18 10:28 Dose: 81 mg Carvedilol (Coreg -) 3.125 mg PO BID [facility] Last Admin: 10/24/18 10:28 Dose: 3.125 mg Clopidogrel Bisulfate (Plavix -) 75 mg PO Q2D [facility] Last Admin: 10/24/18 10:28 Dose: 75 mg Potassium Chloride/Dextrose/Sod Cl (D5-1/2ns+20 Meq Kcl -) 20 meq in 1,000 mls @ 42 mls/hr IV ASDIR [facility] Last Admin: 10/24/18 10:28 Dose: Not Given Levothyroxine Sodium (Synthroid -) 50 mcg PO DAILY@0600 [facility] Last Admin: 10/24/18 06:39 Dose: 50 mcg Mirtazapine (Remeron -) 15 mg PO HS [facility] Last Admin: 10/23/18 21:38 Dose: 15 mg Nifedipine (Procardia Xl -) 30 mg PO HS [facility] Last Admin: 10/23/18 21:37 Dose: 30 mg Pantoprazole Sodium (Protonix -) 40 mg PO BID [facility] Last Admin: 10/24/18 10:28 Dose: 40 mg Rosuvastatin Calcium (Crestor -) 5 mg PO [facility] Last Admin: 10/23/18 21:38 Dose: 5 mg Thiamine HCl (Vitamin B1 Injection -) 250 mg IVPB TID [facility] Stop: 10/27/18 13:59 CT head - no acute infarction 83 year old woman with hx of ESRD on HD due to diabetic nephropathy, hyperension , hypothyrodism, hepatitis C, DM, recent CVA who presented s/p dialysis with AMS and hx of poor oral intake. #ESRD on HD #Altered mental status #Anemia #Hypertension #Failure to thrive comfort care measures at this time. no further dialysis planned no further labs draws. awaiting bed at [facility] will sign off case at this time, thank you for allowing us to take part in the care of this patient Thank you Levy Mancia DO
[2018-10-24] MEDS: THIAMINE HCL 200 MG/2 ML VIAL IVPB SCH ×2 (15:15→23:06)
--- NOTE | 2018-10-24 16:32 | DS ---
Physical Examination Vital Signs: Vital Signs Temperature 98 F 10/24/18 15:57 Pulse Rate 76 10/24/18 15:57 Respiratory Rate 17 10/24/18 15:57 Blood Pressure 135/65 10/24/18 15:57 O2 Sat by Pulse Oximetry (%) 95 10/23/18 21:00 Findings/Remarks: Patient is an 83 y/o female with past medical history of ESRD , DM, HTN, Hep C, CVA. Presented to ER with daughter with generalized weakness, anorexia, AMS, 40lb weight loss which is worsening since CVA. On day of admission patient became less alert after completing dialysis. Constitutional: Yes: No Distress, Calm Eyes: Yes: Conjunctiva Clear HENT: Yes: Atraumatic Cardiovascular: Yes: Regular Rate and Rhythm Respiratory: Yes: Regular, CTA Bilaterally Gastrointestinal: Yes: Normal Bowel Sounds, Soft Renal/: Yes: Incontinence Musculoskeletal: Yes: Muscle Weakness Extremities: Yes: WNL Edema: No Neurological: Yes: Alert, Pre-Existing Deficit Psychiatric: Yes: Alert Labs: CBC, BMP 10/22/18 06:30 10/23/18 07:00 Discharge Summary Reason For Visit: WEAKNESS, ALTERED MENTAL STATUS Current Active Problems Altered mental status (Acute) Dementia (Acute) Hematoma of abdominal wall (Acute) Hypokalemia (Acute) Hyponatremia (Acute) Lethargy (Acute) Severe malnutrition (Acute) Toxic metabolic encephalopathy (Acute) Type 2 diabetes mellitus with hyperosmolarity without nonketotic hyperglycemic- hyperosmolar coma ([facility]) (Acute) UTI (urinary tract infection) (Acute) Weakness (Acute) Hospital Course: see progress notes Laboratory Tests 10/15/18 10/15/18 10/15/18 22:10 22:10 22:10 WBC 13.2 H RBC 3.19 L Hgb 8.2 L Hct 27.7 L D MCV 86.7 MCH 25.8 MCHC 29.7 L RDW 19.2 H Plt Count 439 H MPV 7.9 Absolute Neuts (auto) 11.5 H Neutrophils % 86.9 H Lymphocytes % 6.5 L Monocytes % 5.9 Eosinophils % 0.2 Basophils % 0.5 Nucleated RBC % 0 Hypochromia Platelet Estimate Polychromasia Poikilocytosis Anisocytosis Microcytosis Macrocytosis Target Cells Ovalocytes PT with INR 15.90 H INR 1.34 H Sodium 139 Potassium 3.7 Chloride 104 Carbon Dioxide 23 Anion Gap 11 BUN 11 Creatinine 1.9 H Est GFR (CKD-EPI)AfAm 27.96 Est GFR (CKD-EPI)NonAf 24.13 POC Glucometer Random Glucose 83 Calcium 7.7 L Phosphorus Iron TIBC Iron Saturation Ferritin Total Bilirubin 0.3 AST 25 ALT 15 Alkaline Phosphatase 53 Creatine Kinase 23 L Troponin I 0.02 Total Protein 6.5 Albumin 2.5 L TSH Free T4 Urine Color Urine Appearance Urine pH Ur Specific [place] Urine Protein Urine Glucose (UA) Urine Ketones Urine Blood Urine Nitrite Urine Bilirubin Urine Urobilinogen Ur Leukocyte Esterase Urine WBC (Auto) Urine RBC (Auto) Urine Casts (Auto) U Epithel Cells (Auto) Urine Bacteria (Auto) Urine Yeast (Auto) Hep A IgM Ab Confirm Hepatitis A Ab Total Hep Bs Antigen Hep Bs Antibody Hep B Core Total Ab Hep C Ab Diagnostic HCV RNA PCR w/Genot Rflx Liver Fibrosis Interp 10/16/18 10/16/18 10/16/18 00:50 12:30 12:30 WBC 9.1 RBC 3.30 L Hgb 8.6 L Hct 28.9 L MCV 87.4 MCH 25.9 MCHC 29.7 L RDW 18.3 H Plt Count 427 MPV 7.9 Absolute Neuts (auto) 7.3 Neutrophils % 80.2 Lymphocytes % 10.7 D Monocytes % 8.0 Eosinophils % 0.6 D Basophils % 0.5 Nucleated RBC % 0 Hypochromia Platelet Estimate Polychromasia Poikilocytosis Anisocytosis Microcytosis Macrocytosis Target Cells Ovalocytes PT with INR INR Sodium 135 L Potassium 3.5 Chloride 102 Carbon Dioxide 26 Anion Gap 8 BUN 14 Creatinine 2.8 H Est GFR (CKD-EPI)AfAm 17.50 Est GFR (CKD-EPI)NonAf 15.10 POC Glucometer Random Glucose 92 Calcium 7.6 L Phosphorus Iron TIBC Iron Saturation Ferritin Total Bilirubin 0.2 AST 19 ALT 14 Alkaline Phosphatase 51 Creatine Kinase Troponin I Total Protein 6.5 Albumin 2.6 L TSH 1.59 Free T4 Urine Color Dk yellow Urine Appearance Cloudy Urine pH 6.0 Ur Specific [place] 1.020 Urine Protein 2+ H Urine Glucose (UA) Negative Urine Ketones Trace H Urine Blood Negative Urine Nitrite Negative Urine Bilirubin Negative Urine Urobilinogen 0.2 Ur Leukocyte Esterase 3+ H Urine WBC (Auto) 62 Urine RBC (Auto) 2 Urine Casts (Auto) 3 U Epithel Cells (Auto) 0.4 Urine Bacteria (Auto) 104.5 Urine Yeast (Auto) none seen Hep A IgM Ab Confirm Hepatitis A Ab Total Hep Bs Antigen Hep Bs Antibody Hep B Core Total Ab Hep C Ab Diagnostic HCV RNA PCR w/Genot Rflx Liver Fibrosis Interp 10/17/18 10/17/18 10/17/18 06:27 06:49 06:49 WBC 8.4 RBC 3.22 L Hgb 8.4 L Hct 28.1 L MCV 87.1 MCH 26.0 MCHC 29.8 L RDW 18.7 H Plt Count 454 H MPV 7.7 Absolute Neuts (auto) 6.7 Neutrophils % 80.1 Lymphocytes % 10.8 Monocytes % 7.0 Eosinophils % 1.2 D Basophils % 0.9 Nucleated RBC % 0 Hypochromia Platelet Estimate Polychromasia Poikilocytosis Anisocytosis Microcytosis Macrocytosis Target Cells Ovalocytes PT with INR INR Sodium 134 L Potassium 3.3 L Chloride 102 Carbon Dioxide 24 Anion Gap 8 BUN 20 H Creatinine 3.4 H Est GFR (CKD-EPI)AfAm 13.84 Est GFR (CKD-EPI)NonAf 11.94 POC Glucometer 90 Random Glucose 101 Calcium 7.4 L Phosphorus Iron TIBC Iron Saturation Ferritin Total Bilirubin 0.3 AST 16 ALT 12 L Alkaline Phosphatase 50 Creatine Kinase Troponin I Total Protein 5.8 L Albumin 2.2 L TSH 1.58 Free T4 Urine Color Urine Appearance Urine pH Ur Specific [place] Urine Protein Urine Glucose (UA) Urine Ketones Urine Blood Urine Nitrite Urine Bilirubin Urine Urobilinogen Ur Leukocyte Esterase Urine WBC (Auto) Urine RBC (Auto) Urine Casts (Auto) U Epithel Cells (Auto) Urine Bacteria (Auto) Urine Yeast (Auto) Hep A IgM Ab Confirm Hepatitis A Ab Total Hep Bs Antigen Hep Bs Antibody Hep B Core Total Ab Hep C Ab Diagnostic HCV RNA PCR w/Genot Rflx Liver Fibrosis Interp 10/17/18 10/18/18 10/18/18 06:49 06:55 07:21 WBC RBC Hgb Hct MCV MCH MCHC RDW Plt Count MPV Absolute Neuts (auto) Neutrophils % Lymphocytes % Monocytes % Eosinophils % Basophils % Nucleated RBC % Hypochromia Platelet Estimate Polychromasia Poikilocytosis Anisocytosis Microcytosis Macrocytosis Target Cells Ovalocytes PT with INR INR Sodium Potassium Chloride Carbon Dioxide Anion Gap BUN Creatinine Est GFR (CKD-EPI)AfAm Est GFR (CKD-EPI)NonAf POC Glucometer 104 Random Glucose Calcium Phosphorus Iron 21 L TIBC 118 L Iron Saturation 18 Ferritin Total Bilirubin AST ALT Alkaline Phosphatase Creatine Kinase Troponin I Total Protein Albumin TSH Free T4 1.35 Urine Color Urine Appearance Urine pH Ur Specific [place] Urine Protein Urine Glucose (UA) Urine Ketones Urine Blood Urine Nitrite Urine Bilirubin Urine Urobilinogen Ur Leukocyte Esterase Urine WBC (Auto) Urine RBC (Auto) Urine Casts (Auto) U Epithel Cells (Auto) Urine Bacteria (Auto) Urine Yeast (Auto) Hep A IgM Ab Confirm Hepatitis A Ab Total Hep Bs Antigen Hep Bs Antibody Hep B Core Total Ab Hep C Ab Diagnostic HCV RNA PCR w/Genot Rflx Liver Fibrosis Interp 10/18/18 10/18/18 10/18/18 07:21 07:21 11:45 WBC 8.6 9.1 RBC 3.30 L 3.06 L Hgb 8.7 L 8.0 L Hct 28.4 L 26.6 L MCV 86.1 86.7 MCH 26.5 26.2 MCHC 30.8 L 30.2 L RDW 18.6 H 19.3 H Plt Count 518 H 487 H MPV 7.7 7.7 Absolute Neuts (auto) 6.9 Neutrophils % 80.9 Lymphocytes % 11.2 Monocytes % 6.4 Eosinophils % 1.0 Basophils % 0.5 Nucleated RBC % 0 Hypochromia Platelet Estimate Polychromasia Poikilocytosis Anisocytosis Microcytosis Macrocytosis Target Cells Ovalocytes PT with INR INR Sodium 134 L Potassium 3.4 L Chloride 103 Carbon Dioxide 19 L Anion Gap 12 BUN 23 H Creatinine 4.1 H Est GFR (CKD-EPI)AfAm 11.03 Est GFR (CKD-EPI)NonAf 9.52 POC Glucometer Random Glucose 101 Calcium 7.6 L Phosphorus Iron TIBC Iron Saturation Ferritin 851.8 H Total Bilirubin 0.4 AST 15 ALT 12 L Alkaline Phosphatase 55 Creatine Kinase Troponin I Total Protein 5.9 L Albumin 2.2 L TSH Free T4 Urine Color Urine Appearance Urine pH Ur Specific [place] Urine Protein Urine Glucose (UA) Urine Ketones Urine Blood Urine Nitrite Urine Bilirubin Urine Urobilinogen Ur Leukocyte Esterase Urine WBC (Auto) Urine RBC (Auto) Urine Casts (Auto) U Epithel Cells (Auto) Urine Bacteria (Auto) Urine Yeast (Auto) Hep A IgM Ab Confirm Hepatitis A Ab Total Hep Bs Antigen Hep Bs Antibody Hep B Core Total Ab Hep C Ab Diagnostic HCV RNA PCR w/Genot Rflx Liver Fibrosis Interp 10/18/18 10/18/18 10/18/18 11:45 11:45 11:45 WBC RBC Hgb Hct MCV MCH MCHC RDW Plt Count MPV Absolute Neuts (auto) Neutrophils % Lymphocytes % Monocytes % Eosinophils % Basophils % Nucleated RBC % Hypochromia Platelet Estimate Polychromasia Poikilocytosis Anisocytosis Microcytosis Macrocytosis Target Cells Ovalocytes PT with INR INR Sodium Potassium Chloride Carbon Dioxide Anion Gap BUN Creatinine Est GFR (CKD-EPI)AfAm Est GFR (CKD-EPI)NonAf POC Glucometer Random Glucose Calcium Phosphorus 2.0 L Iron TIBC Iron Saturation Ferritin Total Bilirubin AST ALT Alkaline Phosphatase Creatine Kinase Troponin I Total Protein Albumin TSH Free T4 Urine Color Urine Appearance Urine pH Ur Specific [place] Urine Protein Urine Glucose (UA) Urine Ketones Urine Blood Urine Nitrite Urine Bilirubin Urine Urobilinogen Ur Leukocyte Esterase Urine WBC (Auto) Urine RBC (Auto) Urine Casts (Auto) U Epithel Cells (Auto) Urine Bacteria (Auto) Urine Yeast (Auto) Hep A IgM Ab Confirm Negative Hepatitis A Ab Total Positive H Hep Bs Antigen Negative Hep Bs Antibody Reactive Hep B Core Total Ab Negative Hep C Ab Diagnostic >11.0 H HCV RNA PCR w/Genot Rflx Hcv not detected Liver Fibrosis Interp 10/19/18 10/19/18 10/19/18 05:45 05:45 06:45 WBC 8.1 RBC 3.38 L Hgb 8.8 L Hct 29.7 L MCV 87.9 MCH 26.1 MCHC 29.7 L RDW 19.2 H Plt Count 429 MPV 8.0 Absolute Neuts (auto) Neutrophils % Lymphocytes % Monocytes % Eosinophils % Basophils % Nucleated RBC % Hypochromia Platelet Estimate Polychromasia Poikilocytosis Anisocytosis Microcytosis Macrocytosis Target Cells Ovalocytes PT with INR INR Sodium 137 Potassium 3.4 L Chloride 102 Carbon Dioxide 27 Anion Gap 9 BUN 9 Creatinine 2.7 H Est GFR (CKD-EPI)AfAm 18.29 Est GFR (CKD-EPI)NonAf 15.78 POC Glucometer 124 Random Glucose 109 H Calcium 7.6 L Phosphorus Iron TIBC Iron Saturation Ferritin Total Bilirubin 0.2 AST 11 L ALT 10 L Alkaline Phosphatase 56 Creatine Kinase Troponin I Total Protein 5.6 L Albumin 2.0 L TSH Free T4 Urine Color Urine Appearance Urine pH Ur Specific [place] Urine Protein Urine Glucose (UA) Urine Ketones Urine Blood Urine Nitrite Urine Bilirubin Urine Urobilinogen Ur Leukocyte Esterase Urine WBC (Auto) Urine RBC (Auto) Urine Casts (Auto) U Epithel Cells (Auto) Urine Bacteria (Auto) Urine Yeast (Auto) Hep A IgM Ab Confirm Hepatitis A Ab Total Hep Bs Antigen Hep Bs Antibody Hep B Core Total Ab Hep C Ab Diagnostic HCV RNA PCR w/Genot Rflx Liver Fibrosis Interp 10/19/18 10/19/18 10/20/18 11:36 16:32 05:59 WBC RBC Hgb Hct MCV MCH MCHC RDW Plt Count MPV Absolute Neuts (auto) Neutrophils % Lymphocytes % Monocytes % Eosinophils % Basophils % Nucleated RBC % Hypochromia Platelet Estimate Polychromasia Poikilocytosis Anisocytosis Microcytosis Macrocytosis Target Cells Ovalocytes PT with INR INR Sodium Potassium Chloride Carbon Dioxide Anion Gap BUN Creatinine Est GFR (CKD-EPI)AfAm Est GFR (CKD-EPI)NonAf POC Glucometer 103 106 108 Random Glucose Calcium Phosphorus Iron TIBC Iron Saturation Ferritin Total Bilirubin AST ALT Alkaline Phosphatase Creatine Kinase Troponin I Total Protein Albumin TSH Free T4 Urine Color Urine Appearance Urine pH Ur Specific [place] Urine Protein Urine Glucose (UA) Urine Ketones Urine Blood Urine Nitrite Urine Bilirubin Urine Urobilinogen Ur Leukocyte Esterase Urine WBC (Auto) Urine RBC (Auto) Urine Casts (Auto) U Epithel Cells (Auto) Urine Bacteria (Auto) Urine Yeast (Auto) Hep A IgM Ab Confirm Hepatitis A Ab Total Hep Bs Antigen Hep Bs Antibody Hep B Core Total Ab Hep C Ab Diagnostic HCV RNA PCR w/Genot Rflx Liver Fibrosis Interp 10/20/18 10/20/18 10/20/18 06:00 06:00 17:13 WBC 10.1 H RBC 3.13 L Hgb 8.3 L Hct 27.6 L MCV 88.2 MCH 26.4 MCHC 29.9 L RDW 19.4 H Plt Count 407 MPV 7.8 Absolute Neuts (auto) Neutrophils % Lymphocytes % Monocytes % Eosinophils % Basophils % Nucleated RBC % Hypochromia Platelet Estimate Polychromasia Poikilocytosis Anisocytosis Microcytosis Macrocytosis Target Cells Ovalocytes PT with INR INR Sodium 133 L Potassium 3.3 L Chloride 102 Carbon Dioxide 24 Anion Gap 7 L BUN 12 Creatinine 3.4 H Est GFR (CKD-EPI)AfAm 13.84 Est GFR (CKD-EPI)NonAf 11.94 POC Glucometer 117 Random Glucose 102 Calcium 7.1 L Phosphorus Iron TIBC Iron Saturation Ferritin Total Bilirubin 0.2 AST 15 ALT 8 L Alkaline Phosphatase 52 Creatine Kinase Troponin I Total Protein 5.0 L Albumin 1.8 L TSH 2.19 Free T4 1.29 Urine Color Urine Appearance Urine pH Ur Specific [place] Urine Protein Urine Glucose (UA) Urine Ketones Urine Blood Urine Nitrite Urine Bilirubin Urine Urobilinogen Ur Leukocyte Esterase Urine WBC (Auto) Urine RBC (Auto) Urine Casts (Auto) U Epithel Cells (Auto) Urine Bacteria (Auto) Urine Yeast (Auto) Hep A IgM Ab Confirm Hepatitis A Ab Total Hep Bs Antigen Hep Bs Antibody Hep B Core Total Ab Hep C Ab Diagnostic HCV RNA PCR w/Genot Rflx Liver Fibrosis Interp 10/21/18 10/21/18 10/21/18 05:30 05:30 06:07 WBC 9.7 RBC 3.23 L Hgb 8.5 L Hct 27.9 L MCV 86.6 MCH 26.5 MCHC 30.6 L RDW 19.9 H Plt Count 370 MPV 8.0 Absolute Neuts (auto) Neutrophils % Lymphocytes % Monocytes % Eosinophils % Basophils % Nucleated RBC % Hypochromia Platelet Estimate Polychromasia Poikilocytosis Anisocytosis Microcytosis Macrocytosis Target Cells Ovalocytes PT with INR INR Sodium 140 Potassium 3.1 L Chloride 107 Carbon Dioxide 25 Anion Gap 8 BUN 8 Creatinine 2.7 H Est GFR (CKD-EPI)AfAm 18.29 Est GFR (CKD-EPI)NonAf 15.78 POC Glucometer 132 Random Glucose 143 H Calcium 7.4 L Phosphorus Iron TIBC Iron Saturation Ferritin Total Bilirubin 0.2 AST 15 ALT 11 L Alkaline Phosphatase 58 Creatine Kinase Troponin I Total Protein 5.3 L Albumin 1.9 L TSH Free T4 Urine Color Urine Appearance Urine pH Ur Specific [place] Urine Protein Urine Glucose (UA) Urine Ketones Urine Blood Urine Nitrite Urine Bilirubin Urine Urobilinogen Ur Leukocyte Esterase Urine WBC (Auto) Urine RBC (Auto) Urine Casts (Auto) U Epithel Cells (Auto) Urine Bacteria (Auto) Urine Yeast (Auto) Hep A IgM Ab Confirm Hepatitis A Ab Total Hep Bs Antigen Hep Bs Antibody Hep B Core Total Ab Hep C Ab Diagnostic HCV RNA PCR w/Genot Rflx Liver Fibrosis Interp 10/21/18 10/22/18 10/22/18 18:38 06:30 06:30 WBC 8.8 RBC 3.13 L Hgb 8.2 L Hct 27.2 L MCV 86.9 MCH 26.1 MCHC 30.0 L RDW 20.7 H Plt Count 388 MPV 7.9 Absolute Neuts (auto) 7.3 Neutrophils % 82.1 Lymphocytes % 9.5 Monocytes % 6.3 Eosinophils % 1.0 Basophils % 1.1 Nucleated RBC % 0 Hypochromia 1+ Platelet Estimate Normal Polychromasia 1+ Poikilocytosis 1+ Anisocytosis 1+ Microcytosis 1+ Macrocytosis 1+ Target Cells 1+ Ovalocytes 1+ PT with INR INR Sodium 141 Potassium 3.6 Chloride 107 Carbon Dioxide 25 Anion Gap 9 BUN 10 Creatinine 3.4 H Est GFR (CKD-EPI)AfAm 13.84 Est GFR (CKD-EPI)NonAf 11.94 POC Glucometer 108 Random Glucose 129 H Calcium 7.5 L Phosphorus Iron TIBC Iron Saturation Ferritin Total Bilirubin 0.2 AST 14 L ALT 10 L Alkaline Phosphatase 59 Creatine Kinase Troponin I Total Protein 5.4 L Albumin 2.0 L TSH Free T4 Urine Color Urine Appearance Urine pH Ur Specific [place] Urine Protein Urine Glucose (UA) Urine Ketones Urine Blood Urine Nitrite Urine Bilirubin Urine Urobilinogen Ur Leukocyte Esterase Urine WBC (Auto) Urine RBC (Auto) Urine Casts (Auto) U Epithel Cells (Auto) Urine Bacteria (Auto) Urine Yeast (Auto) Hep A IgM Ab Confirm Hepatitis A Ab Total Hep Bs Antigen Hep Bs Antibody Hep B Core Total Ab Hep C Ab Diagnostic HCV RNA PCR w/Genot Rflx Liver Fibrosis Interp 10/22/18 10/23/18 17:20 07:00 WBC RBC Hgb Hct MCV MCH MCHC RDW Plt Count MPV Absolute Neuts (auto) Neutrophils % Lymphocytes % Monocytes % Eosinophils % Basophils % Nucleated RBC % Hypochromia Platelet Estimate Polychromasia Poikilocytosis Anisocytosis Microcytosis Macrocytosis Target Cells Ovalocytes PT with INR INR Sodium 140 Potassium 4.1 Chloride 110 H Carbon Dioxide 23 Anion Gap 8 BUN 15 Creatinine 3.9 H Est GFR (CKD-EPI)AfAm 11.72 Est GFR (CKD-EPI)NonAf 10.11 POC Glucometer 124 Random Glucose 77 Calcium 7.0 L Phosphorus Iron TIBC Iron Saturation Ferritin Total Bilirubin AST ALT Alkaline Phosphatase Creatine Kinase Troponin I Total Protein Albumin TSH Free T4 Urine Color Urine Appearance Urine pH Ur Specific [place] Urine Protein Urine Glucose (UA) Urine Ketones Urine Blood Urine Nitrite Urine Bilirubin Urine Urobilinogen Ur Leukocyte Esterase Urine WBC (Auto) Urine RBC (Auto) Urine Casts (Auto) U Epithel Cells (Auto) Urine Bacteria (Auto) Urine Yeast (Auto) Hep A IgM Ab Confirm Hepatitis A Ab Total Hep Bs Antigen Hep Bs Antibody Hep B Core Total Ab Hep C Ab Diagnostic HCV RNA PCR w/Genot Rflx Liver Fibrosis Interp Active Medications Generic Name Dose Route Start Last Admin Trade Name Freq PRN Reason Stop Dose Admin Acetaminophen 650 mg 10/16/18 19:53 Tylenol - PO Q6H PRN PAIN Aspirin 81 mg 10/16/18 10:00 10/24/18 10:28 Asa - PO 81 mg DAILY CARL Administration Carvedilol 3.125 mg 10/16/18 10:00 10/24/18 10:28 Coreg - PO 3.125 mg BID CARL Administration Clopidogrel Bisulfate 75 mg 10/16/18 10:00 10/24/18 10:28 Plavix - PO 75 mg Q2D CARL Administration Potassium Chloride/Dextrose/Sod Cl 20 meq in 1,000 mls @ 42 mls/hr 10/21/18 10 :00 10/24/18 10:28 D5-1/2ns+20 Meq Kcl - IV Not Given ASDIR CARL Levothyroxine Sodium 50 mcg 10/16/18 06:00 10/24/18 06:39 Synthroid - PO 50 mcg DAILY@0600 CARL Administration Mirtazapine 15 mg 10/16/18 22:00 10/23/18 21:38 Remeron - PO 15 mg HS CARL Administration Nifedipine 30 mg 10/16/18 22:00 10/23/18 21:37 Procardia Xl - PO 30 mg HS CARL Administration Pantoprazole Sodium 40 mg 10/16/18 22:00 10/24/18 10:28 Protonix - PO 40 mg BID CARL Administration Rosuvastatin Calcium 5 mg 10/16/18 22:00 10/23/18 21:38 Crestor - PO 5 mg HS CARL Administration Thiamine HCl 250 mg 10/24/18 14:00 10/24/18 15:15 Vitamin B1 Injection - IVPB 10/27/18 13:59 250 mg TID CARL Administration Microbiology 10/16/18 13:30 Blood - Peripheral Venous Blood Culture - Final NO GROWTH AFTER 5 DAYS INCUBATION 10/16/18 13:35 Blood - Peripheral Venous Blood Culture - Final NO GROWTH AFTER 5 DAYS INCUBATION 10/17/18 21:09 Stool Gram Stain - Final 10/17/18 21:09 Stool Salmonella/Shigella Culture - Final NO GROWTH OF SALMONELLA OR SHIGELLA SPECIES OBTAINED 10/17/18 21:09 Stool Campylobacter Culture - Final NO GROWTH OF CAMPYLOBACTER SPECIES OBTAINED 10/17/18 21:09 Stool Yersinia Culture - Final NO GROWTH OF YERSINIA SPECIES OBTAINED 10/17/18 21:09 Stool Vibrio Culture - Final NO GROWTH OF VIBRIO SPECIES OBTAINED 10/17/18 21:09 Stool Escherichia coli 0157 Culture - Final NO GROWTH OF E COLI 0157 OBTAINED 10/17/18 21:08 Stool Clostridioides difficile Antigen - Final 10/17/18 21:08 Stool Clostridioides difficile Toxin Assay - Final 10/16/18 00:50 Urine - Urine Clean Catch Urine Culture - Final Lactobacillus Species Condition: Poor - Instructions Diet, Activity, Other Instructions: DYSPHAGIA PUREE DIET CRUSHED IN APPLE SAUCE ENSURE OR NEPRO WITH PUREED FOODS HD PER RENAL IF TO CONTINUE Palliative Care at [facility] Referrals: Home Morin MD [Primary Care Provider] - Disposition: HALFWAY FACILITY - Home Medications Comprehensive Discharge Medication List: Ambulatory Orders Rosuvastatin [Crestor -] 5 mg PO HS #30 tablet 01/04/18 Acetaminophen [Tylenol .Regular Strength -] 650 mg PO Q4H PRN tablet 03/28/18 Pantoprazole Sodium [Protonix -] 40 mg PO BID #60 tablet.ec 03/28/18 Aspirin 81 mg PO DAILY #0 07/01/18 Carvedilol [Coreg -] 6.25 mg PO BID #30 tablet MDD 2 07/04/18 Levothyroxine [Synthroid -] 50 mcg PO DAILY@0600 #30 tablet MDD 1 07/31/18 Mirtazapine [Remeron -] 15 mg PO HS 10/16/18 Nifedipine ER [Procardia XL -] 30 mg PO HS #30 tab.er.24 10/23/18
[2018-10-24] MEDS: NIFEdipine E.R. 30 MG TABLET (FP) PO SCH ×2 (23:05→23:20)
[2018-10-24] MEDS: ROSUVASTATIN CA 5 MG TABLET (FP) PO SCH ×2 (23:05→23:20)
[2018-10-24] MEDS: MIRTAZAPINE 15 MG TABLET (FP) PO SCH ×2 (23:06→23:20)
[2018-10-25] MEDS: LEVOTHYROXINE NA 50 MCG TABLET (FP) PO SCH ×2 (05:36→06:26)
[2018-10-25] MEDS: THIAMINE HCL 200 MG/2 ML VIAL IVPB SCH ×3 (05:36→22:21)
--- NOTE | 2018-10-25 08:56 | PROC ---
Procedure Note Procedure: AWAITING HOSPICE ACCEPTANCE AT [facility] [place] [facility] AND CHART REVIEWED WILL CONTINUE COMFORT MEASURES
[2018-10-25] MEDS ORDERED: PT OWN MED DRAWER 7, Y5N ONE (10:24)
[2018-10-25] MEDS: PANTOPRAZOLE 40 MG TABLET (FP) PO SCH ×2 (10:34→22:20)
[2018-10-25] MEDS: CARVEDILOL 3.125 MG TABLET (FP) PO SCH ×2 (10:34→22:20)
[2018-10-25] MEDS: ASPIRIN 81 MG CHEWABLE TABLETS PO SCH (10:34)
[2018-10-25] MEDS: D5-1/2NS+20 MEQ KCL - 20 MEQ/1,000 ML INFUS.BAG IV SCH ×2 (18:28)
[2018-10-25] MEDS: MIRTAZAPINE 15 MG TABLET (FP) PO SCH (22:20)
[2018-10-25] MEDS: ROSUVASTATIN CA 5 MG TABLET (FP) PO SCH (22:20)
[2018-10-25] MEDS: NIFEdipine E.R. 30 MG TABLET (FP) PO SCH (22:20)
[2018-10-26] MEDS: THIAMINE HCL 200 MG/2 ML VIAL IVPB SCH (06:16)
[2018-10-26] MEDS: LEVOTHYROXINE NA 50 MCG TABLET (FP) PO SCH (06:16)
[2018-10-26] MEDS: CARVEDILOL 3.125 MG TABLET (FP) PO SCH (09:50)
[2018-10-26] MEDS: CLOPIDOGREL BISULFATE 75 MG TABLET (FP) PO SCH (09:50)
[2018-10-26] MEDS: PANTOPRAZOLE 40 MG TABLET (FP) PO SCH (09:50)
[2018-10-26] MEDS: ASPIRIN 81 MG CHEWABLE TABLETS PO SCH (09:50)
--- NOTE | 2018-10-26 11:21 | PN ---
Progress Note (short form) - Note Progress Note: TRANSFERRING TO [facility] ORDERS WRITTEN PAPERWORK COMPLETED PATIENT RESTING COMFORTABLY Problem List - Problems (1) Altered mental status Code(s): R41.82 - ALTERED MENTAL STATUS, UNSPECIFIED (2) Dementia Code(s): F03.90 - UNSPECIFIED DEMENTIA WITHOUT BEHAVIORAL DISTURBANCE (3) Lethargy Code(s): R53.83 - OTHER FATIGUE (4) Toxic metabolic encephalopathy Code(s): G92 - TOXIC ENCEPHALOPATHY (5) Type 2 diabetes mellitus with hyperosmolarity without nonketotic hyperglycemic-hyperosmolar coma ([facility]) Code(s): E11.00 - TYPE 2 DIAB W HYPROSM W/O NONKET HYPRGLY-HYPROS COMA ([facility]) (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
[2018-10-26 13:07] VITALS: BP 111/61; PULSE 84; TEMP 97.5
== END 2018-10-26 12:44 | DRG 689 ==
LOC: JER 19:48 → JERBED 23:56 → J4W 10-16 21:24 → OBSVTOIN 10-17 13:05 → J8W 10-21 15:18
PROVIDERS: ADMIT Internal Medicine; ATTEND Family Medicine
PROC: 3E1M39Z Irrigation of Peritoneal Cavity using Dialysate, Percutaneous Approach (ICD-10-PCS; principal; 2018-10-20)
DX: N39.0 Urinary tract infection, site not specified (principal); E11.00 Type 2 diabetes mellitus with hyperosmolarity without nonketotic hyperglycemic-hyperosmolar coma (NKHHC); N18.6 End stage renal disease; G93.41 Metabolic encephalopathy; E43 Unspecified severe protein-calorie malnutrition; Z68.1 Body mass index [BMI] 19.9 or less, adult; G11.9 Hereditary ataxia, unspecified; I12.0 Hypertensive chronic kidney disease with stage 5 chronic kidney disease or end stage renal disease; E87.1 Hypo-osmolality and hyponatremia; E87.6 Hypokalemia; R53.83 Other fatigue; E11.22 Type 2 diabetes mellitus with diabetic chronic kidney disease; E03.9 Hypothyroidism, unspecified; D64.9 Anemia, unspecified; G25.81 Restless legs syndrome; R62.7 Adult failure to thrive; E11.42 Type 2 diabetes mellitus with diabetic polyneuropathy; E11.69 Type 2 diabetes mellitus with other specified complication; D72.829 Elevated white blood cell count, unspecified; R63.4 Abnormal weight loss; G30.9 Alzheimer's disease, unspecified; F02.80 Dementia in other diseases classified elsewhere, unspecified severity, without behavioral disturbance, psychotic disturbance, mood disturbance, and anxiety; R53.1 Weakness; B19.20 Unspecified viral hepatitis C without hepatic coma; Z86.73 Personal history of transient ischemic attack (TIA), and cerebral infarction without residual deficits; Z99.2 Dependence on renal dialysis; Z79.4 Long term (current) use of insulin; S30.1XXA Contusion of abdominal wall, initial encounter; Z86.010 Personal history of colon polyps
CPT/HCPCS: 36415; 70450-TC; 71045-TC-FY; 80048; 80053; 81003; 82550; 82728; 82962; 83540; 83550; 84100; 84439; 84443; 84484; 85025; 85027; 85610; 86704; 86706; 86708; 86803; 87040; 87045; 87046; 87086; 87205; 87324; 87340; 87449; 93005; 93010; 93970-TC; 97161-GP; 99283-25; G0378; J0131; J0885; J7030